=== PATIENT | female | born 1980 | race Caucasian/White ===

== ENCOUNTER 2016-07-11 16:28 | Emergency (ER) | payer OTHER, MEDICAID ==
[2016-07-11 17:47] VITALS: BP 172/104
[2016-07-11] MEDS ORDERED: HYDROmorphone INJ* 1 MG/ML CARPUJECT SYRINGE IV ONE (17:47)
[2016-07-11] MEDS ORDERED: NS 0.9% 1000 ML* 1,000 ML IV ONE (17:47)
[2016-07-11] MEDS ORDERED: Ondansetron INJ* 2 MG/ML VIAL IV ONE (17:47)
[2016-07-11 17:56] LABS: Hematocrit 38 % (35-47); Hemoglobin 12.3 g/dl (12.0-16.0); Mean Corpuscular HGB Conc 32 g/dl (31-36); Mean Corpuscular Hemoglobin 27 pg (27-31); Mean Corpuscular Volume 83 fL (80-97); Mean Platelet Volume 9 um3 (7.4-10.4); Red Blood Count 4.64 10^6/ul (4.0-5.4); Red Cell Distribution Width 15 % (10.5-15); White Blood Count 9.4 10^3/ul (3.5-10.8)
[2016-07-11 18:05] LABS: Urine Bilirubin Negative (Negative); Urine Glucose Negative (Negative); Urine Nitrite Negative (Negative)
[2016-07-11 18:07] LABS: ALT 29 U/L (7-52); AST 16 U/L (13-39); Alkaline Phosphatase 34 U/L (34-104); Anion Gap 7 mmol/L (2-11); BUN/Creatinine Ratio 15.2 (8-20); Blood Urea Nitrogen 10 mg/dL (6-24); C Reactive Protein 13.69 mg/L (< 5.00); CO2 Carbon Dioxide 27 mmol/L (22-32); Calcium 9.3 mg/dL (8.6-10.3); Chloride 102 mmol/L (101-111); EGFR African American 130.3 (>60); EGFR Non-African American 101.3 (>60); Glucose 122 mg/dL (70-100); Lipase 16 U/L (11.0-82.0); Potassium 3.8 mmol/L (3.5-5.0); Sodium 136 mmol/L (133-145)
--- NOTE | 2016-07-11 18:47 | RAD ---
HISTORY: Right adnexal pain, history of left oophorectomy COMPARISONS: August 19, 2013 TECHNIQUE: Multiple transverse and longitudinal ultrasound images were obtained of the pelvis using grayscale, color Doppler, and spectral Doppler imaging using the endovaginal transducer. FINDINGS: UTERUS: The uterus measures 11 x 5.1 x 5.8 cm. The uterus is normal in shape, size, contour, and echotexture. Multiple cervical nabothian cysts are noted. ENDOMETRIUM: The endometrial stripe is smooth. The endometrium measures 1.2 cm in thickness. CUL-DE-SAC: There is no free fluid within the cul-de-sac. RIGHT OVARY: The right ovary measures 4.4 x 2.4 x 4.1 cm. Multiple follicles are noted. Normal arterial and venous waveforms are identifiable within the ovary on spectral Doppler imaging. LEFT OVARY: The left ovary is not visualized. BLADDER: The bladder is not well visualized. IMPRESSION: UNREMARKABLE ULTRASOUND OF THE PELVIS. NO SONOGRAPHIC FEATURES OF TORSION. PLEASE NOTE THAT PARTIAL OR INTERMITTENT TORSION MAY BE SONOGRAPHICALLY NORMAL.
--- NOTE | 2016-07-11 23:23 | ED ---
Sukhdeep Rios Anna, scribed for Gary Gibbs MD on 07/11/16 at 1749 . Abdominal Pain/Female - HPI Summary HPI Summary: Patient is a 36 y/o female coming to [facility] presenting with right suprapubic abdominal pain that began a few days ago. The initial pain was at baseline for at her this point in her menstrual cycle, but it worsened 2 hours ago. Per triage notes, the patient describes the severity of their symptoms as 10/10. The pain radiates to the right suprapubic region. She has not tried medication yet. She additionally reports nausea secondary to the pain. She is currently on Keflex. Her history is significant for left salpingo oophorectomy and cholecystectomy. - History of Current Complaint Chief Complaint: EDAbdPain Stated Complaint: ABD PAIN Time Seen by Provider: 07/11/16 16:49 Hx Obtained From: Patient Hx Last Menstrual Period: 06/27/16 Pain Intensity: 10 Pain Scale Used: 0-10 Numeric Allergies/Adverse Reactions: Allergies Allergy/AdvReac Type Severity Reaction Status Date / Time Penicillins Allergy Severe Hives Verified 07/11/16 16:40 Potassium Allergy Severe Difficulty Verified 07/11/16 16:40 Breathing Prednisone Allergy Severe CHEST Verified 07/11/16 16:40 PAIN, HEART RACING Clindamycin Allergy Mild Rash Verified 07/11/16 16:40 Metoprolol Allergy Mild Rash Verified 07/11/16 16:40 Sulfa Drugs Allergy Unknown UNK Verified 07/11/16 16:40 Quetiapine [From Seroquel] Allergy Unknown Verified 07/11/16 16:40 Reaction Details SHRIMP Allergy Severe Swelling Uncoded 07/11/16 16:40 PMH/Surg Hx/FS Hx/Imm Hx Endocrine/Hematology History: Denies: Hx Diabetes, Hx Sickle Cell Disease, Hx Thyroid Disease Cardiovascular History: Reports: Hx Hypertension - ON MEDS Denies: Hx Hypercholesterolemia, Hx Pacemaker/ICD, Hx Peripheral Vascular Disease Respiratory History: Reports: Hx Asthma, Hx Seasonal Allergies Denies: Hx Chronic Obstructive Pulmonary Disease (COPD) GI History: Reports: Hx Gastroesophageal Reflux Disease - TUMS Denies: Hx Ulcer, Other GI Disorders History: Reports: Hx Kidney Stones - 2010, Other Problems/Disorders - pcos Denies: Hx Renal Disease Musculoskeletal History: Reports: Hx Tendonitis - IN LEFT ANKLE, Other Musculoskeletal History - neck problems - herniated cervical disc Denies: Hx Arthritis, Hx Osteoporosis Sensory History: Denies: Hx Contacts or Glasses, Hx Hearing Aid Opthamlomology History: Denies: Hx Contacts or Glasses Neurological History: Reports: Other Neuro Impairments/Disorders - PAIN CLINIC PT Denies: Hx Headaches, Hx Seizures, Hx Transient Ischemic Attacks (TIA) Psychiatric History: Denies: Hx Anxiety, Hx Depression, Hx Panic Disorder - Surgical History Surgery Procedure, Year, and Place: tubes in ears as child. LEFT ovary removed ; TUBAL LIGATION, HX OF 2 C-SECTIONS. appendix 2002. gallbladder 2002. EUA L knee. R thumb - pin for torn ligaments. tonsillectomy. R wrist 2010 Hx Anesthesia Reactions: No Infectious Disease History: No Infectious Disease History: Denies: Hx Clostridium Difficile, Hx Hepatitis, Hx Human Immunodeficiency Virus (HIV), Hx of Known/Suspected MRSA, Hx Shingles, Hx Tuberculosis, Hx Known/ Suspected VRE, Hx Known/Suspected VRSA, History Other Infectious Disease, Traveled Outside the [place] in Last 30 Days - Family History Known Family History: Negative: Cardiac Disease, Diabetes - Social History Lives: With Family Alcohol Use: None Hx Substance Use: No Substance Use Type: Reports: None Hx Tobacco Use: No Smoking Status (MU): Never Smoked Tobacco Have You Smoked in the Last Year: No Review of Systems Positive: Abdominal Pain, Nausea Positive: no symptoms reported All Other Systems Reviewed And Are Negative: Yes Physical Exam Triage Information Reviewed: Yes Vital Signs On Initial Exam: Initial Vitals Temp Pulse Resp BP Pulse Ox 98.3 F 110 18 176/121 100 07/11/16 16:37 07/11/16 16:37 07/11/16 16:37 07/11/16 16:37 07/11/16 16:37 Vital Signs Reviewed: Yes Appearance: Positive: Well-Appearing, No Pain Distress Skin: Positive: Warm, Skin Color Reflects Adequate Perfusion, Dry Head/Face: Positive: Normal Head/Face Inspection Eyes: Positive: Normal ENT: Positive: Normal ENT inspection Neck: Positive: Supple, Nontender Respiratory/Lung Sounds: Positive: Clear to Auscultation, Breath Sounds Present Cardiovascular: Positive: RRR Abdomen Description: Positive: Other: - RLQ tenderness Bowel Sounds: Positive: Present Musculoskeletal: Positive: Normal Neurological: Positive: Normal Psychiatric: Positive: Affect/Mood Appropriate Diagnostics - Vital Signs Vital Signs Temp Pulse Resp BP Pulse Ox 07/11/16 16:37 98.3 F 110 18 176/121 100 - Laboratory Lab Results: Lab Results 07/11/16 07/11/16 07/11/16 Range/Units 17:35 17:35 17:35 WBC 9.4 (3.5-10.8) 10^3/ul RBC 4.64 (4.0-5.4) 10^6/ul Hgb 12.3 (12.0-16.0) g/dl Hct 38 (35-47) % MCV 83 (80-97) fL MCH 27 (27-31) pg MCHC 32 (31-36) g/dl RDW 15 (10.5-15) % Plt Count 293 (150-450) 10^3/ul MPV 9 (7.4-10.4) um3 Neut % (Auto) 71.7 (38-83) % Lymph % (Auto) 19.8 L (25-47) % [place] % (Auto) 6.7 (1-9) % Eos % (Auto) 0.6 (0-6) % Baso % (Auto) 1.2 (0-2) % Absolute Neuts (auto) 6.7 (1.5-7.7) 10^3/ul Absolute Lymphs (auto) 1.9 (1.0-4.8) 10^3/ul Absolute Monos (auto) 0.6 (0-0.8) 10^3/ul Absolute Eos (auto) 0.1 (0-0.6) 10^3/ul Absolute Basos (auto) 0.1 (0-0.2) 10^3/ul Absolute Nucleated RBC 0 10^3/ul Nucleated RBC % 0 Sodium 136 (133-145) mmol/L Potassium 3.8 (3.5-5.0) mmol/L Chloride 102 (101-111) mmol/L Carbon Dioxide 27 (22-32) mmol/L Anion Gap 7 (2-11) mmol/L BUN 10 (6-24) mg/dL Creatinine 0.66 (0.51-0.95) mg/dL Est GFR ( Amer) 130.3 (>60) Est GFR (Non-Af Amer) 101.3 (>60) BUN/Creatinine Ratio 15.2 (8-20) Glucose 122 H (70-100) mg/dL Lactic Acid 1.2 (0.5-2.0) mmol/L Calcium 9.3 (8.6-10.3) mg/dL Total Bilirubin 0.30 (0.2-1.0) mg/dL AST 16 (13-39) U/L ALT 29 (7-52) U/L Alkaline Phosphatase 34 (34-104) U/L C-Reactive Protein 13.69 H (< 5.00) mg/L Total Protein 7.0 (6.4-8.9) g/dL Albumin 4.0 (3.2-5.2) g/dL Globulin 3.0 (2-4) g/dL Albumin/Globulin Ratio 1.3 (1-3) Lipase 16 (11.0-82.0) U/L Beta HCG, Quant < 0.60 mIU/mL Urine Color Urine Appearance Urine pH (5-9) Ur Specific [place] (1.010-1.030) Urine Protein (Negative) Urine Ketones (Negative) Urine Blood (Negative) Urine Nitrate (Negative) Urine Bilirubin (Negative) Urine Urobilinogen (Negative) Ur Leukocyte Esterase (Negative) Urine Glucose (Negative) 07/11/16 Range/Units 17:50 WBC (3.5-10.8) 10^3/ul RBC (4.0-5.4) 10^6/ul Hgb (12.0-16.0) g/dl Hct (35-47) % MCV (80-97) fL MCH (27-31) pg MCHC (31-36) g/dl RDW (10.5-15) % Plt Count (150-450) 10^3/ul MPV (7.4-10.4) um3 Neut % (Auto) (38-83) % Lymph % (Auto) (25-47) % [place] % (Auto) (1-9) % Eos % (Auto) (0-6) % Baso % (Auto) (0-2) % Absolute Neuts (auto) (1.5-7.7) 10^3/ul Absolute Lymphs (auto) (1.0-4.8) 10^3/ul Absolute Monos (auto) (0-0.8) 10^3/ul Absolute Eos (auto) (0-0.6) 10^3/ul Absolute Basos (auto) (0-0.2) 10^3/ul Absolute Nucleated RBC 10^3/ul Nucleated RBC % Sodium (133-145) mmol/L Potassium (3.5-5.0) mmol/L Chloride (101-111) mmol/L Carbon Dioxide (22-32) mmol/L Anion Gap (2-11) mmol/L BUN (6-24) mg/dL Creatinine (0.51-0.95) mg/dL Est GFR ( Amer) (>60) Est GFR (Non-Af Amer) (>60) BUN/Creatinine Ratio (8-20) Glucose (70-100) mg/dL Lactic Acid (0.5-2.0) mmol/L Calcium (8.6-10.3) mg/dL Total Bilirubin (0.2-1.0) mg/dL AST (13-39) U/L ALT (7-52) U/L Alkaline Phosphatase (34-104) U/L C-Reactive Protein (< 5.00) mg/L Total Protein (6.4-8.9) g/dL Albumin (3.2-5.2) g/dL Globulin (2-4) g/dL Albumin/Globulin Ratio (1-3) Lipase (11.0-82.0) U/L Beta HCG, Quant mIU/mL Urine Color Yellow Urine Appearance Clear Urine pH 6.0 (5-9) Ur Specific [place] 1.018 (1.010-1.030) Urine Protein Negative (Negative) Urine Ketones Negative (Negative) Urine Blood Negative (Negative) Urine Nitrate Negative (Negative) Urine Bilirubin Negative (Negative) Urine Urobilinogen Negative (Negative) Ur Leukocyte Esterase Negative (Negative) Urine Glucose Negative (Negative) Result Diagrams: 07/11/16 17:35 07/11/16 17:35 Lab Statement: Any lab studies that have been ordered have been reviewed, and results considered in the medical decision making process. - Ultrasound No standard instances Ultrasound Interpretation: No Acute Changes Ultrasound Interpretation Completed By: Radiologist - IMPRESSION: UNREMARKABLE ULTRASOUND OF THE PELVIS. NO SONOGRAPHIC FEATURES OF TORSION. PLEASE NOTE THAT PARTIAL OR INTERMITTENT TORSION MAY BE SONOGRAPHICALLY NORMAL. Abdominal Pain Fem Course/Dx - Course Course Of Treatment: Patient is a 36 y/o female coming to [facility] presenting with right suprapubic abdominal pain that began a few days ago. The initial pain was at baseline for at her this point in her menstrual cycle, but it worsened 2 hours ago. Per triage notes, the patient describes the severity of their symptoms as 10/10. The pain radiates to the right suprapubic region. She has not tried medication yet. She is currently on Keflex. Her history is significant for left salpingo oophorectomy and cholecystectomy. Labs reveal a C- reactive protein of 13.69. UA was WNL. US was unremarkable. Pt will be discharged home with follow up from doctor. We discussed CT scan but she wants to wait. - Diagnoses Provider Diagnoses: Abdominal pain Discharge - Discharge Plan Condition: Stable Disposition: HOME Patient Education Materials: Acute Abdominal Pain (ED), Abdominal Pain (ED) Referrals: Merlene Amin MD [Primary Care Provider] - Additional Instructions: Follow up with primary care physician within 48 hours. Return to the emergency department for changing or worsening symptoms. The documentation as recorded by the Sukhdeep mejia Anna accurately reflects the service I personally performed and the decisions made by me, Gary Gibbs MD.
== END 2016-07-11 19:15 | disposition home or self-care (01) ==
LOC: ED 16:28
DX: R10.31 Right lower quadrant pain (principal); R11.0 Nausea
CPT/HCPCS: 36415; 76830; 80053; 81003; 83605; 83690; 84702; 85025; 86140; 96374; 96375; 99283; J1170; J2405

== ENCOUNTER 2016-07-23 10:38 | Emergency (ER) | payer OTHER, MEDICAID ==
[2016-07-23] MEDS ORDERED: Ibuprofen TAB* 600 MG PO ONE (11:33)
--- NOTE | 2016-07-23 11:59 | UC ---
Ear Complaint HPI - HPI Summary HPI Summary: Bilat ear pain, occasional stuffiness, constant feeling of draining worse for the last 3 days or so. Has had nasal congestion, ST, and PND for about a week. Hx of recurrent AOM as child and adult, PE tubes x 2. Denies fever or trouble breathing (is using albuterol more frequently when sick). - History of Current Complaint Chief Complaint: UCEar Stated Complaint: SEVERE EAR PAIN Time Seen by Provider: 07/23/16 11:31 Hx Obtained From: Patient Hx Last Menstrual Period: 06/29/16 ?: No Onset/Duration: Gradual Onset, Lasting Days Severity Initially: Mild Severity Currently: Moderate Aggravating Factors: Nothing Alleviating Factors: Nothing Associated Signs/Symptoms: Positive: Hearing Loss, URI Symptoms - Allergies/Home Medications Allergies/Adverse Reactions: Allergies Allergy/AdvReac Type Severity Reaction Status Date / Time Penicillins Allergy Severe Hives Verified 07/11/16 16:40 Potassium Allergy Severe Difficulty Verified 07/11/16 16:40 Breathing Prednisone Allergy Severe CHEST Verified 07/11/16 16:40 PAIN, HEART RACING Clindamycin Allergy Mild Rash Verified 07/11/16 16:40 Metoprolol Allergy Mild Rash Verified 07/11/16 16:40 Sulfa Drugs Allergy Unknown UNK Verified 07/11/16 16:40 Quetiapine [From Seroquel] Allergy Unknown Verified 07/11/16 16:40 Reaction Details SHRIMP Allergy Severe Swelling Uncoded 07/11/16 16:40 Home Medications: Home Medications Loratadine [Claritin] 1 tab PO DAILY 07/23/16 [History Confirmed 07/23/16] Losartan TAB* [Cozaar TAB*] 50 mg PO 07/23/16 [History] PMH/Surg Hx/FS Hx/Imm Hx Endocrine History Of: Denies: Diabetes, Thyroid Disease, Hyperthyroidism, Hypothyroidism Cardiovascular History Of: Reports: Hypertension Denies: Cardiac Disorders, Pacemaker/ICD Respiratory History Of: Reports: Asthma Denies: COPD GI/ History Of: Reports: Gastroesophageal Reflux, Kidney Stones - 2009 Denies: Ulcer, Renal Disease Neurological History Of: Denies: TIA, Seizures Psychological History Of: Denies: Anxiety, Depression Cancer History Of: Denies: Breast Cancer - Surgical History Surgical History: Yes Surgery Procedure, Year, and Place: tubes in ears as child. LEFT ovary removed ; TUBAL LIGATION, HX OF 2 C-SECTIONS. appendix 2003. gallbladder 2002. EUA L knee. R thumb - pin for torn ligaments. tonsillectomy. R wrist 2010 - Family History Known Family History: Positive: None, Unknown Negative: Cardiac Disease, Diabetes - Social History Alcohol Use: None Substance Use Type: None Smoking Status (MU): Never Smoked Tobacco Have You Smoked in the Last Year: No Household Exposure Type: Cigarettes Review of Systems Constitutional: Negative Skin: Negative Eyes: Negative ENT: Ear Ache, Nasal Discharge Respiratory: Negative Cardiovascular: Negative Gastrointestinal: Negative Genitourinary: Negative Motor: Negative Neurovascular: Negative Musculoskeletal: Negative Neurological: Negative Psychological: Negative All Other Systems Reviewed And Are Negative: Yes Physical Exam Triage Information Reviewed: Yes Appearance: Well-Appearing, No Pain Distress, Obese Vital Signs: Initial Vital Signs Temp 98.2 F 07/23/16 11:18 Pulse 91 07/23/16 11:18 Resp 18 07/23/16 11:18 BP 151/100 07/23/16 11:18 Pulse Ox 98 07/23/16 11:18 Vital Signs Reviewed: Yes Eye Exam: Normal Eyes: Positive: Conjunctiva Clear ENT: Positive: Nasal congestion, TMs normal, Other: - fluid noted behind both ear drums. Negative: TM bulging, TM dull, TM red Dental Exam: Normal Neck exam: Normal Neck: Positive: Supple, Nontender, No Lymphadenopathy Respiratory Exam: Normal Respiratory: Positive: Chest non-tender, Lungs clear, Normal breath sounds, No respiratory distress, No accessory muscle use Cardiovascular Exam: Normal Cardiovascular: Positive: RRR, No Murmur Musculoskeletal Exam: Normal Neurological Exam: Normal Psychological Exam: Normal Skin Exam: Normal Ear Complaint Course/Dx - Differential Dx/Diagnosis Provider Diagnoses: URI, likely viral. serous otitis media bilat Discharge - Discharge Plan Condition: Stable Disposition: HOME Patient Education Materials: Cold Symptoms (ED), Serous Otitis Media (ED) Referrals: Merlene Amin MD [Primary Care Provider] - If Needed Additional Instructions: Use steam and nasal saline to help with your congestion. If you have fever, sudden increase in pain (in ears or face), or drainage from the ears, call or return right away.
[2016-07-23 12:00] VITALS: BP 154/96
== END 2016-07-23 12:05 | disposition home or self-care (01) ==
LOC: UCEAST 10:38
DX: J06.9 Acute upper respiratory infection, unspecified (principal); H65.93 Unspecified nonsuppurative otitis media, bilateral; Z88.1 Allergy status to other antibiotic agents; Z88.0 Allergy status to penicillin; Z88.2 Allergy status to sulfonamides; Z88.8 Allergy status to other drugs, medicaments and biological substances; I10 Essential (primary) hypertension; Z90.49 Acquired absence of other specified parts of digestive tract; Z77.22 Contact with and (suspected) exposure to environmental tobacco smoke (acute) (chronic); R03.0 Elevated blood-pressure reading, without diagnosis of hypertension
CPT/HCPCS: 99212; A9270-GY; G0463

== ENCOUNTER 2016-08-14 10:28 | Emergency (ER) | payer OTHER, MEDICAID ==
--- NOTE | 2016-08-14 10:44 | ED ---
Lower Extremity - HPI Summary HPI Summary: 36F presents s/p fall with tailbone and back pain and left knee pain. She states that she previously tore her meniscus. She has not taken anything for her pain. She was able to ambulate well to the room. She denies any previous back injury. She denies any saddle anaesthesia or loss of bowel or bladder. - History of Current Complaint Chief Complaint: EDExtremityLower Stated Complaint: FALL , LEFT HIP AND BACK AND LEFT KNEE PAIN Time Seen by Provider: 08/14/16 10:39 Hx Last Menstrual Period: 06/29/16 Pain Intensity: 10 - Allergies/Home Medications Allergies/Adverse Reactions: Allergies Allergy/AdvReac Type Severity Reaction Status Date / Time Penicillins Allergy Severe Hives Verified 08/14/16 10:31 Potassium Allergy Severe Difficulty Verified 08/14/16 10:31 Breathing Prednisone Allergy Severe CHEST Verified 08/14/16 10:31 PAIN, HEART RACING Clindamycin Allergy Mild Rash Verified 08/14/16 10:31 Metoprolol Allergy Mild Rash Verified 08/14/16 10:31 Sulfa Drugs Allergy Unknown UNK Verified 08/14/16 10:31 Quetiapine [From Seroquel] Allergy Unknown Verified 08/14/16 10:31 Reaction Details SHRIMP Allergy Severe Swelling Uncoded 08/14/16 10:31 PMH/Surg Hx/FS Hx/Imm Hx Endocrine/Hematology History: Denies: Hx Diabetes, Hx Sickle Cell Disease, Hx Thyroid Disease Cardiovascular History: Reports: Hx Hypertension Denies: Hx Hypercholesterolemia, Hx Pacemaker/ICD, Hx Peripheral Vascular Disease Respiratory History: Reports: Hx Asthma, Hx Seasonal Allergies Denies: Hx Chronic Obstructive Pulmonary Disease (COPD) GI History: Reports: Hx Gastroesophageal Reflux Disease - TUMS Denies: Hx Ulcer, Other GI Disorders History: Reports: Hx Kidney Stones - 2010, Other Problems/Disorders - pcos Denies: Hx Renal Disease Musculoskeletal History: Reports: Hx Tendonitis - IN LEFT ANKLE, Other Musculoskeletal History - neck problems - herniated cervical disc Denies: Hx Arthritis, Hx Osteoporosis Sensory History: Denies: Hx Contacts or Glasses, Hx Hearing Aid Opthamlomology History: Denies: Hx Contacts or Glasses Neurological History: Reports: Other Neuro Impairments/Disorders - PAIN CLINIC PT Denies: Hx Headaches, Hx Seizures, Hx Transient Ischemic Attacks (TIA) Psychiatric History: Denies: Hx Anxiety, Hx Depression, Hx Panic Disorder - Surgical History Surgery Procedure, Year, and Place: tubes in ears as child. LEFT ovary removed ; TUBAL LIGATION, HX OF 2 C-SECTIONS. appendix 2002. gallbladder 2002. EUA L knee. R thumb - pin for torn ligaments. tonsillectomy. R wrist 2010 Hx Anesthesia Reactions: No Infectious Disease History: No Infectious Disease History: Denies: Hx Clostridium Difficile, Hx Hepatitis, Hx Human Immunodeficiency Virus (HIV), Hx of Known/Suspected MRSA, Hx Shingles, Hx Tuberculosis, Hx Known/ Suspected VRE, Hx Known/Suspected VRSA, History Other Infectious Disease, Traveled Outside the [place] in Last 30 Days - Family History Known Family History: Positive: None, Unknown Negative: Cardiac Disease, Diabetes - Social History Alcohol Use: None Hx Substance Use: No Substance Use Type: Reports: None Hx Tobacco Use: No Smoking Status (MU): Never Smoked Tobacco Have You Smoked in the Last Year: No Review of Systems Negative: Fever Negative: Chest Pain Negative: Shortness Of Breath Positive: Myalgia - back pain, left knee pain All Other Systems Reviewed And Are Negative: Yes Physical Exam Triage Information Reviewed: Yes Vital Signs On Initial Exam: Initial Vitals Temp Pulse Resp BP Pulse Ox 97.8 F 91 18 173/101 100 08/14/16 10:32 08/14/16 10:32 08/14/16 10:32 08/14/16 10:32 08/14/16 10:32 Vital Signs Reviewed: Yes Appearance: Positive: Well-Appearing Skin: Positive: Warm, Dry Head/Face: Positive: Normal Head/Face Inspection, TMJ Tenderness Respiratory/Lung Sounds: Positive: Clear to Auscultation, Breath Sounds Present Cardiovascular: Positive: Normal, RRR Musculoskeletal: Positive: Strength/ROM Intact - tenderness over right knee, Other - ecchymosis noted of left knee, tenderness over tailbone and lower lumbar region, good pulses, neg SLR, negative anteroir drawer. Negative: Edema Left Diagnostics - Vital Signs Vital Signs Temp Pulse Resp BP Pulse Ox 08/14/16 10:32 97.8 F 91 18 173/101 100 - Laboratory Lab Statement: Any lab studies that have been ordered have been reviewed, and results considered in the medical decision making process. - Radiology knee Xray Interpretation: No Acute Changes Radiology Interpretation Completed By: Radiologist back Xray Interpretation: No Acute Changes Radiology Interpretation Completed By: Radiologist sacrum Xray Interpretation: No Acute Changes - IMPRESSION: NO ACUTE OSSEOUS INJURY OF THE SACRUM AND COCCYX. PLAIN FILMS ARE RELATIVELY INSENSITIVE TO NONDISPLACED FRACTURES OF THE SACRUM AND COCCYX. IF THERE IS PERSISTENT CLINICAL CONCERN FOR SACROCOCCYGEAL OSSEOUS PATHOLOGY, BONE SCANNING MAY BE MORE SENSITIVE Radiology Interpretation Completed By: Radiologist Lower Extremity Course/Dx - Course Course Of Treatment: 36F presents with left knee pain, tailbone and back pain s/ p fall today on the ice. She previously tore her meniscus on her left knee. On exam tender over left knee and ecchymosis noted. xray normal knee, back, and tailbone. told to use doughnut pillow for tailbone, will treat conservatively patient understands and agrees with plan - Diagnoses Differential Diagnosis/HQI/PQRI: Positive: Contusion, Fracture (Closed), Sprain , Strain Provider Diagnoses: Left knee pain, Lower back pain Discharge - Discharge Plan Condition: Good Disposition: HOME Patient Education Materials: Back Pain (ED), Knee Pain (ED) Referrals: Merlene Amin MD [Primary Care Provider] - Additional Instructions: Take Tylenol or ibuprofen every 6 hours as needed for pain Apply ice, rest, elevate Use doughnut pillow Increase fiber intake Follow up with primary care physician within 5 days Return to ED if develop numbness, tingling, inability to move joint, or any new or worsening symptoms
--- NOTE | 2016-08-14 11:18 | RAD ---
INDICATION: Left knee injury. TECHNIQUE: 4 views of the left knee were obtained. FINDINGS: There is mild lateral subluxation of the patella. The bones are otherwise in normal alignment. No fracture or joint effusion is seen. There is mild osteoarthritic change in the patellofemoral compartment. IMPRESSION: NO EVIDENCE FOR FRACTURE.
--- NOTE | 2016-08-14 11:21 | RAD ---
HISTORY: Fall, tailbone pain COMPARISONS: None VIEWS: 4, frontal, lateral, and outlet views of the sacrum and coccyx FINDINGS: BONE DENSITY: Normal. BONES: There is no displaced fracture. The sacral arches are intact JOINTS: There is no arthropathy. ALIGNMENT: There is no dislocation. SOFT TISSUES: Unremarkable. OTHER FINDINGS: Mild degenerative changes are noted of the lower lumbar spine. IMPRESSION: NO ACUTE OSSEOUS INJURY OF THE SACRUM AND COCCYX. PLAIN FILMS ARE RELATIVELY INSENSITIVE TO NONDISPLACED FRACTURES OF THE SACRUM AND COCCYX. IF THERE IS PERSISTENT CLINICAL CONCERN FOR SACROCOCCYGEAL OSSEOUS PATHOLOGY, BONE SCANNING MAY BE MORE SENSITIVE
--- NOTE | 2016-08-14 11:25 | RAD ---
Indication: Fall, back pain. 5 views of lumbar spine demonstrate vertebral bodies to be normal in height. Disc spaces are well-preserved. Pedicles appear intact. IMPRESSION: NO FRACTURE OF THE LUMBAR SPINE.
[2016-08-14 11:49] VITALS: BP 144/103
== END 2016-08-14 11:47 | disposition home or self-care (01) ==
LOC: ED 10:28
DX: M25.562 Pain in left knee (principal); M54.5 Low back pain
CPT/HCPCS: 72110; 72220; 99282

== ENCOUNTER 2016-09-11 21:37 | Emergency (ER) | payer OTHER, MEDICAID ==
[2016-09-12 00:03] VITALS: BP 154/92
--- NOTE | 2016-09-12 01:50 | ED ---
Back Pain - HPI Summary HPI Summary: Pt presents to ED with CC of diffuse buttocks pain and right hip pain. Pt states that she gets this " with her cycle", but reports that the pain is markedly worse than usual. Pt denies chronic back pain. She denies flank pain. Today is the first day of her cycle and states this is always when pain is at its worse. She has a history of dysmenorrhea and the pain always is in the same location and feels the same, although this time she states it is worse. She took 3 ibuprofen's without relief of pain. Denies urinary sxs, N/V/C/D, hematuria, vaginal discharge or abdominal pain. Denies fevers, chills, sweats or CUTLER. Patient has high BP and GERD. - History of Current Complaint Chief Complaint: EDGeneral Stated Complaint: LOWER HIP/BACK PAIN Time Seen by Provider: 09/12/16 01:09 Hx Obtained From: Patient Hx Last Menstrual Period: 06/29/16 Onset/Duration: Sudden Onset Onset/Duration: Started Hours Ago Timing: Constant Back Pain Location: Is Discrete @ - buttocks Severity Initially: Moderate Severity Currently: Moderate Pain Intensity: 10 Pain Scale Used: 0-10 Numeric Character: Throbbing Aggravating Symptom(s): Movement Alleviating Symptom(s): Rest, Position, Heat Associated Signs And Symptoms: Positive: Negative Related History: Similar Episode Dx As - previous dysmenorrhea sxs - Risk Factors AAA Risk Factors: Negative TAD Risk Factors: Negative Cauda Equina Risk Factors: Negative Epidural Abscess Risk Factors: Negative - Allergies/Home Medications Allergies/Adverse Reactions: Allergies Allergy/AdvReac Type Severity Reaction Status Date / Time Penicillins Allergy Severe Hives Verified 09/11/16 21:53 Potassium Allergy Severe Difficulty Verified 09/11/16 21:53 Breathing Prednisone Allergy Severe CHEST Verified 09/11/16 21:53 PAIN, HEART RACING Clindamycin Allergy Mild Rash Verified 09/11/16 21:53 Metoprolol Allergy Mild Rash Verified 09/11/16 21:53 Sulfa Drugs Allergy Unknown UNK Verified 09/11/16 21:53 Quetiapine [From Seroquel] Allergy Unknown Verified 09/11/16 21:53 Reaction Details SHRIMP Allergy Severe Swelling Uncoded 09/11/16 21:53 PMH/Surg Hx/FS Hx/Imm Hx Previously Healthy: Yes Endocrine/Hematology History: Denies: Hx Diabetes, Hx Sickle Cell Disease, Hx Thyroid Disease Cardiovascular History: Reports: Hx Hypertension Denies: Hx Hypercholesterolemia, Hx Pacemaker/ICD, Hx Peripheral Vascular Disease Respiratory History: Reports: Hx Asthma, Hx Seasonal Allergies Denies: Hx Chronic Obstructive Pulmonary Disease (COPD) GI History: Reports: Hx Gastroesophageal Reflux Disease - TUMS Denies: Hx Ulcer, Other GI Disorders History: Reports: Hx Kidney Stones - 2010, Other Problems/Disorders - pcos Denies: Hx Renal Disease Musculoskeletal History: Reports: Hx Tendonitis - IN LEFT ANKLE, Other Musculoskeletal History - neck problems - herniated cervical disc Denies: Hx Arthritis, Hx Osteoporosis Sensory History: Denies: Hx Contacts or Glasses, Hx Hearing Aid Opthamlomology History: Denies: Hx Contacts or Glasses Neurological History: Reports: Other Neuro Impairments/Disorders - PAIN CLINIC PT Denies: Hx Headaches, Hx Seizures, Hx Transient Ischemic Attacks (TIA) Psychiatric History: Denies: Hx Anxiety, Hx Depression, Hx Panic Disorder - Cancer History Hx Hematologic Symptoms: No Hx Chemotherapy: No Hx Radiation Therapy: No Hx Palliative Cancer Treatment: No - Surgical History Surgery Procedure, Year, and Place: tubes in ears as child. LEFT ovary removed ; TUBAL LIGATION, HX OF 2 C-SECTIONS. appendix 2002. gallbladder 2002. EUA L knee. R thumb - pin for torn ligaments. tonsillectomy. R wrist 2010 Hx Anesthesia Reactions: No - Immunization History Date of Tetanus Vaccine: utd Date of Influenza Vaccine: utd Hx Pertussis Vaccination: No Immunizations Up to Date: No Infectious Disease History: No Infectious Disease History: Denies: Hx Clostridium Difficile, Hx Hepatitis, Hx Human Immunodeficiency Virus (HIV), Hx of Known/Suspected MRSA, Hx Shingles, Hx Tuberculosis, Hx Known/ Suspected VRE, Hx Known/Suspected VRSA, History Other Infectious Disease, Traveled Outside the [place] in Last 30 Days - Family History Known Family History: Positive: None, Unknown Negative: Cardiac Disease, Diabetes - Social History Occupation: Unemployed Lives: With Family Alcohol Use: None Hx Substance Use: No Substance Use Type: Reports: None Hx Tobacco Use: No Smoking Status (MU): Never Smoked Tobacco Have You Smoked in the Last Year: No Review of Systems Constitutional: Negative Eyes: Negative Cardiovascular: Negative Respiratory: Negative Positive: Myalgia - buttocks pain bilaterally Skin: Negative Neurological: Negative Psychological: Normal All Other Systems Reviewed And Are Negative: Yes Physical Exam Triage Information Reviewed: Yes Vital Signs On Initial Exam: Initial Vitals Temp Pulse Resp BP Pulse Ox 98.0 F 88 16 186/121 100 09/11/16 21:45 09/11/16 21:45 09/11/16 21:45 09/11/16 21:45 09/11/16 21:45 Vital Signs Reviewed: Yes Appearance: Positive: Well-Appearing, No Pain Distress, Well-Nourished Skin: Positive: Warm, Skin Color Reflects Adequate Perfusion Head/Face: Positive: Normal Head/Face Inspection Eyes: Positive: EOMI, JEROD, Conjunctiva Clear Neck: Positive: Supple, No Lymphadenopathy Respiratory/Lung Sounds: Positive: Clear to Auscultation, Breath Sounds Present Cardiovascular: Positive: Normal, RRR Abdomen Description: Positive: Nontender, Soft Musculoskeletal: Positive: Normal, Strength/ROM Intact Neurological: Positive: Sensory/Motor Intact, CN Intact II-III, Speech Normal Psychiatric: Positive: Normal AVPU Assessment: Alert - Natalie Coma Scale Best Eye Response: 4 - Spontaneous Best Motor Response: 6 - Obeys Commands Best Verbal Response: 5 - Oriented Coma Scale Total: 15 Diagnostics - Vital Signs Vital Signs Temp Pulse Resp BP Pulse Ox 09/11/16 23:50 97.6 F 75 16 154/92 99 09/11/16 21:45 98.0 F 88 16 186/121 100 - Laboratory Lab Statement: Any lab studies that have been ordered have been reviewed, and results considered in the medical decision making process. Back Pain Course/Dx - Course Course Of Treatment: Patient has bilateral buttocks pain she states is referred from her menstrual cycle. She notes to some cramping in the abdomen, but always has the same pain that radiates to the buttocks. This time, she notes pain at 10/10. Everett 10mg given in ED. Everett 5mg q4 given as prescription. Patient encouraged to use heating pads, ibuprofen and follow up with OBGYN. - Diagnoses Differential Diagnosis/HQI/PQRI: Positive: Strain, Sprain, Other - dysmenorrhea Provider Diagnoses: Dysmenorrhea Discharge - Discharge Plan Condition: Stable Disposition: HOME Prescriptions: HYDROcodone/ACETAMIN 5-325 MG* [Everett 5-325 TAB*] 1 tab PO Q4H PRN #10 tab MDD 6 PRN Reason: Pain Patient Education Materials: Dysmenorrhea (ED) Referrals: Merlene Amin MD [Primary Care Provider] - Additional Instructions: Dx: Dysmenorrhea Cramping and muscle aches are best controlled with Ibuprofen 600mg three times daily as well as moist heating pads to the area. If pain is not controlled with Ibuprofen, take Everett as needed for pain. Follow up with OBGYN. Rest, but do not sit on the area as this will delay improvement.
[2016-09-12] MEDS ORDERED: HYDROcodone/ACETAMIN 5-325 MG* 1 TAB PO ONE (01:51)
== END 2016-09-12 03:12 | disposition home or self-care (01) ==
LOC: ED 21:37
DX: N94.6 Dysmenorrhea, unspecified (principal); M54.9 Dorsalgia, unspecified
CPT/HCPCS: 99281

== ENCOUNTER 2016-10-14 11:26 | Emergency (ER) | payer OTHER, MEDICAID ==
[2016-10-14 14:43] VITALS: BP 150/98
--- NOTE | 2016-10-14 15:13 | UC ---
Complaint Female HPI - HPI Summary HPI Summary: Urinary pain burning and frequency for 3 days no fever chills back pain or night sweats - History Of Current Complaint Chief Complaint: UCGU Stated Complaint: URINARY ISSUE Time Seen by Provider: 10/14/16 15:06 Hx Obtained From: Patient Hx Last Menstrual Period: 10/05/16 ?: No Onset/Duration: Sudden Onset, Lasting Days - 3, Still Present Timing: Constant Severity Initially: Moderate Severity Currently: Moderate Pain Intensity: 4 Pain Scale Used: 0-10 Numeric Character: Burning Aggravating Factor(s): Urination Associated Signs And Symptoms: Positive: Negative - Allergies/Home Medications Allergies/Adverse Reactions: Allergies Allergy/AdvReac Type Severity Reaction Status Date / Time Penicillins Allergy Severe Hives Verified 09/11/16 21:53 Potassium Allergy Severe Difficulty Verified 09/11/16 21:53 Breathing Prednisone Allergy Severe CHEST Verified 09/11/16 21:53 PAIN, HEART RACING Clindamycin Allergy Mild Rash Verified 09/11/16 21:53 Metoprolol Allergy Mild Rash Verified 09/11/16 21:53 Sulfa Drugs Allergy Unknown UNK Verified 09/11/16 21:53 Quetiapine [From Seroquel] Allergy Unknown Verified 09/11/16 21:53 Reaction Details SHRIMP Allergy Severe Swelling Uncoded 09/11/16 21:53 Home Medications: Home Medications Annuity 1 puff INH DAILY 10/14/16 [History Confirmed 10/14/16] Beclomethasone Dipropionate (N [Qnasl] 80 mcg NA DAILY 10/14/16 [History] Montelukast Sodium TAB* [Singulair 10 MG TAB*] 10 mg PO DAILY 10/14/16 [History Confirmed 10/14/16] PMH/Surg Hx/FS Hx/Imm Hx Previously Healthy: No Endocrine History Of: Denies: Diabetes, Thyroid Disease, Hyperthyroidism, Hypothyroidism Cardiovascular History Of: Reports: Hypertension Denies: Cardiac Disorders, Pacemaker/ICD Respiratory History Of: Reports: Asthma Denies: COPD GI/ History Of: Reports: Gastroesophageal Reflux, Kidney Stones - 2009 Denies: Ulcer, Renal Disease Neurological History Of: Denies: TIA, Seizures Psychological History Of: Denies: Anxiety, Depression Cancer History Of: Denies: Breast Cancer - Surgical History Surgical History: Yes Surgery Procedure, Year, and Place: tubes in ears as child. LEFT ovary removed ; TUBAL LIGATION, HX OF 2 C-SECTIONS. appendix 2002. gallbladder 2002. Left knee. EUA L knee. R thumb - pin for torn ligaments. tonsillectomy. R wrist 2010 - Family History Known Family History: Positive: None, Unknown Negative: Cardiac Disease, Diabetes - Social History Occupation: Unemployed Lives: With Family Alcohol Use: None Substance Use Type: None Smoking Status (MU): Never Smoked Tobacco Have You Smoked in the Last Year: No Household Exposure Type: Cigarettes - Immunization History Most Recent Influenza Vaccination: season Review of Systems Constitutional: Negative Skin: Negative Eyes: Negative ENT: Negative Respiratory: Negative Cardiovascular: Negative Gastrointestinal: Negative Genitourinary: Dysuria, Frequency, Urgency Motor: Negative Neurovascular: Negative Musculoskeletal: Negative Neurological: Negative Psychological: Negative All Other Systems Reviewed And Are Negative: Yes Physical Exam Triage Information Reviewed: Yes Appearance: Well-Appearing, No Pain Distress Vital Signs: Initial Vital Signs Temp 98.6 F 10/14/16 14:06 Pulse 73 10/14/16 14:06 Resp 16 10/14/16 14:06 BP 154/107 10/14/16 14:06 Pulse Ox 100 10/14/16 14:06 Vital Signs Reviewed: Yes Eye Exam: Normal Eyes: Positive: Conjunctiva Clear ENT Exam: Normal ENT: Positive: Normal ENT inspection, Hearing grossly normal, Pharynx normal. Negative: Nasal congestion, Nasal drainage, Trismus, Muffled/hoarse voice Dental Exam: Normal Neck exam: Normal Neck: Positive: Supple, Nontender, No Lymphadenopathy Respiratory Exam: Normal Respiratory: Positive: Chest non-tender, Normal breath sounds, No respiratory distress, No accessory muscle use Cardiovascular Exam: Normal Cardiovascular: Positive: RRR, No Murmur, Pulses Normal, Brisk Capillary Refill Abdominal Exam: Normal Abdomen Description: Positive: Nontender, No Organomegaly, Soft. Negative: CVA Tenderness (R), CVA Tenderness (L) Musculoskeletal Exam: Normal Musculoskeletal: Positive: Strength Intact, ROM Intact, No Edema Neurological Exam: Normal Neurological: Positive: Alert, Muscle Tone Normal Psychological Exam: Normal Skin Exam: Normal Complaint Female Dx - Course Course Of Treatment: Culture Urine, follow bp with PCP, Macrobid, pyridium, increase fluids - Differential Dx/Diagnosis Differential Diagnosis/HQI/PQRI: Pelvic Inflammatory Disease, Renal Colic, Retained Foreign Body, Urinary Tract Infection Provider Diagnoses: UTI Discharge - Discharge Plan Condition: Stable Disposition: HOME Prescriptions: Nitrofurantoin Monohyd Macro [Macrobid] 100 mg PO BID #20 cap Phenazopyridine TAB* [Pyridium 100 mg TAB*] 100 mg PO TID #6 tab Patient Education Materials: Phenazopyridine (By mouth), Urinary Tract Infection in Women (ED), DASH Eating Plan (ED), Hypertension (ED) Referrals: Merlene Amin MD [Primary Care Provider] - 2 Weeks
== END 2016-10-14 15:22 | disposition home or self-care (01) ==
LOC: UCEAST 11:26
DX: N39.0 Urinary tract infection, site not specified (principal); I10 Essential (primary) hypertension; J45.909 Unspecified asthma, uncomplicated; K21.9 Gastro-esophageal reflux disease without esophagitis; Z87.442 Personal history of urinary calculi; Z88.1 Allergy status to other antibiotic agents; Z88.0 Allergy status to penicillin; Z88.2 Allergy status to sulfonamides; Z88.8 Allergy status to other drugs, medicaments and biological substances; Z77.22 Contact with and (suspected) exposure to environmental tobacco smoke (acute) (chronic)
CPT/HCPCS: 81003; 87086; 99212; G0463

== ENCOUNTER 2017-01-22 20:17 | Emergency (ER) | payer OTHER, MEDICAID ==
--- NOTE | 2017-01-22 21:11 | RAD ---
Indication: Right ankle pain. 3 views of the right ankle demonstrates inferior calcaneal spur. Tiny bony fragment is noted on the dorsal aspect of the navicular. A tiny fracture cannot BE excluded. Ankle mortise is intact. The medial and lateral malleolus are unremarkable. IMPRESSION: Calcific density which may represent a tiny avulsion off the dorsal aspect of the navicular. Clinical correlation is suggested.
[2017-01-22] MEDS ORDERED: Ketorolac INJ* 60 MG/2 ML VIAL IM ONE (22:22)
--- NOTE | 2017-01-22 22:22 | ED ---
Lower Extremity - HPI Summary HPI Summary: 37M presents with right ankle pain today. She woke up with the pain. She has history of ankle pain. She denies any injury. pain is greatest over the lateral aspect of her ankle. She admits to occasionally tingling of her ankle. She is still able to ambulate with pain. She took advil without relief. She has had multiple sprains to ankle in past. - History of Current Complaint Chief Complaint: EDExtremityLower Stated Complaint: RT ANKLE PAIN Time Seen by Provider: 01/22/17 20:55 Hx Last Menstrual Period: 10/05/16 Pain Intensity: 10 - Allergies/Home Medications Allergies/Adverse Reactions: Allergies Allergy/AdvReac Type Severity Reaction Status Date / Time Penicillins Allergy Severe Hives Verified 11/26/16 10:23 Potassium Allergy Severe Difficulty Verified 11/26/16 10:23 Breathing Prednisone Allergy Severe CHEST Verified 11/26/16 10:23 PAIN, HEART RACING Clindamycin Allergy Mild Rash Verified 11/26/16 10:23 Metoprolol Allergy Mild Rash Verified 11/26/16 10:23 Sulfa Drugs Allergy Unknown UNK Verified 11/26/16 10:23 Quetiapine [From Seroquel] Allergy Unknown Verified 11/26/16 10:23 Reaction Details SHRIMP Allergy Severe Swelling Uncoded 11/26/16 10:23 PMH/Surg Hx/FS Hx/Imm Hx Endocrine/Hematology History: Denies: Hx Diabetes, Hx Sickle Cell Disease, Hx Thyroid Disease Cardiovascular History: Reports: Hx Hypertension Denies: Hx Hypercholesterolemia, Hx Pacemaker/ICD, Hx Peripheral Vascular Disease Respiratory History: Reports: Hx Asthma, Hx Seasonal Allergies Denies: Hx Chronic Obstructive Pulmonary Disease (COPD) GI History: Reports: Hx Gastroesophageal Reflux Disease - TUMS Denies: Hx Ulcer, Other GI Disorders History: Reports: Hx Kidney Stones - 2010, Other Problems/Disorders - pcos Denies: Hx Renal Disease Musculoskeletal History: Reports: Hx Tendonitis - IN LEFT ANKLE, Other Musculoskeletal History - neck problems - herniated cervical disc Denies: Hx Arthritis, Hx Osteoporosis Sensory History: Denies: Hx Contacts or Glasses, Hx Hearing Aid Opthamlomology History: Denies: Hx Contacts or Glasses Neurological History: Reports: Other Neuro Impairments/Disorders - PAIN CLINIC PT Denies: Hx Headaches, Hx Seizures, Hx Transient Ischemic Attacks (TIA) Psychiatric History: Denies: Hx Anxiety, Hx Depression, Hx Panic Disorder - Cancer History Hx Hematologic Symptoms: No Hx Chemotherapy: No Hx Radiation Therapy: No Hx Palliative Cancer Treatment: No - Surgical History Surgery Procedure, Year, and Place: tubes in ears as child. LEFT ovary removed ; TUBAL LIGATION, HX OF 2 C-SECTIONS. appendix 2002. gallbladder 2002. Left knee - MMT REPAIR. EUA L knee. R thumb - pin for torn ligaments. tonsillectomy. R wrist 2010 Hx Anesthesia Reactions: No - Immunization History Date of Tetanus Vaccine: utd Date of Influenza Vaccine: utd Infectious Disease History: No Infectious Disease History: Denies: Hx Clostridium Difficile, Hx Hepatitis, Hx Human Immunodeficiency Virus (HIV), Hx of Known/Suspected MRSA, Hx Shingles, Hx Tuberculosis, Hx Known/ Suspected VRE, Hx Known/Suspected VRSA, History Other Infectious Disease, Traveled Outside the [place] in Last 30 Days - Family History Known Family History: Positive: None, Unknown Negative: Cardiac Disease, Diabetes - Social History Alcohol Use: None Hx Substance Use: No Substance Use Type: Reports: None Hx Tobacco Use: No Smoking Status (MU): Never Smoked Tobacco Have You Smoked in the Last Year: No Review of Systems Negative: Fever Negative: Chest Pain Negative: Shortness Of Breath Positive: Myalgia - right ankle All Other Systems Reviewed And Are Negative: Yes Physical Exam Triage Information Reviewed: Yes Vital Signs On Initial Exam: Initial Vitals Temp Pulse Resp BP Pulse Ox 98.2 F 93 16 174/108 99 01/22/17 20:36 01/22/17 20:36 01/22/17 20:36 01/22/17 20:36 01/22/17 20:36 Vital Signs Reviewed: Yes Appearance: Positive: Well-Appearing Skin: Positive: Warm, Dry Head/Face: Positive: Normal Head/Face Inspection Eyes: Positive: Normal, Conjunctiva Clear Respiratory/Lung Sounds: Positive: Clear to Auscultation, Breath Sounds Present Cardiovascular: Positive: Normal, RRR Musculoskeletal: Positive: Limited @ - right ankle due to pain, Other - good pulses, capillary refill<2secs, tenderness over lateral aspect of ankle. Negative: Edema Right Neurological: Positive: Normal Psychiatric: Positive: Normal Diagnostics - Vital Signs Vital Signs Temp Pulse Resp BP Pulse Ox 01/22/17 20:38 98 F 89 16 174/108 99 01/22/17 20:36 98.2 F 93 16 174/108 99 - Laboratory Lab Statement: Any lab studies that have been ordered have been reviewed, and results considered in the medical decision making process. - Radiology ankle Xray Interpretation: Positive (See Comments) - IMPRESSION: Calcific density which may represent a tiny avulsion off the dorsal aspect of the navicular. Clinical correlation is suggested. Radiology Interpretation Completed By: Radiologist Lower Extremity Course/Dx - Course Course Of Treatment: 37M presents with right ankle pain today. She woke up with the pain. She has history of ankle pain. She denies any injury. pain is greatest over the lateral aspect of her ankle. She admits to occasionally tingling of her ankle. She is still able to ambulate with pain. She took advil without relief. xray no tenderness over navicle so unlikely fx. tender over lateral aspect of ankle. patient understands and agrees with plan. - Diagnoses Differential Diagnosis/HQI/PQRI: Positive: Fracture (Closed), Sprain, Strain Provider Diagnoses: Right ankle pain Discharge - Discharge Plan Condition: Good Disposition: HOME Patient Education Materials: Arthralgia (ED) Referrals: Merlene Amin MD [Primary Care Provider] - Additional Instructions: Take Tylenol or ibuprofen every 6 hours as needed for pain Apply ice, rest, elevate Follow up with primary care physician within 7 days if no improvement Return to ED if develop any new or worsening symptoms
[2017-01-22 22:49] VITALS: BP 139/87
== END 2017-01-22 22:48 | disposition home or self-care (01) ==
LOC: ED 20:17
DX: M25.571 Pain in right ankle and joints of right foot (principal)
CPT/HCPCS: 96372; 99281; J1885

== ENCOUNTER 2017-03-16 16:08 | Emergency (ER) | payer OTHER, MEDICAID ==
[2017-03-16 16:27] VITALS: BP 174/105
--- NOTE | 2017-03-16 18:37 | ED ---
GI/ HPI - HPI Summary HPI Summary: Pt here w/ urinary frequency past 1-2 days. Associated sx dysuria and urgency. Denies ab pain, flank pain, fever, chills, N/V/D. Menstruating now. H/o UTI's and this feels the same. Also has h/o kidney stones and this does not feel the same. Also reports vaginal itching, irritation with white curdy d/c she correlates to a yeast infection. Reports she took an anbx 2 weeks ago for sinusitis and developed if during - she's accustomed to this side effect so ate yogurt which seemed to alleviate sx but feels it has returned. - History of Current Complaint Chief Complaint: EDUrogenitalProblems Time Seen by Provider: 03/16/17 18:13 Stated Complaint: POSSIBLE UTI Hx Obtained From: Patient Hx Last Menstrual Period: 10/05/16 Pain Intensity: 0 - Allergy/Home Medications Allergies/Adverse Reactions: Allergies Allergy/AdvReac Type Severity Reaction Status Date / Time Penicillins Allergy Severe Hives Verified 11/26/16 10:23 Potassium Allergy Severe Difficulty Verified 11/26/16 10:23 Breathing Prednisone Allergy Severe CHEST Verified 11/26/16 10:23 PAIN, HEART RACING Clindamycin Allergy Mild Rash Verified 11/26/16 10:23 Metoprolol Allergy Mild Rash Verified 11/26/16 10:23 Sulfa Drugs Allergy Unknown UNK Verified 11/26/16 10:23 Quetiapine [From Seroquel] Allergy Unknown Verified 11/26/16 10:23 Reaction Details SHRIMP Allergy Severe Swelling Uncoded 11/26/16 10:23 PMH/Surg Hx/FS Hx/Imm Hx Previously Healthy: Yes Endocrine/Hematology History: Denies: Hx Diabetes, Hx Sickle Cell Disease, Hx Thyroid Disease, Autoimmune Disease Cardiovascular History: Reports: Hx Hypertension Denies: Hx Hypercholesterolemia, Hx Pacemaker/ICD, Hx Peripheral Vascular Disease Respiratory History: Reports: Hx Asthma, Hx Seasonal Allergies Denies: Hx Chronic Obstructive Pulmonary Disease (COPD) GI History: Reports: Hx Gastroesophageal Reflux Disease - TUMS Denies: Hx Ulcer, Other GI Disorders History: Reports: Hx Kidney Stones - 2010, Other Problems/Disorders - pcos Denies: Hx Renal Disease Musculoskeletal History: Reports: Hx Tendonitis - IN LEFT ANKLE, Other Musculoskeletal History - neck problems - herniated cervical disc Denies: Hx Arthritis, Hx Osteoporosis Sensory History: Denies: Hx Contacts or Glasses, Hx Hearing Aid Opthamlomology History: Denies: Hx Contacts or Glasses Neurological History: Reports: Other Neuro Impairments/Disorders - PAIN CLINIC PT Denies: Hx Headaches, Hx Seizures, Hx Transient Ischemic Attacks (TIA) Psychiatric History: Denies: Hx Anxiety, Hx Depression, Hx Panic Disorder - Cancer History Hx Hematologic Symptoms: No Hx Chemotherapy: No Hx Radiation Therapy: No Hx Palliative Cancer Treatment: No - Surgical History Surgery Procedure, Year, and Place: tubes in ears as child. LEFT ovary removed ; TUBAL LIGATION, HX OF 2 C-SECTIONS. appendix 2002. gallbladder 2002. Left knee - MMT REPAIR. EUA L knee. R thumb - pin for torn ligaments. tonsillectomy. R wrist 2010 Hx Anesthesia Reactions: No - Immunization History Date of Tetanus Vaccine: utd Date of Influenza Vaccine: utd Infectious Disease History: No Infectious Disease History: Denies: Hx Clostridium Difficile, Hx Hepatitis, Hx Human Immunodeficiency Virus (HIV), Hx of Known/Suspected MRSA, Hx Shingles, Hx Tuberculosis, Hx Known/ Suspected VRE, Hx Known/Suspected VRSA, History Other Infectious Disease, Traveled Outside the [place] in Last 30 Days - Family History Known Family History: Positive: Other - daughter - neurological hearing loss Negative: Cardiac Disease, Diabetes - Social History 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 Lives: With Family Alcohol Use: None Hx Substance Use: No Substance Use Type: Reports: None Hx Tobacco Use: No Smoking Status (MU): Never Smoked Tobacco Have You Smoked in the Last Year: No Review of Systems Constitutional: Negative Negative: Fever, Chills Cardiovascular: Negative Negative: Chest Pain Respiratory: Negative Negative: Shortness Of Breath Gastrointestinal: Negative Negative: Abdominal Pain, Vomiting, Diarrhea, Nausea Positive: see HPI Neurological: Negative Psychological: Normal All Other Systems Reviewed And Are Negative: Yes Physical Exam Triage Information Reviewed: Yes Vital Signs On Initial Exam: Initial Vitals Temp Pulse Resp BP Pulse Ox 98.6 F 87 20 174/105 98 03/16/17 16:22 03/16/17 16:22 03/16/17 16:22 03/16/17 16:22 03/16/17 16:22 Vital Signs Reviewed: Yes Appearance: Positive: Well-Appearing, No Pain Distress, Obese Skin: Positive: Warm, Dry Head/Face: Positive: Normal Head/Face Inspection Eyes: Positive: Normal, EOMI, Conjunctiva Clear - anicteric sclera ENT: Positive: Normal ENT inspection, Hearing grossly normal, Pharynx normal - mucosa moist Respiratory/Lung Sounds: Positive: Clear to Auscultation, Breath Sounds Present. Negative: Rales, Rhonchi, Wheezes Cardiovascular: Positive: Normal, RRR, S1, S2 Abdomen Description: Positive: Nontender, No Organomegaly, Soft. Negative: CVA Tenderness (R), CVA Tenderness (L) Bowel Sounds: Positive: Present Pelvic Exam: Positive: other - declined by pt Musculoskeletal: Positive: Normal, Strength/ROM Intact Neurological: Positive: Normal, Sensory/Motor Intact, Alert, Oriented to Person Place, Time, CN Intact II-III Psychiatric: Positive: Normal Diagnostics - Vital Signs Vital Signs Temp Pulse Resp BP Pulse Ox 03/16/17 16:22 98.6 F 87 20 174/105 98 - Laboratory Lab Statement: Any lab studies that have been ordered have been reviewed, and results considered in the medical decision making process. GIGU Course/Dx - Course Course Of Treatment: Pt's U/A does not indicate acute UTI. Discussed w/ pt that her sx could in fact be due to a vaginal infection which could be yeast or could be something else (ie. BV, STD, etc). Offered pelvic exam for more thorough investigation however pt would like to go home as she's not feeling too bad and wants to get her kids dinner before bed. Explained risks of undx'd/ untx'd vaginal infection, including but not limited to PID, Sepsis - pt aware and will monitor sx. Discussed that if sx improve in 1-3 days, they may have been triggered by yeast infection. If not, she needs to f/u w/ PCP, [facility], UC or return to ED. Pt agrees w/ plan. - Diagnoses Provider Diagnoses: Urinary frequency, Vaginitis Discharge - Discharge Plan Condition: Stable Disposition: HOME Patient Education Materials: Dysuria (ED), Vaginitis (ED) Referrals: Merlene Amin MD [Primary Care Provider] - Additional Instructions: The cause of your symptoms was not identified today. The urinary frequency you are having could be from an occult UTI or a yeast infection. You were treated with diflucan today - if this resolves symptoms in the next 1-3 days, you may have treated the problem. If your symptoms persist however or worsen, you need to seek follow up for a pelvic exam with your PCP, [facility] as you may have another cause for symptoms. *If you develop symptoms of abdominal pain, vomiting, diarrhea, pelvic pain, flank pain, fever, chills, return to ED
[2017-03-16] MEDS ORDERED: Fluconazole 100 MG TAB* TAB PO ONE (18:38)
[2017-03-16 18:54] LABS: Urine Bacteria Absent (Absent); Urine Bilirubin Negative (Negative); Urine Glucose Negative (Negative); Urine Nitrite Negative (Negative)
== END 2017-03-16 21:11 | disposition home or self-care (01) ==
LOC: ED 16:08
DX: N76.0 Acute vaginitis (principal); R35.0 Frequency of micturition; R30.0 Dysuria
CPT/HCPCS: 81003; 81015; 87086; 99282; A9270-GY

== ENCOUNTER 2017-05-01 18:05 | Emergency (ER) | payer OTHER, MEDICAID ==
--- NOTE | 2017-05-01 19:12 | RAD ---
INDICATION: Chest congestion for one week. Cough. Asthma. COMPARISON: April 17, 2016 TECHNIQUE: Dual energy PA and routine lateral views of the chest were obtained. REPORT: Clear lungs and pleural spaces. Negative for pneumothorax. Upper normal heart size. The pulmonary vasculature, and mediastinal contours are unremarkable. Unremarkable osseous structures and soft tissue contours. IMPRESSION: No evidence for acute intrathoracic disease.
[2017-05-01] MEDS ORDERED: guaiFENesin/CODIEN 100MG-10MG* 5 ML UDC PO ONE (20:24)
[2017-05-01] MEDS ORDERED: Ondansetron ODT TAB* 4 MG SL ONE (20:24)
[2017-05-01 20:33] VITALS: BP 152/90
--- NOTE | 2017-05-01 20:33 | ED ---
Respiratory - HPI Summary HPI Summary: Slava presents to the ED with CC of cough and congestion x 1 week. She states her family has been sick and notes to mucous production with cough by everyone in the family, she though has a dry cough and feels there is more congestion. Denies fevers or sweats but has been cold. Denies abd pain, V/C/ D. Notes to some nausea. She denies production. She is fatigued. Denies body aches. She is obese, takes multiple medications for HTN but denies other health complications. She states she gets bronchitis a few times per year. Denies chest pain or SOB. - History of Current Complaint Chief Complaint: EDGeneral Stated Complaint: CHEST CONGESTION Time Seen by Provider: 05/01/17 19:39 Hx Obtained From: Patient Onset/Duration: Sudden Onset Timing: Constant Initial Severity: Mild Current Severity: Mild Pain Intensity: 0 Character: Cough (Nonproductive) Sputum Amount: Scant Sputum Color: Clear Aggravating Factor(s): URI, Allergens, Deep Breaths - Risk Factors Status Asthmaticus Risk Factors: Negative Pulmonary Embolism Risk Factors: Negative Cardiac Risk Factors: Negative Pseudomonas Risk Factors: Negative Tuberculosis Risk Factors: Negative - Allergy/Home Medications Allergies/Adverse Reactions: Allergies Allergy/AdvReac Type Severity Reaction Status Date / Time Penicillins Allergy Severe Hives Verified 04/08/17 08:50 Potassium Allergy Severe Difficulty Verified 04/08/17 08:50 Breathing Clindamycin Allergy Mild Rash Verified 04/08/17 08:50 Metoprolol Allergy Mild Rash Verified 04/08/17 08:50 Sulfa Drugs Allergy Unknown UNK Verified 04/08/17 08:50 Quetiapine [From Seroquel] Allergy Unknown Verified 04/08/17 08:50 Reaction Details Prednisone AdvReac Severe CHEST Verified 04/08/17 08:50 PAIN, HEART RACING SHRIMP Allergy Severe Swelling Uncoded 04/08/17 08:50 BANDAIDS AdvReac Blisters Uncoded 04/08/17 09:37 PMH/Surg Hx/FS Hx/Imm Hx Previously Healthy: Yes Endocrine/Hematology History: Denies: Hx Diabetes, Hx Sickle Cell Disease, Hx Thyroid Disease Cardiovascular History: Reports: Hx Hypertension Denies: Hx Hypercholesterolemia, Hx Pacemaker/ICD, Hx Peripheral Vascular Disease Respiratory History: Reports: Hx Asthma, Hx Seasonal Allergies Denies: Hx Chronic Obstructive Pulmonary Disease (COPD) GI History: Reports: Hx Gastroesophageal Reflux Disease - TUMS Denies: Hx Ulcer, Other GI Disorders History: Reports: Hx Kidney Stones - 2010, Other Problems/Disorders - pcos Denies: Hx Renal Disease Musculoskeletal History: Reports: Hx Tendonitis - IN LEFT ANKLE, Other Musculoskeletal History - neck problems - herniated cervical disc Denies: Hx Arthritis, Hx Osteoporosis Sensory History: Denies: Hx Contacts or Glasses, Hx Hearing Aid Opthamlomology History: Denies: Hx Contacts or Glasses Neurological History: Reports: Other Neuro Impairments/Disorders - PAIN CLINIC PT Denies: Hx Headaches, Hx Seizures, Hx Transient Ischemic Attacks (TIA) Psychiatric History: Denies: Hx Anxiety, Hx Depression, Hx Panic Disorder - Cancer History Hx Hematologic Symptoms: No Hx Chemotherapy: No Hx Radiation Therapy: No Hx Palliative Cancer Treatment: No - Surgical History Surgery Procedure, Year, and Place: tubes in ears as child. LEFT ovary removed ; TUBAL LIGATION, HX OF 2 C-SECTIONS. appendix 2002. gallbladder 2002. Left knee - MMT REPAIR. EUA L knee. R thumb - pin for torn ligaments. tonsillectomy. R wrist 2010 Hx Anesthesia Reactions: No - Immunization History Date of Tetanus Vaccine: utd Date of Influenza Vaccine: utd Hx Pertussis Vaccination: No Immunizations Up to Date: Unable to Obtain/Confirm Infectious Disease History: No Infectious Disease History: Denies: Hx Clostridium Difficile, Hx Hepatitis, Hx Human Immunodeficiency Virus (HIV), Hx of Known/Suspected MRSA, Hx Shingles, Hx Tuberculosis, Hx Known/ Suspected VRE, Hx Known/Suspected VRSA, History Other Infectious Disease, Traveled Outside the [place] in Last 30 Days - Family History Known Family History: Positive: Other - daughter - neurological hearing loss Negative: Cardiac Disease, Diabetes - Social History Occupation: Unemployed Lives: With Family Alcohol Use: None Hx Substance Use: No Substance Use Type: Reports: None Hx Tobacco Use: No Smoking Status (MU): Never Smoked Tobacco Have You Smoked in the Last Year: No Review of Systems Constitutional: Negative Negative: Fever, Chills, Fatigue, Skin Diaphoresis Eyes: Negative Cardiovascular: Negative Positive: Cough Positive: Nausea Genitourinary: Negative Positive: no symptoms reported, see HPI Skin: Negative Neurological: Negative All Other Systems Reviewed And Are Negative: Yes Physical Exam Triage Information Reviewed: Yes Vital Signs On Initial Exam: Initial Vitals Temp Pulse Resp BP Pulse Ox 98 F 113 18 155/92 98 05/01/17 18:10 05/01/17 18:10 05/01/17 18:10 05/01/17 18:10 05/01/17 18:10 Vital Signs Reviewed: Yes Appearance: Positive: Well-Appearing, Well-Nourished, Obese Skin: Positive: Warm, Skin Color Reflects Adequate Perfusion Head/Face: Positive: Normal Head/Face Inspection Eyes: Positive: Normal, EOMI, JEROD, Conjunctiva Clear Neck: Positive: Supple, No Lymphadenopathy Respiratory/Lung Sounds: Positive: Clear to Auscultation, Breath Sounds Present Cardiovascular: Positive: RRR, Pulses are Symmetrical in both Upper and Lower Extremities Musculoskeletal: Positive: Normal, Strength/ROM Intact Neurological: Positive: Speech Normal Psychiatric: Positive: Normal, Affect/Mood Appropriate - [place] Coma Scale Coma Scale Total: 15 Diagnostics - Vital Signs Vital Signs Temp Pulse Resp BP Pulse Ox 05/01/17 18:10 98 F 113 18 155/92 98 - Laboratory Lab Statement: Any lab studies that have been ordered have been reviewed, and results considered in the medical decision making process. Disposition - Course Course Of Treatment: Patient is evaluated for cough. Chest xray negative for acute findings. Medrol dose pack given. Zofran given for nausea related to mucous production. Cough medication. She is Ok with discharge and return precautions are given. Lungs CTA. Breath sounds equal. - Differential Dx - Cardiopulmonary Differential Diagnoses - Cardiopulmonary: Lower Resp Infection - Diagnoses Provider Diagnoses: Upper respiratory infection, Cough Discharge - Discharge Plan Condition: Stable Disposition: HOME Prescriptions: Guaifenesin-Codeine [Guaiatussin AC] 10 ml PO BEDTIME PRN #100 ml MDD 10 PRN Reason: Cough Methylprednisolone [Medrol Dosepak 4 MG*] 4 mg PO .SEE MAYURI INSTRUCTION #1 packet Ondansetron ODT TAB* [Zofran 4 MG Odt TAB*] 4 mg PO Q6H PRN #12 tab.odt MDD 4 PRN Reason: Nausea Patient Education Materials: Acute Bronchitis (ED), Acute Cough (ED) Referrals: Merlene Amin MD [Primary Care Provider] - Additional Instructions: Upper Respiratory Infection You appear to have a viral upper respiratory/bronchitis infection. Take prescribed medication as directed. Also recommend taking robitussin with codeine as prescribed (10ml or 2 teaspoons at bedtime) Zofran as needed for nausea Medrol dose pack If cough is not improved with over the counter robitussin, you may also use this during the day, but please do not drive with this Also you can try doing saline rinses, salt water gargles, taking zicam and drinking emergen-c (available over the counter). Extra pillow at bedtime. Hot showers. Increase fluid intake. Get plenty of rest. Any new or worsening symptoms (fever, difficulty breathing, worsening symptoms) please seek medical attention immediately. Follow up with PCP for re-check and evaluation.
== END 2017-05-01 20:33 | disposition home or self-care (01) ==
LOC: ED 18:05
DX: J06.9 Acute upper respiratory infection, unspecified (principal); R05 Cough
CPT/HCPCS: 71020; 99282; A9270-GY

== ENCOUNTER → 2017-07-12 19:34 | Emergency (ER) | payer OTHER, MEDICAID ==
[~2017-07-12 19:34] MED LIST: Acetaminop/Codeine 30 MG TAB* 1 TAB (300 MG/30 MG) PO ONE
--- NOTE | 2017-07-12 21:03 | RAD ---
INDICATION: Acute and chronic foot pain COMPARISON: March 26, 2016 TECHNIQUE: AP, lateral, and oblique views were obtained. FINDINGS: There are no acute bony findings. The joint spaces are maintained. There are hammertoe deformities. There are heel spurs. IMPRESSION: NO ACUTE BONY FINDINGS.
--- NOTE | 2017-07-12 21:44 | ED ---
Lower Extremity - HPI Summary HPI Summary: Pt here w/ acute on chronic Lt foot pain. She reports pain as a deep ache and burning with sharp shooting pain at times over her first MTP and wrapping medially around ankle and back towards Achilles. Worse with weightbearing, better with rest. Injured this years ago and has pain intermittently since but pain has been worse and lasting longer than usual past couple of days. Has been trying ibuprofen w/o relief. She reports she seen her PCP, Dr. Borjas, Dr. Aguirre and Dr. Bueno all who feel she has no bony pathology. - History of Current Complaint Chief Complaint: EDExtremityLower Stated Complaint: LT FOOT PAIN Time Seen by Provider: 07/12/17 20:12 Hx Obtained From: Patient Hx Last Menstrual Period: 10/05/16 Pain Intensity: 9 - Allergies/Home Medications Allergies/Adverse Reactions: Allergies Allergy/AdvReac Type Severity Reaction Status Date / Time clindamycin Allergy Rash Verified 07/12/17 19:42 metoprolol Allergy Rash Verified 07/12/17 19:42 Penicillins Allergy Hives Verified 07/12/17 19:42 potassium Allergy Difficulty Verified 07/12/17 19:42 Breathing prednisone Allergy Palpitation Verified 07/12/17 19:42 s quetiapine [From Seroquel] Allergy Unknown Verified 07/12/17 19:42 Reaction Details shrimp Allergy Swelling Verified 07/12/17 19:42 Sulfa (Sulfonamide Allergy Unknown Verified 07/12/17 19:42 Antibiotics) Reaction Details bandaid Allergy Blisters Uncoded 07/12/17 19:42 PMH/Surg Hx/FS Hx/Imm Hx Previously Healthy: Yes Endocrine/Hematology History: Denies: Hx Diabetes, Hx Sickle Cell Disease, Hx Thyroid Disease Cardiovascular History: Reports: Hx Hypertension Denies: Hx Hypercholesterolemia, Hx Pacemaker/ICD, Hx Peripheral Vascular Disease Respiratory History: Reports: Hx Asthma, Hx Seasonal Allergies Denies: Hx Chronic Obstructive Pulmonary Disease (COPD) GI History: Reports: Hx Gastroesophageal Reflux Disease - TUMS Denies: Hx Ulcer, Other GI Disorders History: Reports: Hx Kidney Stones - 2010, Other Problems/Disorders - pcos Denies: Hx Renal Disease Musculoskeletal History: Reports: Hx Tendonitis - IN LEFT ANKLE/Foot, Other Musculoskeletal History - neck problems - herniated cervical disc Denies: Hx Arthritis, Hx Osteoporosis Sensory History: Denies: Hx Contacts or Glasses, Hx Hearing Aid Opthamlomology History: Denies: Hx Contacts or Glasses Neurological History: Reports: Other Neuro Impairments/Disorders - PAIN CLINIC PT Denies: Hx Headaches, Hx Seizures, Hx Transient Ischemic Attacks (TIA) Psychiatric History: Denies: Hx Anxiety, Hx Depression, Hx Panic Disorder - Cancer History Hx Hematologic Symptoms: No Hx Chemotherapy: No Hx Radiation Therapy: No Hx Palliative Cancer Treatment: No - Surgical History Surgery Procedure, Year, and Place: tubes in ears as child. LEFT ovary removed ; TUBAL LIGATION, HX OF 2 C-SECTIONS. appendix 2002. gallbladder 2002. Left knee - MMT REPAIR. EUA L knee. R thumb - pin for torn ligaments. tonsillectomy. R wrist 2010 Hx Anesthesia Reactions: No - Immunization History Date of Tetanus Vaccine: utd Date of Influenza Vaccine: utd Infectious Disease History: No Infectious Disease History: Denies: Hx Clostridium Difficile, Hx Hepatitis, Hx Human Immunodeficiency Virus (HIV), Hx of Known/Suspected MRSA, Hx Shingles, Hx Tuberculosis, Hx Known/ Suspected VRE, Hx Known/Suspected VRSA, History Other Infectious Disease, Traveled Outside the [place] in Last 30 Days - Family History Known Family History: Positive: Other - daughter - neurological hearing loss Negative: Cardiac Disease, Diabetes - Social History Occupation: Unemployed Lives: With Family Alcohol Use: None Hx Substance Use: No Substance Use Type: Reports: None Hx Tobacco Use: No Smoking Status (MU): Never Smoked Tobacco Have You Smoked in the Last Year: No Review of Systems Constitutional: Negative Positive: no symptoms reported Positive: Arthralgia, Myalgia Skin: Negative Neurological: Negative Psychological: Normal All Other Systems Reviewed And Are Negative: Yes Physical Exam Triage Information Reviewed: Yes Vital Signs On Initial Exam: Initial Vitals Temp Pulse Resp BP Pulse Ox 98.2 F 100 18 124/74 100 07/12/17 19:36 07/12/17 19:36 07/12/17 19:36 07/12/17 19:36 07/12/17 19:36 Vital Signs Reviewed: Yes Appearance: Positive: Well-Appearing, No Pain Distress - Patient lying comfortably on stretcher, Obese Skin: Positive: Warm, Skin Color Reflects Adequate Perfusion, Dry - no erythema , ecchymosis or lesions of her affected area on left foot Head/Face: Positive: Normal Head/Face Inspection Eyes: Positive: EOMI ENT: Positive: Hearing grossly normal Respiratory/Lung Sounds: Positive: Breath Sounds Present Cardiovascular: Positive: Pulses are Symmetrical in both Upper and Lower Extremities. Negative: Leg Edema Left, Leg Edema Right Musculoskeletal: Positive: Strength/ROM Intact - Patient is able to move her toes ankle and knee on left side however she reports discomfort with toe and ankle movements over the dorsal aspect of her first MT that radiates around medial ankle - first MTP is tender to palpation along tendon here - no edema or gross deformity Neurological: Positive: Normal, Sensory/Motor Intact, Alert, Oriented to Person Place, Time, CN Intact II-III Psychiatric: Positive: Normal - Concerned but calm, cooperative and pleasant Diagnostics - Vital Signs Vital Signs Temp Pulse Resp BP Pulse Ox 07/12/17 19:36 98.2 F 100 18 124/74 100 - Laboratory Diagnostic Studies Comment: Foot x-ray report reviewednegative Lab Statement: Any lab studies that have been ordered have been reviewed, and results considered in the medical decision making process. Lower Extremity Course/Dx - Course Course Of Treatment: Suspect patient is having an exacerbation of her chronic condition which may include tendinitis with or without nerve injury. Her x-ray is without acute or chronic findings tonight. Advised rest via elevation and cam walking boot along with crutches and/or walker. She declines crutches as she does not feel comfortable with them. She is use to boot in the past which seemed to be navigable. She is consulted with 3 foot specialists in the past however with change in chronic symptoms, advised to follow up first with PCP who may order MRI as needed. If findings indicate, she may be referred back to packaging specialist for surgical intervention as needed. - Diagnoses Provider Diagnoses: Left foot pain Discharge - Discharge Plan Condition: Stable Disposition: HOME Patient Education Materials: Arthralgia (ED) Referrals: Merlene Amin MD [Primary Care Provider] - Additional Instructions: The definitive cause of your acute on chronic foot pain was not identified tonight however there is suspicion that you have exacerbated an old tendon injury. It is important that you rest, elevate, and avoid weight bearing until your pain resolves. You may avoid weight bearing with a walker and by using a cam walking boot (apply weight in heel only). You may benefit from a follow-up with your primary care physician as further imaging may be beneficial if pain does not improve. Call tomorrow to schedule follow-up in 1-2 weeks. At home, you may take ibuprofen alternating with acetaminophen as well as use of topical pain rub such as Biofreeze, arnica, BenGay, etc. to alleviate pain. If you develop weakness, skin discoloration or poor perfusion in this foot, return to the emergency department.
[2017-07-12 22:57] VITALS: BP 137/87
== END | disposition home or self-care (01) ==
LOC: ED 19:34
DX: M79.672 Pain in left foot (principal); Z86.79 Personal history of other diseases of the circulatory system; Z87.442 Personal history of urinary calculi
CPT/HCPCS: 99282; A9270-GY

== ENCOUNTER 2017-08-04 12:40 | Emergency (ER) | payer OTHER, MEDICAID ==
[2017-08-04] MEDS ORDERED: Ondansetron INJ* 2 MG/ML VIAL IV ONE (15:43)
[2017-08-04] MEDS ORDERED: NS 0.9% 1000 ML* 1,000 ML IV ONE (15:43)
[2017-08-04] MEDS ORDERED: Morphine INJ* 4 MG/ML 1 ML CARPUJECT IV ONE (15:45)
[2017-08-04 16:10] LABS: ABS Basophils 0.1 10^3/ul (0-0.2); ABS Eosinophils 0 10^3/ul (0-0.6); ABS Lymphocytes 1.7 10^3/ul (1.0-4.8); ABS Monocytes 0.4 10^3/ul (0-0.8); ABS Neutrophils 5.4 10^3/ul (1.5-7.7); ABS Nucleated RBC 0 10^3/ul; Eosinophil % 0.4 % (0-6); Hematocrit 37 % (35-47); Hemoglobin 12.8 g/dl (12.0-16.0); Lymphocyte % 21.9 % (25-47); Mean Corpuscular HGB Conc 35 g/dl (31-36); Mean Corpuscular Hemoglobin 28 pg (27-31); Mean Corpuscular Volume 82 fL (80-97); Mean Platelet Volume 9 um3 (7.4-10.4); Nucleated Red Blood Cells % 0; Platelet Count 306 10^3/ul (150-450); Red Blood Count 4.49 10^6/ul (4.0-5.4); Red Cell Distribution Width 15 % (10.5-15); White Blood Count 7.6 10^3/ul (3.5-10.8)
[2017-08-04] MEDS ORDERED: Morphine INJ* 4 MG/ML 1 ML SYRINGE (NEW SYRINGE VERSION) IV ONE (16:24)
[2017-08-04] MEDS ORDERED: Morphine INJ* 2 MG/ML 1 ML CARPUJECT IV ONE (16:24)
[2017-08-04 16:31] LABS: EGFR Non-African American 92.6 (>60)
[2017-08-04] MEDS ORDERED: Iohexol 300* (CONTRAST) 10 ML SDV IV ONE (16:36)
[2017-08-04 16:37] LABS: Urine Appearance Cloudy; Urine Blood 2+ (Negative); Urine Color Yellow; Urine Ketones Negative (Negative); Urine Protein Negative (Negative); Urine Specific Gravity 1.019 (1.010-1.030); Urine Urobilinogen Negative (Negative)
--- NOTE | 2017-08-04 17:25 | RAD ---
INDICATION: Left lower quadrant abdominal pain. COMPARISON: Comparison is made with prior study from May 10, 2013. TECHNIQUE: A CT scan of the abdomen and pelvis was performed with intravenous and oral contrast following intravenous injection of 150 ml of Omnipaque 300 nonionic contrast. Contiguous axial sections were obtained from the lung bases through the symphysis pubis. Images were reconstructed in the coronal and sagittal planes. FINDINGS: The lung bases are clear. No pleural effusion is present. The liver and spleen are normal in size. The liver is decreased in attenuation consistent with fatty infiltration. The patient is status post cholecystectomy. The pancreas appears to be within normal limits. The kidneys and adrenal glands are normal in size. No hydronephrosis is seen. No significant focal renal abnormality is seen. The aorta is normal in caliber and demonstrates homogeneous contrast opacification. No significant enlarged retroperitoneal lymph nodes are seen. The stomach, small and large bowel appear nondistended. The patient is status post appendectomy. Note is made of surgical suture line along the cecum. There is moderate descending and sigmoid diverticulosis without evidence for diverticulitis. The uterus is normal in size and retroflexed. No free intraperitoneal air or fluid is seen. No significant focal osseous abnormality is seen. IMPRESSION: 1. NO EVIDENCE FOR ACUTE FINDING OR CAUSE FOR THE PATIENT'S ABDOMINAL PAIN IS SEEN. 2. STATUS POST CHOLECYSTECTOMY AND APPENDECTOMY. 3. HEPATIC STEATOSIS.
--- NOTE | 2017-08-04 19:18 | ED ---
Abdominal Pain/Female - HPI Summary HPI Summary: Patient here with left lower quadrant pain which started abruptly this morning. Came on quickly and sharp causing her to have a bout of nausea without vomiting. She reports she decided to come over to get this checked out this afternoon and developed another acute bout of pain however this time it was in her flank. Pain seems to be less since here. She does admit to a history of kidney stones and that this feels same however denies dysuria, hematuria, urinary urgency and frequency. She also denies vaginal irritation, discharge, burning, itching. Furthermore she admits her left ovary was removed in the past and she does not have an irregular cyclein fact she is quite regular. Last nostril. Was 3 weeks ago and she anticipates she'll have it in 1 week from now. Denies vaginal bleeding and she is experiencing her typical "1 week out" premenstrual migraine. Her bowel movements have been normal and without hematochezia, melena, mucus. She's been eating and drinking well without difficulty. Denies fevers, chills, chest pain, shortness of breath. No trauma to the area that she reports. 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 - Hx Last Menstrual Period: 10/05/16 Pain Intensity: 8 Allergies/Adverse Reactions: Allergies Allergy/AdvReac Type Severity Reaction Status Date / Time clindamycin Allergy Rash Verified 08/04/17 13:12 metoprolol Allergy Rash Verified 08/04/17 13:12 Penicillins Allergy Hives Verified 08/04/17 13:12 potassium Allergy Difficulty Verified 08/04/17 13:12 Breathing prednisone Allergy Palpitation Verified 08/04/17 13:12 s quetiapine [From Seroquel] Allergy Unknown Verified 08/04/17 13:12 Reaction Details shrimp Allergy Swelling Verified 08/04/17 13:12 Sulfa (Sulfonamide Allergy Unknown Verified 08/04/17 13:12 Antibiotics) Reaction Details bandaid Allergy Blisters Uncoded 08/04/17 13:12 PMH/Surg Hx/FS Hx/Imm Hx Previously Healthy: Yes Endocrine/Hematology History: Denies: Hx Diabetes, Hx Sickle Cell Disease, Hx Thyroid Disease Cardiovascular History: Reports: Hx Hypertension Denies: Hx Hypercholesterolemia, Hx Pacemaker/ICD, Hx Peripheral Vascular Disease Respiratory History: Reports: Hx Asthma, Hx Seasonal Allergies Denies: Hx Chronic Obstructive Pulmonary Disease (COPD) GI History: Reports: Hx Gastroesophageal Reflux Disease - TUMS Denies: Hx Crohn's Disease, Hx Diverticulosis, Hx Gastrointestinal Bleed, Hx Hiatal Hernia, Hx Irritable Bowel, Hx Obstructive Bowel, Hx Ulcer, Other GI Disorders History: Reports: Hx Kidney Stones - 2010, Other Problems/Disorders - pcos Denies: Hx Renal Disease Musculoskeletal History: Reports: Hx Tendonitis - IN LEFT ANKLE/Foot, Other Musculoskeletal History - neck problems - herniated cervical disc Denies: Hx Arthritis, Hx Osteoporosis Sensory History: Denies: Hx Contacts or Glasses, Hx Hearing Aid Opthamlomology History: Denies: Hx Contacts or Glasses Neurological History: Reports: Other Neuro Impairments/Disorders - PAIN CLINIC PT Denies: Hx Headaches, Hx Seizures, Hx Transient Ischemic Attacks (TIA) Psychiatric History: Denies: Hx Anxiety, Hx Depression, Hx Panic Disorder - Cancer History Hx Hematologic Symptoms: No Hx Chemotherapy: No Hx Radiation Therapy: No Hx Palliative Cancer Treatment: No - Surgical History Surgery Procedure, Year, and Place: tubes in ears as child. LEFT ovary removed ; TUBAL LIGATION, HX OF 2 C-SECTIONS. appendix 2002. gallbladder 2002. Left knee - MMT REPAIR. EUA L knee. R thumb - pin for torn ligaments. tonsillectomy. R wrist 2010 Hx Anesthesia Reactions: No - Immunization History Date of Tetanus Vaccine: utd Date of Influenza Vaccine: utd Infectious Disease History: No Infectious Disease History: Denies: Hx Clostridium Difficile, Hx Hepatitis, Hx Human Immunodeficiency Virus (HIV), Hx of Known/Suspected MRSA, Hx Shingles, Hx Tuberculosis, Hx Known/ Suspected VRE, Hx Known/Suspected VRSA, History Other Infectious Disease, Traveled Outside the [place] in Last 30 Days - Family History Known Family History: Positive: Other - daughter - neurological hearing loss Negative: Cardiac Disease, Diabetes - Social History Occupation: Unemployed Lives: With Family Alcohol Use: None Hx Substance Use: No Substance Use Type: Reports: None Hx Tobacco Use: No Smoking Status (MU): Never Smoked Tobacco Have You Smoked in the Last Year: No Review of Systems Constitutional: Negative Eyes: Negative ENT: Negative Cardiovascular: Negative Respiratory: Negative Positive: Abdominal Pain Genitourinary: Other - ALL OTHERS NEGATIVE Positive: flank pain Musculoskeletal: Negative Skin: Negative Neurological: Negative Psychological: Normal All Other Systems Reviewed And Are Negative: Yes Physical Exam Triage Information Reviewed: Yes Vital Signs On Initial Exam: Initial Vitals Temp Pulse Resp BP Pulse Ox 98.8 F 105 18 135/57 99 08/04/17 13:05 08/04/17 13:05 08/04/17 13:05 08/04/17 13:05 08/04/17 13:05 Vital Signs Reviewed: Yes Appearance: Positive: Well-Appearing, No Pain Distress, Obese Skin: Positive: Warm, Skin Color Reflects Adequate Perfusion, Dry Head/Face: Positive: Normal Head/Face Inspection Eyes: Positive: Normal, EOMI, JEROD, Conjunctiva Clear - anicteric sclera Respiratory/Lung Sounds: Positive: Clear to Auscultation, Breath Sounds Present Cardiovascular: Positive: Normal, RRR Abdomen Description: Positive: No Organomegaly, Soft, CVA Tenderness (L) - very mild, Other: - mild LLQ TTP - no rebounding. Negative: CVA Tenderness (R), Distended, Guarding Bowel Sounds: Positive: Present Pelvic Exam: Positive: external exam normal, bimanual exam normal, no cerv. motion tender, no masses. Negative: active bleeding Musculoskeletal: Positive: Normal, Strength/ROM Intact Neurological: Positive: Normal, Sensory/Motor Intact, Alert, Oriented to Person Place, Time, CN Intact II-III Psychiatric: Positive: Normal Diagnostics - Vital Signs Vital Signs Temp Pulse Resp BP Pulse Ox 08/04/17 18:00 101 121/90 96 08/04/17 17:54 97.9 F 99 18 131/88 99 08/04/17 17:53 102 131/88 96 08/04/17 17:13 91 99 08/04/17 16:38 18 08/04/17 16:30 86 140/96 98 08/04/17 16:00 87 116/95 98 08/04/17 15:30 92 126/91 97 08/04/17 15:00 88 124/91 95 08/04/17 14:48 98 F 08/04/17 14:46 92 99 08/04/17 14:44 132/98 08/04/17 13:05 98.8 F 105 18 135/57 99 - Laboratory Lab Results: Lab Results 08/04/17 08/04/1718 Range/Units 15:58 15:58 15:58 WBC 7.6 (3.5-10.8) 10^3/ul RBC 4.49 (4.0-5.4) 10^6/ul Hgb 12.8 (12.0-16.0) g/dl Hct 37 (35-47) % MCV 82 (80-97) fL MCH 28 (27-31) pg MCHC 35 (31-36) g/dl RDW 15 (10.5-15) % Plt Count 306 (150-450) 10^3/ul MPV 9 (7.4-10.4) um3 Neut % (Auto) 71.1 (38-83) % Lymph % (Auto) 21.9 L (25-47) % Hopkins % (Auto) 5.6 (0-7) % Eos % (Auto) 0.4 (0-6) % Baso % (Auto) 1.0 (0-2) % Absolute Neuts (auto) 5.4 (1.5-7.7) 10^3/ul Absolute Lymphs (auto) 1.7 (1.0-4.8) 10^3/ul Absolute Monos (auto) 0.4 (0-0.8) 10^3/ul Absolute Eos (auto) 0 (0-0.6) 10^3/ul Absolute Basos (auto) 0.1 (0-0.2) 10^3/ul Absolute Nucleated RBC 0 10^3/ul Nucleated RBC % 0 Sodium 137 (133-145) mmol/L Potassium 3.5 (3.5-5.0) mmol/L Chloride 103 (101-111) mmol/L Carbon Dioxide 28 (22-32) mmol/L Anion Gap 6 (2-11) mmol/L BUN 13 (6-24) mg/dL Creatinine 0.71 (0.51-0.95) mg/dL Est GFR ( Amer) 119.1 (>60) Est GFR (Non-Af Amer) 92.6 (>60) BUN/Creatinine Ratio 18.3 (8-20) Glucose 91 (70-100) mg/dL Lactic Acid 0.7 (0.5-2.0) mmol/L Calcium 9.2 (8.6-10.3) mg/dL Total Bilirubin 0.40 (0.2-1.0) mg/dL AST 16 (13-39) U/L ALT 22 (7-52) U/L Alkaline Phosphatase 33 L (34-104) U/L C-Reactive Protein 16.36 H (< 5.00) mg/L Total Protein 7.1 (6.4-8.9) g/dL Albumin 4.1 (3.2-5.2) g/dL Globulin 3.0 (2-4) g/dL Albumin/Globulin Ratio 1.4 (1-3) Lipase 17 (11.0-82.0) U/L Beta HCG, Quant 1.85 mIU/mL Urine Color Urine Appearance Urine pH (5-9) Ur Specific Egan (1.010-1.030) Urine Protein (Negative) Urine Ketones (Negative) Urine Blood (Negative) Urine Nitrate (Negative) Urine Bilirubin (Negative) Urine Urobilinogen (Negative) Ur Leukocyte Esterase (Negative) Urine WBC (Auto) (Absent) Urine RBC (Auto) (Absent) Ur Squamous Epith Cells (Absent) Urine Bacteria (Absent) Urine Glucose (Negative) 08/04/17 Range/Units 16:20 WBC (3.5-10.8) 10^3/ul RBC (4.0-5.4) 10^6/ul Hgb (12.0-16.0) g/dl Hct (35-47) % MCV (80-97) fL MCH (27-31) pg MCHC (31-36) g/dl RDW (10.5-15) % Plt Count (150-450) 10^3/ul MPV (7.4-10.4) um3 Neut % (Auto) (38-83) % Lymph % (Auto) (25-47) % Hopkins % (Auto) (0-7) % Eos % (Auto) (0-6) % Baso % (Auto) (0-2) % Absolute Neuts (auto) (1.5-7.7) 10^3/ul Absolute Lymphs (auto) (1.0-4.8) 10^3/ul Absolute Monos (auto) (0-0.8) 10^3/ul Absolute Eos (auto) (0-0.6) 10^3/ul Absolute Basos (auto) (0-0.2) 10^3/ul Absolute Nucleated RBC 10^3/ul Nucleated RBC % Sodium (133-145) mmol/L Potassium (3.5-5.0) mmol/L Chloride (101-111) mmol/L Carbon Dioxide (22-32) mmol/L Anion Gap (2-11) mmol/L BUN (6-24) mg/dL Creatinine (0.51-0.95) mg/dL Est GFR ( Amer) (>60) Est GFR (Non-Af Amer) (>60) BUN/Creatinine Ratio (8-20) Glucose (70-100) mg/dL Lactic Acid (0.5-2.0) mmol/L Calcium (8.6-10.3) mg/dL Total Bilirubin (0.2-1.0) mg/dL AST (13-39) U/L ALT (7-52) U/L Alkaline Phosphatase (34-104) U/L C-Reactive Protein (< 5.00) mg/L Total Protein (6.4-8.9) g/dL Albumin (3.2-5.2) g/dL Globulin (2-4) g/dL Albumin/Globulin Ratio (1-3) Lipase (11.0-82.0) U/L Beta HCG, Quant mIU/mL Urine Color Yellow Urine Appearance Cloudy Urine pH 5.0 (5-9) Ur Specific Egan 1.019 (1.010-1.030) Urine Protein Negative (Negative) Urine Ketones Negative (Negative) Urine Blood 2+ A (Negative) Urine Nitrate Negative (Negative) Urine Bilirubin Negative (Negative) Urine Urobilinogen Negative (Negative) Ur Leukocyte Esterase Negative (Negative) Urine WBC (Auto) Absent (Absent) Urine RBC (Auto) 3+(>10/hpf) A (Absent) Ur Squamous Epith Cells Present A (Absent) Urine Bacteria Absent (Absent) Urine Glucose Negative (Negative) Result Diagrams: 08/04/17 15:58 08/04/17 15:58 Lab Statement: Any lab studies that have been ordered have been reviewed, and results considered in the medical decision making process. Abdominal Pain Fem Course/Dx - Course Course Of Treatment: Patient's CT report is as follows. Impression ". 1. No evidence of for acute finding or cause for the patient's abdominal pain is seen. 2 status post cholecystectomy and appendectomy. 3 hepatic steatosis. Patient's pelvic exam is unremarkable for infection and no pain elicited. UA is positive for blood and patient is not on her menstrual cycle. Suspect she could've possibly passed a very small stone not leading to hydronephrosis as this was not witnessed on CT scan. She reports her pain has continued to improve since she's had the initial acute bowel earlier today and feels pretty good at the moment. Although we did not find a definitive diagnosis for her pain today, she will continue to monitor symptoms and return to the emergency department if danger signs or symptoms present. - Diagnoses Provider Diagnoses: Left lower quadrant abdominal pain of unknown etiology Discharge - Discharge Plan Condition: Stable Disposition: HOME Patient Education Materials: Acute Abdominal Pain (ED), Kidney Stones (ED), Non -Alcoholic Fatty Liver Disease (ED), Diverticulosis (ED) Referrals: Merlene Amin MD [Primary Care Provider] - Additional Instructions: The definitive cause of your left lower quadrant pain was not identified today. However after evaluating all results, it is suspected you may have passed a small kidney stone on this side. Continue to monitor yourself or symptoms such as fever, chills, return of acute pain, vomiting, diarrhea and/or bloody stool, abnormal vaginal discharge or irritation. If any the symptoms present, return to the emergency department. Otherwise, he may follow up with her PCP as needed. NOTE: Your CT scan reveals diverticulosis. These are pockets within the colon but cause no harm at rest however may become inflamed and infected. Is important that you follow-up with her PCP or return to the emergency department if you develop return of abdominal pain as this can become a problem however does not appear to be so today. NOTE: Your also found to have a "fatty liver" on CT scan. This is a nonacute issue and may be addressed with her PCP. Call today to schedule an appointment.
[2017-08-04 19:36] VITALS: BP 145/99
--- NOTE | 2017-08-06 09:52 | PN ---
Progress Note - Progress Note Date of Service: 08/04/17 Note: vaginal cultures came back positive for iris. spoke with patient at 9:40am to inform need of treatment. monistat 3 was sent over to pharmacy. no further action required.
== END 2017-08-04 19:36 | disposition home or self-care (01) ==
LOC: ED 12:40
DX: R10.32 Left lower quadrant pain (principal); K76.0 Fatty (change of) liver, not elsewhere classified
CPT/HCPCS: 36415; 74177; 80053; 81003; 81015; 83605; 83690; 84702; 85025; 86140; 87480; 87491; 87510; 87591; 87661; 96374; 96375; 99283; J2270; J2405; Q9967

== ENCOUNTER 2017-08-05 10:11 | Emergency (ER) | payer OTHER, MEDICAID ==
[2017-08-05 13:47] LABS: ABS Basophils 0.1 10^3/ul (0-0.2); ABS Eosinophils 0 10^3/ul (0-0.6); ABS Lymphocytes 1.6 10^3/ul (1.0-4.8); ABS Monocytes 0.4 10^3/ul (0-0.8); ABS Neutrophils 5.2 10^3/ul (1.5-7.7); ABS Nucleated RBC 0 10^3/ul; Eosinophil % 0.5 % (0-6); Hematocrit 39 % (35-47); Hemoglobin 13.1 g/dl (12.0-16.0); Lymphocyte % 21.9 % (25-47); Mean Corpuscular HGB Conc 33 g/dl (31-36); Mean Corpuscular Hemoglobin 28 pg (27-31); Mean Corpuscular Volume 83 fL (80-97); Mean Platelet Volume 9 um3 (7.4-10.4); Nucleated Red Blood Cells % 0; Platelet Count 301 10^3/ul (150-450); Red Blood Count 4.75 10^6/ul (4.0-5.4); Red Cell Distribution Width 15 % (10.5-15); White Blood Count 7.3 10^3/ul (3.5-10.8)
[2017-08-05] MEDS ORDERED: oxyCODONE/Acetamin 5/325 MG* TAB PO ONE (13:52)
[2017-08-05 13:59] LABS: Urine Appearance Clear; Urine Blood 3+ (Negative); Urine Color Straw; Urine Ketones Negative (Negative); Urine Protein Negative (Negative); Urine Specific Gravity 1.008 (1.010-1.030); Urine Urobilinogen Negative (Negative)
[2017-08-05 14:05] LABS: EGFR Non-African American 89.7 (>60)
[2017-08-05] MEDS ORDERED: oxyCODONE/Acetamin 5/325 MG* TAB ONE (14:15)
[2017-08-05 15:05] VITALS: BP 121/103
--- NOTE | 2017-08-05 16:06 | RAD ---
INDICATION: Left flank abdominal pain. COMPARISON: Comparison is made with a prior CT of the abdomen and pelvis from August 04, 2017. TECHNIQUE: Multiple real-time images of the left kidney were obtained. FINDINGS: The left kidney is normal in size shape and echogenicity. The kidney measured 11.1 x 4.9 x 5.0 cm. There is mild dilatation of the left renal calyces and pelvis suggestive of mild hydronephrosis. There are bilateral ureteral vesicle jets noted within the bladder. IMPRESSION: MILD LEFT HYDRONEPHROSIS.
--- NOTE | 2017-08-05 17:11 | RAD ---
INDICATION: LEFT flank pain. Mild LEFT hydronephrosis noted on August 05, 2017 ultrasound. COMPARISON: August 05, 2017 ultrasound and August 04, [address] contrast-[address]. May 10, 2013 CT. TECHNIQUE: Multidetector CT images were obtained from the lung bases to the ischial tuberosities. Evaluation of the viscera is limited without IV contrast. Multiplanar reformation. REPORT: Unremarkable visualized inferior thorax. Post cholecystectomy. Negative for biliary dilatation. 19.7 cm cephalocaudal liver is decreased in density consistent with fatty infiltration. Negative for CT abnormality of the pancreas or spleen. Small splenule anterior to the spleen. Negative for CT abnormality of the upper GI or small bowel. Post appendectomy. Severe diverticulosis of the sigmoid colon without findings of diverticulitis. Negative for ascites, free air, hernias. Normal adrenal glands. Unchanged mild LEFT pelvicaliectasis. Reference axial image 99 of 205 there is suggestion of a 1 mm punctate stone at the proximal LEFT ureter. Negative for additional urolithiasis. The ureters and partially decompressed urinary bladder are otherwise unremarkable. Unremarkable anteverted uterus and adnexal regions. The LEFT ovary is not visualized consistent with previous resection. Negative for lymphadenopathy based on short axis size criteria. Upper normal distal external iliac and inguinal lymph nodes noted. Normal diameter abdominal aorta and iliac arteries. Physiologic distention of the IVC. Negative for suspicious osseous lesions. IMPRESSION: Mild LEFT unilateral hydronephrosis is traced to a subtle approximate 1 mm punctate stone at the proximal LEFT ureter. On a remote CT from May 10, 2013 a larger stone was noted at the same location.
--- NOTE | 2017-08-05 20:22 | ED ---
Demarcus Rios Julia, scribed for Gary Gibbs MD on 08/05/17 at 1339 . Abdominal Pain/Male - HPI Summary HPI Summary: This patient is a 37 year old F presenting to [facility] with a chief complaint of LLQ and L flank pain since last night, described as aggravating and uncomfortable. Patient reports nausea. The patient rates the pain 8/10 in severity. Symptoms aggravated by lying supine. Patient was seen in the ED yesterday. Her pain improved but has returned since then. - History of Current Complaint Chief Complaint: EDAbdPain Stated Complaint: ABD PAIN Time Seen by Provider: 08/05/17 13:32 Hx Obtained From: Patient Onset/Duration: Lasting Hours Timing: Intermittent Pain Intensity: 8 Pain Scale Used: 0-10 Numeric Location: Discrete At: LLQ Radiates: Yes Radiates to: Flank - L Character: Other: - "aggravating" Associated Signs And Symptoms: Positive: Nausea - Allergies/Home Medications Allergies/Adverse Reactions: Allergies Allergy/AdvReac Type Severity Reaction Status Date / Time clindamycin Allergy Rash Verified 08/04/17 13:12 metoprolol Allergy Rash Verified 08/04/17 13:12 Penicillins Allergy Hives Verified 08/04/17 13:12 potassium Allergy Difficulty Verified 08/04/17 13:12 Breathing prednisone Allergy Palpitation Verified 08/04/17 13:12 s quetiapine [From Seroquel] Allergy Unknown Verified 08/04/17 13:12 Reaction Details shrimp Allergy Swelling Verified 08/04/17 13:12 Sulfa (Sulfonamide Allergy Unknown Verified 08/04/17 13:12 Antibiotics) Reaction Details bandaid Allergy Blisters Uncoded 08/04/17 13:12 PMH/Surg Hx/FS Hx/Imm Hx Endocrine/Hematology History: Denies: Hx Diabetes, Hx Sickle Cell Disease, Hx Thyroid Disease Cardiovascular History: Reports: Hx Hypertension Denies: Hx Hypercholesterolemia, Hx Pacemaker/ICD, Hx Peripheral Vascular Disease Respiratory History: Reports: Hx Asthma, Hx Seasonal Allergies Denies: Hx Chronic Obstructive Pulmonary Disease (COPD) GI History: Reports: Hx Gastroesophageal Reflux Disease - TUMS Denies: Hx Crohn's Disease, Hx Diverticulosis, Hx Gastrointestinal Bleed, Hx Hiatal Hernia, Hx Irritable Bowel, Hx Obstructive Bowel, Hx Ulcer, Other GI Disorders History: Reports: Hx Kidney Stones - 2010, Other Problems/Disorders - pcos Denies: Hx Renal Disease Musculoskeletal History: Reports: Hx Tendonitis - IN LEFT ANKLE/Foot, Other Musculoskeletal History - neck problems - herniated cervical disc Denies: Hx Arthritis, Hx Osteoporosis Sensory History: Denies: Hx Contacts or Glasses, Hx Hearing Aid Opthamlomology History: Denies: Hx Contacts or Glasses Neurological History: Reports: Other Neuro Impairments/Disorders - PAIN CLINIC PT Denies: Hx Headaches, Hx Seizures, Hx Transient Ischemic Attacks (TIA) Psychiatric History: Denies: Hx Anxiety, Hx Depression, Hx Panic Disorder - Cancer History Hx Hematologic Symptoms: No Hx Chemotherapy: No Hx Radiation Therapy: No Hx Palliative Cancer Treatment: No - Surgical History Surgery Procedure, Year, and Place: tubes in ears as child. LEFT ovary removed ; TUBAL LIGATION, HX OF 2 C-SECTIONS. appendix 2002. gallbladder 2002. Left knee - MMT REPAIR. EUA L knee. R thumb - pin for torn ligaments. tonsillectomy. R wrist 2010 Hx Anesthesia Reactions: No - Immunization History Date of Tetanus Vaccine: utd Date of Influenza Vaccine: utd Infectious Disease History: No Infectious Disease History: Denies: Hx Clostridium Difficile, Hx Hepatitis, Hx Human Immunodeficiency Virus (HIV), Hx of Known/Suspected MRSA, Hx Shingles, Hx Tuberculosis, Hx Known/ Suspected VRE, Hx Known/Suspected VRSA, History Other Infectious Disease, Traveled Outside the [place] in Last 30 Days - Family History Known Family History: Positive: Other - daughter - neurological hearing loss Negative: Cardiac Disease, Diabetes - Social History Alcohol Use: None Hx Substance Use: No Substance Use Type: Reports: None Hx Tobacco Use: No Smoking Status (MU): Never Smoked Tobacco Have You Smoked in the Last Year: No Review of Systems Positive: Abdominal Pain, Nausea Positive: flank pain All Other Systems Reviewed And Are Negative: Yes Physical Exam - Summary Physical Exam Summary: Appearance: The patient is well-nourished in no acute distress and in no acute pain. Skin: The skin is warm and dry and skin color reflects adequate perfusion. HEENT: The head is normocephalic and atraumatic. The pupils are equal and reactive. The conjunctivae are clear and without drainage. Nares are patent and without drainage. Mouth reveals moist mucous membranes and the throat is without erythema and exudate. The external ears are intact. The ear canals are patent and without drainage. The tympanic membranes are intact. Neck: the neck is supple with full range of motion and non-tender. There are no carotid bruits. There is no neck vein distension. Respiratory: Chest is non-tender. Lungs are clear to auscultation and breath sounds are symmetrical and equal. Cardiovascular: Heart is regular rate and rhythm. There is no murmur or rub auscultated. There is no peripheral edema and pulses are symmetrical and equal. Abdomen: The abdomen is softwith mild LLQ tenderness. There are normal bowel sounds heard in all four quadrants and there is no organomegaly palpated. Musculoskeletal: There is no back tenderness noted. Extremities are non-tender with full range of motion. There is good capillary refill. There is no peripheral edema or calf tenderness elicited. Neurological: Patient is alert and oriented to person, place and time. The patient has symmetrical motor strength in all four extremities. Cranial nerves are grossly intact. Deep tendon reflexes are symmetrical and equal in all four extremities. Psychiatric: The patient has an appropriate affect and does not exhibit any anxiety or depression. Triage Information Reviewed: Yes Vital Signs On Initial Exam: Initial Vitals Temp Pulse Resp BP Pulse Ox 98.9 F 91 18 155/102 100 08/05/17 10:16 08/05/17 10:16 08/05/17 10:16 08/05/17 10:16 08/05/17 10:16 Vital Signs Reviewed: Yes Diagnostics - Vital Signs Vital Signs Temp Pulse Resp BP Pulse Ox 08/05/17 12:25 98.8 F 88 18 152/100 100 08/05/17 10:16 98.9 F 91 18 155/102 100 - Laboratory Lab Results: Lab Results 08/05/17 08/05/17 08/05/17 Range/Units 13:38 13:38 13:43 WBC 7.3 (3.5-10.8) 10^3/ul RBC 4.75 (4.0-5.4) 10^6/ul Hgb 13.1 (12.0-16.0) g/dl Hct 39 (35-47) % MCV 83 (80-97) fL MCH 28 (27-31) pg MCHC 33 (31-36) g/dl RDW 15 (10.5-15) % Plt Count 301 (150-450) 10^3/ul MPV 9 (7.4-10.4) um3 Neut % (Auto) 71.2 (38-83) % Lymph % (Auto) 21.9 L (25-47) % O'Brien % (Auto) 5.4 (0-7) % Eos % (Auto) 0.5 (0-6) % Baso % (Auto) 1.0 (0-2) % Absolute Neuts (auto) 5.2 (1.5-7.7) 10^3/ul Absolute Lymphs (auto) 1.6 (1.0-4.8) 10^3/ul Absolute Monos (auto) 0.4 (0-0.8) 10^3/ul Absolute Eos (auto) 0 (0-0.6) 10^3/ul Absolute Basos (auto) 0.1 (0-0.2) 10^3/ul Absolute Nucleated RBC 0 10^3/ul Nucleated RBC % 0 Sodium 136 (133-145) mmol/L Potassium 3.5 (3.5-5.0) mmol/L Chloride 102 (101-111) mmol/L Carbon Dioxide 27 (22-32) mmol/L Anion Gap 7 (2-11) mmol/L BUN 11 (6-24) mg/dL Creatinine 0.73 (0.51-0.95) mg/dL Est GFR ( Amer) 115.4 (>60) Est GFR (Non-Af Amer) 89.7 (>60) BUN/Creatinine Ratio 15.1 (8-20) Glucose 103 H (70-100) mg/dL Calcium 9.4 (8.6-10.3) mg/dL Total Bilirubin 0.50 (0.2-1.0) mg/dL AST 16 (13-39) U/L ALT 21 (7-52) U/L Alkaline Phosphatase 33 L (34-104) U/L C-React Prot High Sens 16.71 mg/L Total Protein 7.2 (6.4-8.9) g/dL Albumin 4.2 (3.2-5.2) g/dL Globulin 3.0 (2-4) g/dL Albumin/Globulin Ratio 1.4 (1-3) Lipase 17 (11.0-82.0) U/L Beta HCG, Quant < 0.60 mIU/mL Urine Color Straw Urine Appearance Clear Urine pH 5.0 (5-9) Ur Specific [place] 1.008 L (1.010-1.030) Urine Protein Negative (Negative) Urine Ketones Negative (Negative) Urine Blood 3+ A (Negative) Urine Nitrate Negative (Negative) Urine Bilirubin Negative (Negative) Urine Urobilinogen Negative (Negative) Ur Leukocyte Esterase Negative (Negative) Urine WBC (Auto) Trace(0-5/hpf) (Absent) Urine RBC (Auto) 3+(>10/hpf) A (Absent) Ur Squamous Epith Cells Present A (Absent) Urine Bacteria Absent (Absent) Urine Glucose Negative (Negative) Result Diagrams: 08/05/17 13:38 08/05/17 13:38 Lab Statement: Any lab studies that have been ordered have been reviewed, and results considered in the medical decision making process. - CT A/P CT Interpretation Completed By: Radiologist - Mild LEFT unilateral hydronephrosis is traced to a subtle approximate 1 mm punctate stone at the proximal LEFT ureter. On a remote CT from May 10, 2013 a larger stone was noted at the same location. ED Physician has reviewed this report. - Additional Comments Diagnostic Additional Comments: Renal US: MILD LEFT HYDRONEPHROSIS. ED Physician has reviewed this report. Abdominal Pain Fem Course/Dx - Course Course Of Treatment: Ms. Penny presented with worsening left flank pain. She was here yesterday with microscopic hematuria and normal labs and CT abdomen. Her pain worsened and U/S of her left kidney showed some mild hydronephrosis so I obtained another CT without contrast. A very small proximal left ureteral stone was found and I will treat her in the usual fashion. - Diagnoses Provider Diagnoses: Kidney stones Discharge - Discharge Plan Condition: Stable Disposition: HOME Prescriptions: HYDROcodone/ACETAMIN 5-325 MG* [[place] 5-325 TAB*] 1 tab PO Q6H PRN #20 tab MDD 4 PRN Reason: Pain Tamsulosin CAP* [Flomax CAP*] 0.4 mg PO DAILY #7 cap Patient Education Materials: Kidney Stones (ED) Referrals: Suleman Portillo MD [Medical Doctor] - 1 Day (Follow up with Dr. Portillo tomorrow.) The documentation as recorded by the Demarcus mejia Julia accurately reflects the service I personally performed and the decisions made by me, Gary Gibbs MD.
== END 2017-08-05 17:40 | disposition home or self-care (01) ==
LOC: ED 10:11
DX: N13.2 Hydronephrosis with renal and ureteral calculous obstruction (principal)
CPT/HCPCS: 36415; 74176; 76775; 80053; 81003; 83690; 84702; 85025; 86141; 87086; 99282; A9270-GY

== ENCOUNTER 2017-08-20 20:22 | Emergency (ER) | payer OTHER, MEDICAID ==
[2017-08-20 20:34] VITALS: BP 130/78
[2017-08-20] MEDS ORDERED: Albuterol/Ipratropium NEB.SOL* Albuterol 2.5 MG/Ipratropium 0.5 MG 3 ML INH ONE (20:55)
--- NOTE | 2017-08-20 21:02 | UC ---
Asthma HPI - HPI Summary HPI Summary: 37 yo patient states she has been coughing and having asthma exacerbation for a week. Started when she contracted her child's cold. She is on the predpack and she cannot take prednisone as she gets palpitations and chest pain with it. Today is day 5, but she states it is not working. Denies wheezing, but she continues with cough and SOB. LMD: 2 weeks ago , S/p BTL. Currently she is taking arnuity, albuterol, monterlukast, q-nasal. Last albuterol nebulization was at 4:30p today. - History of Current Complaint Chief Complaint: UCRespiratory Stated Complaint: URI Time Seen by Provider: 08/20/17 20:45 Hx Obtained From: Patient Hx Last Menstrual Period: tubal ligation ?: Yes Onset/Duration: Sudden Onset, Gradual Onset, Lasting Days Timing: Intermittent Episode Lasting Initial Severity: Mild Current Severity: Moderate Pain Intensity: 7 Location/Character: Cough (Nonproductive) Aggravating Factor(s): Allergens Alleviating Factor(s): Inhalers/Nebulizers Associated Signs and Symptoms: Positive: Negative - Risk Factors Status Asthmaticus Risk Factors: Negative - Allergy/Home Medications Allergies/Adverse Reactions: Allergies Allergy/AdvReac Type Severity Reaction Status Date / Time clindamycin Allergy Rash Verified 08/20/17 20:34 metoprolol Allergy Rash Verified 08/20/17 20:34 Penicillins Allergy Hives Verified 08/20/17 20:34 potassium Allergy Difficulty Verified 08/20/17 20:34 Breathing prednisone Allergy Palpitation Verified 08/20/17 20:34 s quetiapine [From Seroquel] Allergy Unknown Verified 08/20/17 20:34 Reaction Details shrimp Allergy Swelling Verified 08/20/17 20:34 Sulfa (Sulfonamide Allergy Unknown Verified 08/20/17 20:34 Antibiotics) Reaction Details bandaid Allergy Blisters Uncoded 08/20/17 20:34 PMH/Surg Hx/FS Hx/Imm Hx Previously Healthy: Yes Cardiovascular History: Hypertension Respiratory History: Asthma - Surgical History Surgical History: Yes Surgery Procedure, Year, and Place: tubes in ears as child. LEFT ovary removed ; TUBAL LIGATION, HX OF 2 C-SECTIONS. appendix 2002. gallbladder 2002. Left knee - MMT REPAIR. EUA L knee. R thumb - pin for torn ligaments. tonsillectomy. R wrist 2010 - Family History Known Family History: Positive: Other - daughter - neurological hearing loss Negative: Cardiac Disease, Diabetes - Social History Alcohol Use: None Substance Use Type: None Smoking Status (MU): Never Smoked Tobacco Have You Smoked in the Last Year: No Household Exposure Type: Cigarettes - Immunization History Most Recent Influenza Vaccination: season Review of Systems Respiratory: Shortness Of Breath, Cough All Other Systems Reviewed And Are Negative: Yes Physical Exam Triage Information Reviewed: Yes Appearance: Well-Appearing, Obese Vital Signs: Initial Vital Signs Temp 98.1 F 08/20/17 20:29 Pulse 109 08/20/17 20:29 Resp 18 08/20/17 20:29 BP 130/78 08/20/17 20:29 Pulse Ox 100 08/20/17 20:29 Vital Signs Reviewed: Yes Eyes: Positive: Conjunctiva Clear ENT: Positive: Hearing grossly normal, Pharynx normal, TMs normal, Uvula midline Neck: Positive: Supple, Nontender, No Lymphadenopathy Respiratory: Positive: Chest non-tender, No respiratory distress, Rhonchi Cardiovascular: Positive: RRR, No Murmur, Pulses Normal Abdomen Description: Positive: Nontender Asthma Course/Dx - Course Course Of Treatment: continue with current medications. Start with benzonatate twice a day as needed. Continue arnuity once a day and oral hydration, rest and tylenol as needed - Differential Dx/Diagnosis Provider Diagnoses: Asthma exacerbation. Acute Bronchitis Discharge - Sign-Out/Discharge Documenting (check all that apply): Discharge - Discharge Plan Condition: Stable Disposition: HOME Patient Education Materials: Asthma (DC) Referrals: Merlene Amin MD [Primary Care Provider] - - Billing Disposition and Condition Condition: STABLE Disposition: HOME
--- NOTE | 2017-08-20 21:20 | RAD ---
INDICATION: Cough x7 days COMPARISON: Chest x-ray dated May 01, 2017 TECHNIQUE: PA and lateral views of the chest were obtained. FINDINGS: The heart and mediastinum are normal in size and contour. The lungs are grossly clear. There is no evidence of large pleural effusion. Visualized bones are normal for the patient's age. There is no radiographic evidence of free air beneath the diaphragm IMPRESSION: No radiographic evidence of acute cardiopulmonary disease.
== END 2017-08-20 21:38 | disposition home or self-care (01) ==
LOC: UCEAST 20:22
DX: J45.901 Unspecified asthma with (acute) exacerbation (principal); I10 Essential (primary) hypertension; Z88.1 Allergy status to other antibiotic agents; Z88.0 Allergy status to penicillin; Z88.2 Allergy status to sulfonamides; Z88.8 Allergy status to other drugs, medicaments and biological substances
CPT/HCPCS: 71046; 99212; A9270-GY; G0463

== ENCOUNTER 2018-01-08 21:10 | Emergency (ER) | payer OTHER, MEDICAID ==
--- NOTE | 2018-01-09 01:33 | ED ---
Skin Complaint - HPI Summary HPI Summary: This patient is a 37 year old F presenting to [facility] accompanied by with a chief complaint of abscess on R lower abd that began 3 days ago. The patient rates the pain 8/10 in severity. Symptoms aggravated by nothing. Symptoms alleviated by nothing. Patient reports ear ache. Patient denies chills, vomiting , diarrhea, headache, double vision, blurred vision, CP, SOB, back pain, dysuria , and rash. - History of Current Complaint Chief Complaint: EDRashSkinAbscess Stated Complaint: ABSCESS ON ABD Hx Obtained From: Patient Hx Last Menstrual Period: tubal ligation Onset/Duration: Started Days Ago, Atraumatic, Still Present Skin Exposure Onset/Duration: Days Ago Timing: Constant Onset Severity: Severe Current Severity: Severe Pain Intensity: 10 Pain Scale Used: 0-10 Numeric Skin Location: Abdomen Aggravating Symptom(s): Nothing Alleviating Symptom(s): Nothing - Allergy/Home Medications Allergies/Adverse Reactions: Allergies Allergy/AdvReac Type Severity Reaction Status Date / Time clindamycin Allergy Rash Verified 01/09/18 00:45 metoprolol Allergy Rash Verified 01/09/18 00:45 Penicillins Allergy Hives Verified 01/09/18 00:45 potassium Allergy Difficulty Verified 01/09/18 00:45 Breathing quetiapine [From Seroquel] Allergy Unknown Verified 01/09/18 00:45 Reaction Details shrimp Allergy Swelling Verified 01/09/18 00:45 Sulfa (Sulfonamide Allergy Unknown Verified 01/09/18 00:45 Antibiotics) Reaction Details prednisone AdvReac Palpitation Verified 01/09/18 00:45 s bandaid Allergy Blisters Uncoded 01/09/18 00:45 PMH/Surg Hx/FS Hx/Imm Hx Previously Healthy: No Endocrine/Hematology History: Denies: Hx Diabetes, Hx Sickle Cell Disease, Hx Thyroid Disease Cardiovascular History: Reports: Hx Hypertension Denies: Hx Hypercholesterolemia, Hx Pacemaker/ICD, Hx Peripheral Vascular Disease Respiratory History: Reports: Hx Asthma, Hx Seasonal Allergies Denies: Hx Chronic Obstructive Pulmonary Disease (COPD) GI History: Reports: Hx Gastroesophageal Reflux Disease - TUMS Denies: Hx Crohn's Disease, Hx Diverticulosis, Hx Gastrointestinal Bleed, Hx Hiatal Hernia, Hx Irritable Bowel, Hx Obstructive Bowel, Hx Ulcer, Other GI Disorders History: Reports: Hx Kidney Stones - 2009, Other Problems/Disorders - pcos Denies: Hx Renal Disease Musculoskeletal History: Reports: Hx Tendonitis - IN LEFT ANKLE/Foot, Other Musculoskeletal History - neck problems - herniated cervical disc Denies: Hx Arthritis, Hx Osteoporosis Sensory History: Denies: Hx Contacts or Glasses, Hx Hearing Aid Opthamlomology History: Denies: Hx Contacts or Glasses Neurological History: Reports: Other Neuro Impairments/Disorders - PAIN CLINIC PT Denies: Hx Headaches, Hx Seizures, Hx Transient Ischemic Attacks (TIA) Psychiatric History: Denies: Hx Anxiety, Hx Depression, Hx Panic Disorder - Cancer History Hx Hematologic Symptoms: No Hx Chemotherapy: No Hx Radiation Therapy: No Hx Palliative Cancer Treatment: No - Surgical History Surgery Procedure, Year, and Place: tubes in ears as child. LEFT ovary removed ; TUBAL LIGATION, HX OF 2 C-SECTIONS. appendix 2002. gallbladder 2002. Left knee - MMT REPAIR. EUA L knee. R thumb - pin for torn ligaments. tonsillectomy. R wrist 2010 Hx Anesthesia Reactions: No - Immunization History Date of Tetanus Vaccine: utd Date of Influenza Vaccine: fall 2016 Infectious Disease History: No Infectious Disease History: Denies: Hx Clostridium Difficile, Hx Hepatitis, Hx Human Immunodeficiency Virus (HIV), Hx of Known/Suspected MRSA, Hx Shingles, Hx Tuberculosis, Hx Known/ Suspected VRE, Hx Known/Suspected VRSA, History Other Infectious Disease, Traveled Outside the [place] in Last 30 Days - Family History Known Family History: Positive: Other - daughter - neurological hearing loss Negative: Cardiac Disease, Diabetes - Social History Occupation: Unemployed Lives: With Family Alcohol Use: None Hx Substance Use: No Substance Use Type: Reports: None Hx Tobacco Use: No Smoking Status (MU): Never Smoked Tobacco Have You Smoked in the Last Year: No Review of Systems Negative: Chills Negative: Blurred Vision, Diplopia Positive: Ear Ache Negative: Chest Pain Negative: Shortness Of Breath Negative: Vomiting, Nausea Negative: dysuria Negative: Edema Positive: Other - Positive abscess on R lower abd. Negative: Rash Negative: Headache Negative: Anxious, Depressed All Other Systems Reviewed And Are Negative: No Physical Exam - Summary Physical Exam Summary: Appearance: Alert, conversive, nontoxic appearing. Obese Skin: Warm, dry, no mottling, no contusions. To the right lower abdomen she has cellulitis and a small area of induration. No pore. No drainage. HEENT: EOMI, PERRL, moist mucous membranes Neck: No masses on the neck, supple Respiratory: Clear to auscultation, breath sounds present, no rales, no rhonchi , no wheezes Cardiovascular: RRR, pulses are symmetrical in both lower and upper extremities Abdomen: Soft, non-tender Bowel Sounds: Present Musculoskeletal: No CVA tenderness, no obvious deformity, moving all extremities in a grossly normal manner Neurological: A&Ox3, CN II-XII Intact, moving all extremities symmetrically Psychiatric: Normal affect and mood Triage Information Reviewed: Yes Vital Signs On Initial Exam: Initial Vitals Temp Pulse Resp BP Pulse Ox 99.2 F 104 24 139/91 96 01/08/18 21:12 01/08/18 21:12 01/08/18 21:12 01/08/18 21:12 01/08/18 21:12 Vital Signs Reviewed: Yes Diagnostics - Vital Signs Vital Signs Temp Pulse Resp BP Pulse Ox 01/08/18 23:19 98.5 F 87 20 139/94 99 01/08/18 21:12 99.2 F 104 24 139/91 96 - Laboratory Lab Statement: Any lab studies that have been ordered have been reviewed, and results considered in the medical decision making process. Course/Dx - Course Course Of Treatment: This patient is a 37 year old F presenting to [facility] accompanied by with a chief complaint of abscess on R lower abd that began 3 days ago. Physical Exam Findings: Obese. To the right lower abdomen she has cellulitis and a small area of induration. No pore. No drainage. In the ED course the patient was given Rocephin. Patient will be discharged with prescription for Keflex and with follow up from PCP. The patient is agreeable with this plan. - Diagnoses Provider Diagnoses: Cellulitis, Skin abscess Discharge - Sign-Out/Discharge Documenting (check all that apply): Patient Departure - Discharge Plan Condition: Stable Disposition: HOME Prescriptions: cephALEXin [Keflex] 500 mg PO TID #21 capsule Patient Education Materials: Cellulitis (ED), Abscess (ED) Referrals: Merlene Amin MD [Primary Care Provider] - Additional Instructions: warm compresses 5 times a day. return if worse or any new symptoms. REturn if worse or any new symptoms. Follow up with your primary care physician on Wednesday. - Billing Disposition and Condition Condition: STABLE Disposition: Home Attestations Scribe Attestation: This is scribe Krys Bess documenting for attending Florencia Grover MD. User Type: Provider with Scribe Provider Attestation: The documentation recorded by the scribe accurately reflects the service I personally performed and the decisions made by me.
[2018-01-09] MEDS ORDERED: cefTRIAXone VIAL(*) 1,000 MG VIAL IM ONE (02:07)
[2018-01-09] MEDS ORDERED: Lidocaine 1%* 5 ML VIAL ONE (02:43)
[2018-01-09 03:01] VITALS: BP 138/91
== END 2018-01-09 03:00 | disposition home or self-care (01) ==
LOC: ED 21:10
DX: L02.211 Cutaneous abscess of abdominal wall (principal); Z88.0 Allergy status to penicillin; Z88.3 Allergy status to other anti-infective agents; Z88.8 Allergy status to other drugs, medicaments and biological substances
CPT/HCPCS: 96372; 99282; J0696

== ENCOUNTER 2018-02-06 20:28 | Emergency (ER) | payer OTHER, MEDICAID ==
[2018-02-06 22:08] LABS: Hematocrit 35 % (35-47); Mean Corpuscular HGB Conc 34 g/dl (31-36); Mean Corpuscular Hemoglobin 27 pg (27-31); Mean Corpuscular Volume 80 fL (80-97); Mean Platelet Volume 8.7 um3 (7.4-10.4); Platelet Count 273 10^3/ul (150-450); Red Blood Count 4.38 10^6/ul (4.00-5.40); Red Cell Distribution Width 15 % (10.5-15); White Blood Count 7.7 10^3/ul (3.5-10.8)
[2018-02-06 22:18] LABS: EGFR Non-African American 67.5 (>60)
[2018-02-06] MEDS ORDERED: Azithromycin TAB* 250 MG PO ONE (22:22)
--- NOTE | 2018-02-06 22:32 | ED ---
Respiratory - HPI Summary HPI Summary: Patient is a 38-year-old female with a history of asthma and hypertension presenting to the ED 1 day after a possible aspiration. She states she was choking on her water yesterday when she felt a water get into her lungs. Since that time she has been coughing with a wet cough has been experiencing sweats and chills without fevers. She is also having exacerbations of her allergies and is endorsing mucous green discharge with sneezing. She denies any SOB, but states when taking a deep breath, she feels a "rumbling" in the left side of her chest. She states she has a history of P NA and is concerned with an aspiration PNA. Symptoms are not worse or better with recumbent or upright position. Denies any chest discomfort. Denies any abdominal pain, nausea, vomiting. She is been taking her medications at home as prescribed. She has not tried any OTC medications. - History of Current Complaint Chief Complaint: EDChestWallPain Stated Complaint: CHEST TIGHTNESS Time Seen by Provider: 02/06/18 21:08 Hx Obtained From: Patient Onset/Duration: Gradual Onset Timing: Constant Initial Severity: Moderate Current Severity: Moderate Pain Intensity: 7 Character: Cough (Productive) Sputum Amount: Scant Sputum Color: Green Aggravating Factor(s): URI, Allergens Alleviating Factor(s): Rest Associated Signs and Symptoms: URI, Chest Pain with Cough, Nasal Congestion - Risk Factors Status Asthmaticus Risk Factors: Negative Pulmonary Embolism Risk Factors: Negative Cardiac Risk Factors: Negative Pseudomonas Risk Factors: Negative Tuberculosis Risk Factors: Negative - Allergy/Home Medications Allergies/Adverse Reactions: Allergies Allergy/AdvReac Type Severity Reaction Status Date / Time clindamycin Allergy Rash Verified 02/06/18 20:34 metoprolol Allergy Rash Verified 02/06/18 20:34 Penicillins Allergy Hives Verified 02/06/18 20:34 potassium Allergy Difficulty Verified 02/06/18 20:34 Breathing quetiapine [From Seroquel] Allergy Unknown Verified 02/06/18 20:34 Reaction Details shrimp Allergy Swelling Verified 02/06/18 20:34 Sulfa (Sulfonamide Allergy Unknown Verified 02/06/18 20:34 Antibiotics) Reaction Details prednisone AdvReac Palpitation Verified 02/06/18 20:34 s bandaid Allergy Blisters Uncoded 02/06/18 20:34 PMH/Surg Hx/FS Hx/Imm Hx Previously Healthy: Yes Endocrine/Hematology History: Denies: Hx Diabetes, Hx Sickle Cell Disease, Hx Thyroid Disease Cardiovascular History: Reports: Hx Hypertension Denies: Hx Hypercholesterolemia, Hx Pacemaker/ICD, Hx Peripheral Vascular Disease Respiratory History: Reports: Hx Asthma, Hx Seasonal Allergies Denies: Hx Chronic Obstructive Pulmonary Disease (COPD) GI History: Reports: Hx Gastroesophageal Reflux Disease - TUMS Denies: Hx Crohn's Disease, Hx Diverticulosis, Hx Gastrointestinal Bleed, Hx Hiatal Hernia, Hx Irritable Bowel, Hx Obstructive Bowel, Hx Ulcer, Other GI Disorders History: Reports: Hx Kidney Stones - 2009, Other Problems/Disorders - pcos Denies: Hx Renal Disease Musculoskeletal History: Reports: Hx Tendonitis - IN LEFT ANKLE/Foot, Other Musculoskeletal History - neck problems - herniated cervical disc Denies: Hx Arthritis, Hx Osteoporosis Sensory History: Denies: Hx Contacts or Glasses, Hx Hearing Aid Opthamlomology History: Denies: Hx Contacts or Glasses Neurological History: Reports: Other Neuro Impairments/Disorders - PAIN CLINIC PT Denies: Hx Headaches, Hx Seizures, Hx Transient Ischemic Attacks (TIA) Psychiatric History: Denies: Hx Anxiety, Hx Depression, Hx Panic Disorder - Cancer History Hx Hematologic Symptoms: No Hx Chemotherapy: No Hx Radiation Therapy: No Hx Palliative Cancer Treatment: No - Surgical History Surgery Procedure, Year, and Place: tubes in ears as child. LEFT ovary removed ; TUBAL LIGATION, HX OF 2 C-SECTIONS. appendix 2002. gallbladder 2002. Left knee - MMT REPAIR. EUA L knee. R thumb - pin for torn ligaments. tonsillectomy. R wrist 2010 Hx Anesthesia Reactions: No - Immunization History Date of Tetanus Vaccine: utd Date of Influenza Vaccine: fall 2016 Hx Pertussis Vaccination: No Immunizations Up to Date: Yes Infectious Disease History: No Infectious Disease History: Denies: Hx Clostridium Difficile, Hx Hepatitis, Hx Human Immunodeficiency Virus (HIV), Hx of Known/Suspected MRSA, Hx Shingles, Hx Tuberculosis, Hx Known/ Suspected VRE, Hx Known/Suspected VRSA, History Other Infectious Disease, Traveled Outside the [place] in Last 30 Days - Family History Known Family History: Positive: Other - daughter - neurological hearing loss Negative: Cardiac Disease, Diabetes - Social History Occupation: Employed Full-time Lives: With Family Alcohol Use: None Hx Substance Use: No Substance Use Type: Reports: None Hx Tobacco Use: No Smoking Status (MU): Never Smoked Tobacco Have You Smoked in the Last Year: No Review of Systems Positive: Chills, Skin Diaphoresis. Negative: Fever Negative: Palpitations, Chest Pain Positive: Shortness Of Breath, Cough Negative: Abdominal Pain, Vomiting, Diarrhea, Nausea Genitourinary: Negative Positive: no symptoms reported, see HPI Negative: Arthralgia, Myalgia Skin: Negative Neurological: Negative All Other Systems Reviewed And Are Negative: Yes Physical Exam Triage Information Reviewed: Yes Vital Signs On Initial Exam: Initial Vitals Temp Pulse Resp BP Pulse Ox 97.1 F 103 20 111/68 98 02/06/18 20:32 02/06/18 20:32 02/06/18 20:32 02/06/18 20:32 02/06/18 20:32 Vital Signs Reviewed: Yes Appearance: Positive: Well-Appearing, Well-Nourished Skin: Positive: Warm, Skin Color Reflects Adequate Perfusion Head/Face: Positive: Normal Head/Face Inspection Eyes: Positive: EOMI, JEROD, Conjunctiva Clear Neck: Positive: Supple, No Lymphadenopathy Respiratory/Lung Sounds: Positive: Clear to Auscultation, Breath Sounds Present Cardiovascular: Positive: RRR, Pulses are Symmetrical in both Upper and Lower Extremities Musculoskeletal: Positive: Normal, Strength/ROM Intact Neurological: Positive: Speech Normal Psychiatric: Positive: Normal, Affect/Mood Appropriate AVPU Assessment: Alert Diagnostics - Vital Signs Vital Signs Temp Pulse Resp BP Pulse Ox 02/06/18 22:00 100 94 02/06/18 21:54 95 142/96 96 02/06/18 21:22 96 162/99 97 02/06/18 21:21 97 97 02/06/18 20:32 97.1 F 103 20 111/68 98 - Laboratory Lab Results: Lab Results 02/06/18 02/06/18 Range/Units 21:54 21:54 WBC 7.7 (3.5-10.8) 10^3/ul RBC 4.38 (4.00-5.40) 10^6/ul Hgb 12.0 (12.0-16.0) g/dl Hct 35 (35-47) % MCV 80 (80-97) fL MCH 27 (27-31) pg MCHC 34 (31-36) g/dl RDW 15 (10.5-15) % Plt Count 273 (150-450) 10^3/ul MPV 8.7 (7.4-10.4) um3 Sodium 137 (135-145) mmol/L Potassium 3.2 L (3.5-5.0) mmol/L Chloride 101 (101-111) mmol/L Carbon Dioxide 26 (22-32) mmol/L Anion Gap 10 (2-11) mmol/L BUN 17 (6-24) mg/dL Creatinine 0.93 (0.51-0.95) mg/dL Est GFR ( Amer) 81.6 (>60) Est GFR (Non-Af Amer) 67.5 (>60) BUN/Creatinine Ratio 18.3 (8-20) Glucose 143 H (70-100) mg/dL Calcium 9.1 (8.6-10.3) mg/dL Total Bilirubin 0.30 (0.2-1.0) mg/dL AST 17 (13-39) U/L ALT 28 (7-52) U/L Alkaline Phosphatase 40 (34-104) U/L Troponin I 0.00 (<0.04) ng/mL C-Reactive Protein 19.10 H (<8.01) mg/L Total Protein 6.7 (6.4-8.9) g/dL Albumin 3.8 (3.2-5.2) g/dL Globulin 2.9 (2-4) g/dL Albumin/Globulin Ratio 1.3 (1-3) Result Diagrams: 02/06/18 21:54 02/06/18 21:54 Lab Statement: Any lab studies that have been ordered have been reviewed, and results considered in the medical decision making process. Disposition - Course Course Of Treatment: Patient is evaluated for possible aspiration PNA. She appears well and nontoxic. Patient is obese, with a history of asthma and allergies. She states she has been fighting a cold, but after yesterday while choking on water, her symptoms were exacerbated and is now experiencing what cough, sweats and chills without fevers. She feels that she may have a aspiration PNA. Chest x-ray obtained and appears to have no acute cardiopulmonary disease with no loculations. X-ray report read by THU Guerrero. Labs obtained which show a negative WBC, however with a slightly elevated CRP. Due to her significant cough with green mucus production, she is given azithromycin for a possible early PNA. She will follow-up with her PCP in 2-3 days. - Differential Dx - Cardiopulmonary Differential Diagnoses - Cardiopulmonary: Acute Dyspnea, Other - Allergies, cough, URI, aspiration pneumonia - Diagnoses Provider Diagnoses: Cough in adult Discharge - Sign-Out/Discharge Documenting (check all that apply): Patient Departure - Discharge Plan Condition: Stable Disposition: HOME Prescriptions: Azithromycin TAB* [Zithromax TAB (Z-MAYURI) 250 mg #6 tabs] 250 mg PO DAILY #4 tab Referrals: Merlene Amin MD [Primary Care Provider] - Additional Instructions: Please take azithromycin x 4 days If any symptoms worsen, return to the ED Continue with allergy medication - Billing Disposition and Condition Condition: STABLE Disposition: Home
[2018-02-06 23:11] VITALS: BP 132/73
--- NOTE | 2018-02-07 07:54 | RAD ---
Indication: Chest tightness. 2 views of the chest including dual energy PA views demonstrate no mediastinal shift. Heart is of normal size and configuration. Lung phelan appear clear. When compared to previous exam of August 20, 2017 no significant change is noted. IMPRESSION: No active cardiopulmonary disease is noted.
== END 2018-02-06 23:10 | disposition home or self-care (01) ==
LOC: ED 20:28
DX: R05 Cough (principal)
CPT/HCPCS: 36415; 71046; 80053; 84484; 85027; 86140; 99282; A9270-GY

== ENCOUNTER 2018-03-18 20:56 | Emergency (ER) | payer OTHER, MEDICAID ==
--- NOTE | 2018-03-18 21:43 | ED ---
Upper Extremity Pain - HPI Summary HPI Summary: Patient complains of right shoulder pain 2 months. Pain is intermittent, random onset. Patient states pain worse last couple days. Denies trauma, fever , cough, sore throat, CP, SOB, N/V/D, abdominal pain, change in urine, change in BM. Pain with elevation of arm above shoulder level. - History of Current Complaint Chief Complaint: EDExtremityUpper Stated Complaint: RT SHOULDER PAIN Time Seen by Provider: 03/18/18 21:15 Hx Obtained From: Patient Hx Last Menstrual Period: tubal ligation Mechanism Of Injury: Unknown Onset/Duration: Started Days Ago Timing: Intermittent Severity Initially: Moderate Severity Currently: Severe Pain Location: Shoulder Character: Sharp Aggravating Factor(s): Movement Alleviating Factor(s): Rest Associated Signs & Symptoms: Positive: Negative - Allergies/Home Medications Allergies/Adverse Reactions: Allergies Allergy/AdvReac Type Severity Reaction Status Date / Time clindamycin Allergy Rash Verified 03/18/18 21:04 metoprolol Allergy Rash Verified 03/18/18 21:04 Penicillins Allergy Hives Verified 03/18/18 21:04 potassium Allergy Difficulty Verified 03/18/18 21:04 Breathing quetiapine [From Seroquel] Allergy Unknown Verified 03/18/18 21:04 Reaction Details shrimp Allergy Swelling Verified 03/18/18 21:04 Sulfa (Sulfonamide Allergy Unknown Verified 03/18/18 21:04 Antibiotics) Reaction Details prednisone AdvReac Palpitation Verified 03/18/18 21:04 s bandaid Allergy Blisters Uncoded 03/18/18 21:04 PMH/Surg Hx/FS Hx/Imm Hx Endocrine/Hematology History: Denies: Hx Diabetes, Hx Sickle Cell Disease, Hx Thyroid Disease Cardiovascular History: Reports: Hx Hypertension Denies: Hx Hypercholesterolemia, Hx Pacemaker/ICD, Hx Peripheral Vascular Disease Respiratory History: Reports: Hx Asthma, Hx Seasonal Allergies Denies: Hx Chronic Obstructive Pulmonary Disease (COPD) GI History: Reports: Hx Gastroesophageal Reflux Disease - TUMS Denies: Hx Crohn's Disease, Hx Diverticulosis, Hx Gastrointestinal Bleed, Hx Hiatal Hernia, Hx Irritable Bowel, Hx Obstructive Bowel, Hx Ulcer, Other GI Disorders History: Reports: Hx Kidney Stones - 2010, Other Problems/Disorders - pcos Denies: Hx Renal Disease Musculoskeletal History: Reports: Hx Tendonitis - IN LEFT ANKLE/Foot, Other Musculoskeletal History - neck problems - herniated cervical disc Denies: Hx Arthritis, Hx Osteoporosis Sensory History: Denies: Hx Contacts or Glasses, Hx Hearing Aid Opthamlomology History: Denies: Hx Contacts or Glasses Neurological History: Reports: Other Neuro Impairments/Disorders - PAIN CLINIC PT Denies: Hx Headaches, Hx Seizures, Hx Transient Ischemic Attacks (TIA) Psychiatric History: Denies: Hx Anxiety, Hx Depression, Hx Panic Disorder - Cancer History Hx Hematologic Symptoms: No Hx Chemotherapy: No Hx Radiation Therapy: No Hx Palliative Cancer Treatment: No - Surgical History Surgery Procedure, Year, and Place: tubes in ears as child. LEFT ovary removed ; TUBAL LIGATION, HX OF 2 C-SECTIONS. appendix 2002. gallbladder 2002. Left knee - MMT REPAIR. EUA L knee. R thumb - pin for torn ligaments. tonsillectomy. R wrist 2010 Hx Anesthesia Reactions: No - Immunization History Date of Tetanus Vaccine: utd Date of Influenza Vaccine: fall 2016 Infectious Disease History: No Infectious Disease History: Denies: Hx Clostridium Difficile, Hx Hepatitis, Hx Human Immunodeficiency Virus (HIV), Hx of Known/Suspected MRSA, Hx Shingles, Hx Tuberculosis, Hx Known/ Suspected VRE, Hx Known/Suspected VRSA, History Other Infectious Disease, Traveled Outside the [place] in Last 30 Days - Family History Known Family History: Positive: Other - daughter - neurological hearing loss Negative: Cardiac Disease, Diabetes - Social History Alcohol Use: None Hx Substance Use: No Substance Use Type: Reports: None Hx Tobacco Use: No Smoking Status (MU): Never Smoked Tobacco Have You Smoked in the Last Year: No Review of Systems Constitutional: Negative Eyes: Negative ENT: Negative Cardiovascular: Negative Respiratory: Negative Gastrointestinal: Negative Genitourinary: Negative Positive: Arthralgia Skin: Negative Neurological: Negative Psychological: Normal All Other Systems Reviewed And Are Negative: Yes Physical Exam - Summary Physical Exam Summary: PMS intact on right upper extremity. Director Media strength normal. No erythema, ecchymosis, swelling, deformity, extra warmth noted to right shoulder joint, right elbow. Normal range of motion right wrist and right elbow. Pain with abduction of right arm above shoulder level. Triage Information Reviewed: Yes Vital Signs On Initial Exam: Initial Vitals Temp Pulse Resp BP Pulse Ox 97.4 F 102 16 152/90 98 03/18/18 21:01 03/18/18 21:01 03/18/18 21:01 03/18/18 21:01 03/18/18 21:01 Vital Signs Reviewed: Yes Appearance: Positive: Well-Appearing Skin: Positive: Warm Head/Face: Positive: Normal Head/Face Inspection Eyes: Positive: Normal Neck: Positive: Supple Respiratory/Lung Sounds: Positive: Clear to Auscultation Cardiovascular: Positive: Normal Abdomen Description: Positive: Nontender Musculoskeletal: Positive: Normal Neurological: Positive: Normal Psychiatric: Positive: Normal AVPU Assessment: Alert - Natalie Coma Scale Best Eye Response: 4 - Spontaneous Best Motor Response: 6 - Obeys Commands Best Verbal Response: 5 - Oriented Coma Scale Total: 15 Diagnostics - Vital Signs Vital Signs Temp Pulse Resp BP Pulse Ox 03/18/18 21:01 97.4 F 102 16 152/90 98 - Laboratory Lab Statement: Any lab studies that have been ordered have been reviewed, and results considered in the medical decision making process. Course/Dx - Course Course Of Treatment: Patient complains of right shoulder pain 2 months. Pain is intermittent, random onset. Patient states pain worse last couple days. Denies trauma, fever, cough, sore throat, CP, SOB, N/V/D, abdominal pain, change in urine, change in BM. Pain with elevation of arm above shoulder level. Physical exam:PMS intact on right upper extremity. Director Media strength normal. No erythema, ecchymosis, swelling, deformity, extra warmth noted to right shoulder joint, right elbow. Normal range of motion right wrist and right elbow. Pain with abduction of right arm above shoulder level. Shoulder x -ray negative for acute process. Recommend follow-up with orthopedics. - Diagnoses Provider Diagnoses: Right shoulder strain Discharge - Sign-Out/Discharge Documenting (check all that apply): Patient Departure - Discharge Plan Condition: Stable Disposition: HOME Prescriptions: Cyclobenzaprine TAB* [Flexeril 10 MG TAB*] 10 mg PO TID PRN 3 Days #10 tab PRN Reason: Pain Patient Education Materials: Shoulder Sprain (ED) Referrals: Merlene Amin MD [Primary Care Provider] - Dre Cardenas MD [Medical Doctor] - Additional Instructions: Ice and ibuprofen for pain. Follow-up with orthopedics Dr. Cardenas. Return to the ED for any new or worsening symptoms - Billing Disposition and Condition Condition: STABLE Disposition: Home
[2018-03-18] MEDS ORDERED: Cyclobenzaprine TAB* 10 MG PO ONE (21:56)
[2018-03-18 22:06] VITALS: BP 155/82
--- NOTE | 2018-03-19 07:22 | RAD ---
INDICATION: Right shoulder pain. TECHNIQUE: 4 views of the right shoulder were obtained. FINDINGS: The bones are in normal alignment. No fracture is seen. Joint spaces appear maintained. IMPRESSION: NO EVIDENCE OF FRACTURE. R1NF
== END 2018-03-18 22:05 | disposition home or self-care (01) ==
LOC: ED 20:56
DX: S46.911A Strain of unspecified muscle, fascia and tendon at shoulder and upper arm level, right arm, initial encounter (principal); X58.XXXA Exposure to other specified factors, initial encounter; Y92.9 Unspecified place or not applicable; Z88.1 Allergy status to other antibiotic agents; Z88.0 Allergy status to penicillin; Z91.013 Allergy to seafood; Z88.2 Allergy status to sulfonamides; Z88.8 Allergy status to other drugs, medicaments and biological substances; Z91.048 Other nonmedicinal substance allergy status
CPT/HCPCS: 99282; A9270-GY

== ENCOUNTER 2018-03-29 20:53 | Emergency (ER) | payer OTHER, MEDICAID ==
[2018-03-29] MEDS ORDERED: Ketorolac INJ* 30 MG/ML 1 ML VIAL IM ONE (21:19)
[2018-03-29] MEDS ORDERED: Cyclobenzaprine TAB* 10 MG PO ONE (21:19)
[2018-03-29] MEDS ORDERED: Lidocaine PATCH 5%* 1 PATCH TRANSDERM ONE (21:19)
--- NOTE | 2018-03-29 21:20 | ED ---
Back Pain - HPI Summary HPI Summary: 38 year old female presents with back pain since yesterday. She states she slipped in [employer] and landed on her back. States that the back pain is gradually increasing. She states it hurts when she takes a deep breath. She took ibuprofen last night. States that she hurt her knees but her knee is now is not currently hurting. She is able to ambulate. No numbness or tingling to her legs. No weakness. No saddle anesthesia or loss of bowel or bladder. No fevers. No urinary symptoms. No chest pain. - History of Current Complaint Chief Complaint: EDBackInjuryPain Stated Complaint: BACK PAIN Time Seen by Provider: 03/29/18 21:04 Hx Last Menstrual Period: tubal ligation Pain Intensity: 10 - Allergies/Home Medications Allergies/Adverse Reactions: Allergies Allergy/AdvReac Type Severity Reaction Status Date / Time clindamycin Allergy Rash Verified 03/29/18 20:57 metoprolol Allergy Rash Verified 03/29/18 20:57 Penicillins Allergy Hives Verified 03/29/18 20:57 potassium Allergy Difficulty Verified 03/29/18 20:57 Breathing quetiapine [From Seroquel] Allergy Unknown Verified 03/29/18 20:57 Reaction Details shrimp Allergy Swelling Verified 03/29/18 20:57 Sulfa (Sulfonamide Allergy Unknown Verified 03/29/18 20:57 Antibiotics) Reaction Details prednisone AdvReac Palpitation Verified 03/29/18 20:57 s bandaid Allergy Blisters Uncoded 03/29/18 20:57 PMH/Surg Hx/FS Hx/Imm Hx Endocrine/Hematology History: Denies: Hx Diabetes, Hx Sickle Cell Disease, Hx Thyroid Disease Cardiovascular History: Reports: Hx Hypertension Denies: Hx Hypercholesterolemia, Hx Pacemaker/ICD, Hx Peripheral Vascular Disease Respiratory History: Reports: Hx Asthma, Hx Seasonal Allergies Denies: Hx Chronic Obstructive Pulmonary Disease (COPD) GI History: Reports: Hx Gastroesophageal Reflux Disease - TUMS Denies: Hx Crohn's Disease, Hx Diverticulosis, Hx Gastrointestinal Bleed, Hx Hiatal Hernia, Hx Irritable Bowel, Hx Obstructive Bowel, Hx Ulcer, Other GI Disorders History: Reports: Hx Kidney Stones - 2010, Other Problems/Disorders - pcos Denies: Hx Renal Disease Musculoskeletal History: Reports: Hx Tendonitis - IN LEFT ANKLE/Foot, Other Musculoskeletal History - neck problems - herniated cervical disc Denies: Hx Arthritis, Hx Osteoporosis Sensory History: Denies: Hx Contacts or Glasses, Hx Hearing Aid Opthamlomology History: Denies: Hx Contacts or Glasses Neurological History: Reports: Other Neuro Impairments/Disorders - PAIN CLINIC PT Denies: Hx Headaches, Hx Seizures, Hx Transient Ischemic Attacks (TIA) Psychiatric History: Denies: Hx Anxiety, Hx Depression, Hx Panic Disorder - Cancer History Hx Hematologic Symptoms: No Hx Chemotherapy: No Hx Radiation Therapy: No Hx Palliative Cancer Treatment: No - Surgical History Surgery Procedure, Year, and Place: tubes in ears as child. LEFT ovary removed ; TUBAL LIGATION, HX OF 2 C-SECTIONS. appendix 2002. gallbladder 2002. Left knee - MMT REPAIR. EUA L knee. R thumb - pin for torn ligaments. tonsillectomy. R wrist 2010 Hx Anesthesia Reactions: No - Immunization History Date of Tetanus Vaccine: utd Date of Influenza Vaccine: fall 2016 Infectious Disease History: No Infectious Disease History: Denies: Hx Clostridium Difficile, Hx Hepatitis, Hx Human Immunodeficiency Virus (HIV), Hx of Known/Suspected MRSA, Hx Shingles, Hx Tuberculosis, Hx Known/ Suspected VRE, Hx Known/Suspected VRSA, History Other Infectious Disease, Traveled Outside the [place] in Last 30 Days - Family History Known Family History: Positive: Other - daughter - neurological hearing loss Negative: Cardiac Disease, Diabetes - Social History Alcohol Use: None Hx Substance Use: No Substance Use Type: Reports: None Hx Tobacco Use: No Smoking Status (MU): Never Smoked Tobacco Have You Smoked in the Last Year: No Review of Systems Negative: Fever Negative: Chest Pain Positive: Shortness Of Breath Positive: Myalgia - thoracic back pain All Other Systems Reviewed And Are Negative: Yes Physical Exam Triage Information Reviewed: Yes Vital Signs On Initial Exam: Initial Vitals Temp Pulse Resp BP Pulse Ox 98.3 F 105 22 153/80 98 03/29/18 20:55 03/29/18 20:55 03/29/18 20:55 03/29/18 20:55 03/29/18 20:55 Vital Signs Reviewed: Yes Appearance: Positive: Well-Appearing Skin: Positive: Warm, Dry Head/Face: Positive: Normal Head/Face Inspection Eyes: Positive: Normal, Conjunctiva Clear ENT: Positive: Pharynx normal Respiratory/Lung Sounds: Positive: Clear to Auscultation, Breath Sounds Present Cardiovascular: Positive: Normal, RRR Musculoskeletal: Positive: Other - tenderness thoracic back midline, neg SLR, good pulses, sensation grossly intact Neurological: Positive: Normal Psychiatric: Positive: Normal Diagnostics - Vital Signs Vital Signs Temp Pulse Resp BP Pulse Ox 03/29/18 20:55 98.3 F 105 22 153/80 98 - Laboratory Lab Statement: Any lab studies that have been ordered have been reviewed, and results considered in the medical decision making process. - CT back CT Interpretation Completed By: Radiologist Summary of CT Findings: IMPRESSION: No acute fracture, subluxation, or aggressive osseous lesion. Re-Evaluation - Re-Evaluation First Eval Re-Evaluation Time: 22:30 Change: Improved Comment: feeling better after toradol and lidocaine patch Back Pain Course/Dx - Course Course Of Treatment: 38 year old female presents with back pain since yesterday. She states she slipped in [employer] and landed on her back. States that the back pain is gradually increasing. She states it hurts when she takes a deep breath. She took ibuprofen last night. States that she hurt her knees but her knee is now is not currently hurting. She is able to ambulate. No numbness or tingling to her legs. No weakness. No saddle anesthesia or loss of bowel or bladder. No fevers. No urinary symptoms. No chest pain. On exam has tenderness of lower thoracic back. Neurovascularly intact. CT shows no fracture. Gave patient lidocaine patches Flexeril and Toradol feeling better. Will have continue with taking lidocaine patches at home. Patient understands agrees with plan. - Diagnoses Differential Diagnosis/HQI/PQRI: Positive: Herniated Disc, Strain, Sprain Provider Diagnoses: Back pain Discharge - Sign-Out/Discharge Documenting (check all that apply): Patient Departure - Discharge Plan Condition: Good Disposition: HOME Prescriptions: Cyclobenzaprine TAB* [Flexeril 10 MG TAB*] 10 mg PO TID PRN #15 tab PRN Reason: Pain Lidocaine PATCH 5%* [Lidoderm 5% Patch*] 1 patch TRANSDERM DAILY #6 patch Patient Education Materials: Back Pain (ED) Referrals: Merlene Amin MD [Primary Care Provider] - Additional Instructions: Take muscle relaxers three times a day Apply lidocaine patches to area for up to 12 hours in one 24 hour period Use ibuprofen or Tylenol for pain every 6 hours ice/heat area, move as much as possible Follow up with primary within 5 days Return to ED if develop any new or worsening symptoms - Billing Disposition and Condition Condition: GOOD Disposition: Home
--- OUTSIDE RECORDS SUMMARY | 2018-03-29 21:24 | XMS REPORT ---
:1980 External Reference #:[id number] Author Organization [employer] Address [address] [place] [address] [place] [address] Phone [phone] Care Team Providers Name Role Phone Mao Briones MD Care Team Information X Ray Consultant Unavailable Merlene Amin MD Primary Care Physician Unavailable Payers Type Date Identification Numbers Payment Provider Subscriber Commercial Policy Number: [id number] [facility] Erick Penny Group Number: [id number] [address] PayID: [id number] [place] [address] [facility] Policy Number: [id number] Medicaid Jesenia Penny PayID: [id number] [address] [place] [address] Problems Date Description Provider Status Onset: 05/23/2013 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 Cigarette Use Never Smoked Cigarettes ETOH Use Denies alcohol use Recreational Drug Use Denies Drug Use Smoking Patient has never smoked General Hx Text Allergies, Adverse Reactions, Alerts Date Description Reaction Status Severity Comments 04/17/2013 Penicillins active 04/17/2013 Sulfa Antibiotics active 04/17/2013 Clindamycin active 04/17/2013 Metoprolol active 03/19/2014 Potassium Chloride active 03/26/2016 Prednisone active 03/26/2016 Seroquel active Medications Medication Date Status Form Strength Qnty SIG Indications Ordering Provider Benadryl Allergy 04/17 Active Capsules 25mg 60cap tab po prn s hs for Saurabh, itching M.D. Singulair Active Tablets 10mg 30tab 1 po qd Unknown /0000 s Benicar Active Tablets 20mg 180ta 1 po qd Unknown /0000 bs Proair HFA Active Aerosol 108(90Bas 1unit 2 puffs po Unknown /0000 e) s q4h prn mcg/Act Tylenol Active Tablets 325mg prn Unknown /0000 Ibuprofen Active Capsules 200mg prn Unknown /0000 Pantoprazole Active Tablets 20mg 1 by mouth Unknown Sodium /0000 DR every day Levocetirizine Active Tablets 5mg 1 by mouth Unknown Dihydrochloride /0000 every day Montelukast Sodium Active Tablets 10mg 1 by mouth Unknown /0000 every day Qnasl Active Aerosol 80mcg/Act 2 Unknown /0000 inhalations in each nostril once daily Imitrex Active Unknown /0000 Losartan Potassium Active Tablets 50mg Take One Unknown /0000 Tablet By Mouth Every Day Loratadine Active Tablets 10mg Take One Unknown /0000 Tablet By Mouth Every Day Arnuity Ellipta Active Aerosol 200mcg/Ac Inhale One Unknown /0000 t puff By Mouth Every Day Naproxen Active Tablets 500mg 60tab take one Phil /0000 s tablet F twice daily Curt, with food MD as needed for pain in right foot Zyrtec Allergy Hx Tablets 10mg 90tab 1 tab qd Unknown /0000 s prn - 04/17 Lupron Depot Hx Kit 3.75mg 1unit q month Unknown /0000 s - 03/19 Percocet Hx Tablets 5-325mg 60tab 1 q 4-6 Unknown /0000 s hours prn - pain 03/19 Vicodin Hx Tablets 5-300mg 20tab take 1 by Unknown /0000 s mouth every - 6 hours as 02/03 Methylprednisolone 00/00 Hx Tablets 4mg Unknown /0000 - 02/03 Medications Administered in Office Medication Date Status Form Strength Qnty SIG Indications Ordering Provider Triamcinolone 03/24/ Administered Injection Valerio (Kenalog) 2017 MD Micaela Vital Signs Date Vital Result Comment 03/24/2018 Height 63 inches 5'3" Weight 277.00 lb Heart Rate 90 /min BP Systolic Sitting 138 mmHg BP Diastolic Sitting 98 mmHg Pain Level 4 BMI (Body Mass Index) 49.1 kg/m2 02/04/2017 Height 63 inches 5'3" Weight 271.00 lb Heart Rate 91 /min BP Systolic 135 mmHg BP Diastolic 91 mmHg Respiratory Rate 16 /min Pain Level 7 BMI (Body Mass Index) 48.0 kg/m2 05/07/2016 Height 63 inches 5'3" Weight 274.00 lb Respiratory Rate 19 /min Pain Level 1 BMI (Body Mass Index) 48.5 kg/m2 03/26/2016 Height 63 inches 5'3" Weight 274.00 lb BP Systolic 164 mmHg BP Diastolic 95 mmHg Pain Level 1 BMI (Body Mass Index) 48.5 kg/m2 04/05/2014 Height 63 inches 5'3" Weight 262.00 lb Heart Rate 86 /min BP Systolic Sitting 126 mmHg BP Diastolic Sitting 98 mmHg Pain Level 8 back/neck BMI (Body Mass Index) 46.4 kg/m2 03/19/2014 Height 63 inches 5'3" Weight 262.00 lb Heart Rate 88 /min BP Systolic Sitting 124 mmHg BP Diastolic Sitting 82 mmHg Pain Level 9 back/neck/head BMI (Body Mass Index) 46.4 kg/m2 04/17/2013 Height 63 inches 5'3" Weight 234.00 lb BP Systolic 134 mmHg BP Diastolic 92 mmHg Pain Level 0 BMI (Body Mass Index) 41.4 kg/m2 Results Description No Information Procedures Date CPT Code Description Status 03/24/2018 60879 Inj/Aspir Major JT Or Bursa W/ US Completed Encounters Type Date Location Provider CPT E/M Dx Office Visit 03/24/2018 1:00p [facility] [place] [address] M19.211 C.M.A. M75.41 S46.101A Office Visit 02/04/2017 9:00a [facility] 71836 S93.601D Stanley Elias MD Office Visit 05/07/2016 11:30a [facility], 03026 S93.601D Stanley Wilson Office Visit 03/26/2016 10:00a [facility], 36705 S93.601A Stanley Wilson Office Visit 04/05/2014 11:15a [facility] Yusef Wiley 94024 721.0 Of [facility] Katie 724.2 Office Visit 03/19/2014 11:00a [facility] Yusef Wiley M.D. 14439 723.1 Of [facility] 724.2 Office Visit 04/17/2013 3:30p [facility] Yusef Wiley M.D. 42945 722.0 Of [facility] Plan of Care Future Appointment(s):04/21/2018 10:45 am - Valerio Hinojosa MD at [facility]03/24/2018 - Valerio Hinojosa, MDM19.211 Secondary osteoarthritis , right shoulderNew Xrays:Inj/Aspir Major JT Or Bursa W/ USNew Therapy:Physical TherapyFollow up:Follow up: 4 hxnbsL08.41 Impingement syndrome of right mbfwcdtjH20.101A Unsp injury of musc/fasc/tend long hd bicep, right arm, initNew Therapy:Physical Therapy
--- OUTSIDE RECORDS SUMMARY | 2018-03-29 21:24 | XMS REPORT | Continuity of Care Document ---
:1980 External Reference #:[id number] Author Name Kaia Mary M.D. Address [address] [place] [address] Care Team Providers Name Role Phone Merlene Amin MD Care Team Information Crime Specialist Unavailable Merlene Amin MD Primary Care Physician Unavailable Payers Type Date Identification Numbers Payment Provider Subscriber Effective: 2012 Policy Number: [id number] [facility] Erick Penny Group Number: [id number] [address] Group Name: [place] [address] PayID: [id number] Policy Number: [id number] Medicaid-Adult Jesenia Penny PayID: [id number] [address] [place] [address] Advance Directives Description No Information Available Problems Date Description Provider Status Onset: 09/29/2017 Exacerbation of moderate persistent Kaia Mary M.D. Active asthma Onset: 09/23/2016 Uncomplicated moderate persistent asthma Kaia Mary M.D. Active Onset: 09/11/2015 Uncomplicated moderate persistent asthma Kaia Mary M.D. Active Onset: 03/13/2015 Allergic rhinitis due to animals Kaia Mary M.D. Active Onset: 03/13/2015 Mild persistent asthma Kaia Mary M.D. Active Onset: 12/05/2014 Allergic rhinitis Kaia Mary M.D. Active Onset: 12/05/2014 Allergic rhinitis due to pollen Kaia Mary M.D. Active Onset: 12/05/2014 Extrinsic asthma without status Kaia Mary M.D. 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 Home Environment Stairs are not present Home Environment There is no basement Home Environment Cotton Comforter Home Environment Mattress is not encased in an allergy proof case Home Environment Regular Mattress Home Environment Mattress is 5 years old Home Environment Pillows are not encased in an allergy proof case Home Environment Pillows are polyester Home Environment Does not use a dehumidifier Home Environment There are draperies in the home Home Environment The home is not jessica Home Environment The floors are wood Home Environment Uses natural gas heating Home Environment Lives in and [place] Home Environment Water Source: [facility] Home Environment Has a window air conditioner Home Environment The floors are carpeted Home Environment The floors are tile Smoke-Free Home is smoke-free Smoke-Free Work is smoke-free Pets Rabbit present 3 years, in LR in cage Pets Mice present 1 year, in a cage, in hallway Pets 1 dog present 13 years, allowed in [place] Pets 2 cats present 9 years, and 6 years, not allowed in [place] Pets Animals sleep in bedroom 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, 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 ETOH Use Denies alcohol use Tobacco Use Start: Unknown Patient has never smoked Recreational Drug Use Never Used Drugs Allergies, Adverse Reactions, Alerts Date Description Reaction Status Severity Comments 09/28/2005 Penicillin unknown-happened in childhood Active 12/26/2014 Sulfa Antibiotics Urticaria Active 12/26/2014 Clindamycin Urticaria Active 12/26/2014 Potassium Slow breathing Active 12/26/2014 Metoprolol Urticaria Active Medications Medication Date Status Form Strength Qnty SIG Indications Ordering Provider Barrington Ellipta 09/29/ Active Aerosol 200-25mcg/ 60unit 1 puff 2017 Inh s inhaled McNairn, once M.D. daily Levocetirizine 09/10/ Active Tablets 5mg 30tabs 1 tab by J45.40 Meg Dihydrochloride 2016 mouth at [facility], bedtime [employer]C as needed Montelukast / Active Tablets 10mg 1 by Unknown Sodium 0000 mouth every day Ventolin HFA / Active Aerosol 108(90Base 1units 2 every ) mcg/Act 4 hours McNairn, as M.D. needed Qnasl / Active Aerosol 80mcg/Act 1units 1-2 0000 sprays McNairn, in each M.D. nostril daily Omeprazole / Active Capsules 20mg Unknown [address] DR Ibuprofen / Active Capsules 200mg 1-2 tabs Unknown 0000 as needed. Losartan / Active Tablets 100-25mg Take One Unknown Potassium/Hydroch 0000 Tablet lorothiazide By Mouth Every Day Pazeo / Active Solution 0.7% 1 drop Unknown 0000 each eye once daily Cyclobenzaprine / Active Tablets 10mg Take One Unknown HCL 0000 Tablet By Mouth Three Times A Day as Needed For Pain Loratadine / Active Tablets 10mg Take One Unknown 0000 Tablet By Mouth Every Day Immunizations CPT Code Status Date Vaccine Lot # [id number] Given Unknown Influenza Vaccine 96517 Given Unknown Influenza Vaccine 28920 Given Unknown Influenza Vaccine 02899 Given Unknown Influenza Vaccine Vital Signs Date Vital Result Comment 03/24/2018 10:51am Height 63 inches 5'3" Weight 277.00 lb Weight 125.647 kg Respiratory Rate 20 /min Heart Rate 91 /min O2 % BldC Oximetry 98 % BP Systolic 133 mmHg BP Diastolic 95 mmHg Asthma Control Test 22 BMI (Body Mass Index) 49.1 kg/m2 10/13/2017 10:56am Height 63 inches 5'3" Weight 281.00 lb Weight 127.462 kg Respiratory Rate 20 /min Heart Rate 104 /min O2 % BldC Oximetry 97 % BP Systolic 137 mmHg BP Diastolic 89 mmHg Asthma Control Test 22 Fractional Exhaled Nitric Oxide 24 BMI (Body Mass Index) 49.8 kg/m2 09/29/2017 10:59am Height 63 inches 5'3" Weight 282.00 lb Weight 127.915 kg Respiratory Rate 20 /min Heart Rate 79 /min O2 % BldC Oximetry 97 % BP Systolic 145 mmHg BP Diastolic 97 mmHg Asthma Control Test 20 BMI (Body Mass Index) 49.9 kg/m2 03/31/2017 1:17pm Height 63 inches 5'3" Weight 275.00 lb Weight 124.740 kg Respiratory Rate 20 /min Heart Rate 89 /min O2 % BldC Oximetry 96 % BP Systolic 160 mmHg Rechecked with manual- 160/100 BP Diastolic 100 mmHg Rechecked with manual- 160/100 Asthma Control Test 23 BMI (Body Mass Index) 48.7 kg/m2 09/23/2016 11:04am Height 63 inches 5'3" Weight 271.00 lb Weight 122.926 kg Respiratory Rate 28 /min Heart Rate 78 /min O2 % BldC Oximetry 97 % BP Systolic 178 mmHg Manually BP Diastolic 110 mmHg Manually Asthma Control Test 23 BMI (Body Mass Index) 48.0 kg/m2 03/25/2016 11:04am Height 63 inches 5'3" Weight 274.00 lb Weight 124.286 kg Respiratory Rate 24 /min Heart Rate 69 /min O2 % BldC Oximetry 96 % BP Systolic 148 mmHg BP Diastolic 88 mmHg Asthma Control Test 18 BMI (Body Mass Index) 48.5 kg/m2 12/11/2015 11:38am Height 63 inches 5'3" Weight 275.00 lb Weight 124.740 kg Respiratory Rate 18 /min Heart Rate 90 /min O2 % BldC Oximetry 98 % BP Systolic 148 mmHg BP Diastolic 94 mmHg Asthma Control Test 20 BMI (Body Mass Index) 48.7 kg/m2 09/11/2015 11:47am Height 63 inches 5'3" Weight 271.00 lb Weight 122.926 kg Respiratory Rate 20 /min Heart Rate 84 /min O2 % BldC Oximetry 98 % BP Systolic 143 mmHg BP Diastolic 89 mmHg Asthma Control Test 20 BMI (Body Mass Index) 48.0 kg/m2 03/13/2015 11:21am Height 63 inches 5'3" Weight 258.00 lb Weight 117.029 kg Respiratory Rate 18 /min Heart Rate 77 /min O2 % BldC Oximetry 98 % BP Systolic 127 mmHg BP Diastolic 85 mmHg Asthma Control Test 22 BMI (Body Mass Index) 45.7 kg/m2 12/26/2014 3:23pm Height 63 inches 5'3" Weight 263.00 lb Weight 119.297 kg Respiratory Rate 20 /min Heart Rate 82 /min O2 % BldC Oximetry 97 % BP Systolic 133 mmHg BP Diastolic 87 mmHg Asthma Control Test 20 BMI (Body Mass Index) 46.6 kg/m2 12/05/2014 12:56pm Height 63 inches 5'3" Weight 265.00 lb Weight 120.204 kg Respiratory Rate 18 /min Heart Rate 90 /min O2 % BldC Oximetry 97 % BP Systolic 145 mmHg BP Diastolic 90 mmHg Asthma Control Test 21 BMI (Body Mass Index) 46.9 kg/m2 Results Description No Information Available Procedures Date Code Description Status 10/13/2017 34045 Nitric Oxide Gas Determination Completed 10/13/2017 60617 Nitric Oxide Gas Determination Completed 09/29/2017 49065 Pre PFT Completed 03/31/2017 20562 Pre PFT Completed 09/23/2016 68846 Pre PFT Completed 03/25/2016 05890 Pre PFT Completed 12/11/2015 93966 Pre PFT Completed 09/11/2015 66759 Pre PFT Completed 03/13/2015 09099 Pre PFT Completed 12/26/2014 09469 Pre PFT Completed 12/05/2014 07113 Pulmonary Function Test Completed 10/07/2005 03789 Pulmonary Function Test Completed 09/28/2005 98994 Skin Test Scratch # Of Units ____ Completed Encounters Type Date Location Provider Dx Diagnosis Office Visit 10/13/2017 [facility] J45.41 Moderate persistent 11:00a asthma with (acute) exacerbation J30.1 Allergic rhinitis due to pollen J30.81 Allergic rhinitis due to animal (cat) (dog) hair and dander Office Visit 09/29/2017 11:00a Denia Trinh45.41 Moderate persistent M.D. asthma with (acute) exacerbation J30.1 Allergic rhinitis due to pollen J30.81 Allergic rhinitis due to animal (cat) (dog) hair and dander J30.2 Other seasonal allergic rhinitis Office Visit 03/31/2017 1:20p Denia Martinez45.40 Moderate persistent TOWER [employer]EM[employer]-C asthma, uncomplicated J30.1 Allergic rhinitis due to pollen J30.81 Allergic rhinitis due to animal (cat) (dog) hair and dander J30.2 Other seasonal allergic rhinitis Office Visit 09/23/2016 11:00a Miah Mary J45.40 Moderate persistent M.D. asthma, uncomplicated J30.1 Allergic rhinitis due to pollen J30.81 Allergic rhinitis due to animal (cat) (dog) hair and dander J30.2 Other seasonal allergic rhinitis Z68.42 Body mass index (BMI) 45.0-49.9, adult Office Visit 03/25/2016 11:20a Miah Mary J45.40 Moderate persistent M.D. asthma, uncomplicated J30.1 Allergic rhinitis due to pollen J30.81 Allergic rhinitis due to animal (cat) (dog) hair and dander J30.2 Other seasonal allergic rhinitis Z68.42 Body mass index (BMI) 45.0-49.9, adult Office Visit 12/11/2015 11:40a [place] Patricia Us, Z68.41 Body mass index (BMI) RPA-C 40.0-44.9, adult J45.40 Moderate persistent asthma, uncomplicated J30.1 Allergic rhinitis due to pollen J30.81 Allergic rhinitis due to animal (cat) (dog) hair and dander J30.2 Other seasonal allergic rhinitis J45.30 Mild persistent asthma, uncomplicated Office Visit 09/11/2015 11:40a Miah Mary J45.40 Moderate persistent M.D. asthma, uncomplicated J30.1 Allergic rhinitis due to pollen J30.81 Allergic rhinitis due to animal (cat) (dog) hair and dander J30.2 Other seasonal allergic rhinitis Z68.42 Body mass index (BMI) 45.0-49.9, adult Office Visit 03/13/2015 11:20a Miah Mary J45.30 Mild persistent M.D. asthma, uncomplicated J30.1 Allergic rhinitis due to pollen J30.81 Allergic rhinitis due to animal (cat) (dog) hair and dander J30.2 Other seasonal allergic rhinitis J30.89 Other allergic rhinitis Z68.42 Body mass index (BMI) 45.0-49.9, adult Office Visit 12/26/2014 3:40p Miah Mary M.D. 493.00 Asthma Extrinsic Unspecified 477.0 Rhinitis Allergic Due To Pollen 477.8 Rhinitis Allergic Due To Other Allergen V85.42 Body Mass Index 45.0-49.9, Adult Office Visit 12/05/2014 1:20p Miah Mary M.D. 493.00 Asthma Extrinsic Unspecified 477.0 Rhinitis Allergic Due To Pollen 477.8 Rhinitis Allergic Due To Other Allergen Office Visit 09/28/2005 10:15a [place] Stephon Lao, 477.0 Rhinitis Allergic M.D. Due To Pollen 477.8 Rhinitis Allergic Due To Other Allergen 461.9 Sinusitis Acute Unspec 493.90 Asthma Unspec W/O Status Asthmaticus Plan of Treatment Future Appointment(s):09/21/2018 11:00 am - Kaia Mary M.D. at [id number] - Kaia Mary M.D.J45.40 Moderate persistent asthma, zlcdebnjdvffmL44.1 Allergic rhinitis due to dgtvxdD00.2 Other seasonal allergic wuskwmleK50.81 Allergic rhinitis due to animal (cat) (dog) hair and danderFollow up:6 months, Ingrid, PRE CHECK-UP/FOLLOW UP VISIT: Continued management of patient's medical care.Recommendations:Refrain from wearing perfumes/scented colognes while visiting our office. PrePFT performed, reviewedlooks good Continue all medications as ordered, including BREO 200 1 puff once daily Levocetirizine, montelukast, and QNASL Keep the ey drops on hand in case you get itchy Continue Ventolin 2 puffs every 4-6 hours as needed for cough/wheeze or trouble breathing
--- OUTSIDE RECORDS SUMMARY | 2018-03-29 21:24 | XMS REPORT | Continuity of Care Document ---
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 Merlene Amin MD Primary Care Physician Unavailable Payers Type Date Identification Numbers Payment Provider Subscriber Expires: 2013 Policy Number: [id number] [facility] Jesenia Penny PayID: [id number] [place] [address] Effective: 2013 Policy Number: [id number] [employer] Jesenia Penny PayID: [id number] [address] [place] [address] Effective: 2013 Policy Number: [id number] Medicaid [place] Jesenia Penny PayID: [id number] [address] [place] [address] Advance Directives Description No Information Available Problems Date Description Provider Status Onset: 12/26/2014 Chronic allergic conjunctivitis James Resendiz O.D. 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 Family History Date Family Member(s) Problem(s) Comments General Cataract General High BP General Cancer General Diabetes General Heart Disease General Grandparent Father High BP Mother Diabetes Mother High BP Social History Type Date Description Comments Sex Unknown ETOH Use Occasionally consumes alcohol Tobacco Use Start: Unknown Patient has never smoked Smoking Status Reviewed: 03/25/18 Patient has never smoked Allergies, Adverse Reactions, Alerts Date Description Reaction Status Severity Comments 11/29/2013 Shellfish Active 11/29/2013 Penicillin Active 11/29/2013 Sulfa Antibiotics Active 03/25/2018 Metoprolol Active 03/25/2018 Clindamycin Active 03/25/2018 Potassium Active Medications Medication Date Status Form Strength Qnty SIG Indications Ordering Provider Beatair Active Chewtabs Unknown 0 Albuterol Active Unknown Sulfate 0 Qvar Active Aerosol 40mcg/Act Unknown 0 Qnasl Active Aerosol 80mcg/Act Unknown 0 Losartan Active Tablets Unknown Potassium 0 Immunizations Description No Information Available Vital Signs Date Vital Result Comment 03/19/2017 10:47am Intraocular Pressure Right Eye 17 mmHg Intraocular Pressure Left Eye 17 mmHg 02/13/2016 9:36am Intraocular Pressure Right Eye 17 mmHg Intraocular Pressure Left Eye 17 mmHg 12/26/2014 8:15am Intraocular Pressure Right Eye 18 mmHg Intraocular Pressure Left Eye 17 mmHg 11/29/2013 9:40am Intraocular Pressure Right Eye 16 mmHg Intraocular Pressure Left Eye 17 mmHg Results Description No Information Available Procedures Date Code Description Status 03/19/2017 43145 Fundus Photography W/Interpretation & Report Completed 03/19/2017 08422 Eye Exam Est Intermediate Completed 09/16/2016 84943 Oct, Optic Nerve Completed 09/16/2016 56630 Visual Field Exam Extended, Unilateral Or Bilateral Completed 09/16/2016 63162 Eye Exam Est Intermediate Completed 02/13/2016 85826 Fundus Photography W/Interpretation & Report Completed 02/13/2016 98115 Eye Exam Est Comprehensive Completed 04/10/2015 32408 Visual Field Exam Extended, Unilateral Or Bilateral Completed 04/10/2015 43734 Eye Exam Est Intermediate Completed 12/26/2014 67200 Oct, Optic Nerve Completed 12/26/2014 28412 Eye Exam Est Comprehensive Completed 11/29/2013 44721 Eye Exam Est Comprehensive Completed 11/29/2013 54293 Refraction Completed 11/29/2013 77444 Ophthalmoscopy Subsequent Completed 11/29/2013 16305 Fundus Photography W/Interpretation & Report Completed 09/03/2011 79082 Fundus Photography W/Interpretation & Report Completed 09/03/2011 29184 Ophthalmoscopy Subsequent Completed 09/03/2011 81812 Refraction Completed 09/03/2011 55772 Eye Exam Est Comprehensive Completed 08/21/2010 86569 Ophthalmoscopy Subsequent Completed 08/21/2010 66965 Eye Exam Est Comprehensive Completed 07/05/2009 55890 Visual Field Exam Extended, Unilateral Or Bilateral Completed 07/05/2009 35724 Eye Exam Est Intermediate Completed 12/27/2008 33684 Fundus Photography W/Interpretation & Report Completed Encounters Description No Information Available Plan of Treatment 03/25/2018 - James Carlos, ODH47.323 Drusen of optic disc, ejhytpvcnV50.223 Regular astigmatism, bilateralFollow up:yearly full f/u PRN
[2018-03-29 22:34] VITALS: BP 155/84
== END 2018-03-29 22:30 | disposition home or self-care (01) ==
LOC: ED 20:53
DX: M54.9 Dorsalgia, unspecified (principal); W01.0XXA Fall on same level from slipping, tripping and stumbling without subsequent striking against object, initial encounter; Y92.512 Supermarket, store or market as the place of occurrence of the external cause; I10 Essential (primary) hypertension; K21.9 Gastro-esophageal reflux disease without esophagitis
CPT/HCPCS: 72128; 96372; 99282; A9270-GY; J1885

== ENCOUNTER 2018-05-19 16:31 | Emergency (ER) | payer OTHER, MEDICAID ==
--- OUTSIDE RECORDS SUMMARY | 2018-05-19 17:04 | XMS REPORT | Continuity of Care Document ---
:1980 External Reference #:[id number] Author Name Teri Munson Care Team Providers Name Role Phone Mao Briones MD Care Team Information Project Inspector Unavailable Merlene Amin MD Primary Care Physician Unavailable Payers Type Date Identification Numbers Payment Provider Subscriber Policy Number: [id number] [employer] Erick Penny [employer] Number: [id number] [address] PayID: [id number] [place] [address] Policy Number: [id number] Medicaid Jesenia Penny PayID: [id number] [address] [place] [address] Advance Directives Description No Information Available Problems Date Description Provider Status Onset: 05/23/2013 [...] Osteo Social History Type Date Description Comments Sex Unknown 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 Tobacco Use Start: Unknown Never Smoked Cigarettes ETOH Use Denies alcohol use Recreational Drug Use Denies Drug Use Tobacco Use Start: Unknown Patient has never smoked Smoking Status Reviewed: 04/21/18 Patient has never smoked Allergies, Adverse Reactions, Alerts Date Description Reaction Status Severity Comments 04/17/2013 Penicillins Active 04/17/2013 Sulfa Antibiotics Active 04/17/2013 Clindamycin Active 04/17/2013 Metoprolol Active 03/19/2014 Potassium Chloride Active 03/26/2016 Prednisone Active 03/26/2016 Seroquel Active Medications Medication Date Status Form Strength Qnty SIG Indications Ordering Provider Benadryl Allergy 04/17 Active Capsules 25mg 60cap tab po prn s hs for [place], itching M.D. Singulair Active Tablets 10mg 30tab [...] Indications Ordering Provider Triamcinolone 03/24/ Administered Injection Zaneb (Kenalog) 2017 MD Micaela Immunizations Description No Information Available Vital Signs Date Vital Result Comment 04/21/2018 10:16am Height 63 inches 5'3" Weight 277.00 lb BP Systolic 134 mmHg BP Diastolic 80 mmHg Respiratory Rate 18 /min Pain Level 0 BMI (Body Mass Index) 49.1 kg/m2 03/24/2018 1:12pm Height 63 inches 5'3" Weight 277.00 lb Heart Rate 90 /min BP Systolic Sitting 138 mmHg BP Diastolic Sitting 98 mmHg Pain Level 4 BMI (Body Mass Index) 49.1 kg/m2 02/04/2017 9:22am Height 63 inches 5'3" Weight 271.00 lb Heart Rate 91 /min BP Systolic 135 mmHg BP Diastolic 91 mmHg Respiratory Rate 16 /min Pain Level 7 BMI (Body Mass Index) 48.0 kg/m2 05/07/2016 11:29am Height 63 inches 5'3" Weight 274.00 lb Respiratory Rate 19 /min Pain Level 1 BMI (Body Mass Index) 48.5 kg/m2 03/26/2016 10:37am Height 63 inches 5'3" Weight 274.00 lb BP Systolic 164 mmHg BP Diastolic 95 mmHg Pain Level 1 BMI (Body Mass Index) 48.5 kg/m2 04/05/2014 11:14am Height 63 inches 5'3" Weight 262.00 lb Heart Rate 86 /min BP Systolic Sitting 126 mmHg BP Diastolic Sitting 98 mmHg Pain Level 8 back/neck BMI (Body Mass Index) 46.4 kg/m2 03/19/2014 10:49am Height 63 inches 5'3" Weight 262.00 lb Heart Rate 88 /min BP Systolic Sitting 124 mmHg BP Diastolic Sitting 82 mmHg Pain Level 9 back/neck/head BMI (Body Mass Index) 46.4 kg/m2 04/17/2013 3:16pm Height 63 inches 5'3" Weight 234.00 lb BP Systolic 134 mmHg BP Diastolic 92 mmHg Pain Level 0 BMI (Body Mass Index) 41.4 kg/m2 Results Description No Information Available Procedures Date Code Description Status 03/24/2018 53244 Inj/Aspir, Intermediate Joint/Bursa W/ US Completed Encounters Type Date Location Provider Dx Diagnosis Office Visit 03/24/2018 Orthopedic Valerio Hinojosa MD M19.211 Secondary 1:00p [facility] osteoarthritis, right shoulder M75.41 Impingement syndrome of right shoulder S46.101A Unsp injury of musc/fasc/tend long hd bicep, right arm, init M19.011 Primary osteoarthritis, right shoulder M75.21 Bicipital tendinitis, right shoulder Office Visit 02/04/2017 Orthopedic Phil Salas S93.601D Unspecified 9:00a [facility] Elias MD sprain of right foot, subsequent encounter Office Visit 05/07/2016 Orthopedic Mao S93.601D Unspecified 11:30a [facility] Aguirre M.D. sprain of right foot, subsequent encounter Office Visit 03/26/2016 Orthopedic Mao S93.601A Unspecified 10:00a [facility] Aguirre M.D. sprain of right foot, initial encounter Office Visit 04/05/2014 Neurosurgery Yusef Wiley, 721.0 Spondylosis 11:15a [facility] Cervical W/O Myelopathy 724.2 Lumbago Office Visit 03/19/2014 11:00a Neurosurgery Yusef Wiley, 723.1 Cervicalgia [facility] 724.2 Lumbago Office Visit 04/17/2013 Neurosurgery Yusef Wiley, 722.0 Intervertebral Disc 3:30p [facility] Displacement Cervical W/O Myelopathy Plan of Treatment 03/24/2018 - Valerio Hinojosa, MDM19.211 Secondary osteoarthritis, right shoulderNew Xrays:Inj/Aspir Major JT Or Bursa W/ US, Ordered: 03/24/18New Therapy:Physical TherapyFollow up:Follow up: 4 reknbV46.41 Impingement syndrome of right bzvifpkgA79.101A Unspecified injury of muscle, fascia and tendon of long head of biceps, right arm, initial encounterNew Therapy:Physical NdzxhtsT71.011 Primary osteoarthritis, right hbnpimpgB92.21 Bicipital tendinitis , right shoulder
[2018-05-19] MEDS ORDERED: Cyclobenzaprine TAB* 10 MG PO ONE (18:42)
--- NOTE | 2018-05-19 18:45 | ED ---
Upper Extremity Pain - HPI Summary HPI Summary: 38-year-old who presents with right shoulder for the past couple days. She states she tried to lift off with her right arm and felt pain in her right shoulder. She states she has history of right shoulder pain. She has been using ibuprofen with limited relief. She is here for pain medication. No numbness and tingling. is right handed Has been following up with orthopedic. Has had PT done for the shoulder. No chest pain shortness breath. No other symptoms. - History of Current Complaint Chief Complaint: EDExtremityUpper Stated Complaint: RT SHOULDER PAIN Time Seen by Provider: 05/19/18 18:15 Hx Last Menstrual Period: tubal ligation - Allergies/Home Medications Allergies/Adverse Reactions: Allergies Allergy/AdvReac Type Severity Reaction Status Date / Time clindamycin Allergy Rash Verified 05/19/18 16:55 metoprolol Allergy Rash Verified 05/19/18 16:55 Penicillins Allergy Hives Verified 05/19/18 16:55 potassium Allergy Difficulty Verified 05/19/18 16:55 Breathing quetiapine [From Seroquel] Allergy Unknown Verified 05/19/18 16:55 Reaction Details shrimp Allergy Swelling Verified 05/19/18 16:55 Sulfa (Sulfonamide Allergy Unknown Verified 05/19/18 16:55 Antibiotics) Reaction Details prednisone AdvReac Palpitation Verified 05/19/18 16:55 s bandaid Allergy Blisters Uncoded 05/19/18 16:55 PMH/Surg Hx/FS Hx/Imm Hx Endocrine/Hematology History: Denies: Hx Diabetes, Hx Sickle Cell Disease, Hx Thyroid Disease Cardiovascular History: Reports: Hx Hypertension Denies: Hx Hypercholesterolemia, Hx Pacemaker/ICD, Hx Peripheral Vascular Disease Respiratory History: Reports: Hx Asthma, Hx Seasonal Allergies Denies: Hx Chronic Obstructive Pulmonary Disease (COPD) GI History: Reports: Hx Gastroesophageal Reflux Disease - TUMS Denies: Hx Crohn's Disease, Hx Diverticulosis, Hx Gastrointestinal Bleed, Hx Hiatal Hernia, Hx Irritable Bowel, Hx Obstructive Bowel, Hx Ulcer, Other GI Disorders History: Reports: Hx Kidney Stones - 2010, Other Problems/Disorders - pcos Denies: Hx Renal Disease Musculoskeletal History: Reports: Hx Tendonitis - IN LEFT ANKLE/Foot, Other Musculoskeletal History - neck problems - herniated cervical disc Denies: Hx Arthritis, Hx Osteoporosis Sensory History: Denies: Hx Contacts or Glasses, Hx Hearing Aid Opthamlomology History: Denies: Hx Contacts or Glasses Neurological History: Reports: Other Neuro Impairments/Disorders - PAIN CLINIC PT Denies: Hx Headaches, Hx Seizures, Hx Transient Ischemic Attacks (TIA) Psychiatric History: Denies: Hx Anxiety, Hx Depression, Hx Panic Disorder - Cancer History Hx Hematologic Symptoms: No Hx Chemotherapy: No Hx Radiation Therapy: No Hx Palliative Cancer Treatment: No - Surgical History Surgery Procedure, Year, and Place: tubes in ears as child. LEFT ovary removed ; TUBAL LIGATION, HX OF 2 C-SECTIONS. appendix 2002. gallbladder 2002. Left knee - MMT REPAIR. EUA L knee. R thumb - pin for torn ligaments. tonsillectomy. R wrist 2010 Hx Anesthesia Reactions: No - Immunization History Date of Tetanus Vaccine: utd Date of Influenza Vaccine: fall 2016 Infectious Disease History: No Infectious Disease History: Denies: Hx Clostridium Difficile, Hx Hepatitis, Hx Human Immunodeficiency Virus (HIV), Hx of Known/Suspected MRSA, Hx Shingles, Hx Tuberculosis, Hx Known/ Suspected VRE, Hx Known/Suspected VRSA, History Other Infectious Disease, Traveled Outside the [place] in Last 30 Days - Family History Known Family History: Positive: Other - daughter - neurological hearing loss Negative: Cardiac Disease, Diabetes - Social History Alcohol Use: None Hx Substance Use: No Substance Use Type: Reports: None Hx Tobacco Use: No Smoking Status (MU): Never Smoked Tobacco Have You Smoked in the Last Year: No Review of Systems Negative: Fever Negative: Chest Pain Negative: Shortness Of Breath Positive: Myalgia - right shoulder pain All Other Systems Reviewed And Are Negative: Yes Physical Exam Triage Information Reviewed: Yes Vital Signs On Initial Exam: Initial Vitals Temp Pulse Resp BP Pulse Ox 98.8 F 88 20 149/99 99 05/19/18 16:52 05/19/18 16:52 05/19/18 16:52 05/19/18 16:52 05/19/18 16:52 Vital Signs Reviewed: Yes Appearance: Positive: Well-Appearing Skin: Positive: Warm, Dry Head/Face: Positive: Normal Head/Face Inspection Eyes: Positive: Normal, Conjunctiva Clear ENT: Positive: Pharynx normal Respiratory/Lung Sounds: Positive: Clear to Auscultation, Breath Sounds Present Cardiovascular: Positive: Normal, RRR Musculoskeletal: Positive: Limited @ - right shoulder, Other - tenderness over posterior right shoulder, good pulses, sensation grossly intact, pos vicente, limited ROM behind shoulder Neurological: Positive: Normal Psychiatric: Positive: Normal Diagnostics - Vital Signs Vital Signs Temp Pulse Resp BP Pulse Ox 05/19/18 16:52 98.8 F 88 20 149/99 99 - Laboratory Lab Statement: Any lab studies that have been ordered have been reviewed, and results considered in the medical decision making process. Course/Dx - Course Course Of Treatment: 38-year-old who presents with right shoulder for the past couple days. She states she tried to lift off with her right arm and felt pain in her right shoulder. She states she has history of right shoulder pain. She has been using ibuprofen with limited relief. She is here for pain medication. No numbness and tingling. is right handed Has been following up with orthopedic. Has had PT done for the shoulder. No chest pain shortness breath. No other symptoms. On exam has tenderness over right shoulder. neurovascular. Limited range of motion towards the back of right shoulder. We' ll give muscle relaxer for pain. Told to follow-up with orthopedic. Patient understands agrees the plan. - Diagnoses Differential Diagnosis/HQI/PQRI: Positive: Fracture (Closed), Strain, Sprain Provider Diagnoses: Right shoulder pain Discharge - Sign-Out/Discharge Documenting (check all that apply): Patient Departure - Discharge Plan Condition: Good Disposition: HOME Prescriptions: Cyclobenzaprine TAB* [Flexeril 10 MG TAB*] 10 mg PO TID PRN #15 tab PRN Reason: Pain Patient Education Materials: Shoulder Pain (ED) Referrals: Merlene Amin MD [Primary Care Provider] - Additional Instructions: Take muscle relaxers three times a day Use ibuprofen or Tylenol for pain every 6 hours ice/heat area, move as much as possible Follow up with ortho as scheduled Return to ED if develop any new or worsening symptoms - Billing Disposition and Condition Condition: GOOD Disposition: Home
[2018-05-19 19:33] VITALS: BP 138/90
== END 2018-05-19 19:31 | disposition home or self-care (01) ==
LOC: ED 16:31
DX: M25.511 Pain in right shoulder (principal); Z88.1 Allergy status to other antibiotic agents; Z88.0 Allergy status to penicillin; Z91.013 Allergy to seafood; Z88.2 Allergy status to sulfonamides; Z88.8 Allergy status to other drugs, medicaments and biological substances; Z91.048 Other nonmedicinal substance allergy status
CPT/HCPCS: 99282; A9270-GY

== ENCOUNTER 2018-06-30 17:17 | Emergency (ER) | payer OTHER, MEDICAID ==
--- OUTSIDE RECORDS SUMMARY | 2018-06-30 17:36 | XMS REPORT | Continuity of Care Document ---
:1980 External Reference #:[id number] Author Name Cydney Rojas Care Team Providers Name Role Phone Merlene Amin MD Primary Care Physician Unavailable Payers Date Identification Numbers Payment Provider Subscriber Policy Number: [id number] [facility] Erick Penny Group Number: [id number] [address] PayID: [id number] [place] [address] Policy Number: [id number] Medicaid Jesenia Penny PayID: [id number] [address] [place] [address] Advance Directives Description No Information Available Problems Date Description Provider Status Onset: 05/23/2013 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 Onset: 03/24/2018 Localized, secondary osteoarthritis of Valerio Hinojosa MD Active the shoulder region Onset: 03/24/2018 Disorder of shoulder Valerio Hinojosa MD Active Onset: 03/24/2018 Injury of shoulder region Valerio Hinojosa MD Active Onset: 06/09/2018 Localized, primary osteoarthritis of the Valerio Hinojosa MD Active shoulder region Family History Date Family Member(s) Observation Comments General Thyroid Disease General Hypertension General [...] Patient has never smoked Smoking Status Reviewed: 06/30/18 Patient has never smoked Allergies, Adverse Reactions, Alerts Date Description Reaction Status Severity Comments 04/17/2013 Penicillins Active 04/17/2013 Sulfa Antibiotics Active 04/17/2013 Clindamycin Active 04/17/2013 Metoprolol Active 03/19/2014 Potassium Chloride Active 03/26/2016 Prednisone Active 03/26/2016 Seroquel Active Medications Medication Date Status Form Strength Qnty SIG Indications Ordering Provider Cyclobenzaprine 05/20 Active Tablets 10mg 30tab take 1 tab Zaneb s three times Yaseen, a day as MD needed for pain/muscle spasms Diclofenac Sodium 05/20 Active Tablets 75mg 30tab take [address] s mouth twice Yaseen, a day as MD needed for pain with food Benadryl Allergy 04/17 Active Capsules 25mg 60cap tab po prn s hs for [place], itching M.D. Singulair Active Tablets 10mg 30tab 1 po qd Unknown /0000 s Benicar Active Tablets 20mg 180ta 1 po qd Unknown /0000 bs Proair HFA Active Aerosol 108(90Bas 1unit 2 puffs po Unknown / e) s q4h prn mcg/Act Tylenol Active [...] Naproxen Active Tablets 500mg 60tab take one s tablet F twice daily Curt, with food MD as needed for pain in right foot Biofreeze Active as needed Unknown Colorless /0000 Zyrtec Allergy Hx Tablets 10mg 90tab 1 tab qd Unknown /0000 s prn - 04/17 Lupron Depot Hx Kit 3.75mg 1unit q month Unknown /0000 s - 03/19 Percocet 0000 Hx Tablets 5-325mg 60tab 1 q 4-6 Unknown /0000 s hours prn - pain 03/19 Vicodin Hx Tablets 5-300mg 20tab take 1 by Unknown /0000 s mouth every - 6 hours as 02/03 Methylprednisolone Hx Tablets 4mg Unknown /0000 - 02/03 Medications Administered in Office Medication Date Status Form Strength Qnty SIG Indications Ordering Provider Triamcinolone 03/24/ Administered Injection Zaneb (Kenalog) 2017 MD Micaela Immunizations Description No Information Available Vital Signs Date Vital Result Comment 06/30/2018 8:31am Height 63 inches 5'3" Weight 277.00 lb Heart Rate 74 /min BP Systolic Sitting 140 mmHg BP Diastolic Sitting 86 mmHg Respiratory Rate 18 /min Pain Level 5 BMI (Body Mass Index) 49.1 kg/m2 06/09/2018 8:48am Height 63 inches 5'3" Weight 277.00 lb Heart Rate 83 /min Pain Level 8 O2 % BldC Oximetry 98 % BMI (Body Mass Index) 49.1 kg/m2 04/21/2018 10:16am Height 63 inches 5'3" Weight [...] Available Procedures Date Code Description Status 03/24/2018 85302 Inj/Aspir, Intermediate Joint/Bursa W/ US Completed Encounters Type Date Location Provider Dx Diagnosis Office Visit 06/09/2018 Orthopedic Valerio Hinojosa MD M19.011 Primary 9:00a [facility] osteoarthritis, right shoulder M75.41 Impingement syndrome of right shoulder S46.101D Unsp injury of musc/fasc/tend long hd bicep, right arm, subs Office Visit 04/21/2018 Orthopedic Valerio Hinojosa, M19.011 Primary 10:45a [facility] right shoulder M75.41 Impingement syndrome of right shoulder S46.101A Unsp injury of musc/fasc/tend long hd bicep, right arm, init Office Visit 03/24/2018 Orthopedic Valerio Hinojosa, M19.211 Secondary 1:00p [facility] right shoulder M75.41 Impingement syndrome of right [...] 724.2 Lumbago Office Visit 04/17/2013 Neurosurgery Yusef Wiley 722.0 Intervertebral Disc 3:30p [facility] 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
[2018-06-30] MEDS ORDERED: Aspirin 81 mg CHEW TAB* 81 MG TAB.CHEW PO ONE (20:55)
[2018-06-30] MEDS ORDERED: ALPRAZolam TAB* 0.5 MG PO ONE (20:55)
--- NOTE | 2018-06-30 20:55 | ED ---
HPI Chest Pain - HPI Summary HPI Summary: Pt is a 38 y/o F presenting to the ED with a chief complaint of chest pain onset around 1600 rated at 5 or 6/10. It started to go away but came back worse. Pt reports shortness of breath and a history of asthma, HTN, and anxiety. - History of Current Complaint Chief Complaint: EDChestWallPain Time Seen by Provider: 06/30/18 20:39 Hx Obtained From: Patient Hx Last Menstrual Period: tubal ligation Onset/Duration: Started Hours Ago, Still Present Timing: Constant, Lasting Hours Initial Severity: Mild Current Severity: Moderate Pain Intensity: 5 Pain Scale Used: 0-10 Numeric Chest Pain Location: Diffuse Chest Pain Radiates: No Character: Tightness Aggravating Factor(s): Nothing Alleviating Factor(s): Nothing Associated Signs and Symptoms: Positive: Chest Pain, Anxiety, Recent Stress, Shortness of Breath Related History: Obesity - Allergy/Home Medications Allergies/Adverse Reactions: Allergies Allergy/AdvReac Type Severity Reaction Status Date / Time clindamycin Allergy Rash Verified 06/30/18 17:29 metoprolol Allergy Rash Verified 06/30/18 17:29 Penicillins Allergy Hives Verified 06/30/18 17:29 potassium Allergy Difficulty Verified 06/30/18 17:29 Breathing quetiapine [From Seroquel] Allergy Unknown Verified 06/30/18 17:29 Reaction Details shrimp Allergy Swelling Verified 06/30/18 17:29 Sulfa (Sulfonamide Allergy Unknown Verified 06/30/18 17:29 Antibiotics) Reaction Details prednisone AdvReac Palpitation Verified 06/30/18 17:29 s bandaid Allergy Blisters Uncoded 06/30/18 17:29 PMH/Surg Hx/FS Hx/Imm Hx Previously Healthy: No Endocrine/Hematology History: Denies: Hx Diabetes - PRE DIABETIC, Hx Sickle Cell Disease, Hx Thyroid Disease Cardiovascular History: Reports: Hx Hypertension Denies: Hx Hypercholesterolemia, Hx Pacemaker/ICD, Hx Peripheral Vascular Disease Respiratory History: Reports: Hx Asthma, Hx Seasonal Allergies Denies: Hx Chronic Obstructive Pulmonary Disease (COPD) GI History: Reports: Hx Gastroesophageal Reflux Disease - TUMS Denies: Hx Crohn's Disease, Hx Diverticulosis, Hx Gastrointestinal Bleed, Hx Hiatal Hernia, Hx Irritable Bowel, Hx Obstructive Bowel, Hx Ulcer, Other GI Disorders History: Reports: Hx Kidney Stones - 2009, Other Problems/Disorders - pcos Denies: Hx Renal Disease Musculoskeletal History: Reports: Hx Tendonitis - IN LEFT ANKLE/Foot, Other Musculoskeletal History - neck problems - herniated cervical disc Denies: Hx Arthritis, Hx Osteoporosis Sensory History: Denies: Hx Contacts or Glasses, Hx Hearing Aid Opthamlomology History: Denies: Hx Contacts or Glasses Neurological History: Reports: Other Neuro Impairments/Disorders - PAIN CLINIC PT Denies: Hx Headaches, Hx Seizures, Hx Transient Ischemic Attacks (TIA) Psychiatric History: Reports: Hx Anxiety Denies: Hx Depression, Hx Panic Disorder - Cancer History Hx Hematologic Symptoms: No Hx Chemotherapy: No Hx Radiation Therapy: No Hx Palliative Cancer Treatment: No - Surgical History Surgery Procedure, Year, and Place: tubes in ears as child. LEFT ovary removed ; TUBAL LIGATION, HX OF 2 C-SECTIONS. appendix 2002. gallbladder 2002. Left knee - MMT REPAIR. EUA L knee. R thumb - pin for torn ligaments. tonsillectomy. R wrist 2010 Hx Anesthesia Reactions: No - Immunization History Date of Tetanus Vaccine: utd Date of Influenza Vaccine: fall 2016 Infectious Disease History: No Infectious Disease History: Denies: Hx Clostridium Difficile, Hx Hepatitis, Hx Human Immunodeficiency Virus (HIV), Hx of Known/Suspected MRSA, Hx Shingles, Hx Tuberculosis, Hx Known/ Suspected VRE, Hx Known/Suspected VRSA, History Other Infectious Disease, Traveled Outside the [place] in Last 30 Days - Family History Known Family History: Positive: Other - daughter - neurological hearing loss Negative: Cardiac Disease, Diabetes - Social History Alcohol Use: None Hx Substance Use: No Substance Use Type: Reports: None Hx Tobacco Use: No Smoking Status (MU): Never Smoked Tobacco Have You Smoked in the Last Year: No Review of Systems Negative: Fever Positive: Chest Pain Positive: Shortness Of Breath Positive: Anxious All Other Systems Reviewed And Are Negative: Yes Physical Exam - Summary Physical Exam Summary: VITAL SIGNS: Reviewed. GENERAL: Patient is a morbidly obese female who is lying comfortable in the stretcher. Patient is not in any acute respiratory distress. HEAD AND FACE: No signs of trauma. No ecchymosis, hematomas or skull depressions. No sinus tenderness. EYES: PERRLA, EOMI x 2, No injected conjunctiva, no nystagmus. EARS: Hearing grossly intact. Ear canals and tympanic membranes are within normal limits. MOUTH: Oropharynx within normal limits. NECK: Supple, trachea is midline, no adenopathy, no JVD, no carotid bruit, no c- spine tenderness, neck with full ROM. CHEST: Symmetric, no tenderness at palpation LUNGS: Clear to auscultation bilaterally. No wheezing or crackles. CVS: Tachycardic, S1 and S2 present, no murmurs or gallops appreciated. ABDOMEN: Soft, non-tender. No signs of distention. No rebound no guarding, and no masses palpated. Bowel sounds are normal. EXTREMITIES: FROM in all major joints, no edema, no cyanosis or clubbing. NEURO: Alert and oriented x 3. No acute neurological deficits. Speech is normal and follows commands. SKIN: Dry and warm Triage Information Reviewed: Yes Vital Signs On Initial Exam: Initial Vitals Temp Pulse Resp BP Pulse Ox 99 F 124 16 151/113 99 06/30/18 17:25 06/30/18 17:25 06/30/18 17:25 06/30/18 17:25 06/30/18 17:25 Vital Signs Reviewed: Yes Diagnostics - Vital Signs Vital Signs Temp Pulse Resp BP Pulse Ox 06/30/18 19:27 98.1 F 115 18 156/118 98 06/30/18 17:25 99 F 124 16 151/113 99 - Laboratory Result Diagrams: 06/30/18 21:10 06/30/18 21:10 Lab Statement: Any lab studies that have been ordered have been reviewed, and results considered in the medical decision making process. - Radiology Chest x-ray Radiology Interpretation Completed By: ED Physician Summary of Radiographic Findings: No acute disease. Pending official radiology report. - EKG 1 Cardiac Rate: Tachycardia - 110 EKG Rhythm: Sinus Tachycardia ST Segment: Normal Ectopy: None Summary of EKG Findings: Q-wave inversion Chest Pain Course/Dx - Course Course Of Treatment: Pt is a 38 y/o F presenting to the ED with a chief complaint of chest pain onset around 1600 rated at 5 or 6/10. It started to go away but came back worse. Pt reports shortness of breath and a history of asthma , HTN, and anxiety. An EKG shows sinus tachycardia at 110bpm and q-wave inversion, and a chest x-ray is negative. Pt will be discharged with a dx of atypical chest pain and anxiety, and she is agreeable with this plan. - Diagnoses Provider Diagnoses: Atypical chest pain, Anxiety Discharge - Sign-Out/Discharge Documenting (check all that apply): Patient Departure Patient Received Moderate/Deep Sedation with Procedure: No - Discharge Plan Condition: Stable Disposition: HOME Forms: *Work Release Referrals: Merlene Amin MD [Primary Care Provider] - Additional Instructions: PLEASE FOLLOW UP WITH YOUR PCP IN 1-2 DAYS. RETURN TO THE EMERGENCY DEPARTMENT WITH ANY NEW OR WORSENING SYMPTOMS. - Billing Disposition and Condition Condition: STABLE Disposition: Home - Attestation Statements Document Initiated by Geeta: Yes Documenting Scribe: Tiarra Llanes Provider For Whom Geeta is Documenting (Include Credential): Fercho Covarrubias MD. Scribe Attestation: Tiarra Rios scribed for Fercho Covarrubias MD. on 07/01/18 at 0609. Scribe Documentation Reviewed: Yes Provider Attestation: The documentation as recorded by the janeTiarra accurately reflects the service I personally performed and the decisions made by Florence vernon MD. Status of Scribe Document: Viewed
[2018-06-30 21:36] LABS: ABS Basophils 0.1 10^3/ul (0-0.2); ABS Eosinophils 0 10^3/ul (0-0.6); ABS Lymphocytes 2.2 10^3/ul (1.0-4.8); ABS Monocytes 0.7 10^3/ul (0-0.8); ABS Neutrophils 8.4 10^3/ul (1.5-7.7); ABS Nucleated RBC 0 10^3/ul; Eosinophil % 0.3 %; Hematocrit 40 % (35-47); Hemoglobin 13.5 g/dl (12.0-16.0); Lymphocyte % 19.3 %; Mean Corpuscular HGB Conc 34 g/dl (31-36); Mean Corpuscular Hemoglobin 28 pg (27-31); Mean Corpuscular Volume 82 fL (80-97); Nucleated Red Blood Cells % 0; Platelet Count 317 10^3/ul (150-450); Red Blood Count 4.86 10^6/ul (4.00-5.40); Red Cell Distribution Width 15 % (10.5-15); White Blood Count 11.4 10^3/ul (3.5-10.8)
[2018-06-30 21:47] LABS: Activated Partial Thrombo Time 31.5 seconds (26.0-36.3); INR 0.94 (0.77-1.02)
[2018-06-30 21:52] LABS: ALT 27 U/L (7-52); AST 14 U/L (13-39); Albumin 4.1 g/dL (3.2-5.2); Albumin/Globulin Ratio 1.3 (1-3); Alkaline Phosphatase 49 U/L (34-104); Anion Gap 9 mmol/L (2-11); BUN/Creatinine Ratio 17.9 (8-20); Blood Urea Nitrogen 14 mg/dL (6-24); CO2 Carbon Dioxide 28 mmol/L (22-32); Calcium 9.9 mg/dL (8.6-10.3); Chloride 100 mmol/L (101-111); EGFR Non-African American 82.7 (>60); Globulin 3.1 g/dL (2-4); Glucose 131 mg/dL (70-100); Potassium 3.4 mmol/L (3.5-5.0); Sodium 137 mmol/L (135-145); Total Protein 7.2 g/dL (6.4-8.9)
[2018-06-30 21:59] LABS: HCG Pregnancy < 0.60 mIU/mL
[2018-07-01 00:14] VITALS: BP 134/78
== END 2018-06-30 22:20 | disposition home or self-care (01) ==
LOC: ED 17:17
DX: R07.89 Other chest pain (principal); F41.9 Anxiety disorder, unspecified; R06.02 Shortness of breath; Z88.0 Allergy status to penicillin; Z88.2 Allergy status to sulfonamides; I10 Essential (primary) hypertension
CPT/HCPCS: 36415; 71045; 80053; 83735; 83880; 84484; 84702; 85025; 85379; 85610; 85730; 93005; 99283; A9270-GY

== ENCOUNTER → 2018-07-13 06:42 | Day surgery (SDC) | payer OTHER, MEDICAID ==
[~2018-07-13 06:42] MED LIST changes: -Acetaminop/Codeine 30 MG TAB* 1 TAB (300 MG/30 MG) PO ONE; +Acetaminophen TAB* 325 MG PO PRN; +Buffered Lidocaine 1% SYRIN* 1 ML/SYRINGE INTRADERM ONE; +Bupivacaine 0.25% W/EPI* 10 ML SDV ONE; +HYDROmorphone INJ1* 1 MG/ML SYRINGE ONE; +Ketorolac INJ* 30 MG/ML 1 ML VIAL IV PRN; +Ketorolac INJ* 30 MG/ML 1 ML VIAL ONE; +Lactated Ringers 1000 ML Bag* 1,000 ML IV SCH; +Levalbuterol HFA INHALER* 1 PUFF MDI ONE; +Midazolam* 1 MG/ML 2 ML VIAL (2 MG) ONE; +Naloxone* 0.4 MG/ML 1 ML VIAL IV PRN; +Ropivacaine* 2 MG/ML 20 ML VIAL (0.2%) ONE; +ceFAZolin 1 GM ADVAN(*) 1 GM ADDV.VIAL IVPB ONE; +ceFAZolin 2 GM PREMIX in ORs 2 GM/50 ML BAG IVPB ONE; +fentaNYL* 50 MCG/ML 2 ML VIAL (100 MCG VIAL) ONE; +hydrALAZINE IV* 20 MG/ML VIAL ONE; +oxyCODONE/Acetamin 5/325 MG* TAB ONE
[2018-07-13] MEDS: HYDROmorphone INJ1* 1 MG/ML SYRINGE IV PRN ×5 (11:27→12:16)
[2018-07-13] MEDS: oxyCODONE/Acetamin 5/325 MG* TAB PO PRN ×2 (13:09→13:10)
[2018-07-13 13:39] VITALS: BP 138/99
--- NOTE | 2018-07-14 00:30 | OP ---
CC: PCP, Merlene Amin MD * DATE OF OPERATION: 07/13/18 - [facility] DATE OF : 80 SURGEON: Valerio Hinojosa MD SOCIAL SCIENCE RESEARCH ASSISTANT: ADIA Chaudhari. An fast food sales assistant was needed for the entirety of the case to help with positioning, retraction, and was utilized throughout all portions of the case. ANESTHESIOLOGIST: Dr. Pritchett. ANESTHESIA: General. PRE-OP DIAGNOSIS: Right shoulder acromioclavicular joint arthritis. POST-OP DIAGNOSIS: Right shoulder acromioclavicular joint arthritis. OPERATIVE PROCEDURE: Right open distal clavicle excision. INDICATIONS: Jesenia Penny is a 38-year-old female, who has persistent right shoulder pain and AC joint arthritis. She has failed conservative treatments including physical therapy, antiinflammatories, ice, and heat. She responded to intraarticular injection and elected to proceed with surgical treatment. Risks and benefits of surgery were discussed at length including, but not limited to, bleeding; infection; damage to nerves, vessels, surrounding structures; wound nonhealing; persistent pain; need for further surgery; scarring; stiffness; incomplete relief of symptoms; risk of anesthesia. She has elected to proceed. ESTIMATED BLOOD LOSS: 50 cc. DESCRIPTION OF PROCEDURE: The patient was greeted in the preoperative area by the attending surgeon. Correct extremity was marked. Consent was confirmed. The patient was brought back to the operating suite where she was placed in the supine position on the operating room table. She then underwent general anesthesia with LMA intubation, after which she was placed in a lazy beach- chair position. Due to the patient's body habitus, the landmarks were marked preoperatively, but the patient required to be tilted due to her size and body habitus. The right shoulder was then prepped and draped in the usual sterile fashion beginning with chlorhexidine soap, scrub, and alcohol wipe, and a final prep with ChloraPrep. After appropriate surgical pause indicating site, side, procedure, administration of antibiotics, a saber incision was then made sharply with 15 blade. Soft tissues were carefully dissected. It was difficult to assess the patient's bony landmarks and soft tissue dissection was carried to the bone, at which point, the AC joint was palpated and released in line. Soft tissues were carefully exposed. A Hohmann was placed on each side at which point the oscillating saw was then used to remove the end of the bone estimated to be about 7 mm. The clavicle appeared to be long in appearance and the oscillating saw was then used to make the cut. At this point, it was determined that it was actually further lateral and the acromion was being cut. At this point, the attention was taken more medially. AC joint was identified and then approximately 1 cm of the lateral end of the clavicle was then released in its entirety. Attention was then directed to address the acomion, the deltoid was then grabbed in all layers and sutures were then passed through the acromial fragment into the main portion of the acromion and tied down. This helped to cerclage the fragment for stabilization. The piece was too small for screw fixation so a standard deltoid repair was chosen. These were secured with #5 Ethibond suture. A very watertight deltoid closure was then made. The AC joint capsule was also closed with #5 Ethibond suture. The deltoid was then carefully repaired and shoulder was then taken through a range of motion. There was no evidence of any displacement of the bony piece, which was well secured. The fascia was closed over it with #5 Ethibond suture. The wounds were copiously irrigated with sterile saline. The skin was closed in layers with 3-0 Monocryl and 3-0 nylon in a running fashion. Sterile dressings were applied. Cryo/Cuff and UltraSling was applied. She was awoken from anesthesia and transferred to the PACU in stable condition. POSTOPERATIVE PLAN: She will be nonweightbearing for approximately 3 weeks with pendulums and elbow, hand, and wrist range of motion. She will be discharged on pain medication. DVT prophylaxis was considered, but deferred due to no previous personal or family history. The patient was told in the PACU area that there was a complication to the surgery and that it was addressed. This is also a known complication that can happen. She verbalized understanding. We will watch her closely, but she still has a good chance of healing without any issue. I will see the patient back in 2 weeks. [id number]/CPS #: [id number] MTDD
== END | disposition home or self-care (01) ==
LOC: OR 06:42
PROVIDERS: ATTEND Orthopaedic Surgery
DX: M19.011 Primary osteoarthritis, right shoulder (principal); R73.03 Prediabetes; E66.01 Morbid (severe) obesity due to excess calories; J45.909 Unspecified asthma, uncomplicated; I10 Essential (primary) hypertension; K21.9 Gastro-esophageal reflux disease without esophagitis; F41.8 Other specified anxiety disorders; Z87.442 Personal history of urinary calculi
CPT/HCPCS: 88304; 88311; A9270-GY; J0360; J0690; J1170; J1885; J2250; J2795; J3010

== ENCOUNTER 2019-01-31 21:33 | Emergency (ER) | payer OTHER, MEDICAID ==
[2019-01-31 23:54] LABS: Urine Appearance Clear; Urine Bilirubin Negative (Negative); Urine Blood Negative (Negative); Urine Color Yellow; Urine Glucose Negative (Negative); Urine Ketones Negative (Negative); Urine Nitrite Negative (Negative); Urine Protein Negative (Negative); Urine Specific Gravity 1.021 (1.010-1.030); Urine Urobilinogen Negative (Negative)
[2019-02-01] MEDS ORDERED: Ondansetron INJ* 2 MG/ML VIAL IV ONE (00:01)
[2019-02-01] MEDS ORDERED: Ketorolac INJ* 15 MG/ML 1 ML VIAL IM ONE (00:01)
--- NOTE | 2019-02-01 00:18 | ED ---
GI/ HPI - HPI Summary HPI Summary: Patient is a 39 y/o F w/ Hx of kidney stones who presents to [facility] with complaints of right flank pain. She states that she had some pain last night, 01/30/19, but the pain worsened tonight, 01/31/19. Pain is characterized as a throbbing; she notes that the pain is constant but waxes and wanes in intensity. Some nausea is endorsed but fevers, vomiting, diarrhea, dysuria, hematuria, and changes in frequency of urination are denied. She states that the pain has begun to radiate to the right side of abdomen while in ED. PMHx of HTN, GERD, seasonal allergies, diabetes. PSHx of appendectomy, cholecystectomy, 2 c-sections, tubal ligation. On triage, pain is rated 10/10. Home medications and allergies are reviewed. - History of Current Complaint Chief Complaint: EDFlankPain Time Seen by Provider: 02/01/19 00:01 Stated Complaint: BACK PAIN PER PT Hx Obtained From: Patient Hx Last Menstrual Period: tubal ligation Onset/Duration: Started Days Ago, Still Present, Worse Since - tonight Timing: Constant, Lasting Days Severity: Mild Current Severity: Severe Pain Intensity: 10 Location of Pain: Flank - right Pain Characteristics: Other: - throbbing Associated Signs and Symptoms: Positive: Nausea, Flank Pain - right, Other: - negative - changes in frequency of urination. Negative: Vomiting, Diarrhea, Fever, Hematuria, Dysuria - Allergy/Home Medications Allergies/Adverse Reactions: Allergies Allergy/AdvReac Type Severity Reaction Status Date / Time metoprolol Allergy Severe Rash Verified 02/01/19 00:36 potassium Allergy Severe Difficulty Verified 02/01/19 00:36 Breathing shrimp Allergy Severe Swelling Verified 02/01/19 00:36 clindamycin Allergy Intermediate Rash Verified 02/01/19 00:36 Penicillins Allergy Intermediate Hives Verified 02/01/19 00:36 Sulfa (Sulfonamide Allergy Intermediate Rash Verified 02/01/19 00:36 Antibiotics) quetiapine [From Seroquel] Allergy Unknown Unknown Verified 02/01/19 00:36 Reaction Details prednisone AdvReac Intermediate Palpitation Verified 02/01/19 00:36 s bandaid Allergy Severe Blisters Uncoded 07/13/18 07:40 PMH/Surg Hx/FS Hx/Imm Hx Endocrine/Hematology History: Reports: Hx Anemia - start of- no treatment Denies: Hx Diabetes - PRE DIABETIC, Hx Sickle Cell Disease, Hx Thyroid Disease Cardiovascular History: Reports: Hx Hypertension Denies: Hx Hypercholesterolemia, Hx Pacemaker/ICD, Hx Peripheral Vascular Disease Respiratory History: Reports: Hx Asthma, Hx Seasonal Allergies Denies: Hx Chronic Obstructive Pulmonary Disease (COPD) GI History: Reports: Hx Gastroesophageal Reflux Disease - TUMS Denies: Hx Crohn's Disease, Hx Diverticulosis, Hx Gastrointestinal Bleed, Hx Hiatal Hernia, Hx Irritable Bowel, Hx Obstructive Bowel, Hx Ulcer, Other GI Disorders History: Reports: Hx Kidney Stones - 2009, Other Problems/Disorders - pcos Denies: Hx Renal Disease Musculoskeletal History: Reports: Hx Tendonitis - IN LEFT ANKLE/Foot, Other Musculoskeletal History - neck problems - herniated cervical disc Denies: Hx Arthritis, Hx Osteoporosis Sensory History: Denies: Hx Contacts or Glasses, Hx Hearing Aid Opthamlomology History: Denies: Hx Contacts or Glasses Neurological History: Reports: Hx Migraine, Other Neuro Impairments/Disorders - PAIN CLINIC PT Denies: Hx Headaches, Hx Seizures, Hx Transient Ischemic Attacks (TIA) Psychiatric History: Reports: Hx Anxiety Denies: Hx Depression, Hx Panic Disorder - Cancer History Hx Hematologic Symptoms: No Hx Chemotherapy: No Hx Radiation Therapy: No Hx Palliative Cancer Treatment: No - Surgical History Surgery Procedure, Year, and Place: tubes in ears as child. LEFT ovary removed ; TUBAL LIGATION, HX OF 2 C-SECTIONS. appendix 2002. gallbladder 2002. Left knee - MMT REPAIR. EUA L knee. R thumb - pin for torn ligaments. tonsillectomy. R wrist 2010 Hx Anesthesia Reactions: No - Immunization History Date of Tetanus Vaccine: utd Date of Influenza Vaccine: fall 2016 Infectious Disease History: No Infectious Disease History: Denies: Hx Clostridium Difficile, Hx Hepatitis, Hx Human Immunodeficiency Virus (HIV), Hx of Known/Suspected MRSA, Hx Shingles, Hx Tuberculosis, Hx Known/ Suspected VRE, Hx Known/Suspected VRSA, History Other Infectious Disease, Traveled Outside the [place] in Last 30 Days - Family History Known Family History: Positive: Other - daughter - neurological hearing loss Negative: Cardiac Disease, Diabetes - Social History Alcohol Use: None Hx Substance Use: No Substance Use Type: Reports: None Hx Tobacco Use: No Smoking Status (MU): Never Smoked Tobacco Have You Smoked in the Last Year: No Review of Systems Negative: Fever Positive: Nausea. Negative: Vomiting, Diarrhea Positive: flank pain - right . Negative: dysuria, frequency, hematuria All Other Systems Reviewed And Are Negative: Yes Physical Exam - Summary Physical Exam Summary: General: Well-developed, Morbidly obese female. No acute distress. HEENT: Normocephalic, Atraumatic. Eyes: Conjuctiva normal, PERRL. Ears: TMs within normal limits. Nares: (-) discharge, (-) erythema. Oropharynx: Clear, mucous membranes moist, (-) exudates. Neck: Soft, FROM, (-) lymphadenopathy, (-) thyromegaly, (-) JVD. Cardiovascular: Normal sinus rhythm, (-) murmur. Lungs: Clear to auscultation bilaterally (-) wheezes, (-) rales, (-) rhonchi. Abdomen: Soft, non-tender, non-distended, (-) organomegaly, normal bowel sounds. Back: (+) mild right CVA tenderness Extremities: Trace BLE edema Skin: Warm, dry, (-) rash. Neuro: Alert and oriented x3, no focal deficits. Psychiatric: Flat affect. Triage Information Reviewed: Yes Vital Signs On Initial Exam: Initial Vitals Temp Pulse Resp BP Pulse Ox 98.5 F 110 20 142/106 98 01/31/19 21:39 01/31/19 21:39 01/31/19 21:39 01/31/19 21:39 01/31/19 21:39 Vital Signs Reviewed: Yes Diagnostics - Vital Signs Vital Signs Temp Pulse Resp BP Pulse Ox 01/31/19 23:42 98 F 122 18 121/95 98 01/31/19 21:39 98.5 F 110 20 142/106 98 - Laboratory Lab Results: Lab Results 01/31/19 Range/Units 23:40 Urine Color Yellow Urine Appearance Clear Urine pH 5.0 (5-9) Ur Specific [place] 1.021 (1.010-1.030) Urine Protein Negative (Negative) Urine Ketones Negative (Negative) Urine Blood Negative (Negative) Urine Nitrate Negative (Negative) Urine Bilirubin Negative (Negative) Urine Urobilinogen Negative (Negative) Ur Leukocyte Esterase Negative (Negative) Urine Glucose Negative (Negative) Result Diagrams: 02/01/19 00:13 02/01/19 00:13 Lab Statement: Any lab studies that have been ordered have been reviewed, and results considered in the medical decision making process. - CT CT ABD/PEL CT Interpretation Completed By: Radiologist Summary of CT Findings: IMPRESSION: 1. No acute findings. No evidence of hydronephrosis or nephrolithiasis. No. signs of acute appendicitis. 2. Fatty infiltration of the liver. THIS REPORT WAS REVIEWED BY DR. LINDSAY. Re-Evaluation - Re-Evaluation First Eval Re-Evaluation Time: 04:00 Comment: Patient reports some pain still present. She was given 15 mg Toradol and discharged to home. GIGU Course/Dx - Course Course Of Treatment: Patient is a 39 y/o F w/ Hx of kidney stones who presents to [facility] with complaints of right flank pain. She states that she had some pain last night, 01/30/19, but the pain worsened tonight, 01/31/19. Pain is characterized as a throbbing; she notes that the pain is constant but waxes and wanes in intensity. Some nausea is endorsed but fevers, vomiting, diarrhea, dysuria, hematuria, and changes in frequency of urination are denied. On physical exam, mild right CVA tenderness is noted. Patient is morbidly obese with a flat affect. Trace BLE edema is noted. Bloodwork was obtained. Abnormal values include chloride 100, glucose 178. Beta HCG was negative. UA was negative. During ED course, patient received Zofran 4 mg IV and toradol [address] ABD/PEL IMPRESSION: 1. No acute findings. No evidence of hydronephrosis or nephrolithiasis. No. signs of acute appendicitis. 2. Fatty infiltration of the liver. Patient was discharged to home and will follow up with PCP within three days. - Diagnoses Provider Diagnoses: Right flank pain Discharge ED - Sign-Out/Discharge Documenting (check all that apply): Patient Departure - discharge Patient Received Moderate/Deep Sedation with Procedure: No - Discharge Plan Condition: Stable Disposition: HOME Patient Education Materials: Flank Pain (ED) Referrals: Merlene Amin MD [Primary Care Provider] - 3 Days Additional Instructions: Please follow up with your primary care physician within three days. Please return to ED for any new or worsening symptoms. - Billing Disposition and Condition Condition: STABLE Disposition: Home - Attestation Statements Document Initiated by Scribe: Yes Documenting Scribe: RODRIGO OREILLY Provider For Whom Scribe is Documenting (Include Credential): MYRA LINDSAY MD Scribe Attestation: I, RODRIGO OREILLY, scribed for MYRA LINDSAY MD on 02/01/19 at 0542. Scribe Documentation Reviewed: Yes Provider Attestation: The documentation as recorded by the scribeRODRIGO accurately reflects the service I personally performed and the decisions made by me, MYRA LINDSAY MD Status of Scribe Document: Viewed
[2019-02-01 00:24] LABS: ABS Basophils 0.1 10^3/ul (0-0.2); ABS Eosinophils 0.1 10^3/ul (0-0.6); ABS Lymphocytes 1.9 10^3/ul (1.0-4.8); ABS Monocytes 0.6 10^3/ul (0-0.8); ABS Neutrophils 6.9 10^3/ul (1.5-7.7); Eosinophil % 0.7 %; Hematocrit 39 % (35-47); Lymphocyte % 20.2 %; Mean Corpuscular HGB Conc 34 g/dL (31-36); Mean Corpuscular Hemoglobin 28 pg (27-31); Mean Corpuscular Volume 82 fL (80-97); Nucleated Red Blood Cells % 0.1; Platelet Count 298 10^3/uL (150-450); Red Cell Distribution Width 15 % (10-15); White Blood Count 9.6 10^3/uL (3.5-10.8)
[2019-02-01 00:48] LABS: ALT 36 U/L (7-52); AST 20 U/L (13-39); Albumin 4.3 g/dL (3.2-5.2); Albumin/Globulin Ratio 1.5 (1-3); Alkaline Phosphatase 43 U/L (34-104); Anion Gap 7 mmol/L (2-11); BUN/Creatinine Ratio 17.7 (8-20); Blood Urea Nitrogen 14 mg/dL (6-24); CO2 Carbon Dioxide 30 mmol/L (22-32); Calcium 9.4 mg/dL (8.6-10.3); Chloride 100 mmol/L (101-111); Globulin 2.9 g/dL (2-4); Glucose 178 mg/dL (70-100); Potassium 3.6 mmol/L (3.5-5.0); Sodium 137 mmol/L (135-145); Total Protein 7.2 g/dL (6.4-8.9)
[2019-02-01 00:54] LABS: HCG Pregnancy < 0.60 mIU/mL
[2019-02-01] MEDS ORDERED: Ketorolac INJ* 30 MG/ML 1 ML VIAL IV PUSH ONE (03:54)
[2019-02-01 04:06] VITALS: BP 153/101
== END 2019-02-01 03:48 | disposition home or self-care (01) ==
LOC: ED 21:33
DX: R10.9 Unspecified abdominal pain (principal); M54.9 Dorsalgia, unspecified; R11.0 Nausea; K76.0 Fatty (change of) liver, not elsewhere classified; E66.01 Morbid (severe) obesity due to excess calories; Z32.02 Encounter for pregnancy test, result negative; R73.03 Prediabetes; I10 Essential (primary) hypertension; K21.0 Gastro-esophageal reflux disease with esophagitis; Z87.442 Personal history of urinary calculi; Z90.49 Acquired absence of other specified parts of digestive tract; Z90.721 Acquired absence of ovaries, unilateral; Z90.89 Acquired absence of other organs; Z88.1 Allergy status to other antibiotic agents; Z88.0 Allergy status to penicillin; Z91.013 Allergy to seafood; Z88.2 Allergy status to sulfonamides; Z88.8 Allergy status to other drugs, medicaments and biological substances; Z91.048 Other nonmedicinal substance allergy status
CPT/HCPCS: 36415; 74176; 80053; 81003; 84702; 85025; 99283; J1885; J2405

== ENCOUNTER 2019-03-12 09:33 | Emergency (ER) | payer OTHER, MEDICAID ==
--- OUTSIDE RECORDS SUMMARY | 2019-03-12 09:38 | XMS REPORT | Continuity of Care Document ---
:1980 External Reference #:[id number] Author Name Erika MCKENNA Harris Address [address] [place] [address] Care Team Providers Name Role Phone [facility] Utilization Snailer Care Team Information Project Coordinator Rn - Health Educator Yusef Wiley MD - Neurological Care Team Information Project Coordinator Rn Surgery Paolo Cantrell - Pain Care Team Information Project Coordinator Rn [phone] [facility] Physical Care Team Information Project Coordinator Rn [phone] Therapy - Physical Therapy Merlene Amin M.D. - Family Medicine Care Team Information Project Coordinator Rn Unavailable Problems Active Problems Provider Date Type 2 diabetes mellitus Shantelle Finch, JANES Onset: 12/14/2018 Brachial neuritis Jon Escalante M.D. Onset: 06/22/2013 Asthma without status asthmaticus Blake Briones M.D. Onset: 11/13/2014 Allergic rhinitis Blake Briones M.D. Onset: 11/13/2014 Morbid obesity Merlene Amin M.D. Onset: 02/12/2016 Essential hypertension Merlene Amin M.D. Onset: 02/12/2016 Neck pain Merlene Amin M.D. Onset: 02/12/2016 Gastroesophageal reflux disease Merlene Amin M.D. Onset: 02/12/2016 Impaired fasting glycaemia Merlene Amin M.D. Onset: 05/10/2017 Kidney stone Merlene Amin M.D. Onset: 08/19/2017 Steatosis of liver Merlene Amin M.D. Onset: 02/01/2019 Social History Type Date Description Comments Sex Unknown Tobacco Use Start: Unknown Nonsmoker ETOH Use Denies alcohol use Tobacco Use Start: Unknown Patient has never smoked Smoking Status Reviewed: 12/16/18 Patient has never smoked Allergies, Adverse Reactions, Alerts Active Allergies Reaction Severity Comments Date Penicillin 08/17/2003 Shellfish 08/17/2003 Seroquel 08/12/2005 Sulfa Drugs Itching 04/24/08 04/24/2008 Clindamycin Itching 04/24/08 04/24/2008 Potassium 10/05/2009 Metoprolol RASH-per pt 10/19/2012 Seasonal 09/02/2015 Bandaids fabric bandaides 12/03/2016 Prednisone Racing Heart with PO med Moderate 04/14/2017 Medications Active Medications SIG Qnty Indications Ordering Date Provider Cefdinir take 1 tablet 14caps R09.81 Sim BrunaJan Vernonlesley, 02/16/2019 300mg Capsules twice a day for M.D. 7 days. Medrol dose-pack as 1pack R09.81 Erika 02/16/2019 4mg Tablets instructed/has MCKENNA Harris tolerated medrol in the past Ipratropium [place] 2 sprays each 15ml J01.90 Shantelle Campbell 10/10/2018 0.06% nostril bid prn Finch, [employer] DESIGNER Solution Imitrex 1 tablets by 14tabs Shantelle Campbell 10/10/2018 25mg Tablets mouth once for Finch, [employer] DESIGNER migraine, may repeat in 2 hours if not resolved Ventolin HFA take 1-2 puffs 18gm J45.20 Krys Mckinney 07/06/2018 108(90Base) inhaled every 4 Adilson, SALON DESIGNER mcg/Act Aerosol hours as needed for wheezing or tightness in the chest Losartan 1 by mouth every 90tabs I10 Merlene Amin, 06/03/2017 Potassium/Hydrochloroth day M.D. iazide 100-25mg Tablets Loratadine 1 tab by mouth 90tabs J06.9 Shantelle Campbell 04/01/2016 10mg Tablets every day Finch, SALON DESIGNER Pantoprazole Sodium take one tablet 30tabs K21.9 Merlene Amin, 05/01/2015 20mg by mouth every M.D. Tablets DR day Montelukast Sodium take one tablet 90tabs J30.2 Shantelle Campbell 07/07/2012 10mg by mouth every Finch, SALON DESIGNER Tablets day Breo Ellipta 1 puff a day Unknown 200-25mcg/Inh Aerosol Levocetirizine 1 by mouth at Unknown Dihydrochloride bedtime prn 5mg Tablets History Medications Cefdinir take 1 tablet 14caps H66.93 Sim AJan 12/29/2018 - 300mg twice a day for 7 Katie Morrison 01/20/2019 Capsules days. Meclizine HCL take 1 tablet 2-3 30tabs H66.93 Sim A. 12/29/2018 - 25mg times a day as Katie Morrison 01/20/2019 Tablets needed for dizziness. Metformin HCL 1 by mouth qam x 7 120tabs E11.9 Shantelle Campbell 12/16/2018 - 500mg days; then 1 qam JANES Finch 12/20/2018 Tablets and 1 qpm x 7 days, 1 qam 2 qpm x 7 days then 2 qam and 2qpm thereafter Tramadol HCL 1-2 every q hs as 20tabs Tierney Franco 11/11/2018 - 50mg needed pain, september HOSPITAL ATTENDANT 12/29/2018 Tablets repeat once in 6h Cheratussin ac 5-10ml every 8 120ml J45.901 Shantelle Campbell 10/10/2018 - hours as needed - JANES Finch 11/03/2018 100-10mg/5ML Syrup do not drive when taking this medication - causes drowsiness Breo Ellipta one inhalation 28units Krys Mckinney 08/24/2018 - daily JANES De Anda 10/10/2018 200-25mcg/Inh Aerosol Medrol take 3 by mouth 12tabs J45.901 Krys Mckinney 08/24/2018 - 8mg Tablets daily for 4 days JANES De Anda 10/10/2018 Benzonatate take one by mouth 15caps J01.90 Krys Mckinney 08/24/2018 - 200mg 3 times daily as JANES De Anda 10/10/2018 Capsules needed for cough Cephalexin 1 by mouth three 30caps J01.90 Shantelle Campbell 08/20/2018 - 500mg times a day for 10 JANES Finch 10/10/2018 Capsules days Immunizations CPT Code Status Date Vaccine Lot # [id number] Given 02/22/2018 Influenza Vac, Quadrivalent, Slit Virus, Im [id number] Given 02/10/2017 Influenza Vac, [place], [place] [address] Given 02/12/2016 Tetanus And Diptheria Adult Preservative Free [id number] >7Yrs 96881 Given 02/12/2016 Influenza Vac, Quadrivalent, Slit Virus, Im [id number] 22835 Given 02/01/2015 Influenza Vac, [place], [place] [address] Given 02/01/2015 DO Not Use Split Influenza Virus Vaccine 52714 Given 03/24/2014 DO Not Use Split Influenza Virus Vaccine 26750 Given 02/13/2013 DO Not Use Split Influenza Virus Vaccine 04789 Given 07/26/2012 DO Not Use Split Influenza Virus Vaccine 89311 Given 01/30/2011 DO Not Use Split Influenza Virus Vaccine [id number] 91457 Given 03/01/2010 DO Not Use Split Influenza Virus Vaccine [id number] 29048 Given 04/11/2009 H1N1 Virus Vaccine [id number] 58023 Given 04/11/2009 H1N1 Immunization Intramuscular/Intranasal W Counseling 12907 Given 08/26/2005 Hepatitis B Immunization, adult dosage, for intramuscular use 77921 Given 06/12/2005 Tdap Tetanus, W Pertussis [id number] 83846 Given 11/26/2004 Hepatitis B Immunization, adult dosage, for intramuscular use 50680 Given 09/24/2004 Hepatitis B Immunization, adult dosage, for intramuscular use Vital Signs Date Vital Result Comment 02/16/2019 1:05pm BP Systolic 138 mmHg BP Diastolic 90 mmHg Heart Rate 110 /min Body Temperature 98.3 F Respiratory Rate 20 /min O2 % BldC Oximetry 97 % Weight 280.00 lb 12/29/2018 4:44pm BP Systolic 130 mmHg BP Diastolic 90 mmHg Heart Rate 98 /min Body Temperature 97.9 F Respiratory Rate 20 /min Weight 281.00 lb Results Test Date Facility Test Result H/L Range Note CBC Auto Diff 02/01/2019 [facility] [place] White Blood Count 9.6 10^3/uL Normal 3.5- 10.8 Red Blood Count 4.70 10^6/uL Normal 3.70-4.87 Hemoglobin 13.0 g/dL Normal 12.0-16.0 Hematocrit 39 % Normal 35-47 Mean Corpuscular Volume 82 fL Normal 80-97 Mean Corpuscular Hemoglobin 28 pg Normal 27-31 Mean Corpuscular HGB Conc 34 g/dL Normal 31-36 Red Cell Distribution Width 15 % Normal 10-15 Platelet Count 298 10^3/uL Normal 150-450 Mean Platelet Volume 9.0 fL Normal 7.4-10.4 Abs Neutrophils 6.9 10^3/uL Normal 1.5-7.7 Abs Lymphocytes 1.9 10^3/uL Normal 1.0-4.8 Abs Monocytes 0.6 10^3/uL Normal 0-0.8 Abs Eosinophils 0.1 10^3/uL Normal 0-0.6 Abs Basophils 0.1 10^3/uL Normal 0-0.2 Abs Nucleated RBC 0.0 10^3/uL Granulocyte % 72.1 % Lymphocyte % 20.2 % Monocyte % 6.2 % Eosinophil % 0.7 % Basophil % 0.8 % Nucleated Red Blood Cells % 0.1 Comp Metabolic Panel 02/01/2019 [facility] [place] Sodium 137 mmol/L Normal 135-145 Potassium 3.6 mmol/L Normal 3.5-5.0 Chloride 100 mmol/L Low 101-111 Co2 Carbon Dioxide 30 mmol/L Normal 22-32 Anion Gap 7 mmol/L Normal 2-11 Glucose 178 mg/dL High 70-100 Blood Urea Nitrogen 14 mg/dL Normal 6-24 Creatinine 0.79 mg/dL Normal 0.51-0.95 BUN/Creatinine Ratio 17.7 Normal 8-20 Calcium 9.4 mg/dL Normal 8.6-10.3 Total Protein 7.2 g/dL Normal 6.4-8.9 Albumin 4.3 g/dL Normal 3.2-5.2 Globulin 2.9 g/dL Normal 2-4 Albumin/Globulin Ratio 1.5 Normal 1-3 Total Bilirubin 0.30 mg/dL Normal 0.2-1.0 Alkaline Phosphatase 43 U/L Normal 34-104 Alt 36 U/L Normal 7-52 Ast 20 U/L Normal 13-39 Egfr Non- 81.0 >60 Egfr 98.0 >60 1 Laboratory test finding 02/01/2019 [facility] [place] HCG < 0.60 mIU/mL 2 Urinalysis Profile 01/31/2019 [facility] [place] Urine Color Yellow Urine Appearance Clear Urine Specific [place] 1.021 Normal 1.010-1.030 Urine pH 5.0 Normal 5-9 Urine Urobilinogen Negative Negative Urine Ketones Negative Negative Urine Protein Negative Negative Urine Leukocytes Negative Negative Urine Blood Negative Negative Urine Nitrite Negative Negative Urine Bilirubin Negative Negative Urine Glucose Negative Negative Laboratory test 12/09/2018 [facility] Hemoglobin A1c 6.6 % High 4.1- 5.7 finding [phone] ([facility]) Laboratory test 12/09/2018 Lyle Miller([facility]) TSH 2.69 0.50-6.00 finding mIU/L Comprehensive 12/09/2018 Lyle Miller([facility]) Sodium 136 134-149 Metabolic Prof mEq/L Potassium 4.0 mEq/L 3.6-5.5 Chloride 99 mEq/L 94-112 Carbon Dioxide 26 mEq/L 21-32 Glucose 125 mg/dL High 70-105 BUN 14 mg/dL 6-26 Creatinine 0.7 mg/dL 0.6-1.4 BUN/Creat Ratio 20.0 CALC 8.0-36.0 Calcium 9.3 mg/dL 8.6-10.2 Total Protein 7.2 g/dL 6.4-8.3 Albumin 4.5 g/dL 3.8-5.5 Globulin 2.7 g/dL 2.0-4.8 A/G Ratio 1.7 CALC 0.6-2.3 Alk. Phosphatase 45 U/L 30-110 Alt (SGPT) 36 U/L High 7-35 Ast (Sgot) 22 U/L 5-34 Total Bilirubin 0.4 mg/dL 0.2-1.3 GFR Non- >60 ml/min/1.73m^ >=60 GFR >60 ml/min/1.73m^ >=60 CBC Electronic a 12/09/2018 Lyle Miller([facility]) WBC 9.3 x10^3/UL 4.0- 10.0 RBC 4.65 x10^6/UL 3.93-6.00 HGB 12.8 g/dL 12.0-17.0 HCT 39 % 35-50 MCV 83.4 fL 80.0-95.0 MCH 27.5 pg 25.6-32.2 MCHC 33.0 g/dL 32.2-36.0 RDW-CV 14.9 % High 11.6-14.4 PLT 317 x10^3/UL 163-400 MPV 10.7 fL 9.4-12.4 [place]ain# 6.91 x10^3/UL High 1.56-6.13 Lymph# 1.69 x10^3/UL 1.18-3.74 [place]# 0.53 x10^3/UL 0.24-0.82 Eos # 0.1 x10^3/UL 0.0-0.5 Baso # 0.03 x10^3/UL 0.01-0.08 [place]% 74.4 % High 34.0-70.0 Lymph % 18.2 % Low 20.0-52.0 [place]% 5.7 % 5.0-12.0 Eos% 0.6 % Low 0.7-7.0 Baso% 0.3 % 0.1-1.2 Lipid Profile 12/09/2018 [place] [facility]) Cholesterol 191 mg/dL 120- 200 Triglycerides 148 mg/dL 30-200 HDL Cholesterol 53 mg/dL 30-85 LDL (Calculated) 108 CALC 0-129 VLDL Cholesterol 30 mg/dL 0-50 HDL Risk Factor 3.6 CALC 0.0-4.4 1 Because ethnic data is not always readily available, this report includes an eGFR for both -Americans and non- Americans. The National Kidney Disease Education Program (NKDEP) does not endorse the use of the MDRD equation for patients that are not between the ages of 18 and 70, are , have extremes of body size, muscle mass, or nutritional status, or are non- or non-. According to the National Kidney Foundation, irrespective of diagnosis, the stage of the disease is based on the level of kidney function: Stage Description GFR(mL/min/1.73 m(2)) 1 Kidney damage with normal or decreased GFR 90 2 Kidney damage with mild decrease in GFR 60-89 3 Moderate decrease in GFR 30-59 4 Severe decrease in GFR 15-29 5 Kidney failure <15 (or dialysis) 2 <5.0 Negative 5.0 - 25.0 Indeterminate (Repeat testing recommended after 72 hours) >25.0 Positive Perimenopausal women can display HCG levels of up to 20 mIU/mL Procedures Date Code Description Status 11/03/2018 68300 Pulse Oximetry Completed 10/10/2018 68049 Pulse Oximetry Completed 08/24/2018 91195 Pulse Oximetry Completed 05/15/2014 10903803 Mammogram Completed 01/07/2007 35687887 Mammogram Completed 07/09/2006 75545087 Mammogram Completed Medical Devices Description No Information Available Encounters Type Date Location Provider Dx Diagnosis Office Visit 12/29/2018 Main Office ADIA Carlin H66.93 Otitis media , 5:00p unspecified, bilateral H69.93 Unspecified Eustachian tube disorder, bilateral R42 Dizziness and giddiness Office Visit 12/16/2018 1:15p [facility] Shantelle Campbell E11.9 Type 2 diabetes Stef, SALON DESIGNER mellitus without complications D22.9 Melanocytic nevi, unspecified Office Visit 11/11/2018 10:15a Main Office Tierney Franco, H69.91 Unspecified HOSPITAL ATTENDANT Eustachian tube disorder, right ear Office Visit 11/03/2018 9:00a Main Office Krys Mckinney J30.9 Allergic rhinitis, JANES De Anda unspecified H69.91 Unspecified Eustachian tube disorder, right ear L02.214 Cutaneous abscess of groin Office Visit 10/10/2018 5:30p Main Office Shantelle Campbell J01.90 Acute sinusitis, Finch, SALON DESIGNER unspecified J45.901 Unspecified asthma with (acute) exacerbation Office Visit 08/24/2018 5:00p Main Office Krys De Anda, N61.1 Abscess of the SALON DESIGNER breast and nipple J01.90 Acute sinusitis, unspecified J45.901 Unspecified asthma with (acute) exacerbation Office Visit 08/20/2018 11:15a [facility] Shantelle Campbell N61.1 Abscess of the Finch, SALON DESIGNER breast and nipple J01.90 Acute sinusitis, unspecified Assessments Date Code Description Provider 02/16/2019 R09.81 Nasal congestion Erika Harris, [facility] 02/16/2019 R51 Headache Erika Harris, [facility] 02/16/2019 J01.90 Acute sinusitis, unspecified Erika Steven, [facility] 02/16/2019 E66.01 Morbid (severe) obesity due to excess Erika Steven, HOSPITAL ATTENDANT calories 12/29/2018 H66.93 Otitis media, unspecified, bilateral ADIA Carlin 12/29/2018 H69.93 Unspecified Eustachian tube disorder, ADIA Carlin bilateral 12/29/2018 R42 Dizziness and giddiness ADIA Carlin 12/16/2018 E11.9 Type 2 diabetes mellitus without Shantelle Shannan Stef, [employer] DESIGNER complications 12/16/2018 D22.9 Melanocytic nevi, unspecified Shantelle Finch NP 12/09/2018 R73.03 Prediabetes Shantelle Finch NP 12/09/2018 E66.01 Morbid (severe) obesity due to excess Shantelle Finhc NP calories 12/09/2018 I10 Essential (primary) hypertension Shantelle Finch NP 12/09/2018 R73.09 Other abnormal glucose Shantelle Finch NP 11/11/2018 H69.91 Unspecified Eustachian tube disorder, right Tierney Franco, HOSPITAL ATTENDANT ear 11/03/2018 J30.9 Allergic rhinitis, unspecified Krys De Anda, JANES 11/03/2018 H69.91 Unspecified Eustachian tube disorder, right Krys De Anda, [employer] DESIGNER ear 11/03/2018 L02.214 Cutaneous abscess of groin Krys De Anda, JANES 10/10/2018 J01.90 Acute sinusitis, unspecified Shantelle Finch, JANES 10/10/2018 J45.901 Unspecified asthma with (acute) Shantelle Finch, JANES exacerbation 08/24/2018 N61.1 Abscess of the breast and nipple Krys De Anda, JANES 08/24/2018 J01.90 Acute sinusitis, unspecified Krys De Anda, [employer] DESIGNER 08/24/2018 J45.901 Unspecified asthma with (acute) Krys De Anda, SAL[employer] DESIGNER exacerbation 08/20/2018 N61.1 Abscess of the breast and nipple Shantelle Finch, JANES 08/20/2018 J01.90 Acute sinusitis, unspecified Shantelle Finch NP Plan of Treatment Future Appointment(s):03/17/2019 11:00 am - Shantelle Fnich NP at [facility]02/16/2019 - Erika Harris, FNPR09.81 Nasal congestionNew Medication: Cefdinir 300 mg - take 1 tablet twice a day for 7 days.Medrol 4 mg - dose-pack as instructed/has tolerated medrol in the pastR51 MsuorhycV57.90 Acute sinusitis , vdiwidrozonF23.01 Morbid (severe) obesity due to excess calories Functional Status Description No Information Available Mental Status Description No Information Available Referrals Refer to Reason for Referral Status Appt Date Brandee Augustin MD skin check jw Scheduled [facility] [address] [place] [address] [phone]
[2019-03-12 09:42] VITALS: BP 146/91
--- NOTE | 2019-03-12 09:57 | UC ---
Lower Extremity/Ankle HPI - HPI Summary HPI Summary: 1 week ago stepped on her R foot 'wrong' and it has worsened w/ pain ever since. she denies bruising, swelling or redness. able to walk and bear weight but w/ pain. - History of Current Complaint Chief Complaint: UCLowerExtremity Stated Complaint: FOOT PAIN Time Seen by Provider: 03/12/19 09:39 Hx Obtained From: Patient Hx Last Menstrual Period: 1 month ago, unsure of date, had tubal Onset/Duration: Gradual Onset Pain Intensity: 8 Pain Scale Used: 0-10 Numeric Aggravating Factor(s): Ambulation Alleviating Factor(s): Rest - Allergies/Home Medications Allergies/Adverse Reactions: Allergies Allergy/AdvReac Type Severity Reaction Status Date / Time metoprolol Allergy Severe Rash Verified 03/12/19 09:43 potassium Allergy Severe Difficulty Verified 03/12/19 09:43 Breathing shrimp Allergy Severe Swelling Verified 03/12/19 09:43 clindamycin Allergy Intermediate Rash Verified 03/12/19 09:43 Penicillins Allergy Intermediate Hives Verified 03/12/19 09:43 Sulfa (Sulfonamide Allergy Intermediate Rash Verified 03/12/19 09:43 Antibiotics) quetiapine [From Seroquel] Allergy Unknown Unknown Verified 03/12/19 09:43 Reaction Details prednisone AdvReac Intermediate Palpitation Verified 03/12/19 09:43 s bandaid Allergy Severe Blisters Uncoded 03/12/19 09:43 PMH/Surg Hx/FS Hx/Imm Hx - Additional Past Medical History Additional PMH: allergies Previously Healthy: Yes GI/ History: Gastroesophageal Reflux - Surgical History Surgical History: Yes Surgery Procedure, Year, and Place: tubes in ears as child. LEFT ovary removed ; TUBAL LIGATION, HX OF 2 C-SECTIONS. appendix 2002. gallbladder 2002. tubal. Left knee - MMT REPAIR. EUA L knee. R thumb - pin for torn ligaments. tonsillectomy. R wrist 2010 - Family History Known Family History: Positive: Other - daughter - neurological hearing loss Negative: Cardiac Disease, Diabetes - Social History Alcohol Use: None Substance Use Type: None Smoking Status (MU): Never Smoked Tobacco Have You Smoked in the Last Year: No Household Exposure Type: Cigarettes - Immunization History Most Recent Influenza Vaccination: 2016/2016 season Review of Systems All Other Systems Reviewed And Are Negative: Yes Constitutional: Negative: Fever Skin: Negative: Rash, Bruising Physical Exam Triage Information Reviewed: Yes Appearance: Well-Appearing Vital Signs: Initial Vital Signs Temp 97.3 F 03/12/19 09:38 Pulse 88 03/12/19 09:38 Resp 16 03/12/19 09:38 BP 146/91 03/12/19 09:38 Pulse Ox 96 03/12/19 09:38 Vital Signs Reviewed: Yes Respiratory Exam: Normal Cardiovascular Exam: Normal Musculoskeletal: Positive: Strength Intact - L ankle, ROM Intact - L ankle, No Edema - L ankle, Other: - +[place] Neurological: Positive: Alert Skin: Negative: Other - no bruising Diagnostics - Radiology No standard instances Radiology Interpretation Completed By: Radiologist Summary of Radiographic Findings: soft tissue swelling w/ bone spur and accessory osside Lower Extremity Course/Dx - Course Course Of Treatment: worsening R foot pain over the past week. on xray there was a bone spur and accessory osside. Pain on exam. Vitals good. Plan is to send her to podiatry to review her options. ok to use ibu for pain. - Differential Dx/Diagnosis Provider Diagnosis: Bone spur Discharge ED - Sign-Out/Discharge Documenting (check all that apply): Patient Departure All imaging exams completed and their final reports reviewed: Yes - Discharge Plan Condition: Good Disposition: HOME Patient Education Materials: Arthralgia (ED) Referrals: Patricia Bueno DPM [Doctor of Podiatric Medicine] - Additional Instructions: Please call podiatry when you can to make appt - Billing Disposition and Condition Condition: GOOD Disposition: Home
== END 2019-03-12 10:50 | disposition home or self-care (01) ==
LOC: UCEAST 09:33
DX: M77.51 Other enthesopathy of right foot and ankle (principal); M79.89 Other specified soft tissue disorders; R93.7 Abnormal findings on diagnostic imaging of other parts of musculoskeletal system; Z88.8 Allergy status to other drugs, medicaments and biological substances; Z91.09 Other allergy status, other than to drugs and biological substances; Z91.013 Allergy to seafood; Z88.1 Allergy status to other antibiotic agents; Z88.0 Allergy status to penicillin; Z88.2 Allergy status to sulfonamides
CPT/HCPCS: 99212; G0463

== ENCOUNTER 2019-03-14 22:59 | Emergency (ER) | payer OTHER, MEDICAID ==
[2019-03-15 00:03] LABS: Urine Appearance Cloudy; Urine Bacteria Absent (Absent); Urine Bilirubin Negative (Negative); Urine Blood 3+ (Negative); Urine Color Yellow; Urine Glucose Negative (Negative); Urine Ketones Negative (Negative); Urine Nitrite Negative (Negative); Urine Protein Negative (Negative); Urine Red Blood Cell 3+(>10/hpf) (Absent); Urine Specific Gravity 1.025 (1.010-1.030); Urine Squamous Epithelial Cell Present (Absent); Urine Urobilinogen Negative (Negative); Urine White Blood Cell Trace(0-5/hpf) (Absent)
[2019-03-15 01:41] LABS: ABS Basophils 0.1 10^3/ul (0-0.2); ABS Eosinophils 0.1 10^3/ul (0-0.6); ABS Lymphocytes 1.9 10^3/ul (1.0-4.8); ABS Monocytes 0.5 10^3/ul (0-0.8); Eosinophil % 0.9 %; Hematocrit 38 % (35-47); Hemoglobin 12.7 g/dL (12.0-16.0); Lymphocyte % 24.7 %; Mean Corpuscular HGB Conc 33 g/dL (31-36); Mean Corpuscular Hemoglobin 28 pg (27-31); Mean Corpuscular Volume 82 fL (80-97); Platelet Count 289 10^3/uL (150-450); Red Blood Count 4.61 10^6 /uL (3.70-4.87); Red Cell Distribution Width 15 % (10-15); White Blood Count 7.5 10^3/uL (3.5-10.8)
[2019-03-15 01:46] LABS: INR 0.91 (0.82-1.09)
[2019-03-15 01:58] LABS: ALT 38 U/L (7-52); AST 18 U/L (13-39); Albumin 4.1 g/dL (3.2-5.2); Albumin/Globulin Ratio 1.3 (1-3); Alkaline Phosphatase 39 U/L (34-104); Anion Gap 7 mmol/L (2-11); BUN/Creatinine Ratio 20.3 (8-20); Blood Urea Nitrogen 16 mg/dL (6-24); C Reactive Protein 12.38 mg/L (<8.01); CO2 Carbon Dioxide 27 mmol/L (22-32); Calcium 9.2 mg/dL (8.6-10.3); Chloride 104 mmol/L (101-111); Globulin 3.1 g/dL (2-4); Glucose 187 mg/dL (70-100); Potassium 3.2 mmol/L (3.5-5.0); Sodium 138 mmol/L (135-145); Total Protein 7.2 g/dL (6.4-8.9)
[2019-03-15 02:04] LABS: HCG Pregnancy < 0.60 mIU/mL
[2019-03-15] MEDS ORDERED: NS 0.9% 1000 ML** 1,000 ML IV ONE (02:04)
[2019-03-15] MEDS ORDERED: Ketorolac INJ* 30 MG/ML 1 ML VIAL IV PUSH ONE (02:04)
[2019-03-15] MEDS ORDERED: Ondansetron INJ* 2 MG/ML VIAL IV ONE (02:04)
--- NOTE | 2019-03-15 02:25 | ED ---
Abdominal Pain/Female - HPI Summary HPI Summary: This patient is a 39 year old F presenting [place] [facility] accompanied by a female reliability technologist with a chief complaint of left-sided ABD pain since 2099 last night. Pt also complains of both-sided flank pain. Pt states the pain feels like her previous kidney stones. The patient rates the pain 10/10 in severity. Symptoms aggravated by nothing. Symptoms alleviated by nothing. Patient reports nausea. Patient denies vomiting, fever. Pt does not smoke, drink alcohol, or use recreational drugs. - History of Current Complaint Chief Complaint: EDAbdPain Stated Complaint: LOWER ABDOMINAL PAIN;FLANK PAIN PER PT Time Seen by Provider: 03/15/19 02:02 Hx Obtained From: Patient Hx Last Menstrual Period: 1 month ago, unsure of date, had tubal Onset/Duration: Sudden Onset, Lasting Days - sincer 2099 last night, Still Present Timing: Constant Severity Initially: Severe Severity Currently: Severe Pain Intensity: 10 Pain Scale Used: 0-10 Numeric Aggravating Factor(s): Nothing Alleviating Factor(s): Nothing Allergies/Adverse Reactions: Allergies Allergy/AdvReac Type Severity Reaction Status Date / Time metoprolol Allergy Severe Rash Verified 03/14/19 23:27 potassium Allergy Severe Difficulty Verified 03/14/19 23:27 Breathing shrimp Allergy Severe Swelling Verified 03/14/19 23:27 clindamycin Allergy Intermediate Rash Verified 03/14/19 23:27 Penicillins Allergy Intermediate Hives Verified 03/14/19 23:27 Sulfa (Sulfonamide Allergy Intermediate Rash Verified 03/14/19 23:27 Antibiotics) quetiapine [From Seroquel] Allergy Unknown Unknown Verified 03/14/19 23:27 Reaction Details prednisone AdvReac Intermediate Palpitation Verified 03/14/19 23:27 s bandaid Allergy Severe Blisters Uncoded 03/12/19 09:43 PMH/Surg Hx/FS Hx/Imm Hx Previously Healthy: No Endocrine/Hematology History: Reports: Hx Anemia - start of- no treatment Denies: Hx Diabetes - PRE DIABETIC, Hx Sickle Cell Disease, Hx Thyroid Disease Cardiovascular History: Reports: Hx Hypertension Denies: Hx Hypercholesterolemia, Hx Pacemaker/ICD, Hx Peripheral Vascular Disease Respiratory History: Reports: Hx Asthma, Hx Seasonal Allergies Denies: Hx Chronic Obstructive Pulmonary Disease (COPD) GI History: Reports: Hx Gastroesophageal Reflux Disease - TUMS Denies: Hx Crohn's Disease, Hx Diverticulosis, Hx Gastrointestinal Bleed, Hx Hiatal Hernia, Hx Irritable Bowel, Hx Obstructive Bowel, Hx Ulcer, Other GI Disorders History: Reports: Hx Kidney Stones - 2010, Other Problems/Disorders - pcos Denies: Hx Renal Disease Musculoskeletal History: Reports: Hx Tendonitis - IN LEFT ANKLE/Foot, Other Musculoskeletal History - neck problems - herniated cervical disc Denies: Hx Arthritis, Hx Osteoporosis Sensory History: Denies: Hx Contacts or Glasses, Hx Hearing Aid Opthamlomology History: Denies: Hx Contacts or Glasses Neurological History: Reports: Hx Migraine, Other Neuro Impairments/Disorders - PAIN CLINIC PT Denies: Hx Headaches, Hx Seizures, Hx Transient Ischemic Attacks (TIA) Psychiatric History: Reports: Hx Anxiety Denies: Hx Depression, Hx Panic Disorder - Cancer History Hx Hematologic Symptoms: No Hx Chemotherapy: No Hx Radiation Therapy: No Hx Palliative Cancer Treatment: No - Surgical History Surgical History: Yes Surgery Procedure, Year, and Place: tubes in ears as child. LEFT ovary removed ; TUBAL LIGATION, HX OF 2 C-SECTIONS. appendix 2002. gallbladder 2002. tubal. Left knee - MMT REPAIR. EUA L knee. R thumb - pin for torn ligaments. tonsillectomy. R wrist 2010 Hx Anesthesia Reactions: No - Immunization History Date of Tetanus Vaccine: utd Date of Influenza Vaccine: fall 2016 Infectious Disease History: No Infectious Disease History: Denies: Hx Clostridium Difficile, Hx Hepatitis, Hx Human Immunodeficiency Virus (HIV), Hx of Known/Suspected MRSA, Hx Shingles, Hx Tuberculosis, Hx Known/ Suspected VRE, Hx Known/Suspected VRSA, History Other Infectious Disease, Traveled Outside the [place] in Last 30 Days - Family History Known Family History: Positive: Other - daughter - neurological hearing loss Negative: Cardiac Disease, Diabetes - Social History Alcohol Use: None Hx Substance Use: No Substance Use Type: Reports: None Hx Tobacco Use: No Smoking Status (MU): Never Smoked Tobacco Have You Smoked in the Last Year: No Review of Systems Negative: Fever Gastrointestinal: Other - positive - both-sided flank pain Positive: Abdominal Pain - left-sided, Nausea. Negative: Vomiting All Other Systems Reviewed And Are Negative: Yes Physical Exam - Summary Physical Exam Summary: General: Morbidly obese, Well-nourished FEMALE. Mild discomfort HEENT: Normocephalic, Atraumatic. Eyes: Conjuctiva normal, PERRL. Ears: TMs within normal limits. Nares: (-) discharge, (-) erythema. Oropharynx: Clear, mucous membranes moist, (-) exudates. Neck: Soft, FROM, (-) lymphadenopathy, (-) thyromegaly, (-) JVD. Cardiovascular: Normal sinus rhythm, (-) murmur. Lungs: Clear to auscultation bilaterally (-) wheezes, (-) rales, (-) rhonchi. Abdomen: Soft, Mild CVA tenderness bilaterally, non-distended, (-) organomegaly , normal bowel sounds. Back: (-) CVA tenderness Extremities: No edema. Skin: Warm, dry, (-) rash. Neuro: Alert and oriented x3, no focal deficits. Psychiatric: Mood normal, affect normal. Triage Information Reviewed: Yes Vital Signs On Initial Exam: Initial Vitals Temp Pulse Resp BP Pulse Ox 98.3 F 100 18 189/100 99 03/14/19 23:11 03/14/19 23:11 03/14/19 23:11 03/14/19 23:11 03/14/19 23:11 Vital Signs Reviewed: Yes Procedures - Sedation Patient Received Moderate/Deep Sedation with Procedure: No Diagnostics - Vital Signs Vital Signs Temp Pulse Resp BP Pulse Ox 03/15/19 01:24 98.9 F 83 18 189/104 98 03/14/19 23:11 98.3 F 100 18 189/100 99 - Laboratory Lab Results: Lab Results 03/14/19 03/15/19 03/15/19 Range/Units 23:50 01:20 01:20 WBC 7.5 (3.5-10.8) 10^3/uL RBC 4.61 (3.70-4.87) 10^6 /uL Hgb 12.7 (12.0-16.0) g/dL Hct 38 (35-47) % MCV 82 (80-97) fL MCH 28 (27-31) pg MCHC 33 (31-36) g/dL RDW 15 (10-15) % Plt Count 289 (150-450) 10^3/uL MPV 9.0 (7.4-10.4) fL Neut % (Auto) 66.8 % Lymph % (Auto) 24.7 % [place] % (Auto) 6.8 % Eos % (Auto) 0.9 % Baso % (Auto) 0.8 % Absolute Neuts (auto) 5.0 (1.5-7.7) 10^3/ul Absolute Lymphs (auto) 1.9 (1.0-4.8) 10^3/ul Absolute Monos (auto) 0.5 (0-0.8) 10^3/ul Absolute Eos (auto) 0.1 (0-0.6) 10^3/ul Absolute Basos (auto) 0.1 (0-0.2) 10^3/ul Absolute Nucleated RBC 0.0 10^3/ul Nucleated RBC % 0.0 INR (Anticoag Therapy) 0.91 (0.82-1.09) Sodium (135-145) mmol/L Potassium (3.5-5.0) mmol/L Chloride (101-111) mmol/L Carbon Dioxide (22-32) mmol/L Anion Gap (2-11) mmol/L BUN (6-24) mg/dL Creatinine (0.51-0.95) mg/dL Est GFR ( Amer) (>60) Est GFR (Non-Af Amer) (>60) BUN/Creatinine Ratio (8-20) Glucose (70-100) mg/dL Lactic Acid (0.5-2.0) mmol/L Calcium (8.6-10.3) mg/dL Total Bilirubin (0.2-1.0) mg/dL AST (13-39) U/L ALT (7-52) U/L Alkaline Phosphatase (34-104) U/L C-Reactive Protein (<8.01) mg/L Total Protein (6.4-8.9) g/dL Albumin (3.2-5.2) g/dL Globulin (2-4) g/dL Albumin/Globulin Ratio (1-3) Beta HCG, Quant mIU/mL Urine Color Yellow Urine Appearance Cloudy Urine pH 5.0 (5-9) Ur Specific [place] 1.025 (1.010-1.030) Urine Protein Negative (Negative) Urine Ketones Negative (Negative) Urine Blood 3+ A (Negative) Urine Nitrate Negative (Negative) Urine Bilirubin Negative (Negative) Urine Urobilinogen Negative (Negative) Ur Leukocyte Esterase Trace A (Negative) Urine WBC (Auto) Trace(0-5/hpf) (Absent) Urine RBC (Auto) 3+(>10/hpf) A (Absent) Ur Squamous Epith Cells Present A (Absent) Urine Bacteria Absent (Absent) Urine Glucose Negative (Negative) 03/15/19 03/15/19 Range/Units 01:20 01:20 WBC (3.5-10.8) 10^3/uL RBC (3.70-4.87) 10^6 /uL Hgb (12.0-16.0) g/dL Hct (35-47) % MCV (80-97) fL MCH (27-31) pg MCHC (31-36) g/dL RDW (10-15) % Plt Count (150-450) 10^3/uL MPV (7.4-10.4) fL Neut % (Auto) % Lymph % (Auto) % [place] % (Auto) % Eos % (Auto) % Baso % (Auto) % Absolute Neuts (auto) (1.5-7.7) 10^3/ul Absolute Lymphs (auto) (1.0-4.8) 10^3/ul Absolute Monos (auto) (0-0.8) 10^3/ul Absolute Eos (auto) (0-0.6) 10^3/ul Absolute Basos (auto) (0-0.2) 10^3/ul Absolute Nucleated RBC 10^3/ul Nucleated RBC % INR (Anticoag Therapy) (0.82-1.09) Sodium 138 (135-145) mmol/L Potassium 3.2 L (3.5-5.0) mmol/L Chloride 104 (101-111) mmol/L Carbon Dioxide 27 (22-32) mmol/L Anion Gap 7 (2-11) mmol/L BUN 16 (6-24) mg/dL Creatinine 0.79 (0.51-0.95) mg/dL Est GFR ( Amer) 98.0 (>60) Est GFR (Non-Af Amer) 81.0 (>60) BUN/Creatinine Ratio 20.3 H (8-20) Glucose 187 H (70-100) mg/dL Lactic Acid 1.3 (0.5-2.0) mmol/L Calcium 9.2 (8.6-10.3) mg/dL Total Bilirubin 0.20 (0.2-1.0) mg/dL AST 18 (13-39) U/L ALT 38 (7-52) U/L Alkaline Phosphatase 39 (34-104) U/L C-Reactive Protein 12.38 H (<8.01) mg/L Total Protein 7.2 (6.4-8.9) g/dL Albumin 4.1 (3.2-5.2) g/dL Globulin 3.1 (2-4) g/dL Albumin/Globulin Ratio 1.3 (1-3) Beta HCG, Quant < 0.60 mIU/mL Urine Color Urine Appearance Urine pH (5-9) Ur Specific [place] (1.010-1.030) Urine Protein (Negative) Urine Ketones (Negative) Urine Blood (Negative) Urine Nitrate (Negative) Urine Bilirubin (Negative) Urine Urobilinogen (Negative) Ur Leukocyte Esterase (Negative) Urine WBC (Auto) (Absent) Urine RBC (Auto) (Absent) Ur Squamous Epith Cells (Absent) Urine Bacteria (Absent) Urine Glucose (Negative) Result Diagrams: 03/15/19 01:20 03/15/19 01:20 Lab Statement: Any lab studies that have been ordered have been reviewed, and results considered in the medical decision making process. - CT ABD/PEL CT Interpretation Completed By: Radiologist Summary of CT Findings: IMPRESSION: 1. There is a right adnexal cyst measuring 3.6 x 2.8 CM. Recommend pelvic. sonography for further evaluation. 2. There is diverticulosis with no CT evidence of diverticulitis. These findings were reviewed by Dr. Packer. Abdominal Pain Fem Course/Dx - Course Course Of Treatment: 39-year-old female with left abdominal discomfort and bilateral flank pain. Workup essentially negative. Incidental right ovarian cyst was noted. Discussed with patient. Advise follow-up for cyst. Advise rest, heat or ice, Tylenol ibuprofen for back pain. Follow-up with PCP. Follow -up sooner for any worsening symptoms. - Diagnoses Provider Diagnoses: Left flank pain, Ovarian cyst Discharge ED - Sign-Out/Discharge Documenting (check all that apply): Patient Departure - discharge - Discharge Plan Condition: Stable Disposition: HOME Patient Education Materials: Back Pain (ED) Referrals: Merlene Amin MD [Primary Care Provider] - 3 Days Additional Instructions: Follow up with your primary care provider within 3 days. Return to the ED for any new or worsening symptoms. - Billing Disposition and Condition Condition: STABLE Disposition: Home - Attestation Statements Document Initiated by Geeta: Yes Documenting Scribe: Kunal Russell Provider For Whom Geeta is Documenting (Include Credential): Dr. Jennifer Packer MD Scribe Attestation: Kunal Rios, scribed for Dr. Jennifer Packer MD on 03/15/19 at 0553. Scribe Documentation Reviewed: Yes Provider Attestation: The documentation as recorded by the Kunal mejia accurately reflects the service I personally performed and the decisions made by me, Dr. Jennifer Packer MD Status of Scribe Document: Viewed
[2019-03-15 04:41] VITALS: BP 135/83
== END 2019-03-15 04:39 | disposition home or self-care (01) ==
LOC: ED 22:59
DX: R10.32 Left lower quadrant pain (principal); N83.201 Unspecified ovarian cyst, right side; D64.9 Anemia, unspecified; I10 Essential (primary) hypertension; J45.909 Unspecified asthma, uncomplicated; K21.9 Gastro-esophageal reflux disease without esophagitis; F41.9 Anxiety disorder, unspecified; Z87.442 Personal history of urinary calculi; Z90.721 Acquired absence of ovaries, unilateral; Z88.1 Allergy status to other antibiotic agents; Z88.0 Allergy status to penicillin; Z88.2 Allergy status to sulfonamides; Z88.8 Allergy status to other drugs, medicaments and biological substances; Z79.899 Other long term (current) drug therapy
CPT/HCPCS: 36415; 74176; 80053; 81003; 81015; 83605; 84702; 85025; 85610; 86140; 87077; 87086; 96374; 96375; 99283; J1885; J2405

== ENCOUNTER 2019-04-07 15:28 | Emergency (ER) | payer OTHER, MEDICAID ==
--- OUTSIDE RECORDS SUMMARY | 2019-04-07 15:39 | XMS REPORT | Continuity of Care Document ---
:1980 External Reference #:[id number] Author Name Shantelle Finch NP Address [address] [place] [address] Care Team Providers Name Role Phone CMC Utilization Protein Chemist Care Team Information Gear Lapping Machine Operator - Health Educator Yusef Wiley MD - Neurological Care Team Information Gear Lapping Machine Operator [facility] - [facility] Care Team Information Gear Lapping Machine Operator [phone] [facility] Physical Care Team Information Gear Lapping Machine Operator Therapy - Physical Therapy Merlene Amin M.D. - Family Medicine Care Team Information Gear Lapping Machine Operator Unavailable Problems Active Problems Provider Date Type 2 diabetes mellitus Shantelle Finch NP Onset: 12/14/2018 Brachial neuritis Jon Escalante M.D. [...] Patient has never smoked Smoking Status Reviewed: 03/17/19 Patient has never smoked Allergies, Adverse Reactions, Alerts Active Allergies Reaction Severity Comments Date Penicillin 08/17/2003 Shellfish 08/17/2003 Seroquel 08/12/2005 Sulfa Drugs Itching 04/24/08 04/24/2008 Clindamycin Itching 04/24/08 04/24/2008 Potassium 10/05/2009 Metoprolol RASH-per pt 10/19/2012 Seasonal 09/02/2015 Bandaids fabric bandaides 12/03/2016 Prednisone Racing Heart with PO med Moderate 04/14/2017 Medications Active Medications SIG Qnty Indications Ordering Date Provider Jardiance 1 by mouth every 30tabs E11.9 Shantelle Campbell 03/17/2019 10mg Tablets day Finch, HEARING STENOGRAPHER Ipratropium Mobridge 2 sprays each 15ml J01.90 Shantelle Campbell 10/10/2018 0.06% nostril bid prn Stef HEARING STENOGRAPHER Solution Imitrex 1 tablets by 14tabs Shantelle Campbell 10/10/2018 25mg Tablets mouth once for Finch, HEARING STENOGRAPHER migraine, may repeat in 2 hours if not resolved Ventolin HFA take 1-2 puffs 18gm J45.20 Krysben Mckinney 07/06/2018 108(90Base) inhaled every 4 Adilson, HEARING STENOGRAPHER mcg/Act Aerosol hours as needed for wheezing or tightness in the chest Losartan Take One Tablet 90tabs I10 Merlene Thorp, 06/03/2017 Potassium/Hydrochloroth By Mouth Every M.D. iazide Day 100-25mg Tablets Loratadine 1 tab by mouth 90tabs J06.9 Shantelle Campbell 04/01/2016 10mg Tablets every day Finch, HEARING STENOGRAPHER Pantoprazole Sodium take one tablet 30tabs K21.9 Mrelene Thorp, 05/01/2015 20mg by mouth every M.D. Tablets DR day Montelukast Sodium take one tablet 90tabs J30.2 Shantelle Campbell 07/07/2012 10mg by mouth every Finch, HEARING STENOGRAPHER Tablets day Breo Ellipta 1 puff a day Unknown 200-25mcg/Inh Aerosol Levocetirizine 1 by mouth at Unknown Dihydrochloride bedtime prn 5mg Tablets History Medications Pneumovax 23 Shantelle Campbell 03/17/2019 - Finch, HEARING STENOGRAPHER 03/17/2019 25mcg/0.5ML Injection Cefdinir take 1 tablet 14caps R09.81 Sim Morrison, 02/16/2019 - 300mg twice a day for 7 M.D. 03/17/2019 Capsules days. Medrol dose-pack as 1pack R09.81 Erika 02/16/2019 - 4mg Tablets instructed/has Steven, CIVIL PREPAREDNESS COORDINATOR 03/17/2019 tolerated medrol in the past Cefdinir take 1 tablet 14caps H66.93 Sim Morrison, 12/29/2018 - 300mg twice a day for 7 M.D. 01/20/2019 Capsules days. Meclizine HCL take 1 tablet 2-3 30tabs H66.93 Simtaylor Morrison, 12/29/2018 - 25mg times a day as M.D. 01/20/2019 Tablets needed for dizziness. Metformin HCL 1 by mouth qam x 7 120tabs E11.9 Shantelle Campbell 12/16/2018 - 500mg days; then 1 qam JANES Finch 12/20/2018 Tablets and 1 qpm x 7 days, 1 qam 2 qpm x 7 days then 2 qam and 2qpm thereafter Tramadol HCL 1-2 every q hs as 20tabs Tierney Franco, 11/11/2018 - 50mg needed pain, september CIVIL PREPAREDNESS COORDINATOR 12/29/2018 Tablets repeat once in 6h Cheratussin ac 5-10ml every 8 120ml J45.901 Shantelle Campbell 10/10/2018 - hours as needed - JANES Finch 11/03/2018 100-10mg/5ML Syrup do not drive when taking this medication - causes drowsiness Immunizations CPT Code Status Date Vaccine Lot # [id number] Given 03/17/2019 Pneumococcal Immunization [id number] 42585 Given 03/17/2019 Influenza Vac, Quadrivalent, Slit Virus, Im [id number] 16776 Given 02/22/2018 Influenza Vac, Quadrivalent, Slit Virus, Im [id number] 87070 Given 02/10/2017 Influenza Vac, [place], [place] [address] Given 02/12/2016 Tetanus And Diptheria Adult Preservative Free [id number] >7Yrs 35201 Given 02/12/2016 Influenza Vac, Quadrivalent, Slit Virus, Im [id number] 98359 Given 02/01/2015 Influenza Vac, [place]riv[place], [place] [address] Given 02/01/2015 DO Not Use Split Influenza Virus Vaccine 48335 Given 03/24/2014 DO Not Use Split Influenza Virus Vaccine 55364 Given 02/13/2013 DO Not Use Split Influenza Virus Vaccine 77979 Given 07/26/2012 DO Not Use Split Influenza Virus Vaccine 35230 Given 01/30/2011 DO Not Use Split Influenza Virus Vaccine [id number] 79012 Given 03/01/2010 DO Not Use Split Influenza Virus Vaccine [id number] 99140 Given 04/11/2009 H1N1 Virus Vaccine [id number] 46924 Given 04/11/2009 H1N1 Immunization Intramuscular/Intranasal W Counseling 90208 Given 08/26/2005 Hepatitis B Immunization, adult dosage, for intramuscular use 71024 Given 06/12/2005 Tdap Tetanus, W Pertussis [id number] 82327 Given 11/26/2004 Hepatitis B Immunization, adult dosage, for intramuscular use 79350 Given 09/24/2004 Hepatitis B Immunization, adult dosage, for intramuscular use Vital Signs Date Vital Result Comment 03/17/2019 9:59am BP Systolic 148 mmHg BP Diastolic 104 mmHg Heart Rate 84 /min Body Temperature 98.4 F Respiratory Rate 16 /min Height 63 inches 5'3" per pt Weight 278.00 lb BMI (Body Mass Index) 49.2 kg/m2 02/16/2019 1:05pm BP Systolic 138 mmHg BP Diastolic 90 mmHg Heart Rate 110 /min Body Temperature 98.3 F Respiratory Rate 20 /min O2 % BldC Oximetry 97 % Weight 280.00 lb Results Test Date Facility Test Result H/L Range Note Laboratory test 03/17/2019 [facility] Medicine Hemoglobin A1c 6.5 % High 4.1- 5.7 finding (607)- - (Fma) Ua - Non Micro 03/17/2019 [facility] Appearance yellow (Fma) (607)- - Color clear Glucose, Urine (Fma/CMC/CTX) neg Bilirubin neg Ketones neg SP Grav 1.020 Blood neg PH 5.5 Protein neg Urobil 0.2 Nitrite neg Leukocytes (Fma/CMC/Centrex) neg Lipid Profile 03/17/2019 [facility]) Cholesterol 179 mg/dL 120- 200 Triglycerides 133 mg/dL 30-200 HDL Cholesterol 49 mg/dL 30-85 LDL (Calculated) 103 CALC 0-129 VLDL Cholesterol 27 mg/dL 0-50 HDL Risk Factor 3.7 CALC 0.0-4.4 Laboratory test 03/17/2019 [facility](fma) TSH 1.57 mIU/L 0.50-6.00 finding CBC Auto Diff 03/15/2019 [facility] White Blood 7.5 10^3/uL Normal 3.5-10.8 Count Red Blood Count 4.61 10^6/uL Normal 3.70-4.87 Hemoglobin 12.7 g/dL Normal 12.0-16.0 Hematocrit 38 % Normal 35-47 Mean Corpuscular Volume 82 fL Normal 80-97 Mean Corpuscular Hemoglobin 28 pg Normal 27-31 Mean Corpuscular HGB Conc 33 g/dL Normal 31-36 Red Cell Distribution Width 15 % Normal 10-15 Platelet Count 289 10^3/uL Normal 150-450 Mean Platelet Volume 9.0 fL Normal 7.4-10.4 Abs Neutrophils 5.0 10^3/uL Normal 1.5-7.7 Abs Lymphocytes 1.9 10^3/uL Normal 1.0-4.8 Abs Monocytes 0.5 10^3/uL Normal 0-0.8 Abs Eosinophils 0.1 10^3/uL Normal 0-0.6 Abs Basophils 0.1 10^3/uL Normal 0-0.2 Abs Nucleated RBC 0.0 10^3/uL Granulocyte % 66.8 % Lymphocyte % 24.7 % Monocyte % 6.8 % Eosinophil % 0.9 % Basophil % 0.8 % Nucleated Red Blood Cells % 0.0 Inr/Protime 03/15/2019 [facility] Inr 0.91 Normal 0.82-1.09 1 Laboratory test finding 03/15/2019 [facility] Lactic Acid 1.3 mmol/L Normal 0.5- 2.0 2 Comp Metabolic Panel 03/15/2019 [facility] Sodium 138 mmol/L Normal 135-145 Potassium 3.2 mmol/L Low 3.5-5.0 Chloride 104 mmol/L Normal 101-111 Co2 Carbon Dioxide 27 mmol/L Normal 22-32 Anion Gap 7 mmol/L Normal 2-11 Glucose 187 mg/dL High 70-100 Blood Urea Nitrogen 16 mg/dL Normal 6-24 Creatinine 0.79 mg/dL Normal 0.51-0.95 BUN/Creatinine Ratio 20.3 High 8-20 Calcium 9.2 mg/dL Normal 8.6-10.3 Total Protein 7.2 g/dL Normal 6.4-8.9 Albumin 4.1 g/dL Normal 3.2-5.2 Globulin 3.1 g/dL Normal 2-4 Albumin/Globulin Ratio 1.3 Normal 1-3 Total Bilirubin 0.20 mg/dL Normal 0.2-1.0 Alkaline Phosphatase 39 U/L Normal 34-104 Alt 38 U/L Normal 7-52 Ast 18 U/L Normal 13-39 Egfr Non- 81.0 >60 Egfr 98.0 >60 3 Laboratory test finding 03/15/2019 [facility] C Reactive Protein 12.38 mg/L High <8.01 HCG < 0.60 mIU/mL 4 Urine Culture And Sensitivities 03/14/2019 [facility] Urine Culture SEE RESULT BELOW 5 Urinalysis Profile 03/14/2019 [facility] Urine Color Yellow Urine Appearance Cloudy Urine Specific [place] 1.025 Normal 1.010-1.030 Urine pH 5.0 Normal 5-9 Urine Urobilinogen Negative Negative Urine Ketones Negative Negative Urine Protein Negative Negative Urine Leukocytes Trace Abnormal Negative Urine Blood 3+ Abnormal Negative Urine Nitrite Negative Negative Urine Bilirubin Negative Negative Urine Glucose Negative Negative Urine White Blood Cell Trace(0-5/hpf) Absent Urine Red Blood Cell 3+(>10/hpf) Abnormal Absent Urine Bacteria Absent Absent Urine Squamous Epithelial Cell Present Abnormal Absent CBC Auto Diff 02/01/2019 [facility] White Blood Count 9.6 10^3/uL Normal 3.5- [...] Cells % 0.1 Comp Metabolic Panel 02/01/2019 [facility] Sodium 137 mmol/L Normal 135-145 Potassium 3.6 [...] Egfr Non- 81.0 >60 Egfr 98.0 >60 6 Laboratory test finding 02/01/2019 [facility] HCG < 0.60 mIU/mL 7 Urinalysis Profile 01/31/2019 [facility] Urine Color Yellow Urine Appearance Clear Urine Specific [place] 1.021 Normal 1.010-1.030 Urine pH 5.0 Normal 5-9 Urine Urobilinogen Negative Negative Urine Ketones Negative Negative Urine Protein Negative Negative Urine Leukocytes Negative Negative Urine Blood Negative Negative Urine Nitrite Negative Negative Urine Bilirubin Negative Negative Urine Glucose Negative Negative Laboratory test 12/09/2018 [facility] Medicine Hemoglobin A1c 6.6 % High 4.1- 5.7 finding (607)- - (Fma) Laboratory test 12/09/2018 [facility]) TSH 2.69 0.50-6.00 finding mIU/L Comprehensive 12/09/2018 [facility]) Sodium 136 134-149 Metabolic Prof mEq/L Potassium [...] >=60 GFR >60 ml/min/1.73m^ >=60 CBC Electronic [facility] 12/09/2018 [facility]) WBC 9.3 x10^3/UL 4.0- 10.0 RBC 4.65 x10^6/UL 3.93-6.00 HGB 12.8 g/dL 12.0-17.0 HCT 39 % 35-50 MCV 83.4 fL 80.0-95.0 MCH 27.5 pg 25.6-32.2 MCHC 33.0 g/dL 32.2-36.0 RDW-CV 14.9 % High 11.6-14.4 PLT 317 x10^3/UL 163-400 MPV 10.7 fL 9.4-12.4 Romain# 6.91 x10^3/UL High 1.56-6.13 Lymph# 1.69 x10^3/UL 1.18-3.74 Hartley# 0.53 x10^3/UL 0.24-0.82 Eos # 0.1 x10^3/UL 0.0-0.5 Baso # 0.03 x10^3/UL 0.01-0.08 Romain% 74.4 % High 34.0-70.0 Lymph % 18.2 % Low 20.0-52.0 Hartley% 5.7 % 5.0-12.0 Eos% 0.6 % Low 0.7-7.0 Baso% 0.3 % 0.1-1.2 Lipid Profile 12/09/2018 [facility](fma) Cholesterol 191 mg/dL 120- 200 Triglycerides 148 mg/dL 30-200 HDL Cholesterol 53 mg/dL 30-85 LDL (Calculated) 108 CALC 0-129 VLDL Cholesterol 30 mg/dL 0-50 HDL Risk Factor 3.6 CALC 0.0-4.4 1 Standard intensity warfarin therapeutic range: 2.0-3.0 High intensity warfarin therapeutic range: 2.5-3.5 2 [facility] Severe Sepsis and Septic Shock Management Bundle Measure requires all lactic acids initially measuring >2.0 mmol/L be repeated. 3 Because ethnic data is not always readily [...] 15-29 5 Kidney failure <15 (or dialysis) 4 <5.0 Negative 5.0 - 25.0 Indeterminate (Repeat testing recommended after 72 hours) >25.0 Positive Perimenopausal women can display HCG levels of up to 20 mIU/mL 5 SEE RESULT BELOW Name: MYNOR CORRIGAN : [address]: Jennifer Packer MD Acct: [id number] Unit: [id number] AGE: 39 Location: ED Re03/14/19 SEX: F Status: DEP ER SPEC: [id number] ERIK: 03/14/[address]: Jennifer Packer MD REQ: [id number] RECD: 03/14/19 STATUS: KALYAN FRANCOIS DR: Merlene Amin MD [facility] _ SOURCE: URINE SPDESC: ORDERED: Urine Culture Procedure Result Reported Site Urine Culture Final 03/16/19- 1300 ML Organism 1 STREP GROUP B [place] Count 1-10,000 (Few) CFU/ML Organism 2 NORMAL JUAN [place] Count 1-10,000 (Few) CFU/ML Susceptibility testing of penicillins and other B-lactams approved by FDA for treatment of Streptococcus pyogenes (Group A Strep) and Streptococcus agalactiae (Group B Strep) is not necessary for clinical purposes and need not be done routinely, since as with vancomycin, resistant strains have not been recognized. (CLSI L469-H26;p.66) Positive isolates will be saved for one week. Please call the Microbiology Laboratory if further susceptibility testing is needed. * ML - Main Lab . END OF REPORT DEPARTMENT OF PATHOLOGY, [address] [place] [address] Parag Benoit M.D. Director [facility] # [id number] 6 Because ethnic data is not always readily [...] 15-29 5 Kidney failure <15 (or dialysis) 7 <5.0 Negative 5.0 - 25.0 Indeterminate (Repeat testing recommended after 72 hours) >25.0 Positive Perimenopausal women can display HCG levels of up to 20 mIU/mL Procedures Date Code Description Status 11/03/2018 47095 Pulse Oximetry Completed 10/10/2018 50444 Pulse Oximetry Completed 05/15/2014 [id number] Mammogram Completed 01/07/2007 [id number] Mammogram Completed 07/09/2006 [id number] Mammogram Completed Medical Devices Description No Information Available Encounters Type Date Location Provider Dx Diagnosis Office Visit 02/16/2019 [facility] Office Erika Harris, R09.81 Nasal congestion 1:00p CIVIL PREPAREDNESS COORDINATOR R51 Headache J01.90 Acute sinusitis, unspecified E66.01 Morbid (severe) obesity due to excess calories Office Visit 12/29/2018 5:00p Main Office Caren Herrera, H66.93 Otitis media, PA unspecified, bilateral H69.93 Unspecified Eustachian tube disorder, bilateral R42 Dizziness and giddiness Office Visit 12/16/2018 1:15p [place] [facility] Shantelle Campbell E11.9 Type 2 diabetes JANES Finch mellitus without complications D22.9 Melanocytic nevi, unspecified Office Visit 11/11/2018 10:15a Main Office Tierney Torresrer, H69.91 Unspecified CIVIL PREPAREDNESS COORDINATOR Eustachian tube disorder, right ear Office Visit 11/03/2018 9:00a Main Office Krys Mckinney J30.9 Allergic rhinitis, JANES De Anda unspecified H69.91 Unspecified Eustachian tube disorder, right ear L02.214 Cutaneous abscess of groin Office Visit 10/10/2018 5:30p Main Office Shantelle Campbell J01.90 Acute sinusitis, JANES Finch unspecified J45.901 Unspecified asthma with (acute) exacerbation Assessments Date Code Description Provider 03/17/2019 E66.01 Morbid (severe) obesity due to excess Shantelle Finch NP calories 03/17/2019 E11.9 Type 2 diabetes mellitus without Shantelle Finch NP complications 03/17/2019 I10 Essential (primary) hypertension Shantelle Finch NP 03/17/2019 R10.32 Left lower quadrant pain Shantelle Finch NP 03/17/2019 Z23 Encounter for immunization Shantelle Finch NP 02/16/2019 R09.81 Nasal congestion Erika Steven, [facility] 02/16/2019 R51 Headache Erika Steven, [facility] 02/16/2019 J01.90 Acute sinusitis, unspecified Erika Steven, [facility] 02/16/2019 E66.01 Morbid (severe) obesity due to excess Erika Steven, CIVIL PREPAREDNESS COORDINATOR calories 12/29/2018 H66.93 Otitis media, unspecified, bilateral ADIA Carlin 12/29/2018 H69.93 Unspecified Eustachian tube disorder, Caren Herrera, ADIA bilateral 12/29/2018 R42 Dizziness and giddiness ADIA Carlin 12/16/2018 E11.9 Type 2 diabetes mellitus without Shantelle Finch NP complications 12/16/2018 D22.9 Melanocytic nevi, unspecified Shantelle Finch NP 12/09/2018 R73.03 Prediabetes Shantelle Finch NP 12/09/2018 E66.01 Morbid (severe) obesity due to excess Shantelle Finch NP calories 12/09/2018 I10 Essential (primary) hypertension Shantelle Finch NP 12/09/2018 R73.09 Other abnormal glucose Shantelle Finch NP 11/11/2018 H69.91 Unspecified Eustachian tube disorder, right Tierney Franco, CIVIL PREPAREDNESS COORDINATOR ear 11/03/2018 J30.9 Allergic rhinitis, unspecified Krys De Anda, JANES 11/03/2018 H69.91 Unspecified Eustachian tube disorder, right Krys De Anda, JANES ear 11/03/2018 L02.214 Cutaneous abscess of groin Krys De Anda, JANES 10/10/2018 J01.90 Acute sinusitis, unspecified Shantelle Finch NP 10/10/2018 J45.901 Unspecified asthma with (acute) Shantelle Finch NP exacerbation Plan of Treatment Future Appointment(s):06/23/2019 10:30 am - Shantelle Finch NP at [facility]03/17/2019 - Shantelle Finch NPE66.01 Morbid (severe) obesity due to excess caloriesComments:Counseled on heart healthy diet and mbpknxexV33.9 Type 2 diabetes mellitus without complicationsNew Medication:Jardiance 10 mg - 1 by mouth every dayComments:Recommend yearly diabetic eye and foot exams, and check on blood pressure periodically. Goal blood sugar is less than 140 in the morning or A1c less than 7.I10 Essential (primary) hypertensionComments:The patient will continue to monitor blood pressure and let me know the blood pressure results if there are readings persistently above 140/80. Goal blood pressure is less than 140/80. Recommend low salt/cardiac diet and routine exercise.R10.32 Left lower quadrant painComments:The patient was instructed to call if symptoms of abdominal pain worsen.Z23 Encounter for immunizationComments :Pneumovax has been administered Your flu vaccination has been administered. This protects you for the fall, winter and spring. It will decrease the likelihood that you will get the flu. If you are unlucky and get the flu, the symptoms will be less severe.AllComments:Medication Management Patient Understands medications he 's taking? Yes No Are there Barriers to Adherence? Yes No Has the patient been asked about herbal supplements and therapies, andOTC meds? Yes No Care Plan1. Patient has been queried about patient's goals/preferences and functional/lifestyle goals at relevant visits. If relevant, describe: na2. Treatment goals as explained to the patient: above3. Are there barriers to meeting treatment goals? Yes No If Yes, please describe: comorbid conditions, disease process, polypharmacy4. Self-Management goals as described to the patient: Yes NoAs always, we strongly encourage a healthy diet and making physical activity a part of your every day life. If you have questions about how or where to start , please contact the office. Functional Status Description No Information Available Mental Status Description No Information Available Referrals Refer to Reason for Referral Status Appt Date Brandee Augustin MD skin check jw Scheduled [facility] [address] [facility] [address] [facility] [address] [phone]
--- OUTSIDE RECORDS SUMMARY | 2019-04-07 15:39 | XMS REPORT | Continuity of Care Document ---
:1980 External Reference #:[id number] Author Name Kaia Mary M.D. Address [address] [place] [address] Care Team Providers Name Role Phone Merlene Amin MD Care Team Information Intake Man [phone] Problems Active Problems Provider Date Exacerbation of moderate persistent asthma Kaia Mary M.D. Onset: 2017 Uncomplicated moderate persistent asthma Kaia Mary M.D. Onset: 2016 Uncomplicated moderate persistent asthma Kaia Mary M.D. Onset: 2015 Allergic rhinitis due to animals Kaia Mary M.D. Onset: 03/13/2015 Mild persistent asthma Kaia Mary M.D. Onset: 03/13/2015 Allergic rhinitis Kaia Mary M.D. Onset: 12/05/2014 Allergic rhinitis due to pollen Kaia Mary M.D. Onset: 12/05/2014 Allergic asthma without status asthmaticus Kaia Mary M.D. Onset: 2014 Social History Type Date Description Comments Sex Unknown ETOH Use Denies alcohol use Tobacco Use Start: Unknown Patient has never smoked Recreational Drug Use Never Used Drugs Allergies, Adverse Reactions, Alerts Active Allergies Reaction Severity Comments Date Penicillin unknown-happened in childhood 09/28/2005 Sulfa Antibiotics Urticaria 12/26/2014 Clindamycin Urticaria 12/26/2014 Potassium Slow breathing 12/26/2014 Metoprolol Urticaria 12/26/2014 Medications Active Medications SIG Qnty Indications Ordering Date Provider Jennifero Ellipta Inhale 1 puff 60units Meg Romero, 09/29/2017 200-25mcg/Inh By Mouth Twice SENIOR CLINICAL DATA ANALYST-C Aerosol Daily Levocetirizine take one tablet 90tabs J45.40 Megbrandie Romero, 09/11/2015 Dihydrochloride by mouth at SENIOR CLINICAL DATA ANALYST-C 5mg Tablets bedtime as needed Montelukast Sodium 1 by mouth Unknown 10mg every day Tablets Ventolin HFA 2 every 4 hours 1units Kaia Mary, 108(90Base) as needed M.D. mcg/Act Aerosol Qnasl 1-2 sprays in 1units Meg Romero, 80mcg/Act Aerosol each nostril SENIOR CLINICAL DATA ANALYST-C daily Omeprazole Unknown 20mg Capsules DR Losartan Take One Tablet Unknown Potassium/Hydrochloroth By Mouth Every iazide Day 100-25mg Tablets Loratadine Take One Tablet Unknown 10mg Tablets By Mouth Every Day Sumatriptan Succinate 1-2 tabs prn Unknown 25mg Tablets Medications Administered in Office Medication SIG Qnty Indications Ordering Provider Date Injection Allergy Injection 03/29/2019 Injection Injection Allergy Injection 03/22/2019 Injection Injection Allergy Injection 03/17/2019 Injection Injection Allergy Injection 03/08/2019 Injection Injection Allergy Injection 03/02/2019 Injection Injection Allergy Injection 02/23/2019 Injection Injection Allergy Injection 02/17/2019 Injection Injection Allergy Injection 02/10/2019 Injection Injection Allergy Injection 02/02/2019 Injection Injection Allergy Injection 01/26/2019 Injection Injection Allergy Injection 01/19/2019 Injection Injection Allergy Injection 01/13/2019 Injection Injection Allergy Injection 01/05/2019 Injection Injection Allergy Injection 12/30/2018 Injection Injection Allergy Injection 12/23/2018 Injection Injection Allergy Injection 12/16/2018 Injection Injection Allergy Injection 12/09/2018 Injection Injection Allergy Injection 12/01/2018 Injection Injection Allergy Injection 11/25/2018 Injection Injection Allergy Injection 11/18/2018 Injection Injection Allergy Injection 11/10/2018 Injection Injection Allergy Injection 11/02/2018 Injection Injection Allergy Injection 10/27/2018 Injection Injection Allergy Injection 10/21/2018 Injection Injection Allergy Injection 10/14/2018 Injection Injection Allergy Injection 10/07/2018 Injection Injection Allergy Injection 09/30/2018 Injection Immunizations CPT Code Status Date Vaccine Lot # 71089 Given Unknown Pneumococcal Vaccine 33817 Given Unknown Influenza Virus Vaccine, Quadrivalent, Split, Preservative Free 66512 Given Unknown Influenza Vaccine 21948 Given Unknown Influenza Vaccine 26338 Given Unknown Influenza Vaccine 29516 Given Unknown Influenza Vaccine Vital Signs Date Vital Result Comment 03/29/2019 10:41am Height 63 inches 5'3" Weight 280.00 lb Weight 127.008 kg Respiratory Rate 18 /min Heart Rate 89 /min O2 % BldC Oximetry 96 % BP Systolic 140 mmHg BP Diastolic 80 mmHg Asthma Control Test 23 Fractional Exhaled Nitric Oxide 14 BMI (Body Mass Index) 49.6 kg/m2 11/07/2018 10:26am Height 63 inches 5'3" Weight 281.00 lb Weight 127.462 kg Respiratory Rate 18 /min Heart Rate 90 /min O2 % BldC Oximetry 98 % BP Systolic 140 mmHg BP Diastolic 80 mmHg BMI (Body Mass Index) 49.8 kg/m2 Results Description No Information Available Procedures Date Code Description Status 03/29/2019 80302 Injection Completed 03/29/2019 31006 Nitric Oxide Gas Determination Completed 03/29/2019 32533 Pre PFT Completed 03/22/2019 70186 Injection Completed 03/17/2019 13273 Injection Completed 03/08/2019 76071 Injection Completed 03/02/2019 40438 Injection Completed 02/23/2019 96038 Injection Completed 02/17/2019 88647 Injection Completed 02/10/2019 63595 Extract 1-10 Completed 02/10/2019 02108 Injection Completed 02/02/2019 09094 Injection Completed 01/26/2019 67775 Injection Completed 01/19/2019 57189 Injection Completed 01/13/2019 58696 Injection Completed 01/05/2019 07247 Injection Completed 12/30/2018 81631 Injection Completed 12/23/2018 01397 Injection Completed 12/16/2018 24490 Injection Completed 12/09/2018 84966 Injection Completed 12/01/2018 67089 Extract 1-10 Completed 12/01/2018 63194 Injection Completed 11/25/2018 46315 Injection Completed 11/18/2018 94766 Injection Completed 11/10/2018 62728 Injection Completed 11/07/2018 21925 Pre PFT Completed 11/02/2018 50761 Injection Completed 10/27/2018 09139 Injection Completed 10/27/2018 99661 Nitric Oxide Gas Determination Completed 10/27/2018 08994 Pre PFT Completed 10/21/2018 31498 Injection Completed 10/14/2018 92644 Injection Completed 10/07/2018 36931 Injection Completed 09/30/2018 62137 Injection Completed 09/27/2018 92667 Extract 1-10 Completed Medical Devices Description No Information Available Encounters Type Date Location Provider Dx Diagnosis Office Visit 03/29/2019 [place] Kaia Mary J45.40 Moderate persistent 11:00a M.D. asthma, uncomplicated J30.89 Other allergic rhinitis J30.81 Allergic rhinitis due to animal (cat) (dog) hair and dander Office Visit 11/07/2018 10:20a [place] Meg Romero J30.1 Allergic rhinitis SENIOR CLINICAL DATA ANALYST-C due to pollen J30.2 Other seasonal allergic rhinitis J30.81 Allergic rhinitis due to animal (cat) (dog) hair and dander J30.89 Other allergic rhinitis J45.40 Moderate persistent asthma, uncomplicated Office Visit 10/27/2018 10:20a Miah Romero J30.2 Other seasonal SENIOR CLINICAL DATA ANALYST-C allergic rhinitis J30.81 Allergic rhinitis due to animal (cat) (dog) hair and dander J30.89 Other allergic rhinitis J30.1 Allergic rhinitis due to pollen J45.40 Moderate persistent asthma, uncomplicated Office Visit 10/11/2018 3:40p [facility] Meg J01.90 Acute sinusitis, [place], SENIOR CLINICAL DATA ANALYST-C unspecified J45.41 Moderate persistent asthma with (acute) exacerbation J30.89 Other allergic rhinitis J30.81 Allergic rhinitis due to animal (cat) (dog) hair and dander J30.2 Other seasonal allergic rhinitis J30.1 Allergic rhinitis due to pollen Assessments Date Code Description Provider 03/29/2019 J45.40 Moderate persistent asthma, uncomplicated Kaia Mary M.D. 03/29/2019 J30.1 Allergic rhinitis due to pollen Allergy Injection 03/29/2019 J30.89 Other allergic rhinitis Kaia Mary M.D. 03/29/2019 J30.2 Other seasonal allergic rhinitis Allergy Injection 03/29/2019 J30.81 Allergic rhinitis due to animal (cat) (dog) Kaia Mary M.D. hair and dander 03/29/2019 J30.81 Allergic rhinitis due to animal (cat) (dog) Allergy Injection hair and dander 03/29/2019 J30.89 Other allergic rhinitis Allergy Injection 03/22/2019 J30.2 Other seasonal allergic rhinitis Kaia Mary M.D. 03/22/2019 J30.2 Other seasonal allergic rhinitis Allergy Injection 03/22/2019 J30.81 Allergic rhinitis due to animal (cat) (dog) Kaia Mary M.D. hair and dander 03/22/2019 J30.81 Allergic rhinitis due to animal (cat) (dog) Allergy Injection hair and dander 03/22/2019 J30.89 Other allergic rhinitis Kaia Mary M.D. 03/22/2019 J30.89 Other allergic rhinitis Allergy Injection 03/22/2019 J30.1 Allergic rhinitis due to pollen Kaia Mary M.D. 03/22/2019 J30.1 Allergic rhinitis due to pollen Allergy Injection 03/17/2019 J30.1 Allergic rhinitis due to pollen Kaia Mary M.D. 03/17/2019 J30.1 Allergic rhinitis due to pollen Allergy Injection 03/17/2019 J30.2 Other seasonal allergic rhinitis Kaia Mary M.D. 03/17/2019 J30.2 Other seasonal allergic rhinitis Allergy Injection 03/17/2019 J30.81 Allergic rhinitis due to animal (cat) (dog) Kaia Mary M.D. hair and dander 03/17/2019 J30.81 Allergic rhinitis due to animal (cat) (dog) Allergy Injection hair and dander 03/17/2019 J30.89 Other allergic rhinitis Kaia Mary M.D. 03/17/2019 J30.89 Other allergic rhinitis Allergy Injection 03/08/2019 J30.1 Allergic rhinitis due to pollen Kaia Mary M.D. 03/08/2019 J30.1 Allergic rhinitis due to pollen Allergy Injection 03/08/2019 J30.2 Other seasonal allergic rhinitis Kaia Mary M.D. 03/08/2019 J30.2 Other seasonal allergic rhinitis Allergy Injection 03/08/2019 J30.81 Allergic rhinitis due to animal (cat) (dog) Kaia Mary M.D. hair and dander 03/08/2019 J30.81 Allergic rhinitis due to animal (cat) (dog) Allergy Injection hair and dander 03/08/2019 J30.89 Other allergic rhinitis Kaia Mary M.D. 03/08/2019 J30.89 Other allergic rhinitis Allergy Injection 03/02/2019 J30.1 Allergic rhinitis due to pollen Kaia Mary M.D. 03/02/2019 J30.1 Allergic rhinitis due to pollen Allergy Injection 03/02/2019 J30.2 Other seasonal allergic rhinitis Kaia Mary M.D. 03/02/2019 J30.2 Other seasonal allergic rhinitis Allergy Injection 03/02/2019 J30.81 Allergic rhinitis due to animal (cat) (dog) Kaia Mary M.D. hair and dander 03/02/2019 J30.81 Allergic rhinitis due to animal (cat) (dog) Allergy Injection hair and dander 03/02/2019 J30.89 Other allergic rhinitis Kaia Mary M.D. 03/02/2019 J30.89 Other allergic rhinitis Allergy Injection 02/23/2019 J30.1 Allergic rhinitis due to pollen Kaia Mary M.D. 02/23/2019 J30.1 Allergic rhinitis due to pollen Allergy Injection 02/23/2019 J30.2 Other seasonal allergic rhinitis Kaia Mary M.D. 02/23/2019 J30.2 Other seasonal allergic rhinitis Allergy Injection 02/23/2019 J30.81 Allergic rhinitis due to animal (cat) (dog) Kaia Mary M.D. hair and dander 02/23/2019 J30.81 Allergic rhinitis due to animal (cat) (dog) Allergy Injection hair and dander 02/23/2019 J30.89 Other allergic rhinitis Kaia Mary M.D. 02/23/2019 J30.89 Other allergic rhinitis Allergy Injection 02/17/2019 J30.1 Allergic rhinitis due to pollen Kaia Mary M.D. 02/17/2019 J30.1 Allergic rhinitis due to pollen Allergy Injection 02/17/2019 J30.2 Other seasonal allergic rhinitis Kaia Mary M.D. 02/17/2019 J30.2 Other seasonal allergic rhinitis Allergy Injection 02/17/2019 J30.81 Allergic rhinitis due to animal (cat) (dog) Kaia Mary M.D. hair and dander 02/17/2019 J30.81 Allergic rhinitis due to animal (cat) (dog) Allergy Injection hair and dander 02/17/2019 J30.89 Other allergic rhinitis Kaia Mary M.D. 02/17/2019 J30.89 Other allergic rhinitis Allergy Injection 02/10/2019 J30.1 Allergic rhinitis due to pollen Kaia Mary M.D. 02/10/2019 J30.1 Allergic rhinitis due to pollen Allergy Injection 02/10/2019 J30.2 Other seasonal allergic rhinitis Kaia Mary M.D. 02/10/2019 J30.2 Other seasonal allergic rhinitis Allergy Injection 02/10/2019 J30.81 Allergic rhinitis due to animal (cat) (dog) Kaia Mary M.D. hair and dander 02/10/2019 J30.81 Allergic rhinitis due to animal (cat) (dog) Allergy Injection hair and dander 02/10/2019 J30.89 Other allergic rhinitis Kaia Mary M.D. 02/10/2019 J30.89 Other allergic rhinitis Allergy Injection 02/02/2019 J30.1 Allergic rhinitis due to pollen Kaia Mary M.D. 02/02/2019 J30.1 Allergic rhinitis due to pollen Allergy Injection 02/02/2019 J30.2 Other seasonal allergic rhinitis Kaia Mary M.D. 02/02/2019 J30.2 Other seasonal allergic rhinitis Allergy Injection 02/02/2019 J30.81 Allergic rhinitis due to animal (cat) (dog) Kaia Mary M.D. hair and dander 02/02/2019 J30.81 Allergic rhinitis due to animal (cat) (dog) Allergy Injection hair and dander 02/02/2019 J30.89 Other allergic rhinitis Kaia Mary M.D. 02/02/2019 J30.89 Other allergic rhinitis Allergy Injection 01/26/2019 J30.1 Allergic rhinitis due to pollen Kaia Mary M.D. 01/26/2019 J30.1 Allergic rhinitis due to pollen Allergy Injection 01/26/2019 J30.2 Other seasonal allergic rhinitis Kaia Mary M.D. 01/26/2019 J30.2 Other seasonal allergic rhinitis Allergy Injection 01/26/2019 J30.81 Allergic rhinitis due to animal (cat) (dog) Kaia Mary M.D. hair and dander 01/26/2019 J30.81 Allergic rhinitis due to animal (cat) (dog) Allergy Injection hair and dander 01/26/2019 J30.89 Other allergic rhinitis Kaia Mary M.D. 01/26/2019 J30.89 Other allergic rhinitis Allergy Injection 01/19/2019 J30.1 Allergic rhinitis due to pollen Kaia Mary M.D. 01/19/2019 J30.1 Allergic rhinitis due to pollen Allergy Injection 01/19/2019 J30.2 Other seasonal allergic rhinitis Kaia Mary M.D. 01/19/2019 J30.2 Other seasonal allergic rhinitis Allergy Injection 01/19/2019 J30.81 Allergic rhinitis due to animal (cat) (dog) Kaia Mary M.D. hair and dander 01/19/2019 J30.81 Allergic rhinitis due to animal (cat) (dog) Allergy Injection hair and dander 01/19/2019 J30.89 Other allergic rhinitis Kaia Mary M.D. 01/19/2019 J30.89 Other allergic rhinitis Allergy Injection 01/13/2019 J30.1 Allergic rhinitis due to pollen Kaia Mary M.D. 01/13/2019 J30.1 Allergic rhinitis due to pollen Allergy Injection 01/13/2019 J30.2 Other seasonal allergic rhinitis Kaia Mary M.D. 01/13/2019 J30.2 Other seasonal allergic rhinitis Allergy Injection 01/13/2019 J30.81 Allergic rhinitis due to animal (cat) (dog) Kaia Mary M.D. hair and dander 01/13/2019 J30.81 Allergic rhinitis due to animal (cat) (dog) Allergy Injection hair and dander 01/13/2019 J30.89 Other allergic rhinitis Kaia Mary M.D. 01/13/2019 J30.89 Other allergic rhinitis Allergy Injection 01/05/2019 J30.1 Allergic rhinitis due to pollen Kaia Mary M.D. 01/05/2019 J30.1 Allergic rhinitis due to pollen Allergy Injection 01/05/2019 J30.2 Other seasonal allergic rhinitis Kaia Mary M.D. 01/05/2019 J30.2 Other seasonal allergic rhinitis Allergy Injection 01/05/2019 J30.81 Allergic rhinitis due to animal (cat) (dog) Kaia Mary M.D. hair and dander 01/05/2019 J30.81 Allergic rhinitis due to animal (cat) (dog) Allergy Injection hair and dander 01/05/2019 J30.89 Other allergic rhinitis Kaia Mary M.D. 01/05/2019 J30.89 Other allergic rhinitis Allergy Injection 12/30/2018 J30.1 Allergic rhinitis due to pollen Kaia Mary M.D. 12/30/2018 J30.1 Allergic rhinitis due to pollen Allergy Injection 12/30/2018 J30.2 Other seasonal allergic rhinitis Kaia Mary M.D. 12/30/2018 J30.2 Other seasonal allergic rhinitis Allergy Injection 12/30/2018 J30.81 Allergic rhinitis due to animal (cat) (dog) Kaia Mary M.D. hair and dander 12/30/2018 J30.81 Allergic rhinitis due to animal (cat) (dog) Allergy Injection hair and dander 12/30/2018 J30.89 Other allergic rhinitis Kaia Mary M.D. 12/30/2018 J30.89 Other allergic rhinitis Allergy Injection 12/23/2018 J30.1 Allergic rhinitis due to pollen Kaia Mary M.D. 12/23/2018 J30.1 Allergic rhinitis due to pollen Allergy Injection 12/23/2018 J30.2 Other seasonal allergic rhinitis Kaia Mary M.D. 12/23/2018 J30.2 Other seasonal allergic rhinitis Allergy Injection 12/23/2018 J30.81 Allergic rhinitis due to animal (cat) (dog) Kaia Mary M.D. hair and dander 12/23/2018 J30.81 Allergic rhinitis due to animal (cat) (dog) Allergy Injection hair and dander 12/23/2018 J30.89 Other allergic rhinitis Kaia Mary M.D. 12/23/2018 J30.89 Other allergic rhinitis Allergy Injection 12/16/2018 J30.1 Allergic rhinitis due to pollen Kaia Mary M.D. 12/16/2018 J30.1 Allergic rhinitis due to pollen Allergy Injection 12/16/2018 J30.2 Other seasonal allergic rhinitis Kaia Mary M.D. 12/16/2018 J30.2 Other seasonal allergic rhinitis Allergy Injection 12/16/2018 J30.81 Allergic rhinitis due to animal (cat) (dog) Kaia Mary M.D. hair and dander 12/16/2018 J30.81 Allergic rhinitis due to animal (cat) (dog) Allergy Injection hair and dander 12/16/2018 J30.89 Other allergic rhinitis Kaia Mary M.D. 12/16/2018 J30.89 Other allergic rhinitis Allergy Injection 12/09/2018 J30.1 Allergic rhinitis due to pollen Kaia Mary M.D. 12/09/2018 J30.1 Allergic rhinitis due to pollen Allergy Injection 12/09/2018 J30.2 Other seasonal allergic rhinitis Kaia Mary M.D. 12/09/2018 J30.2 Other seasonal allergic rhinitis Allergy Injection 12/09/2018 J30.81 Allergic rhinitis due to animal (cat) (dog) Kaia Mary M.D. hair and dander 12/09/2018 J30.81 Allergic rhinitis due to animal (cat) (dog) Allergy Injection hair and dander 12/09/2018 J30.89 Other allergic rhinitis Kaia Mary M.D. 12/09/2018 J30.89 Other allergic rhinitis Allergy Injection 12/01/2018 J30.1 Allergic rhinitis due to pollen Kaia Mary M.D. 12/01/2018 J30.1 Allergic rhinitis due to pollen Allergy Injection 12/01/2018 J30.2 Other seasonal allergic rhinitis Kaia Mary M.D. 12/01/2018 J30.2 Other seasonal allergic rhinitis Allergy Injection 12/01/2018 J30.81 Allergic rhinitis due to animal (cat) (dog) Kaia Mary M.D. hair and dander 12/01/2018 J30.81 Allergic rhinitis due to animal (cat) (dog) Allergy Injection hair and dander 12/01/2018 J30.89 Other allergic rhinitis Kaia Mary M.D. 12/01/2018 J30.89 Other allergic rhinitis Allergy Injection 11/25/2018 J30.1 Allergic rhinitis due to pollen Kaia Mary M.D. 11/25/2018 J30.1 Allergic rhinitis due to pollen Allergy Injection 11/25/2018 J30.2 Other seasonal allergic rhinitis Kaia Mary M.D. 11/25/2018 J30.2 Other seasonal allergic rhinitis Allergy Injection 11/25/2018 J30.81 Allergic rhinitis due to animal (cat) (dog) Kaia Mary M.D. hair and dander 11/25/2018 J30.81 Allergic rhinitis due to animal (cat) (dog) Allergy Injection hair and dander 11/25/2018 J30.89 Other allergic rhinitis Kaia Mary M.D. 11/25/2018 J30.89 Other allergic rhinitis Allergy Injection 11/18/2018 J30.1 Allergic rhinitis due to pollen Kaia Mary M.D. 11/18/2018 J30.1 Allergic rhinitis due to pollen Allergy Injection 11/18/2018 J30.2 Other seasonal allergic rhinitis Kaia Mary M.D. 11/18/2018 J30.2 Other seasonal allergic rhinitis Allergy Injection 11/18/2018 J30.81 Allergic rhinitis due to animal (cat) (dog) Kaia Mary M.D. hair and dander 11/18/2018 J30.81 Allergic rhinitis due to animal (cat) (dog) Allergy Injection hair and dander 11/18/2018 J30.89 Other allergic rhinitis Kaia Mary M.D. 11/18/2018 J30.89 Other allergic rhinitis Allergy Injection 11/10/2018 J30.1 Allergic rhinitis due to pollen Kaia Mary M.D. 11/10/2018 J30.1 Allergic rhinitis due to pollen Allergy Injection 11/10/2018 J30.2 Other seasonal allergic rhinitis Kaia Mary M.D. 11/10/2018 J30.2 Other seasonal allergic rhinitis Allergy Injection 11/10/2018 J30.81 Allergic rhinitis due to animal (cat) (dog) Kaia Mary M.D. hair and dander 11/10/2018 J30.81 Allergic rhinitis due to animal (cat) (dog) Allergy Injection hair and dander 11/10/2018 J30.89 Other allergic rhinitis Kaia Mary M.D. 11/10/2018 J30.89 Other allergic rhinitis Allergy Injection 11/07/2018 J30.1 Allergic rhinitis due to pollen Kaia Mary M.D. 11/07/2018 J30.1 Allergic rhinitis due to pollen Meg Heather, SENIOR CLINICAL DATA ANALYST-C 11/07/2018 J30.2 Other seasonal allergic rhinitis Kaia Mary M.D. 11/07/2018 J30.2 Other seasonal allergic rhinitis Meg Uldrich, SENIOR CLINICAL DATA ANALYST-C 11/07/2018 J30.81 Allergic rhinitis due to animal (cat) (dog) Kaia Mary M.D. hair and dander 11/07/2018 J30.81 Allergic rhinitis due to animal (cat) (dog) Meg Heather, SENIOR CLINICAL DATA ANALYST-C hair and dander 11/07/2018 J30.89 Other allergic rhinitis Kaia Mary M.D. 11/07/2018 J30.89 Other allergic rhinitis Meg Uldrich, SENIOR CLINICAL DATA ANALYST-C 11/07/2018 J45.40 Moderate persistent asthma, uncomplicated Meg Ulich , SENIOR CLINICAL DATA ANALYST-C 11/02/2018 J30.1 Allergic rhinitis due to pollen Kaia Mary M.D. 11/02/2018 J30.1 Allergic rhinitis due to pollen Allergy Injection 11/02/2018 J30.2 Other seasonal allergic rhinitis Kaia Mary M.D. 11/02/2018 J30.2 Other seasonal allergic rhinitis Allergy Injection 11/02/2018 J30.81 Allergic rhinitis due to animal (cat) (dog) Kaia Mary M.D. hair and dander 11/02/2018 J30.81 Allergic rhinitis due to animal (cat) (dog) Allergy Injection hair and dander 11/02/2018 J30.89 Other allergic rhinitis Kaia Mary M.D. 11/02/2018 J30.89 Other allergic rhinitis Allergy Injection 10/27/2018 J30.2 Other seasonal allergic rhinitis Kaia Mary M.D. 10/27/2018 J30.2 Other seasonal allergic rhinitis Kaia Mary M.D. 10/27/2018 J30.81 Allergic rhinitis due to animal (cat) (dog) Kaia Mary M.D. hair and dander 10/27/2018 J30.2 Other seasonal allergic rhinitis Meg Romero SENIOR CLINICAL DATA ANALYST-C 10/27/2018 J30.89 Other allergic rhinitis Kaia Mary M.D. 10/27/2018 J30.2 Other seasonal allergic rhinitis Allergy Injection 10/27/2018 J30.1 Allergic rhinitis due to pollen Kaia Mary M.D. 10/27/2018 J30.81 Allergic rhinitis due to animal (cat) (dog) Kaia Mary M.D. hair and dander 10/27/2018 J30.81 Allergic rhinitis due to animal (cat) (dog) LINDA MendesP-C hair and dander 10/27/2018 J30.81 Allergic rhinitis due to animal (cat) (dog) Allergy Injection hair and dander 10/27/2018 J30.89 Other allergic rhinitis Kaia Mary M.D. 10/27/2018 J30.89 Other allergic rhinitis LNIDA MendesP-C 10/27/2018 J30.89 Other allergic rhinitis Allergy Injection 10/27/2018 J30.1 Allergic rhinitis due to pollen Kaia Mary M.D. 10/27/2018 J30.1 Allergic rhinitis due to pollen Meg Romero SENIOR CLINICAL DATA ANALYST-C 10/27/2018 J30.1 Allergic rhinitis due to pollen Allergy Injection 10/27/2018 J45.40 Moderate persistent asthma, uncomplicated Meg Romero , SENIOR CLINICAL DATA ANALYST-C 10/21/2018 J30.1 Allergic rhinitis due to pollen Kaia Mary M.D. 10/21/2018 J30.1 Allergic rhinitis due to pollen Allergy Injection 10/21/2018 J30.2 Other seasonal allergic rhinitis Kaia Mary M.D. 10/21/2018 J30.2 Other seasonal allergic rhinitis Allergy Injection 10/21/2018 J30.81 Allergic rhinitis due to animal (cat) (dog) Kaia Mary M.D. hair and dander 10/21/2018 J30.81 Allergic rhinitis due to animal (cat) (dog) Allergy Injection hair and dander 10/21/2018 J30.89 Other allergic rhinitis Kaia Mary M.D. 10/21/2018 J30.89 Other allergic rhinitis Allergy Injection 10/14/2018 J30.1 Allergic rhinitis due to pollen Kaia Mary M.D. 10/14/2018 J30.1 Allergic rhinitis due to pollen Allergy Injection 10/14/2018 J30.2 Other seasonal allergic rhinitis Kaia Mary M.D. 10/14/2018 J30.2 Other seasonal allergic rhinitis Allergy Injection 10/14/2018 J30.81 Allergic rhinitis due to animal (cat) (dog) Kaia Mary M.D. hair and dander 10/14/2018 J30.81 Allergic rhinitis due to animal (cat) (dog) Allergy Injection hair and dander 10/14/2018 J30.89 Other allergic rhinitis Kaia Mary M.D. 10/14/2018 J30.89 Other allergic rhinitis Allergy Injection 10/11/2018 J01.90 Acute sinusitis, unspecified Kaia Mary M.D. 10/11/2018 J01.90 Acute sinusitis, unspecified LINDA MendesP-C 10/11/2018 J45.41 Moderate persistent asthma with (acute) Kaia Mary M.D. exacerbation 10/11/2018 J45.41 Moderate persistent asthma with (acute) Megbrandie Romero SENIOR CLINICAL DATA ANALYST-C exacerbation 10/11/2018 J30.89 Other allergic rhinitis Kaia Mary M.D. 10/11/2018 J30.89 Other allergic rhinitis MegLINDA AlfaroP-C 10/11/2018 J30.81 Allergic rhinitis due to animal (cat) (dog) Kaia Mary M.D. hair and dander 10/11/2018 J30.81 Allergic rhinitis due to animal (cat) (dog) LINDA MendesP-C hair and dander 10/11/2018 J30.2 Other seasonal allergic rhinitis Kaia Mary M.D. 10/11/2018 J30.2 Other seasonal allergic rhinitis MCKENNA Mendes-C 10/11/2018 J30.1 Allergic rhinitis due to pollen Kaia Mary M.D. 10/11/2018 J30.1 Allergic rhinitis due to pollen MCKENNA Mendes-C 10/07/2018 J30.1 Allergic rhinitis due to pollen Kaia Mary M.D. 10/07/2018 J30.1 Allergic rhinitis due to pollen Allergy Injection 10/07/2018 J30.2 Other seasonal allergic rhinitis Kaia Mary M.D. 10/07/2018 J30.2 Other seasonal allergic rhinitis Allergy Injection 10/07/2018 J30.81 Allergic rhinitis due to animal (cat) (dog) Kaia Mary M.D. hair and dander 10/07/2018 J30.81 Allergic rhinitis due to animal (cat) (dog) Allergy Injection hair and dander 10/07/2018 J30.89 Other allergic rhinitis Kaia Mary M.D. 10/07/2018 J30.89 Other allergic rhinitis Allergy Injection 09/30/2018 J30.1 Allergic rhinitis due to pollen Kaia Mary M.D. 09/30/2018 J30.1 Allergic rhinitis due to pollen Allergy Injection 09/30/2018 J30.2 Other seasonal allergic rhinitis Kaia Mary M.D. 09/30/2018 J30.2 Other seasonal allergic rhinitis Allergy Injection 09/30/2018 J30.81 Allergic rhinitis due to animal (cat) (dog) Kaia Mary M.D. hair and dander 09/30/2018 J30.81 Allergic rhinitis due to animal (cat) (dog) Allergy Injection hair and dander 09/30/2018 J30.89 Other allergic rhinitis Kaia Mary M.D. 09/30/2018 J30.89 Other allergic rhinitis Allergy Injection 09/27/2018 J30.1 Allergic rhinitis due to pollen Kaia Mary M.D. 09/27/2018 J30.1 Allergic rhinitis due to pollen Lab 09/27/2018 J30.2 Other seasonal allergic rhinitis Kaia Mary M.D. 09/27/2018 J30.2 Other seasonal allergic rhinitis Lab 09/27/2018 J30.81 Allergic rhinitis due to animal (cat) (dog) Kaia Mary M.D. hair and dander 09/27/2018 J30.81 Allergic rhinitis due to animal (cat) (dog) Lab hair and dander 09/27/2018 J30.89 Other allergic rhinitis Kaia Mary M.D. 09/27/2018 J30.89 Other allergic rhinitis Lab Plan of Treatment Future Appointment(s):09/27/2019 11:20 am - Kaia Mary M.D. at [id number] 10:00 am - Allergy Injection at [id number]/30/2019 11:15 am - Allergy Injection at [id number]/29/2019 - Kaia Mary M.D.J45.40 Moderate persistent asthma, [id number] Other allergic [id number] Allergic rhinitis due to animal (cat) (dog) hair and danderFollow up:6 months CHECK-UP/FOLLOW UP VISIT : Continued management of patient's medical care.Recommendations:Refrain from wearing perfumes/scented colognes while visiting our office. Ingrid performed, reviewed, 14 ppb which is normal/ well controlled with the BREO Pre-PFT Looks great today! continue current medications (Breo) as ordered and Allergy shots still weekly for now Start rinses to the nose as you do have some excess mucous Functional Status Description No Information Available Mental Status Description No Information Available Referrals Refer to Reason for Referral Status Appt Date Cameron Alonso M.D. hoarseness for [address] Alonso only she Closed is a patient of his [address] [place] [address] [phone]
[2019-04-07 16:26] LABS: Urine Appearance Clear; Urine Bilirubin Negative (Negative); Urine Blood Negative (Negative); Urine Color Straw; Urine Glucose Negative (Negative); Urine Ketones Negative (Negative); Urine Nitrite Negative (Negative); Urine Protein Negative (Negative); Urine Specific Gravity 1.016 (1.010-1.030); Urine Urobilinogen Negative (Negative)
[2019-04-07 16:56] LABS: ABS Basophils 0.1 10^3/ul (0-0.2); ABS Lymphocytes 1.9 10^3/ul (1.0-4.8); ABS Monocytes 0.6 10^3/ul (0-0.8); ABS Neutrophils 7.2 10^3/ul (1.5-7.7); Eosinophil % 0.5 %; Hematocrit 36 % (35-47); Hemoglobin 12.3 g/dL (12.0-16.0); Lymphocyte % 19.2 %; Mean Corpuscular HGB Conc 34 g/dL (31-36); Mean Corpuscular Hemoglobin 28 pg (27-31); Mean Corpuscular Volume 82 fL (80-97); Mean Platelet Volume 8.9 fL (7.4-10.4); Platelet Count 274 10^3/uL (150-450); Red Blood Count 4.42 10^6 /uL (3.70-4.87); Red Cell Distribution Width 15 % (10-15); White Blood Count 9.9 10^3/uL (3.5-10.8)
[2019-04-07 17:14] LABS: Albumin 4.1 g/dL (3.2-5.2); Albumin/Globulin Ratio 1.3 (1-3); BUN/Creatinine Ratio 15.4 (8-20); C Reactive Protein 46.13 mg/L (<8.01); Calcium 9.3 mg/dL (8.6-10.3); EGFR African American 99.5 (>60); EGFR Non-African American 82.2 (>60); Globulin 3.1 g/dL (2-4); Potassium 3.4 mmol/L (3.5-5.0); Total Bilirubin 0.3 mg/dL (0.2-1.0); Total Protein 7.2 g/dL (6.4-8.9)
[2019-04-07] MEDS ORDERED: Ketorolac INJ* 30 MG/ML 1 ML VIAL IM ONE (18:39)
--- NOTE | 2019-04-07 19:38 | ED ---
GI/ HPI - HPI Summary HPI Summary: 39 year old female presents with abdominal pain today. States pain is on the lower abdomen. States she is currently on her period. Denies any urinary symptoms. No hematuria. She admits to nausea due to the pain. No vomiting. No diarrhea or constipation. No fevers. Has a history of appendix and gallbladder and left ovary removal. no history of colitis or diverticulitis. Has had a normal appetite. Is taking Tylenol for pain. States that she's been having pain on her menses for the past 3 months. States this pain is different. Pain does not radiate to the back. Denies any abnormal vaginal discharge. has history of ovarian cysts. - History of Current Complaint Chief Complaint: EDAbdPain Time Seen by Provider: 04/07/19 17:58 Stated Complaint: ABDOMINAL PAIN PER PT Hx Last Menstrual Period: 1 month ago, unsure of date, had tubal Pain Intensity: 8 - Allergy/Home Medications Allergies/Adverse Reactions: Allergies Allergy/AdvReac Type Severity Reaction Status Date / Time metoprolol Allergy Severe Rash Verified 04/07/19 18:18 potassium Allergy Severe Difficulty Verified 04/07/19 18:18 Breathing shrimp Allergy Severe Swelling Verified 04/07/19 18:18 clindamycin Allergy Intermediate Rash Verified 04/07/19 18:18 Penicillins Allergy Intermediate Hives Verified 04/07/19 18:18 Sulfa (Sulfonamide Allergy Intermediate Rash Verified 04/07/19 18:18 Antibiotics) quetiapine [From Seroquel] Allergy Unknown Unknown Verified 04/07/19 18:18 Reaction Details prednisone AdvReac Intermediate Palpitation Verified 04/07/19 18:18 s bandaid Allergy Severe Blisters Uncoded 03/12/19 09:43 Home Medications: Home Medications Ibuprofen TAB* [Advil TAB*] 200 - 600 mg PO Q6H PRN 04/07/19 [History Confirmed 04/07/19] LoraTADine TAB(NF) [Claritin 10 MG TAB(NF)] 10 mg PO DAILY 04/07/19 [History Confirmed 04/07/19] Montelukast Sodium TAB* [Singulair TAB*] 10 mg PO DAILY 04/07/19 [History Confirmed 04/07/19] Multivitamins/Minerals TAB* [Theragran/minerals TAB*] 1 tab PO DAILY 04/07/19 [ History Confirmed 04/07/19] SUMAtriptan TAB* [Imitrex TAB*] 25 mg PO DAILY PRN 04/07/19 [History Confirmed 04/07/19] PMH/Surg Hx/FS Hx/Imm Hx Endocrine/Hematology History: Reports: Hx Anemia - start of- no treatment Denies: Hx Diabetes - PRE DIABETIC, Hx Sickle Cell Disease, Hx Thyroid Disease Cardiovascular History: Reports: Hx Hypertension Denies: Hx Hypercholesterolemia, Hx Pacemaker/ICD, Hx Peripheral Vascular Disease Respiratory History: Reports: Hx Asthma, Hx Seasonal Allergies Denies: Hx Chronic Obstructive Pulmonary Disease (COPD) GI History: Reports: Hx Gastroesophageal Reflux Disease - TUMS Denies: Hx Crohn's Disease, Hx Diverticulosis, Hx Gastrointestinal Bleed, Hx Hiatal Hernia, Hx Irritable Bowel, Hx Obstructive Bowel, Hx Ulcer, Other GI Disorders History: Reports: Hx Kidney Stones - 2009, Other Problems/Disorders - pcos Denies: Hx Renal Disease Musculoskeletal History: Reports: Hx Tendonitis - IN LEFT ANKLE/Foot, Other Musculoskeletal History - neck problems - herniated cervical disc Denies: Hx Arthritis, Hx Osteoporosis Sensory History: Denies: Hx Contacts or Glasses, Hx Hearing Aid Opthamlomology History: Denies: Hx Contacts or Glasses Neurological History: Reports: Hx Migraine, Other Neuro Impairments/Disorders - PAIN CLINIC PT Denies: Hx Headaches, Hx Seizures, Hx Transient Ischemic Attacks (TIA) Psychiatric History: Reports: Hx Anxiety Denies: Hx Depression, Hx Panic Disorder - Cancer History Hx Hematologic Symptoms: No Hx Chemotherapy: No Hx Radiation Therapy: No Hx Palliative Cancer Treatment: No - Surgical History Surgery Procedure, Year, and Place: tubes in ears as child. LEFT ovary removed ; TUBAL LIGATION, HX OF 2 C-SECTIONS. appendix 2002. gallbladder 2002. tubal. Left knee - MMT REPAIR. EUA L knee. R thumb - pin for torn ligaments. tonsillectomy. R wrist 2010 Hx Anesthesia Reactions: No - Immunization History Date of Tetanus Vaccine: utd Date of Influenza Vaccine: fall 2016 Infectious Disease History: No Infectious Disease History: Denies: Hx Clostridium Difficile, Hx Hepatitis, Hx Human Immunodeficiency Virus (HIV), Hx of Known/Suspected MRSA, Hx Shingles, Hx Tuberculosis, Hx Known/ Suspected VRE, Hx Known/Suspected VRSA, History Other Infectious Disease, Traveled Outside the [place] in Last 30 Days - Family History Known Family History: Positive: Other - daughter - neurological hearing loss Negative: Cardiac Disease, Diabetes - Social History Alcohol Use: None Hx Substance Use: No Substance Use Type: Reports: None Hx Tobacco Use: No Smoking Status (MU): Never Smoked Tobacco Have You Smoked in the Last Year: No Review of Systems Negative: Fever Negative: Chest Pain Negative: Shortness Of Breath Positive: Abdominal Pain, Nausea. Negative: Vomiting, Diarrhea All Other Systems Reviewed And Are Negative: Yes Physical Exam Triage Information Reviewed: Yes Vital Signs On Initial Exam: Initial Vitals Temp Pulse Resp BP Pulse Ox 98.6 F 117 18 153/104 98 04/07/19 15:30 04/07/19 15:30 04/07/19 15:30 04/07/19 15:30 04/07/19 15:30 Vital Signs Reviewed: Yes Appearance: Positive: Well-Appearing Head/Face: Positive: Normal Head/Face Inspection Eyes: Positive: Normal, Conjunctiva Clear ENT: Positive: Pharynx normal Respiratory/Lung Sounds: Positive: Clear to Auscultation, Breath Sounds Present Cardiovascular: Positive: Normal, RRR Abdomen Description: Positive: Soft, Other: - tenderness pelvic area greatest on right Bowel Sounds: Positive: Present Musculoskeletal: Positive: Normal Neurological: Positive: Normal Psychiatric: Positive: Normal Procedures - Sedation Patient Received Moderate/Deep Sedation with Procedure: No Diagnostics - Vital Signs Vital Signs Temp Pulse Resp BP Pulse Ox 04/07/19 17:29 98 F 119 20 148/95 98 04/07/19 15:30 98.6 F 117 18 153/104 98 - Laboratory Lab Results: Lab Results 04/07/19 04/07/19 04/07/19 Range/Units 15:45 16:44 16:44 WBC 9.9 (3.5-10.8) 10^3/uL RBC 4.42 (3.70-4.87) 10^6 /uL Hgb 12.3 (12.0-16.0) g/dL Hct 36 (35-47) % MCV 82 (80-97) fL MCH 28 (27-31) pg MCHC 34 (31-36) g/dL RDW 15 (10-15) % Plt Count 274 (150-450) 10^3/uL MPV 8.9 (7.4-10.4) fL Neut % (Auto) 72.6 % Lymph % (Auto) 19.2 % [place] % (Auto) 6.5 % Eos % (Auto) 0.5 % Baso % (Auto) 1.2 % Absolute Neuts (auto) 7.2 (1.5-7.7) 10^3/ul Absolute Lymphs (auto) 1.9 (1.0-4.8) 10^3/ul Absolute Monos (auto) 0.6 (0-0.8) 10^3/ul Absolute Eos (auto) 0.0 (0-0.6) 10^3/ul Absolute Basos (auto) 0.1 (0-0.2) 10^3/ul Absolute Nucleated RBC 0.0 10^3/ul Nucleated RBC % 0.0 Sodium 137 (135-145) mmol/L Potassium 3.4 L (3.5-5.0) mmol/L Chloride 100 L (101-111) mmol/L Carbon Dioxide 32 (22-32) mmol/L Anion Gap 5 (2-11) mmol/L BUN 12 (6-24) mg/dL Creatinine 0.78 (0.51-0.95) mg/dL Est GFR ( Amer) 99.5 (>60) Est GFR (Non-Af Amer) 82.2 (>60) BUN/Creatinine Ratio 15.4 (8-20) Glucose 129 H (70-100) mg/dL Lactic Acid (0.5-2.0) mmol/L Calcium 9.3 (8.6-10.3) mg/dL Total Bilirubin 0.30 (0.2-1.0) mg/dL AST 18 (13-39) U/L ALT 34 (7-52) U/L Alkaline Phosphatase 42 (34-104) U/L C-Reactive Protein 46.13 H (<8.01) mg/L Total Protein 7.2 (6.4-8.9) g/dL Albumin 4.1 (3.2-5.2) g/dL Globulin 3.1 (2-4) g/dL Albumin/Globulin Ratio 1.3 (1-3) Lipase 13 (11.0-82.0) U/L Urine Color Straw Urine Appearance Clear Urine pH 6.0 (5-9) Ur Specific [place] 1.016 (1.010-1.030) Urine Protein Negative (Negative) Urine Ketones Negative (Negative) Urine Blood Negative (Negative) Urine Nitrate Negative (Negative) Urine Bilirubin Negative (Negative) Urine Urobilinogen Negative (Negative) Ur Leukocyte Esterase Negative (Negative) Urine Glucose Negative (Negative) 04/07/19 Range/Units 16:44 WBC (3.5-10.8) 10^3/uL RBC (3.70-4.87) 10^6 /uL Hgb (12.0-16.0) g/dL Hct (35-47) % MCV (80-97) fL MCH (27-31) pg MCHC (31-36) g/dL RDW (10-15) % Plt Count (150-450) 10^3/uL MPV (7.4-10.4) fL Neut % (Auto) % Lymph % (Auto) % [place] % (Auto) % Eos % (Auto) % Baso % (Auto) % Absolute Neuts (auto) (1.5-7.7) 10^3/ul Absolute Lymphs (auto) (1.0-4.8) 10^3/ul Absolute Monos (auto) (0-0.8) 10^3/ul Absolute Eos (auto) (0-0.6) 10^3/ul Absolute Basos (auto) (0-0.2) 10^3/ul Absolute Nucleated RBC 10^3/ul Nucleated RBC % Sodium (135-145) mmol/L Potassium (3.5-5.0) mmol/L Chloride (101-111) mmol/L Carbon Dioxide (22-32) mmol/L Anion Gap (2-11) mmol/L BUN (6-24) mg/dL Creatinine (0.51-0.95) mg/dL Est GFR ( Amer) (>60) Est GFR (Non-Af Amer) (>60) BUN/Creatinine Ratio (8-20) Glucose (70-100) mg/dL Lactic Acid 1.0 (0.5-2.0) mmol/L Calcium (8.6-10.3) mg/dL Total Bilirubin (0.2-1.0) mg/dL AST (13-39) U/L ALT (7-52) U/L Alkaline Phosphatase (34-104) U/L C-Reactive Protein (<8.01) mg/L Total Protein (6.4-8.9) g/dL Albumin (3.2-5.2) g/dL Globulin (2-4) g/dL Albumin/Globulin Ratio (1-3) Lipase (11.0-82.0) U/L Urine Color Urine Appearance Urine pH (5-9) Ur Specific [place] (1.010-1.030) Urine Protein (Negative) Urine Ketones (Negative) Urine Blood (Negative) Urine Nitrate (Negative) Urine Bilirubin (Negative) Urine Urobilinogen (Negative) Ur Leukocyte Esterase (Negative) Urine Glucose (Negative) Result Diagrams: 04/07/19 16:44 04/07/19 16:44 Lab Statement: Any lab studies that have been ordered have been reviewed, and results considered in the medical decision making process. - Ultrasound No standard instances Ultrasound Interpretation Completed By: Radiologist Summary of Ultrasound Findings: IMPRESSION: Sonographically normal uterus and right ovary. Re-Evaluation - Re-Evaluation First Eval Re-Evaluation Time: 20:29 Change: Improved Comment: feeling better GIGU Course/Dx - Course Course Of Treatment: 39 year old female presents with abdominal pain today. States pain is on the lower abdomen. States she is currently on her period. Denies any urinary symptoms. No hematuria. She admits to nausea due to the pain. No vomiting. No diarrhea or constipation. No fevers. Has a history of appendix and gallbladder and left ovary removal. no history of colitis or diverticulitis. Has had a normal appetite. Is taking Tylenol for pain. States that she's been having pain on her menses for the past 3 months. States this pain is different. Pain does not radiate to the back. Denies any abnormal vaginal discharge. On exam tenderness pelvic area. Ultrasound normal. White blood count normal. CRP elevated. Offered to do a CT scan patient declines. urine no infection. Discussed likely menstrual type pain. Told to take Tylenol ibuprofen. follow up with performance test consultant. Patient understands agrees with plan. - Diagnoses Differential Diagnoses - Female: Diverticulitis, Ovarian Cyst, Ovarian Torsion, Urinary Tract Infection Provider Diagnoses: Abdominal pain Discharge ED - Sign-Out/Discharge Documenting (check all that apply): Patient Departure - Discharge Plan Condition: Good Disposition: HOME Patient Education Materials: Abdominal Pain (ED) Referrals: Merlene Amin MD [Primary Care Provider] - Additional Instructions: take tyenlol or ibuprofen every 6 hours for pain apply heat follow up with performance test consultant Return to ED if develop any new or worsening symptoms - Billing Disposition and Condition Condition: GOOD Disposition: Home
[2019-04-07 21:13] VITALS: BP 145/79
== END 2019-04-07 20:40 | disposition home or self-care (01) ==
LOC: ED 15:28
DX: R10.30 Lower abdominal pain, unspecified (principal); D64.9 Anemia, unspecified; I10 Essential (primary) hypertension; J45.909 Unspecified asthma, uncomplicated; K21.9 Gastro-esophageal reflux disease without esophagitis; F41.9 Anxiety disorder, unspecified; Z98.51 Tubal ligation status; Z79.899 Other long term (current) drug therapy; Z88.1 Allergy status to other antibiotic agents; Z88.0 Allergy status to penicillin; Z88.2 Allergy status to sulfonamides; Z88.8 Allergy status to other drugs, medicaments and biological substances
CPT/HCPCS: 36415; 76830; 80053; 81003; 83605; 83690; 85025; 86140; 96372; 99283; J1885

== ENCOUNTER 2019-08-03 16:46 | Emergency (ER) | payer OTHER, MEDICAID ==
--- OUTSIDE RECORDS SUMMARY | 2019-08-03 16:58 | XMS REPORT | Continuity of Care Document ---
:1980 External Reference #:[id number] Author Name Kaia Mary M.D. Address [address] [place] [address] Care Team Providers Name Role Phone Merlene Amin MD - Family Medicine Care Team Information Public Events Facilities Rental Manager [phone] Problems Active Problems Provider Date Exacerbation of [...] Medications SIG Qnty Indications Ordering Date Provider Azithromycin 2 tabs on day 1, 6tabs Kaia Mary, 06/14/2019 250mg Tablets then 1 tab daily M.D. for 4 days Ipratropium use one vial via 90ml J45.41 Kaia Mary, 06/14/2019 [place]/Albuterol nebulizer every M.D. Sulfate 4-6 hours. as 0.5-2.5(3)mg/3ML needed for Solution cough, wheeze or shortness of breath Betamethasone Valerate apply topically 15gm Kaia Mary, 04/25/2019 0.1% twice daily to M.D. Ointment affected skin, avoid face Breo Ellipta Inhale 1 puff By 60units Meg 09/29/2017 200-25mcg/Inh Mouth Twice LINDA RomeroP-C Aerosol Daily Levocetirizine Take One Tablet 90tabs J45.40 Meg 09/11/2015 Dihydrochloride By Mouth AT [facility]-C 5mg Tablets Bedtime as Needed Montelukast Sodium 1 by mouth every Unknown 10mg day Tablets Ventolin HFA 2 every 4 hours 1units Kaia Mary, 108(90Base) as needed M.D. mcg/Act Aerosol Qnasl 1-2 sprays in 1units Meg 80mcg/Act Aerosol each nostril MCKENNA Romero-Jade daily Omeprazole Unknown 20mg Capsules DR Losartan Take One Tablet Unknown Potassium/Hydrochloroth By Mouth Every iazide Day 100-25mg Tablets Loratadine Take One Tablet Unknown 10mg Tablets By Mouth Every Day Sumatriptan Succinate 1-2 tabs prn Unknown 25mg Tablets Naproxen Take One Tablet Unknown 500mg Tablets By Mouth Twice A Day as Needed For Menstrual Pain Ibuprofen for surgery pain Unknown 600mg Tablets Medications Administered in Office Medication SIG Qnty Indications Ordering Provider Date Injection Allergy Injection 05/18/2019 Injection Injection Allergy Injection 05/10/2019 Injection Injection Allergy Injection 05/04/2019 Injection Injection Allergy Injection 04/19/2019 Injection Injection Allergy Injection 04/13/2019 Injection Injection Allergy Injection 04/07/2019 Injection Injection Allergy Injection 03/29/2019 Injection Injection Allergy [...] CPT Code Status Date Vaccine Lot # 27111 Given Unknown Pneumococcal Vaccine 30589 Given Unknown Influenza Virus Vaccine, Quadrivalent, Split, Preservative Free 02139 Given Unknown Influenza Vaccine 33170 Given Unknown Influenza Vaccine 83048 Given Unknown Influenza Vaccine 26616 Given Unknown Influenza Vaccine 13999 Given Unknown Influenza Vaccine Vital Signs Date Vital Result Comment 06/14/2019 10:35am Height 63 inches 5'3" Weight 277.50 lb Weight 125.874 kg Respiratory Rate 24 /min Heart Rate 102 /min Body Temperature 98.4 F O2 % BldC Oximetry 98 % BP Systolic 134 mmHg BP Diastolic 89 mmHg Asthma Control Test 9 BMI (Body Mass Index) 49.2 kg/m2 06/09/2019 9:02am Height 63 inches 5'3" Weight 276.00 lb Weight 125.194 kg Respiratory Rate 24 /min Heart Rate 95 /min O2 % BldC Oximetry 98 % BP Systolic 136 mmHg BP Diastolic 92 mmHg Asthma Control Test 17 BMI (Body Mass Index) 48.9 kg/m2 Results Description No Information Available Procedures Date Code Description Status 06/14/2019 64203 Nitric Oxide Gas Determination Completed 06/14/2019 56238 Ippb Completed 06/09/2019 95140 Pre PFT Completed 05/30/2019 90144 Nitric Oxide Gas Determination Completed 05/18/2019 29965 Injection Completed 05/10/2019 08039 Injection Completed 05/04/2019 63842 Injection Completed 04/19/2019 95217 Extract 1-10 Completed 04/19/2019 25520 Injection Completed 04/13/2019 29221 Injection Completed 04/07/2019 46721 Injection Completed 03/29/2019 38884 Injection Completed 03/29/2019 28293 Nitric Oxide Gas Determination Completed 03/29/2019 72703 Pre PFT Completed 03/22/2019 00104 Injection Completed 03/17/2019 15669 Injection Completed 03/08/2019 66610 Injection Completed 03/02/2019 09043 Injection Completed 02/23/2019 07771 Injection Completed 02/17/2019 74261 Injection Completed 02/10/2019 25605 Extract 1-10 Completed 02/10/2019 22833 Injection Completed 02/02/2019 64281 Injection Completed 01/26/2019 03285 Injection Completed 01/19/2019 25047 Injection Completed 01/13/2019 51181 Injection Completed 01/05/2019 29520 Injection Completed 12/30/2018 63441 Injection Completed 12/23/2018 21194 Injection Completed 12/16/2018 54502 Injection Completed Medical Devices Description No Information Available Encounters Type Date Location Provider Dx Diagnosis Office Visit 06/09/2019 Miah Romero J30.1 Allergic rhinitis due 9:00a [employer] to pollen J30.2 Other seasonal allergic rhinitis J30.81 Allergic rhinitis due to animal (cat) (dog) hair and dander J30.89 Other allergic rhinitis J45.41 Moderate persistent asthma with (acute) exacerbation Office Visit 05/30/2019 4:20p [facility] Meg Romero J30.1 Allergic [employer] rhinitis due to pollen J30.2 Other seasonal allergic rhinitis J30.81 Allergic rhinitis due to animal (cat) (dog) hair and dander J30.89 Other allergic rhinitis J45.40 Moderate persistent asthma, uncomplicated Office Visit 04/27/2019 11:00a Denia Trinh45.40 Moderate persistent M.D. asthma, uncomplicated J30.89 Other allergic rhinitis J30.81 Allergic rhinitis due to animal (cat) (dog) hair and dander Office Visit 03/29/2019 11:00a [place] Kaia McNairn, J45.40 Moderate persistent M.D. asthma, uncomplicated J30.89 Other allergic rhinitis J30.81 Allergic rhinitis due to animal (cat) (dog) hair and dander Assessments Date Code Description Provider 06/14/2019 J45.41 Moderate persistent asthma with (acute) Kaia Mary M.D. exacerbation 06/14/2019 J30.89 Other allergic rhinitis Kaia Mary M.D. 06/14/2019 J30.2 Other seasonal allergic rhinitis Kaia Mary M.D. 06/09/2019 J30.1 Allergic rhinitis due to pollen Kaia Mary M.D. 06/09/2019 J30.1 Allergic rhinitis due to pollen Megbrandie Romero, [employer] 06/09/2019 J30.2 Other seasonal allergic rhinitis Kaia Mary M.D. 06/09/2019 J30.2 Other seasonal allergic rhinitis Meg Uldarrick, [employer] 06/09/2019 J30.81 Allergic rhinitis due to animal (cat) (dog) Kaia Mary M.D. hair and dander 06/09/2019 J30.81 Allergic rhinitis due to animal (cat) (dog) Meg Ulich, [employer] hair and dander 06/09/2019 J30.89 Other allergic rhinitis Kaia Mary M.D. 06/09/2019 J30.89 Other allergic rhinitis Meg Uldrich, [employer] 06/09/2019 J45.41 Moderate persistent asthma with (acute) Meg Uldrich, [employer] exacerbation 05/30/2019 J30.1 Allergic rhinitis due to pollen Kaia Mary M.D. 05/30/2019 J30.1 Allergic rhinitis due to pollen Meg Uldrich, [employer] 05/30/2019 J30.2 Other seasonal allergic rhinitis Kaia Mary M.D. 05/30/2019 J30.2 Other seasonal allergic rhinitis Meg Uldrrai, [employer] 05/30/2019 J30.81 Allergic rhinitis due to animal (cat) (dog) Kaia Mary M.D. hair and dander 05/30/2019 J30.81 Allergic rhinitis due to animal (cat) (dog) Meg Pradorai [facility] hair and dander 05/30/2019 J30.89 Other allergic rhinitis Kaia Mary M.D. 05/30/2019 J30.89 Other allergic rhinitis Meg Romero, [employer] 05/30/2019 J45.40 Moderate persistent asthma, uncomplicated Kaia Mary M.D. 05/30/2019 J45.40 Moderate persistent asthma, uncomplicated Meg Romero , [employer] 05/18/2019 J30.1 Allergic rhinitis due to pollen Kaia Mary M.D. 05/18/2019 J30.1 Allergic rhinitis due to pollen Allergy Injection 05/18/2019 J30.2 Other seasonal allergic rhinitis Kaia Mary M.D. 05/18/2019 J30.2 Other seasonal allergic rhinitis Allergy Injection 05/18/2019 J30.81 Allergic rhinitis due to animal (cat) (dog) Kaia Mary M.D. hair and dander 05/18/2019 J30.81 Allergic rhinitis due to animal (cat) (dog) Allergy Injection hair and dander 05/18/2019 J30.89 Other allergic rhinitis Kaia Mary M.D. 05/18/2019 J30.89 Other allergic rhinitis Allergy Injection 05/10/2019 J30.1 Allergic rhinitis due to pollen Kaia Mary M.D. 05/10/2019 J30.1 Allergic rhinitis due to pollen Allergy Injection 05/10/2019 J30.2 Other seasonal allergic rhinitis Kaia Mary M.D. 05/10/2019 J30.2 Other seasonal allergic rhinitis Allergy Injection 05/10/2019 J30.81 Allergic rhinitis due to animal (cat) (dog) Kaia Mary M.D. hair and dander 05/10/2019 J30.81 Allergic rhinitis due to animal (cat) (dog) Allergy Injection hair and dander 05/10/2019 J30.89 Other allergic rhinitis Kaia Mary M.D. 05/10/2019 J30.89 Other allergic rhinitis Allergy Injection 05/04/2019 J30.1 Allergic rhinitis due to pollen Kaia Mary M.D. 05/04/2019 J30.1 Allergic rhinitis due to pollen Allergy Injection 05/04/2019 J30.2 Other seasonal allergic rhinitis Kaia Mary M.D. 05/04/2019 J30.2 Other seasonal allergic rhinitis Allergy Injection 05/04/2019 J30.81 Allergic rhinitis due to animal (cat) (dog) Kaia Mary M.D. hair and dander 05/04/2019 J30.81 Allergic rhinitis due to animal (cat) (dog) Allergy Injection hair and dander 05/04/2019 J30.89 Other allergic rhinitis Kaia Mary M.D. 05/04/2019 J30.89 Other allergic rhinitis Allergy Injection 04/27/2019 J45.40 Moderate persistent asthma, uncomplicated Kaia Mary M.D. 04/27/2019 J30.89 Other allergic rhinitis Kaia Mary M.D. 04/27/2019 J30.81 Allergic rhinitis due to animal (cat) (dog) Kaia Mary M.D. hair and dander 04/19/2019 J30.1 Allergic rhinitis due to pollen Kaia Mary M.D. 04/19/2019 J30.1 Allergic rhinitis due to pollen Kaia Mary M.D. 04/19/2019 J30.2 Other seasonal allergic rhinitis Kaia Mary M.D. 04/19/2019 J30.1 Allergic rhinitis due to pollen Allergy Injection 04/19/2019 J30.81 Allergic rhinitis due to animal (cat) (dog) Kaia Mary M.D. hair and dander 04/19/2019 J30.2 Other seasonal allergic rhinitis Kaia Mary M.D. 04/19/2019 J30.89 Other allergic rhinitis Kaia Mary M.D. 04/19/2019 J30.2 Other seasonal allergic rhinitis Allergy Injection 04/19/2019 J30.81 Allergic rhinitis due to animal (cat) (dog) Kaia Mary M.D. hair and dander 04/19/2019 J30.81 Allergic rhinitis due to animal (cat) (dog) Allergy Injection hair and dander 04/19/2019 J30.89 Other allergic rhinitis Kaia Mary M.D. 04/19/2019 J30.89 Other allergic rhinitis Allergy Injection 04/13/2019 J30.1 Allergic rhinitis due to pollen Kaia Mary M.D. 04/13/2019 J30.1 Allergic rhinitis due to pollen Allergy Injection 04/13/2019 J30.2 Other seasonal allergic rhinitis Kaia Mary M.D. 04/13/2019 J30.2 Other seasonal allergic rhinitis Allergy Injection 04/13/2019 J30.81 Allergic rhinitis due to animal (cat) (dog) Kaia Mary M.D. hair and dander 04/13/2019 J30.81 Allergic rhinitis due to animal (cat) (dog) Allergy Injection hair and dander 04/13/2019 J30.89 Other allergic rhinitis Kaia Mary M.D. 04/13/2019 J30.89 Other allergic rhinitis Allergy Injection 04/07/2019 J30.1 Allergic rhinitis due to pollen Kaia Mary M.D. 04/07/2019 J30.1 Allergic rhinitis due to pollen Allergy Injection 04/07/2019 J30.2 Other seasonal allergic rhinitis Kaia Mary M.D. 04/07/2019 J30.2 Other seasonal allergic rhinitis Allergy Injection 04/07/2019 J30.81 Allergic rhinitis due to animal (cat) (dog) Kaia Mary M.D. hair and dander 04/07/2019 J30.81 Allergic rhinitis due to animal (cat) (dog) Allergy Injection hair and dander 04/07/2019 J30.89 Other allergic rhinitis Kaia Mary M.D. 04/07/2019 J30.89 Other allergic rhinitis Allergy Injection 03/29/2019 J30.1 Allergic rhinitis due to pollen Kaia Mary M.D. 03/29/2019 J45.40 Moderate persistent asthma, uncomplicated Kaia Mary M.D. 03/29/2019 J30.1 Allergic rhinitis due to pollen Allergy Injection 03/29/2019 J30.2 Other seasonal allergic rhinitis Kaia Mary M.D. 03/29/2019 J30.89 Other allergic rhinitis Kaia Mary [...] and dander 03/29/2019 J30.89 Other allergic rhinitis Kaia Mary M.D. 03/29/2019 J30.89 Other allergic rhinitis Allergy Injection [...] 12/16/2018 J30.89 Other allergic rhinitis Allergy Injection Plan of Treatment Future Appointment(s):09/27/2019 11:20 am - Kaia Mary M.D. at [id number] - Kaia Mary M.D.J45.41 Moderate persistent asthma with (acute) qjuqxyqtgwkgC98.89 Other allergic afzyozvtL19.2 Other seasonal allergic rhinitisNew Medication:Ipratropium [place]/Albuterol Sulfate 0.5-2.5(3) mg/ 3MLNew Xrays:Chest Xray, 2 views, Ordered: 06/14/19Follow up:as scheduled 2019Recommendations:Refrain from wearing perfumes/scented colognes while visiting our office. Ingrid performed, reviewed, normal today at 15, no overt signs of inflammation We will do a chest Xray to check for any infection/ pneumonia order provided Also we will start azithromycin 250 mg 2 tabs on day 1 and then 1 daily for 4 days Start DuoNeb 1 inhaler every 6 hours as needed You can alternate that with your regular albuterol No Shots until 90% better or more Functional Status Description No Information Available Mental Status Description No Information Available Referrals Description No Information Available
--- OUTSIDE RECORDS SUMMARY | 2019-08-03 16:58 | XMS REPORT | Continuity of Care Document ---
:1980 External Reference #:[id number] Author Name Shantelle Finch NP Address [address] [place] [address] Care Team Providers Name Role Phone [facility]MC Utilization Showroom Consultant Care Team Information Bleach Liquor Maker [phone] - Health Educator Yusef Wiley MD - Neurological Care Team Information Bleach Liquor Maker [facility] - [facility] Care Team Information Bleach Liquor Maker [phone] [facility] Physical Care Team Information Bleach Liquor Maker Therapy - Physical Therapy Merlene Amin M.D. - Family Medicine Care Team Information Bleach Liquor Maker Unavailable Problems Active Problems Provider Date Type [...] Patient has never smoked Smoking Status Reviewed: 06/23/19 Patient has never smoked Allergies, Adverse Reactions, Alerts Active Allergies Reaction Severity Comments Date Penicillin 08/17/2003 Shellfish 08/17/2003 Seroquel 08/12/2005 Sulfa Drugs Itching 04/24/08 04/24/2008 Clindamycin Itching 04/24/08 04/24/2008 Potassium 10/05/2009 Metoprolol RASH-per pt 10/19/2012 Seasonal 09/02/2015 Bandaids fabric bandaides 12/03/2016 Prednisone Racing Heart with PO med Moderate 04/14/2017 Medications Active Medications SIG Qnty Indications Ordering Date Provider Naproxen 1 by mouth twice 30tabs N94.6 Shnatelle Campbell 04/14/2019 500mg Tablets a day as needed Finch, ANTENNA SPECIALIST form enstrual pain Ipratropium Bison 2 sprays each 15ml J01.90 Shantelle Campbell 10/10/2018 0.06% nostril bid prn Finch, ANTENNA SPECIALIST Solution Imitrex 1 tablets by 14tabs Shantelle Campbell 10/10/2018 25mg Tablets mouth once for Finch, ANTENNA SPECIALIST migraine, may repeat in 2 hours if not resolved Ventolin HFA take 1-2 puffs 18gm J45.20 Krys C. 07/06/2018 108(90Base) inhaled every 4 Adilson, ANTENNA SPECIALIST mcg/Act Aerosol hours as needed for wheezing or tightness in the chest Losartan Take One Tablet 90tabs I10 Merlene Amin, 06/03/2017 Potassium/Hydrochloroth By Mouth Every M.D. iazide Day 100-25mg Tablets Loratadine Take One Tablet 90tabs J06.9 Shantelle Campbell 04/01/2016 10mg Tablets By Mouth Every Finch, ANTENNA SPECIALIST Day Pantoprazole Sodium Take One Tablet 30tabs K21.9 Merlene Amin, 05/01/2015 20mg By Mouth Every M.D. Tablets DR Day Montelukast Sodium Take One Tablet 90tabs J30.2 Shantelle Campbell 07/07/2012 10mg By Mouth Every Finch, ANTENNA SPECIALIST Tablets Day Breo Ellipta 1 puff a day Unknown 200-25mcg/Inh Aerosol Levocetirizine 1 by mouth at Unknown Dihydrochloride bedtime prn 5mg Tablets History Medications Oseltamivir 1 by mouth twice 10caps J11.1 Juan Wilcox 05/26/2019 - Phosphate a day MD Jolynn 06/17/2019 75mg Capsules Doxycycline take one by mouth 14caps J01.90 Krys De Anda, 04/26/2019 - Monohydrate twice daily until ANTENNA SPECIALIST 05/26/2019 100mg gone Capsules Pneumovax 23 Shantelle Campbell 03/17/2019 - Stef, JANES 03/17/2019 25mcg/0.5ML Injection Cefdinir take 1 tablet 14caps R09.81 Simtaylor Morrison, 02/16/2019 - 300mg twice a day for 7 M.D. 03/17/2019 Capsules days. Medrol dose-pack as 1pack R09.81 Erika Harris, 02/16/2019 - 4mg Tablets instructed/has SHROUDMAN 03/17/2019 tolerated medrol in the past Cefdinir take 1 tablet 14caps H66.93 Sim AJan Morrison, 12/29/2018 - 300mg twice a day for 7 M.D. 01/20/2019 Capsules days. Meclizine HCL take 1 tablet 2-3 30tabs H66.93 Sim A. Prince, 12/29/2018 - 25mg times a day as M.D. 01/20/2019 Tablets needed for dizziness. Immunizations CPT Code Status Date Vaccine Lot # [id number] Given 03/17/2019 Pneumococcal Immunization [id number] 42606 Given 03/17/2019 Influenza Vac, Quadrivalent, Slit Virus, Im [id number] 87062 Given 02/22/2018 Influenza Vac, Quadrivalent, Slit Virus, Im [id number] 98582 Given 02/10/2017 Influenza Vac, [place], [place] [id number] Given 02/12/2016 Tetanus And Diptheria Adult Preservative Free [id number] >7Yrs 63674 Given 02/12/2016 Influenza Vac, Quadrivalent, Slit Virus, Im [id number] 86275 Given 02/01/2015 Influenza Vac, [place] [address] Given 02/01/2015 DO Not Use Split Influenza Virus Vaccine [id number] Given 03/24/2014 DO Not Use Split Influenza Virus Vaccine [id number] Given 02/13/2013 DO Not Use Split Influenza Virus Vaccine 43709 Given 07/26/2012 DO Not Use Split Influenza Virus Vaccine 99875 Given 01/30/2011 DO Not Use Split Influenza Virus Vaccine [id number] 85200 Given 03/01/2010 DO Not Use Split Influenza Virus Vaccine [id number] 40665 Given 04/11/2009 H1N1 Virus Vaccine [id number] 73899 Given 04/11/2009 H1N1 Immunization Intramuscular/Intranasal W Counseling 46825 Given 08/26/2005 Hepatitis B Immunization, adult dosage, for intramuscular use 52087 Given 06/12/2005 Tdap Tetanus, W Pertussis [id number] 81362 Given 11/26/2004 Hepatitis B Immunization, adult dosage, for intramuscular use 95094 Given 09/24/2004 Hepatitis B Immunization, adult dosage, for intramuscular use Vital Signs Date Vital Result Comment 06/23/2019 10:23am BP Systolic 140 mmHg BP Diastolic 100 mmHg BP Systolic Recheck 122 mmHg ANTENNA SPECIALIST Recheck right arm seated BP Diastolic Recheck 78 mmHg ANTENNA SPECIALIST Recheck right arm seated Heart Rate 88 /min Body Temperature 97.9 F Respiratory Rate 20 /min Weight 277.38 lb 05/26/2019 3:40pm BP Systolic 128 mmHg BP Diastolic 80 mmHg Heart Rate 125 /min Body Temperature 99.0 F Respiratory Rate 17 /min O2 % BldC Oximetry 96 % Ra Weight 270.00 lb Results Test Acquired Date Facility Test Result H/L Range Note Laboratory test 05/10/2019 [facility] [place] SEE RESULT 1 finding BELOW Urinalysis Profile 04/07/2019 [facility] [place]rine Color Straw Urine Appearance Clear Urine Specific [place] 1.016 Normal 1.010-1.030 Urine pH 6.0 Normal 5-9 Urine Urobilinogen Negative Negative Urine Ketones Negative Negative Urine Protein Negative Negative Urine Leukocytes Negative Negative Urine Blood Negative Negative Urine Nitrite Negative Negative Urine Bilirubin Negative Negative Urine Glucose Negative Negative Laboratory test finding 04/07/2019 [facility] [place] Lactic Acid 1.0 mmol/L Normal 0.5- 2.0 2 Comp Metabolic Panel 04/07/2019 [facility] [place] Sodium 137 mmol/L Normal 135-145 Potassium 3.4 mmol/L Low 3.5-5.0 Chloride 100 mmol/L Low 101-111 Co2 Carbon Dioxide 32 mmol/L Normal 22-32 Anion Gap 5 mmol/L Normal 2-11 Glucose 129 mg/dL High 70-100 Blood Urea Nitrogen 12 mg/dL Normal 6-24 Creatinine 0.78 mg/dL Normal 0.51-0.95 BUN/Creatinine Ratio 15.4 Normal 8-20 Calcium 9.3 mg/dL Normal 8.6-10.3 Total Protein 7.2 g/dL Normal 6.4-8.9 Albumin 4.1 g/dL Normal 3.2-5.2 Globulin 3.1 g/dL Normal 2-4 Albumin/Globulin Ratio 1.3 Normal 1-3 Total Bilirubin 0.30 mg/dL Normal 0.2-1.0 Alkaline Phosphatase 42 U/L Normal 34-104 Alt 34 U/L Normal 7-52 Ast 18 U/L Normal 13-39 Egfr Non- 82.2 >60 Egfr 99.5 >60 3 CBC Auto Diff 04/07/2019 [facility] [place] White Blood Count 9.9 10^3/uL Normal 3.5- 10.8 Red Blood Count 4.42 10^6/uL Normal 3.70-4.87 Hemoglobin 12.3 g/dL Normal 12.0-16.0 Hematocrit 36 % Normal 35-47 Mean Corpuscular Volume 82 fL Normal 80-97 Mean Corpuscular Hemoglobin 28 pg Normal 27-31 Mean Corpuscular HGB Conc 34 g/dL Normal 31-36 Red Cell Distribution Width 15 % Normal 10-15 Platelet Count 274 10^3/uL Normal 150-450 Mean Platelet Volume 8.9 fL Normal 7.4-10.4 Abs Neutrophils 7.2 10^3/uL Normal 1.5-7.7 Abs Lymphocytes 1.9 10^3/uL Normal 1.0-4.8 Abs Monocytes 0.6 10^3/uL Normal 0-0.8 Abs Eosinophils 0.0 10^3/uL Normal 0-0.6 Abs Basophils 0.1 10^3/uL Normal 0-0.2 Abs Nucleated RBC 0.0 10^3/uL Granulocyte % 72.6 % Lymphocyte % 19.2 % Monocyte % 6.5 % Eosinophil % 0.5 % Basophil % 1.2 % Nucleated Red Blood Cells % 0.0 Laboratory test finding 04/07/2019 [facility] [place] Lipase 13 U/L Normal 11.0-82.0 C Reactive Protein 46.13 mg/L High <8.01 Laboratory test 03/17/2019 [facility] Hemoglobin A1c 6.5 % High 4.1- 5.7 finding (607)- - (Fma) Ua - Non Micro 03/17/2019 [facility] Appearance yellow (Fma) (607)- - Color clear Glucose, Urine (Fma/CMC/CTX) neg Bilirubin neg Ketones neg SP Grav 1.020 Blood neg PH 5.5 Protein neg Urobil 0.2 Nitrite neg Leukocytes ([facility]ma[place] [place] neg Lipid Profile 03/17/2019 Lyle Miller([facility]) Cholesterol 179 mg/dL 120- 200 Triglycerides 133 mg/dL 30-200 HDL Cholesterol 49 mg/dL 30-85 LDL (Calculated) 103 CALC 0-129 VLDL Cholesterol 27 mg/dL 0-50 HDL Risk Factor 3.7 CALC 0.0-4.4 Laboratory test 03/17/2019 Lyle Miller(a) TSH 1.57 mIU/L 0.50-6.00 finding CBC Auto Diff 03/15/2019 [facility] [place] White Blood 7.5 10^3/uL Normal 3.5-10.8 [...] Red Blood Cells % 0.0 Inr/Protime 03/15/2019 [facility] [place] Inr 0.91 Normal 0.82-1.09 4 Laboratory test finding 03/15/2019 [facility] [place] Lactic Acid 1.3 mmol/L Normal 0.5- 2.0 5 Comp Metabolic Panel 03/15/2019 [facility] [place] Sodium 138 mmol/L Normal 135-145 Potassium [...] Egfr 98.0 >60 6 Laboratory test finding 03/15/2019 [facility] [place] C Reactive Protein 12.38 mg/L High <8.01 HCG < 0.60 mIU/mL 7 Urinalysis Profile 03/14/2019 [facility] [place] Urine Color Yellow Urine Appearance Cloudy Urine Specific [place] 1.025 Normal 1.010-1.030 Urine pH 5.0 Normal [...] Urine Squamous Epithelial Cell Present Abnormal Absent Urine Culture And 03/14/2019 [facility] [place]rine Culture SEE RESULT 8 Sensitivities BELOW CBC Auto Diff 02/01/2019 [facility] [place] White Blood 9.6 10^3/uL Normal 3.5-10.8 Count Red Blood Count 4.70 10^6/uL Normal 3.70-4.87 [...] Cells % 0.1 Comp Metabolic Panel 02/01/2019 [facility] [place] Sodium 137 mmol/L Normal 135-145 Potassium [...] Egfr Non- 81.0 >60 Egfr 98.0 >60 9 Laboratory test finding 02/01/2019 [facility] [place] HCG < 0.60 mIU/mL 10 Urinalysis Profile 01/31/2019 [facility] [place] Urine Color Yellow Urine Appearance Clear Urine Specific [place] 1.021 Normal 1.010-1.030 Urine pH 5.0 Normal 5-9 Urine Urobilinogen Negative Negative Urine Ketones Negative Negative Urine Protein Negative Negative Urine Leukocytes Negative Negative Urine Blood Negative Negative Urine Nitrite Negative Negative Urine Bilirubin Negative Negative Urine Glucose Negative Negative 1 SEE RESULT BELOW Name: MYNOR CORRIGAN : [address]: Lenora Sahu MD Acct: [id number] Unit: [id number] AGE: 39 Location: [facility] Re05/10/19 SEX: F Status: REG REF SPEC: [id number] ERIK: 05/10/[address]: Lenora Sahu MD REQ: [id number] RECD: 05/10/19 STATUS: ITA FRANCOIS DR: Merlene Amin MD _ ORDERED: TP IMAGE ANALYS, HPV/Thin Prep COMMENTS: [id number] FINAL DIAGNOSIS Negative for Intraepithelial lesion or Malignancy HPV RESULTS Date Time Test Result Flag (u) Normal Range 05/10/19 1056 HPV JOAN Negative Negative The high-risk HPV types detected by the assay include: 16, 18, 31, 33, 35, 39, 45, 51, 52, 56, 58, 59, 66, and 68. SPECIMEN(S) RECEIVED A. Ectocervical/Endocervical CYTOLOGY ADEQUACY Specimen Adequacy: Satisfactory of evaluation Transformation zone component identified CONTINUED ON NEXT PAGE DEPARTMENT OF PATHOLOGY, [address] [place] [id number] Parag Benoit M.D. Director [facility] # [id number] CYTOLOGY PATIENT INFORMATION Patient Information: HPV: High risk HPV RNA testing regardless of pap results. Actual Specimen Date: 05/10/19 Last Menstrual Date: 04/28/19 Date of Last Specimen: 03/18/16 Signed by and Reported on: RamiroJAKOB Jamison (ASCP) [id number] This Pap test was evaluated with the assistance of the [employer] Test Imaging System. Due to cytologic findings at the life science technician microscope, comprehensive manual rescreening by a Hot Man may be required. The Pap Smear is a screening test designed to aid in the detection of premalignant and malignant conditions of the uterine cervix. It is not a diagnostic procedure and should not be used as the sole means of detecting cervical cancer. Both false- positive and false- negative reports do occur. Depending on your risk status, a Pap smear should be obtained and evaluated every 1-3 years. END OF REPORT DEPARTMENT OF PATHOLOGY, [address] [place] [id number] Parag Benoit M.D. Director [facility] # [id number] 2 [facility] Severe Sepsis and Septic Shock Management Bundle [...] 5 Kidney failure <15 (or dialysis) 4 Standard intensity warfarin therapeutic range: 2.0-3.0 High intensity warfarin therapeutic range: 2.5-3.5 5 [place] Severe Sepsis and Septic Shock Management Bundle Measure requires all lactic acids initially measuring >2.0 mmol/L be repeated. 6 Because ethnic data is not always [...] HCG levels of up to 20 mIU/mL 8 SEE RESULT BELOW Name: MYNOR CORRIGAN : [address]: Jennifer Packer MD Acct: [id number] Unit: [id number] AGE: 39 Location: Re03/14/19 SEX: F Status: DEP ER SPEC: [id number] ERIK: 03/14/[address]: Jennifer Packer MD REQ: [id number] RECD: 03/14/19 STATUS: KALYAN FRANCOIS DR: Merlene Amin MD [facility] _ SOURCE: URINE SPDESC: ORDERED: Urine Culture Procedure Result Reported Site Urine Culture Final 03/16/19- 1300 ML Organism 1 STREP GROUP B [place] Count 1-10,000 (Few) CFU/ML Organism 2 NORMAL JUAN [place] Count 1-10,000 (Few) CFU/ML Susceptibility testing of penicillins and other B-lactams approved by FDA for treatment of Streptococcus pyogenes (Group A Strep) and Streptococcus agalactiae (Group B Strep) is not necessary for clinical purposes and need not be done routinely, since as with vancomycin, resistant strains have not been recognized. (CLSI T291-A55;p.66) Positive isolates will be saved for one week. Please call the Microbiology Laboratory if further susceptibility testing is needed. * ML - Main Lab . END OF REPORT DEPARTMENT OF PATHOLOGY, [address] [place] [address] Parag Benoit M.D. Director [facility] # [id number] 9 Because ethnic data is not always readily [...] 15-29 5 Kidney failure <15 (or dialysis) 10 <5.0 Negative 5.0 - 25.0 Indeterminate (Repeat testing recommended after 72 hours) >25.0 Positive Perimenopausal women can display HCG levels of up to 20 mIU/mL Procedures Date Code Description Status 05/26/2019 14537 Pulse Oximetry Completed 05/15/2014 57040726 Mammogram Completed 01/07/2007 61180235 Mammogram Completed 07/09/2006 13788582 Mammogram Completed Medical Devices Description No Information Available Encounters Type Date Location Provider Dx Diagnosis Office Visit 05/26/2019 Main Office Juan Loza11.1 Flu due to 3:30p MD Jolynn unidentified influenza virus w oth resp manifest Office Visit 04/26/2019 Main Office Krys Brooks79.645 Pain in left 9:30a JANES De Anda finger(s) J01.90 Acute sinusitis, unspecified Office Visit 04/14/2019 9:30a [facility] Shantelle Campbell N94.6 Dysmenorrhea, JANES Finch unspecified I10 Essential (primary) hypertension Office Visit 03/17/2019 11:00a [facility] Shantelle Campbell E66.01 Morbid ( severe) JANES Finch obesity due to excess calories E11.9 Type 2 diabetes mellitus without complications I10 Essential (primary) hypertension R10.32 Left lower quadrant pain Z23 Encounter for immunization Office Visit 02/16/2019 1:00p [facility] Erika R09.81 Nasal congestion Steven, SHROUDMAN R51 Headache J01.90 Acute sinusitis, unspecified E66.01 Morbid (severe) obesity due to excess calories Office Visit 12/29/2018 5:00p Main Office Caren Herrera, H66.93 Otitis media, PA unspecified, bilateral H69.93 Unspecified Eustachian tube disorder, bilateral R42 Dizziness and giddiness Assessments Date Code Description Provider 06/23/2019 I10 Essential (primary) hypertension Shantelle Finch NP 06/23/2019 E66.01 Morbid (severe) obesity due to excess Shantelle Finch NP calories 06/23/2019 E11.9 Type 2 diabetes mellitus without Shantelle Finch NP complications 06/23/2019 J45.41 Moderate persistent asthma with (acute) Shantelle Finch NP exacerbation 05/26/2019 J11.1 Influenza due to unidentified influenza Juan Neil MD virus with other respiratory manifestations 04/26/2019 M79.645 Pain in left finger(s) Krys De Anda, JANES 04/26/2019 J01.90 Acute sinusitis, unspecified Krys De Anda, JANES 04/14/2019 N94.6 Dysmenorrhea, unspecified Shantelle Finch NP 04/14/2019 I10 Essential (primary) hypertension Shantelle Finch NP 03/17/2019 E66.01 Morbid (severe) obesity due to excess Shantelle Finch NP calories 03/17/2019 E11.9 Type 2 diabetes mellitus without Shantelle Finch NP complications 03/17/2019 I10 Essential (primary) hypertension Shantelle Finch NP 03/17/2019 R10.32 Left lower quadrant pain Shantelle Finch NP 03/17/2019 Z23 Encounter for immunization Shantelle Finch, JANES 02/16/2019 R09.81 Nasal congestion Erika Harris, [facility] 02/16/2019 R51 Headache Erika Harris, [facility] 02/16/2019 J01.90 Acute sinusitis, unspecified Erika Harris, SHROUDMAN 02/16/2019 E66.01 Morbid (severe) obesity due to excess Erika Steven, SHROUDMAN calories 12/29/2018 H66.93 Otitis media, unspecified, bilateral ADIA Carlin 12/29/2018 H69.93 Unspecified Eustachian tube disorder, ADIA Carlin bilateral 12/29/2018 R42 Dizziness and giddiness ADIA Carlin Plan of Treatment Future Appointment(s):09/22/2019 9:00 am - Shantelle Finch NP at [facility] Ilytoo6906/23/2019 - Shantelle Finch NPI10 Essential (primary) hypertensionComments:The patient will continue to monitor blood pressure and let me know the blood pressure results if there are readings persistently above 140/80. Goal blood pressure is less than 140/80. Recommend low salt/cardiac diet and routine exercise.E66.01 Morbid (severe) obesity due to excess caloriesComments:Counseled on heart healthy diet and hrdxbaliS09.9 Type 2 diabetes mellitus without complicationsNew Labs:Hemoglobin A1c (Fma), Ordered: 06/23/19Comments:Recommend yearly diabetic eye and foot exams, and check on blood pressure periodically. Goal blood sugar is less than 140 in the morning or A1c less than 7. Diet needs to get back on track - will do 3 months of lifestyle changes but after that we will need to add medication, she didn't tolerate the metformin - consider alternative oral agent if still elevated consider statin if A1c still elevatedand LDL > 70. on ARB for HTN, renal protective for DMFollow up:3 months with fasting full panel labsJ45.41 Moderate persistent asthma with (acute) exacerbationComments:follows with asthma and allergy - improving after hard hit after the fluAllComments:Medication Management Patient Understands medications he 's taking? Yes No Are there Barriers to Adherence? Yes No Has the patient been asked about herbal supplements and therapies, andOTC meds? Yes No Care Plan1. Patient has been queried about patient's goals/preferences and functional/ lifestyle goals at relevant visits. If relevant, describe: na2. Treatment goals as explained to the patient: above3. Are there barriers to meeting treatment goals? Yes No If Yes, please describe: lifestyle, comorbid conditions, polypharmacy, disease process 4. Self-Management goals as described to the patient: Yes NoAs always, we strongly encourage a healthy diet and making physical activity a part of your every day life. If you have questions about how or where tostart, please contact the office. Functional Status Description No Information Available Mental Status Description No Information Available Referrals Description No Information Available
--- OUTSIDE RECORDS SUMMARY | 2019-08-03 16:58 | XMS REPORT | Continuity of Care Document ---
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 Ointment affected skin, avoid face Breo Ellipta Inhale 1 puff By 60units Meg 09/29/2017 200-25mcg/Inh Mouth Twice LINDA RomeroP-C Aerosol Daily Levocetirizine Take One Tablet 90tabs J45.40 Meg 09/11/2015 Dihydrochloride By Mouth AT LINDA RomeroP-C 5mg Tablets Bedtime as Needed Montelukast Sodium [...] A Day as Needed For Menstrual Pain Medications Administered in Office Medication SIG Qnty [...] CPT Code Status Date Vaccine Lot # [id number] Given Unknown Pneumococcal Vaccine 21538 Given Unknown Influenza Virus Vaccine, Quadrivalent, Split, Preservative Free 52382 Given Unknown Influenza Vaccine 77728 Given Unknown Influenza Vaccine 43047 Given Unknown Influenza Vaccine 56965 Given Unknown Influenza Vaccine 83334 Given Unknown Influenza Vaccine Vital Signs Date Vital Result Comment 06/09/2019 9:02am Height 63 inches 5'3" Weight 276.00 lb Weight 125.194 kg Respiratory Rate 24 /min Heart Rate 95 /min O2 % BldC Oximetry 98 % BP Systolic 136 mmHg BP Diastolic 92 mmHg Asthma Control Test 17 BMI (Body Mass Index) 48.9 kg/m2 05/30/2019 4:27pm Height 63 inches 5'3" Weight 269.00 lb Weight 122.018 kg Respiratory Rate 20 /min Heart Rate 96 /min Body Temperature 98.0 F O2 % BldC Oximetry 96 % BP Systolic 123 mmHg BP Diastolic 105 mmHg Asthma Control Test 8 Fractional Exhaled Nitric Oxide 10 BMI (Body Mass Index) 47.6 kg/m2 Results Description No Information Available Procedures Date Code Description Status 06/09/2019 00753 Pre PFT Completed 05/30/2019 43104 Nitric Oxide Gas Determination Completed 05/18/2019 28080 Injection Completed 05/10/2019 39592 Injection Completed 05/04/2019 86796 Injection Completed 04/19/2019 59155 Extract 1-10 Completed 04/19/2019 59834 Injection Completed 04/13/2019 55985 Injection Completed 04/07/2019 29951 Injection Completed 03/29/2019 40446 Injection Completed 03/29/2019 06503 Nitric Oxide Gas Determination Completed 03/29/2019 54717 Pre PFT Completed 03/22/2019 22005 Injection Completed 03/17/2019 09274 Injection Completed 03/08/2019 59859 Injection Completed 03/02/2019 17293 Injection Completed 02/23/2019 35953 Injection Completed 02/17/2019 99462 Injection Completed 02/10/2019 77348 Extract 1-10 Completed 02/10/2019 94843 Injection Completed 02/02/2019 98938 Injection Completed 01/26/2019 41771 Injection Completed 01/19/2019 52134 Injection Completed 01/13/2019 19997 Injection Completed 01/05/2019 55169 Injection Completed 12/30/2018 19775 Injection Completed 12/23/2018 97918 Injection Completed 12/16/2018 64882 Injection Completed 12/09/2018 47080 Injection Completed Medical Devices Description No Information Available Encounters Type Date Location Provider Dx Diagnosis Office Visit 05/30/2019 [facility] Mge Romero J30.1 Allergic rhinitis 4:20p PROCEDURE WRITER-C due to pollen J30.2 Other seasonal allergic rhinitis J30.81 Allergic rhinitis due to animal (cat) (dog) hair and dander J30.89 Other allergic rhinitis J45.40 Moderate persistent asthma, uncomplicated Office Visit 04/27/2019 11:00a Miah Mary J45.40 Moderate persistent M.D. asthma, uncomplicated J30.89 Other allergic rhinitis J30.81 Allergic rhinitis due to animal (cat) (dog) hair and dander Office Visit 03/29/2019 11:00a Miah Mary J45.40 Moderate persistent M.D. asthma, uncomplicated J30.89 Other allergic rhinitis J30.81 Allergic rhinitis due to animal (cat) (dog) hair and dander Assessments Date Code Description Provider 06/09/2019 J30.1 Allergic rhinitis due to pollen JERALD Mendes 06/09/2019 J30.2 Other seasonal allergic rhinitis MCKENNA Mendes-Jade 06/09/2019 J30.81 Allergic rhinitis due to animal (cat) (dog) MCKENNA Mendes-Jade hair and dander 06/09/2019 J30.89 Other allergic rhinitis Meg Johandrrai, PROCEDURE WRITER-C 06/09/2019 J45.41 Moderate persistent asthma with (acute) Meg Johandrich, PROCEDURE WRITER-C exacerbation 05/30/2019 J30.1 Allergic rhinitis due to pollen Kaia Mary M.D. 05/30/2019 J30.1 Allergic rhinitis due to pollen Meg Johandarrick, PROCEDURE WRITER-C 05/30/2019 J30.2 Other seasonal allergic rhinitis Kaia Mary M.D. 05/30/2019 J30.2 Other seasonal allergic rhinitis Meg Uldrich, PROCEDURE WRITER-C 05/30/2019 J30.81 Allergic rhinitis due to animal (cat) (dog) Kaia Mary M.D. hair and dander 05/30/2019 J30.81 Allergic rhinitis due to animal (cat) (dog) Meg Uldarrick, PROCEDURE WRITER-C hair and dander 05/30/2019 J30.89 Other allergic rhinitis Kaia Mary M.D. 05/30/2019 J30.89 Other allergic rhinitis Meg Johanrai, PROCEDURE WRITER-C 05/30/2019 J45.40 Moderate persistent asthma, uncomplicated Kaia Mary M.D. 05/30/2019 J45.40 Moderate persistent asthma, uncomplicated Meg Romero , PROCEDURE WRITER-C 05/18/2019 J30.1 Allergic rhinitis due to pollen [...] 03/22/2019 J30.2 Other seasonal allergic rhinitis Kaia aMry M.D. 03/22/2019 J30.2 Other seasonal allergic rhinitis [...] and dander 02/02/2019 J30.89 Other allergic rhinitis Kiaa Mary M.D. 02/02/2019 J30.89 Other allergic rhinitis [...] and dander 01/19/2019 J30.89 Other allergic rhinitis Kiaa Mary M.D. 01/19/2019 J30.89 Other allergic rhinitis [...] 12/09/2018 J30.89 Other allergic rhinitis Allergy Injection Plan of Treatment Future Appointment(s):09/27/2019 11:20 am - Kaia Mary M.D. at [id number] - MCKENNA Mendes-CJ30.1 Allergic rhinitis due to raojdsZ38.2 Other seasonal allergic hruungdqR21.81 Allergic rhinitis due to animal (cat) (dog) hair and kwcoohC26.89 Other allergic qenxtwnlL38.41 Moderate persistent asthma with (acute) exacerbationRecommendations:Continue all medications as prescribed.Refrain from wearing perfumes/scented colognes while visitingour office. Continue the nebulizer twice a day Continue the prednisone until finished Continue the Qnasl nasal spray Continue the Levocetirizine 1 day Continue the Montelukast 1 daily Continue the Breo 1 puff daily Continue the Ventolin 2 puffs every 4 hours as needed for cough, wheezing, shortness of breath, and chest congestion.Monitor Albuterol use. If using more than 2x/week, please callthe office as your asthma medications may need to be adjusted. PFT done today. Pulmonary Function Studies are done by exhaling (blowing) into a machine to detect an asthmatic condition or other lung problem. Results reviewed and are normal Functional Status Description No Information Available Mental Status Description No Information Available Referrals Description No Information Available
--- OUTSIDE RECORDS SUMMARY | 2019-08-03 16:58 | XMS REPORT | Continuity of Care Document ---
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 Sulfate 4-6 hours. as 0.5-2.5(3)mg/3ML needed for Solution cough, wheeze or shortness of breath Betamethasone Valerate apply topically 15gm aKia Mary, 04/25/2019 0.1% twice daily to M.D. Ointment affected skin, avoid face Breo Ellipta Inhale 1 puff By 60units Emg 09/29/2017 200-25mcg/Inh Mouth Twice LINDA RomeroP-C Aerosol Daily Levocetirizine Take One Tablet 90tabs J45.40 Meg 09/11/2015 [facility] Tablets Bedtime as Needed Montelukast Sodium 1 by mouth every Unknown 10mg day Tablets Ventolin HFA 2 every 4 hours 1units Kaia Mary, 108(90Base) as needed M.D. mcg/Act Aerosol Qnasl 1-2 sprays in 1units Meg 80mcg/Act Aerosol each nostril MCKENNA Romero-C daily Omeprazole Unknown 20mg Capsules DR Losartan [...] Indications Ordering Provider Date Injection Allergy Injection 07/26/2019 Injection Injection Allergy Injection 07/12/2019 Injection Injection Allergy Injection 07/05/2019 Injection Injection Allergy Injection 06/28/2019 Injection Injection Allergy Injection 06/23/2019 Injection Injection Allergy Injection 05/18/2019 Injection Injection Allergy [...] CPT Code Status Date Vaccine Lot # 97416 Given Unknown Pneumococcal Vaccine 88111 Given Unknown Influenza Virus Vaccine, Quadrivalent, Split, Preservative Free 13867 Given Unknown Influenza Vaccine 35538 Given Unknown Influenza Vaccine 16796 Given Unknown Influenza Vaccine 88320 Given Unknown Influenza Vaccine 63649 Given Unknown Influenza Vaccine Vital Signs Date [...] Information Available Procedures Date Code Description Status 07/26/2019 67886 Injection Completed 07/12/2019 07013 Injection Completed 07/05/2019 77860 Injection Completed 06/28/2019 38992 Injection Completed 06/23/2019 97709 Injection Completed 06/14/2019 55071 Nitric Oxide Gas Determination Completed 06/14/2019 33574 Ippb Completed 06/09/2019 14366 Pre PFT Completed 05/30/2019 66386 Nitric Oxide Gas Determination Completed 05/18/2019 81369 Injection Completed 05/10/2019 34774 Injection Completed 05/04/2019 44393 Injection Completed 04/19/2019 96464 Extract 1-10 Completed 04/19/2019 75056 Injection Completed 04/13/2019 10386 Injection Completed 04/07/2019 85214 Injection Completed 03/29/2019 56269 Injection Completed 03/29/2019 35720 Nitric Oxide Gas Determination Completed 03/29/2019 99143 Pre PFT Completed 03/22/2019 45141 Injection Completed 03/17/2019 74060 Injection Completed 03/08/2019 09937 Injection Completed 03/02/2019 35101 Injection Completed 02/23/2019 97363 Injection Completed 02/17/2019 99854 Injection Completed 02/10/2019 75973 Extract 1-10 Completed 02/10/2019 87828 Injection Completed 02/02/2019 79844 Injection Completed 01/26/2019 54104 Injection Completed Medical Devices Description No Information Available Encounters Type Date Location Provider Dx Diagnosis Office Visit 06/14/2019 Miah Mary M.D. J45.41 Moderate persistent 11:00a asthma with (acute) exacerbation J30.89 Other allergic rhinitis J30.2 Other seasonal allergic rhinitis Office Visit 06/09/2019 9:00a [place] Meg Romero J30.1 Allergic rhinitis [employer] due to pollen J30.2 Other seasonal allergic rhinitis J30.81 Allergic rhinitis due to animal (cat) (dog) hair and dander J30.89 Other allergic rhinitis J45.41 Moderate persistent asthma with (acute) exacerbation Office Visit 05/30/2019 4:20p [facility] Meg Romero J30.1 Allergic [employer] rhinitis due to pollen J30.2 Other seasonal allergic rhinitis J30.81 Allergic rhinitis due to animal (cat) (dog) hair and dander J30.89 Other allergic rhinitis J45.40 Moderate persistent asthma, uncomplicated Office Visit 04/27/2019 11:00a [place] Kaia Mary, J45.40 Moderate persistent M.D. asthma, uncomplicated J30.89 Other allergic rhinitis J30.81 Allergic rhinitis due to animal (cat) (dog) hair and dander Office Visit 03/29/2019 11:00a Miah Montenegrobhavani Mary, J45.40 Moderate persistent M.D. asthma, uncomplicated J30.89 Other allergic rhinitis J30.81 Allergic rhinitis due to animal (cat) (dog) hair and dander Assessments Date Code Description Provider 07/26/2019 J30.1 Allergic rhinitis due to pollen Kaia Mary M.D. 07/26/2019 J30.1 Allergic rhinitis due to pollen Allergy Injection 07/26/2019 J30.2 Other seasonal allergic rhinitis Kaia Mary M.D. 07/26/2019 J30.2 Other seasonal allergic rhinitis Allergy Injection 07/26/2019 J30.81 Allergic rhinitis due to animal (cat) Kaia Mary M.D. (dog) hair and dander 07/26/2019 J30.81 Allergic rhinitis due to animal (cat) Allergy Injection (dog) hair and dander 07/26/2019 J30.89 Other allergic rhinitis Kaia Mary M.D. 07/26/2019 J30.89 Other allergic rhinitis Allergy Injection 07/12/2019 J30.1 Allergic rhinitis due to pollen Kaia Mary M.D. 07/12/2019 J30.1 Allergic rhinitis due to pollen Allergy Injection 07/12/2019 J30.2 Other seasonal allergic rhinitis Kaia Mary M.D. 07/12/2019 J30.2 Other seasonal allergic rhinitis Allergy Injection 07/12/2019 J30.81 Allergic rhinitis due to animal (cat) Kaia Mary M.D. (dog) hair and dander 07/12/2019 J30.81 Allergic rhinitis due to animal (cat) Allergy Injection (dog) hair and dander 07/12/2019 J30.89 Other allergic rhinitis Kaia Mary M.D. 07/12/2019 J30.89 Other allergic rhinitis Allergy Injection 07/05/2019 J30.1 Allergic rhinitis due to pollen Kaia Mary M.D. 07/05/2019 J30.1 Allergic rhinitis due to pollen Allergy Injection 07/05/2019 J30.2 Other seasonal allergic rhinitis Kaia Mary M.D. 07/05/2019 J30.2 Other seasonal allergic rhinitis Allergy Injection 07/05/2019 J30.81 Allergic rhinitis due to animal (cat) Kaia Mary M.D. (dog) hair and dander 07/05/2019 J30.81 Allergic rhinitis due to animal (cat) Allergy Injection (dog) hair and dander 07/05/2019 J30.89 Other allergic rhinitis Kaia Mary M.D. 07/05/2019 J30.89 Other allergic rhinitis Allergy Injection 06/28/2019 J30.1 Allergic rhinitis due to pollen Kaia Mary M.D. 06/28/2019 J30.1 Allergic rhinitis due to pollen Allergy Injection 06/28/2019 J30.2 Other seasonal allergic rhinitis Kaia Mary M.D. 06/28/2019 J30.2 Other seasonal allergic rhinitis Allergy Injection 06/28/2019 J30.81 Allergic rhinitis due to animal (cat) Kaia Mary M.D. (dog) hair and dander 06/28/2019 J30.81 Allergic rhinitis due to animal (cat) Allergy Injection (dog) hair and dander 06/28/2019 J30.89 Other allergic rhinitis Kaia Mary M.D. 06/28/2019 J30.89 Other allergic rhinitis Allergy Injection 06/23/2019 J30.1 Allergic rhinitis due to pollen Dre Chairez M.D. 06/23/2019 J30.1 Allergic rhinitis due to pollen Allergy Injection 06/23/2019 J30.2 Other seasonal allergic rhinitis Dre Chairez M.D. 06/23/2019 J30.2 Other seasonal allergic rhinitis Allergy Injection 06/23/2019 J30.81 Allergic rhinitis due to animal (cat) Dre Chairez M.D. (dog) hair and dander 06/23/2019 J30.81 Allergic rhinitis due to animal (cat) Allergy Injection (dog) hair and dander 06/23/2019 J30.89 Other allergic rhinitis Dre Chairez M.D. 06/23/2019 J30.89 Other allergic rhinitis Allergy Injection 06/14/2019 J45.41 Moderate persistent asthma with (acute) Kaia Mary M.D. exacerbation 06/14/2019 J30.89 Other allergic rhinitis Kaia Mary M.D. 06/14/2019 J30.2 Other seasonal allergic rhinitis Kaia Mary M.D. 06/09/2019 J30.1 Allergic rhinitis due to pollen Kaia Mary M.D. 06/09/2019 J30.1 Allergic rhinitis due to pollen Meg Uldarrick, [employer] 06/09/2019 J30.2 Other seasonal allergic rhinitis Kaia Mary M.D. 06/09/2019 J30.2 Other seasonal allergic rhinitis Meg Uldrich, [employer] 06/09/2019 J30.81 Allergic rhinitis due to animal (cat) Kaia Mary M.D. (dog) hair and dander 06/09/2019 J30.81 Allergic rhinitis due to animal (cat) Meg Uldrich, [employer] (dog) hair and dander 06/09/2019 J30.89 Other allergic rhinitis Kaia Mary M.D. 06/09/2019 J30.89 Other allergic rhinitis Meg Uldrich, [employer] 06/09/2019 J45.41 Moderate persistent asthma with (acute) Meg Uldrich, [employer] exacerbation 05/30/2019 J30.1 Allergic rhinitis due to pollen Kaia Mary M.D. 05/30/2019 J30.1 Allergic rhinitis due to pollen Meg Uldrich, [employer] 05/30/2019 J30.2 Other seasonal allergic rhinitis Kaia Mary M.D. 05/30/2019 J30.2 Other seasonal allergic rhinitis Meg Uldrich, [employer] 05/30/2019 J30.81 Allergic rhinitis due to animal (cat) Kaia Mary M.D. (dog) hair and dander 05/30/2019 J30.81 Allergic rhinitis due to animal (cat) Meg Uldrich, [facility] (dog) hair and dander 05/30/2019 J30.89 Other allergic rhinitis Kaia Mary M.D. 05/30/2019 J30.89 Other allergic rhinitis Meg Romero [employer] 05/30/2019 J45.40 Moderate persistent asthma, uncomplicated Kaia Mary M.D. 05/30/2019 J45.40 Moderate persistent asthma, uncomplicated Meg Romero [employer] 05/18/2019 J30.1 Allergic rhinitis due to pollen Kaia Mary M.D. 05/18/2019 J30.1 Allergic rhinitis due to pollen Allergy Injection 05/18/2019 J30.2 Other seasonal allergic rhinitis Kaia Mary M.D. 05/18/2019 J30.2 Other seasonal allergic rhinitis Allergy Injection 05/18/2019 J30.81 Allergic rhinitis due to animal (cat) Kaia Mary M.D. (dog) hair and dander 05/18/2019 J30.81 Allergic rhinitis due to animal (cat) Allergy Injection (dog) hair and dander 05/18/2019 J30.89 Other allergic rhinitis Kaia Mary M.D. 05/18/2019 J30.89 Other allergic rhinitis Allergy Injection 05/10/2019 J30.1 Allergic rhinitis due to pollen Kaia Mary M.D. 05/10/2019 J30.1 Allergic rhinitis due to pollen Allergy Injection 05/10/2019 J30.2 Other seasonal allergic rhinitis Kaia Mary M.D. 05/10/2019 J30.2 Other seasonal allergic rhinitis Allergy Injection 05/10/2019 J30.81 Allergic rhinitis due to animal (cat) Kaia Mary M.D. (dog) hair and dander 05/10/2019 J30.81 Allergic rhinitis due to animal (cat) Allergy Injection (dog) hair and dander 05/10/2019 J30.89 Other allergic rhinitis Kaia Mary M.D. 05/10/2019 J30.89 Other allergic rhinitis Allergy Injection 05/04/2019 J30.1 Allergic rhinitis due to pollen Kaia Mary M.D. 05/04/2019 J30.1 Allergic rhinitis due to pollen Allergy Injection 05/04/2019 J30.2 Other seasonal allergic rhinitis Kaia Mary M.D. 05/04/2019 J30.2 Other seasonal allergic rhinitis Allergy Injection 05/04/2019 J30.81 Allergic rhinitis due to animal (cat) Kaia Mary M.D. (dog) hair and dander 05/04/2019 J30.81 Allergic rhinitis due to animal (cat) Allergy Injection (dog) hair and dander 05/04/2019 J30.89 Other allergic rhinitis Kaia Mary M.D. 05/04/2019 J30.89 Other allergic rhinitis Allergy Injection 04/27/2019 J45.40 Moderate persistent asthma, uncomplicated Kaai Mary M.D. 04/27/2019 J30.89 Other allergic rhinitis Kaia Mary M.D. 04/27/2019 J30.81 Allergic rhinitis due to animal (cat) Kaia Mary M.D. (dog) hair and dander 04/19/2019 J30.1 Allergic rhinitis due to pollen Kaia Mary M.D. 04/19/2019 J30.1 Allergic rhinitis due to pollen Kaia Mary M.D. 04/19/2019 J30.2 Other seasonal allergic rhinitis Kaia Mary M.D. 04/19/2019 J30.1 Allergic rhinitis due to pollen Allergy Injection 04/19/2019 J30.81 Allergic rhinitis due to animal (cat) Kaia Mary M.D. (dog) hair and dander 04/19/2019 J30.2 Other seasonal allergic rhinitis Kaia Mary M.D. 04/19/2019 J30.89 Other allergic rhinitis Kaia Mary M.D. 04/19/2019 J30.2 Other seasonal allergic rhinitis Allergy Injection 04/19/2019 J30.81 Allergic rhinitis due to animal (cat) Kaia Mary M.D. (dog) hair and dander 04/19/2019 J30.81 Allergic rhinitis due to animal (cat) Allergy Injection (dog) hair and dander 04/19/2019 J30.89 Other allergic rhinitis Kaia Mary M.D. 04/19/2019 J30.89 Other allergic rhinitis Allergy Injection 04/13/2019 J30.1 Allergic rhinitis due to pollen Kaia Mary M.D. 04/13/2019 J30.1 Allergic rhinitis due to pollen Allergy Injection 04/13/2019 J30.2 Other seasonal allergic rhinitis Kaia Mary M.D. 04/13/2019 J30.2 Other seasonal allergic rhinitis Allergy Injection 04/13/2019 J30.81 Allergic rhinitis due to animal (cat) Kaia Mary M.D. (dog) hair and dander 04/13/2019 J30.81 Allergic rhinitis due to animal (cat) Allergy Injection (dog) hair and dander 04/13/2019 J30.89 Other allergic rhinitis Kaia Mary M.D. 04/13/2019 J30.89 Other allergic rhinitis Allergy Injection 04/07/2019 J30.1 Allergic rhinitis due to pollen Kaia Mary M.D. 04/07/2019 J30.1 Allergic rhinitis due to pollen Allergy Injection 04/07/2019 J30.2 Other seasonal allergic rhinitis Kaia Mary M.D. 04/07/2019 J30.2 Other seasonal allergic rhinitis Allergy Injection 04/07/2019 J30.81 Allergic rhinitis due to animal (cat) Kaia Mary M.D. (dog) hair and dander 04/07/2019 J30.81 Allergic rhinitis due to animal (cat) Allergy Injection (dog) hair and dander 04/07/2019 J30.89 Other allergic [...] J30.81 Allergic rhinitis due to animal (cat) Kaia Mary M.D. (dog) hair and dander 03/29/2019 J30.81 Allergic rhinitis due to animal (cat) Kaia Mary M.D. (dog) hair and dander 03/29/2019 J30.81 Allergic rhinitis due to animal (cat) Allergy Injection (dog) hair and dander 03/29/2019 J30.89 Other allergic rhinitis Kaia Mary M.D. 03/29/2019 J30.89 Other allergic rhinitis Allergy Injection 03/22/2019 J30.2 Other seasonal allergic rhinitis Kaia Mary M.D. 03/22/2019 J30.2 Other seasonal allergic rhinitis Allergy Injection 03/22/2019 J30.81 Allergic rhinitis due to animal (cat) Kaia Mary M.D. (dog) hair and dander 03/22/2019 J30.81 Allergic rhinitis due to animal (cat) Allergy Injection (dog) hair and dander 03/22/2019 J30.89 Other allergic [...] J30.81 Allergic rhinitis due to animal (cat) Kaia Mary M.D. (dog) hair and dander 03/17/2019 J30.81 Allergic rhinitis due to animal (cat) Allergy Injection (dog) hair and dander 03/17/2019 J30.89 Other allergic rhinitis Kaia Mary M.D. 03/17/2019 J30.89 Other allergic rhinitis Allergy Injection 03/08/2019 J30.1 Allergic rhinitis due to pollen Kaia Mary M.D. 03/08/2019 J30.1 Allergic rhinitis due to pollen Allergy Injection 03/08/2019 J30.2 Other seasonal allergic rhinitis Kaia Mary M.D. 03/08/2019 J30.2 Other seasonal allergic rhinitis Allergy Injection 03/08/2019 J30.81 Allergic rhinitis due to animal (cat) Kaia Mary M.D. (dog) hair and dander 03/08/2019 J30.81 Allergic rhinitis due to animal (cat) Allergy Injection (dog) hair and dander 03/08/2019 J30.89 Other allergic rhinitis Kaia Mary M.D. 03/08/2019 J30.89 Other allergic rhinitis Allergy Injection 03/02/2019 J30.1 Allergic rhinitis due to pollen Kaia Mary M.D. 03/02/2019 J30.1 Allergic rhinitis due to pollen Allergy Injection 03/02/2019 J30.2 Other seasonal allergic rhinitis Kaia Mary M.D. 03/02/2019 J30.2 Other seasonal allergic rhinitis Allergy Injection 03/02/2019 J30.81 Allergic rhinitis due to animal (cat) Kaia Mary M.D. (dog) hair and dander 03/02/2019 J30.81 Allergic rhinitis due to animal (cat) Allergy Injection (dog) hair and dander 03/02/2019 J30.89 Other allergic rhinitis Kaia Mary M.D. 03/02/2019 J30.89 Other allergic rhinitis Allergy Injection 02/23/2019 J30.1 Allergic rhinitis due to pollen Kaia Mary M.D. 02/23/2019 J30.1 Allergic rhinitis due to pollen Allergy Injection 02/23/2019 J30.2 Other seasonal allergic rhinitis Kaia Mary M.D. 02/23/2019 J30.2 Other seasonal allergic rhinitis Allergy Injection 02/23/2019 J30.81 Allergic rhinitis due to animal (cat) Kaia Mary M.D. (dog) hair and dander 02/23/2019 J30.81 Allergic rhinitis due to animal (cat) Allergy Injection (dog) hair and dander 02/23/2019 J30.89 Other allergic rhinitis Kaia Mary M.D. 02/23/2019 J30.89 Other allergic rhinitis Allergy Injection 02/17/2019 J30.1 Allergic rhinitis due to pollen Kaia Mary M.D. 02/17/2019 J30.1 Allergic rhinitis due to pollen Allergy Injection 02/17/2019 J30.2 Other seasonal allergic rhinitis aKia Mary M.D. 02/17/2019 J30.2 Other seasonal allergic rhinitis Allergy Injection 02/17/2019 J30.81 Allergic rhinitis due to animal (cat) Kaia Mary M.D. (dog) hair and dander 02/17/2019 J30.81 Allergic rhinitis due to animal (cat) Allergy Injection (dog) hair and dander 02/17/2019 J30.89 Other allergic rhinitis Kaia Mary M.D. 02/17/2019 J30.89 Other allergic rhinitis Allergy Injection 02/10/2019 J30.1 Allergic rhinitis due to pollen Kaia Mary M.D. 02/10/2019 J30.1 Allergic rhinitis due to pollen Allergy Injection 02/10/2019 J30.2 Other seasonal allergic rhinitis Kaia Mary M.D. 02/10/2019 J30.2 Other seasonal allergic rhinitis Allergy Injection 02/10/2019 J30.81 Allergic rhinitis due to animal (cat) Kaia Mary M.D. (dog) hair and dander 02/10/2019 J30.81 Allergic rhinitis due to animal (cat) Allergy Injection (dog) hair and dander 02/10/2019 J30.89 Other allergic rhinitis Kaia Mary M.D. 02/10/2019 J30.89 Other allergic rhinitis Allergy Injection 02/02/2019 J30.1 Allergic rhinitis due to pollen Kaia Mary M.D. 02/02/2019 J30.1 Allergic rhinitis due to pollen Allergy Injection 02/02/2019 J30.2 Other seasonal allergic rhinitis Kaia Mary M.D. 02/02/2019 J30.2 Other seasonal allergic rhinitis Allergy Injection 02/02/2019 J30.81 Allergic rhinitis due to animal (cat) Kaia Mary M.D. (dog) hair and dander 02/02/2019 J30.81 Allergic rhinitis due to animal (cat) Allergy Injection (dog) hair and dander 02/02/2019 J30.89 Other allergic rhinitis Kaia Mary M.D. 02/02/2019 J30.89 Other allergic rhinitis Allergy Injection 01/26/2019 J30.1 Allergic rhinitis due to pollen Kaia Mary M.D. 01/26/2019 J30.1 Allergic rhinitis due to pollen Allergy Injection 01/26/2019 J30.2 Other seasonal allergic rhinitis Kaia Mary M.D. 01/26/2019 J30.2 Other seasonal allergic rhinitis Allergy Injection 01/26/2019 J30.81 Allergic rhinitis due to animal (cat) Kaia Mary M.D. (dog) hair and dander 01/26/2019 J30.81 Allergic rhinitis due to animal (cat) Allergy Injection (dog) hair and dander 01/26/2019 J30.89 Other allergic rhinitis Kaia Mary M.D. 01/26/2019 J30.89 Other allergic rhinitis Allergy Injection Plan of Treatment Future Appointment(s):08/09/2019 11:15 am - Allergy Injection at [id number] 11:20 am - Kaia Mary M.D. at [place] Functional Status Description No Information Available Mental Status Description No Information Available Referrals Description No Information Available
--- OUTSIDE RECORDS SUMMARY | 2019-08-03 16:58 | XMS REPORT | Continuity of Care Document ---
:1980 External Reference #:[id number] Author Name Merlene Amin M.D. Address [address] [place] [address] Care Team Providers Name Role Phone CMC Utilization Community Education Specialist Care Team Information Student Life Coordinator [phone] - Health Educator Yusef Wiley MD - Neurological Care Team Information Student Life Coordinator [phone] Surgery Paolo Cantrell - Pain Care Team Information Student Life Coordinator [phone] [facility] Physical Care Team Information Student Life Coordinator Therapy - Physical Therapy Merlene Amin M.D. - Family Medicine Care Team Information Student Life Coordinator Problems Active Problems Provider Date Type 2 [...] Medications SIG Qnty Indications Ordering Date Provider Cyclobenzaprine HCL 1/2-1 tablet 30tabs M79.604 [facility], 08/02/2019 5mg every night at M.D. Tablets bedtime as needed Naproxen 1 by mouth twice 60tabs N94.6 [facility], 04/14/2019 500mg Tablets a day as needed M.D. Ipratropium [place] 2 sprays each 15ml J01.90 Shantelle Campbell 10/10/2018 0.06% nostril bid prn Finch, VISITOR SERVICES SPECIALIST Solution Imitrex 1 tablets by 14tabs Shantelle Campbell 10/10/2018 25mg Tablets mouth once for Finch, VISITOR SERVICES SPECIALIST migraine, may repeat in 2 hours if not resolved Ventolin HFA take 1-2 puffs 18gm J45.20 Krys Mckinney 07/06/2018 108(90Base) inhaled every 4 Adilson, VISITOR SERVICES SPECIALIST mcg/Act Aerosol hours as needed for wheezing or tightness in the chest Losartan Take One Tablet 90tabs I10 [facility], 06/03/2017 Potassium/Hydrochloroth By Mouth Every M.D. iazide Day 100-25mg Tablets Loratadine Take One Tablet 90tabs J06.9 Shantelle Campbell 04/01/2016 10mg Tablets By Mouth Every Finch, VISITOR SERVICES SPECIALIST Day Pantoprazole Sodium Take One Tablet 30tabs K21.9 [facility], 05/01/2015 20mg By Mouth Every M.D. Tablets DR Day Montelukast Sodium Take One Tablet 90tabs J30.2 Shantelle Campbell 07/07/2012 10mg By Mouth Every Finch, VISITOR SERVICES SPECIALIST Tablets Day Levocetirizine 1 by mouth at Unknown Dihydrochloride bedtime prn 5mg Tablets Breo Ellipta 1 puff a day Unknown 200-25mcg/Inh Aerosol History Medications Oseltamivir 1 by mouth twice 10caps J11.1 Juan Wilcox 05/26/2019 - Phosphate a day MD Jolynn 06/17/2019 75mg Capsules Doxycycline take one by mouth 14caps J01.90 Krys De Anda, 04/26/2019 - Monohydrate twice daily until VISITOR SERVICES SPECIALIST 05/26/2019 100mg gone Capsules Pneumovax 23 Shantelle Shannan 03/17/2019 - Finch, VISITOR SERVICES SPECIALIST 03/17/2019 25mcg/0.5ML Injection Cefdinir take 1 tablet 14caps R09.81 Sim McfarlandJan Prince, 02/16/2019 - 300mg twice a day for 7 M.D. 03/17/2019 Capsules days. Medrol dose-pack as 1pack R09.81 Erika Walkerbhart, 02/16/2019 - 4mg Tablets instructed/has [employer] 03/17/2019 tolerated medrol in the past Immunizations CPT Code Status Date Vaccine Lot # [id number] Given 03/17/2019 Pneumococcal Immunization [id number] Given 03/17/2019 Influenza Vac, Quadrivalent, Slit Virus, Im [id number] 07427 Given 02/22/2018 Influenza Vac, Quadrivalent, Slit Virus, Im [id number] 56408 Given 02/10/2017 Influenza Vac, [place], [place] [address] Given 02/12/2016 Tetanus And Diptheria Adult Preservative Free [id number] >[id number] 06589 Given 02/12/2016 Influenza Vac, Quadrivalent, Slit Virus, Im [id number] 12261 Given 02/01/2015 Influenza Vac, [place]riv[place], [place] [address] Given 02/01/2015 DO Not Use Split Influenza Virus Vaccine 36574 Given 03/24/2014 DO Not Use Split Influenza Virus Vaccine 62041 Given 02/13/2013 DO Not Use Split Influenza Virus Vaccine 75120 Given 07/26/2012 DO Not Use Split Influenza Virus Vaccine 57786 Given 01/30/2011 DO Not Use Split Influenza Virus Vaccine [id number] 38460 Given 03/01/2010 DO Not Use Split Influenza Virus Vaccine [id number] 43651 Given 04/11/2009 H1N1 Virus Vaccine [id number] 43373 Given 04/11/2009 H1N1 Immunization Intramuscular/Intranasal W Counseling 89278 Given 08/26/2005 Hepatitis B Immunization, adult dosage, for intramuscular use 42880 Given 06/12/2005 Tdap Tetanus, W Pertussis [id number] 78206 Given 11/26/2004 Hepatitis B Immunization, adult dosage, for intramuscular use 53352 Given 09/24/2004 Hepatitis B Immunization, adult dosage, for intramuscular use Vital Signs Date Vital Result Comment 08/02/2019 10:29am BP Systolic 144 mmHg BP Diastolic 90 mmHg Heart Rate 96 /min Body Temperature 97.7 F Respiratory Rate 20 /min Weight 283.00 lb 06/23/2019 10:23am BP Systolic 140 mmHg BP Diastolic 100 mmHg BP Systolic Recheck 122 mmHg VISITOR SERVICES SPECIALIST Recheck right arm seated BP Diastolic Recheck 78 mmHg VISITOR SERVICES SPECIALIST Recheck right arm seated Heart Rate 88 /min Body Temperature 97.9 F Respiratory Rate 20 /min Weight 277.38 lb Results Test Acquired Date Facility Test Result H/L Range Note Laboratory test 06/23/2019 [facility] Hemoglobin A1c 6.5 % % High 4.1-5.7 finding (607)- - (Fma) Laboratory test 05/10/2019 [facility] Cytology SEE RESULT 1 finding BELOW Comp Metabolic 04/07/2019 [facility] Sodium 137 mmol/L Normal 135-145 Panel Potassium 3.4 mmol/L Low 3.5-5.0 Chloride 100 [...] Egfr Non- 82.2 >60 Egfr 99.5 >60 2 Laboratory test finding 04/07/2019 [facility] Lipase 13 U/L Normal 11.0-82.0 C Reactive Protein 46.13 mg/L High <8.01 CBC Auto Diff 04/07/2019 [facility] White Blood Count 9.9 [...] Cells % 0.0 Laboratory test finding 04/07/2019 [facility] Lactic Acid 1.0 mmol/L Normal 0.5- 2.0 3 Urinalysis Profile 04/07/2019 [facility] Urine Color Straw Urine Appearance Clear Urine Specific Trion 1.016 Normal 1.010-1.030 Urine pH 6.0 Normal 5-9 Urine Urobilinogen Negative Negative Urine Ketones Negative Negative Urine Protein Negative Negative Urine Leukocytes Negative Negative Urine Blood Negative Negative Urine Nitrite Negative Negative Urine Bilirubin Negative Negative Urine Glucose Negative Negative Laboratory test 03/17/2019 [facility] Hemoglobin A1c 6.5 % High 4.1- 5.7 finding (607)- - (Fma) Ua - Non Micro 03/17/2019 [facility] medicine Appearance yellow (Fma) (607)- - Color clear Glucose, Urine (Fma/[facility]/CTX) neg Bilirubin neg Ketones neg SP Grav 1.020 Blood neg PH 5.5 Protein neg Urobil 0.2 Nitrite neg Leukocytes (Fma/[facility]) neg Lipid Profile 03/17/2019 Lyle Juan(a) Cholesterol 179 mg/dL 120- 200 Triglycerides 133 mg/dL 30-200 HDL Cholesterol 49 mg/dL 30-85 LDL (Calculated) 103 CALC 0-129 VLDL Cholesterol 27 mg/dL 0-50 HDL Risk Factor 3.7 CALC 0.0-4.4 Laboratory test 03/17/2019 Lyle Miller(a) TSH 1.57 mIU/L 0.50-6.00 finding CBC Auto Diff 03/15/2019 [facility] White Blood 7.5 10^3/uL [...] Red Blood Cells % 0.0 Inr/Protime 03/15/2019 [facility] Inr 0.91 Normal 0.82-1.09 4 Laboratory test finding 03/15/2019 [facility] Lactic Acid 1.3 mmol/L Normal 0.5- 2.0 5 Comp Metabolic Panel 03/15/2019 [facility] Sodium 138 mmol/L Normal [...] 98.0 >60 6 Laboratory test finding 03/15/2019 [facility] C Reactive Protein 12.38 mg/L High <8.01 HCG < 0.60 mIU/mL 7 Urinalysis Profile 03/14/2019 [facility] Urine Color Yellow Urine Appearance Cloudy Urine Specific Trion 1.025 Normal 1.010-1.030 Urine pH 5.0 Normal [...] Cell Present Abnormal Absent Urine Culture And Sensitivities 03/14/2019 [facility] Urine Culture SEE RESULT BELOW 8 1 SEE RESULT BELOW Name: MYNOR CORRIGAN : [address]: Lenora Sahu MD Acct: [id number] Unit: [id number] AGE: 39 Location: [facility] Re05/10/19 SEX: F Status: REG REF SPEC: [id number] ERIK: 05/10/19-[address] [facility] [address]: Lenora Sahu MD REQ: [id number] RECD: 05/10/19 STATUS: ITA FRANCOIS DR: Merlene Amin MD _ ORDERED: TP IMAGE ANALYS, HPV/Thin Prep COMMENTS: [id number] FINAL DIAGNOSIS Negative for Intraepithelial lesion or [...] CONTINUED ON NEXT PAGE DEPARTMENT OF PATHOLOGY, [address] [place] [address] Parag Benoit M.D. Director [facility] # [id number] CYTOLOGY PATIENT INFORMATION Patient Information: HPV: High risk HPV RNA testing regardless of pap results. Actual Specimen Date: 05/10/19 Last Menstrual Date: 04/28/19 Date of Last Specimen: 03/18/16 Signed by and Reported on: JAKOB Tanner (ASCP) [id number] This Pap test was evaluated with the assistance of the ThinPrep Test Imaging System. Due to cytologic findings at the retail attendant microscope, comprehensive manual rescreening by a Sole Layer Hand may be required. The Pap Smear is [...] years. END OF REPORT DEPARTMENT OF PATHOLOGY, [address] [place] [address] Parag Benoit M.D. Director [facility] # [id number] 2 Because ethnic data is not always readily [...] 15-29 5 Kidney failure <15 (or dialysis) 3 [facility] Severe Sepsis and Septic Shock Management Bundle Measure requires all lactic acids initially measuring >2.0 mmol/L be repeated. 4 Standard intensity warfarin therapeutic range: 2.0-3.0 [...] [address]: Jennifer Packer MD Acct: [id number] Unit: [id number] AGE: 39 Location: ED Re03/14/19 SEX: F Status: DEP ER SPEC: [id number] ERIK: 03/14/19 [facility] [address]: Jennifer Packer MD REQ: [id number] RECD: 03/14/19 STATUS: COMP [facility] DR: Merlene Amin MD [facility] _ SOURCE: URINE SPDESC: ORDERED: Urine Culture Procedure Result Reported Site Urine Culture Final 03/16/19- 1300 ML Organism 1 STREP GROUP B [place] Count 1-10,000 (Few) CFU/ML Organism 2 NORMAL JUAN [place] Count 1-10,000 (Few) CFU/ML Susceptibility testing of penicillins and other B-lactams approved by FDA for treatment of Streptococcus pyogenes (Group A Strep) and Streptococcus agalactiae (Group B Strep) is not necessary for clinical purposes and need not be done routinely, since as with vancomycin, resistant strains have not been recognized. (CLSI I101-G47;p.66) Positive isolates will be saved for one week. Please call the Microbiology Laboratory if further susceptibility testing is needed. * ML - Main Lab . END OF REPORT DEPARTMENT OF PATHOLOGY, [address] [place] [address] Parag Benoit M.D. Director [facility] # [id number] Procedures Date Code Description Status 06/23/2019 59159 Finger Or Heel Stick Completed 05/26/2019 00502 Pulse Oximetry Completed 05/15/2014 [id number] Mammogram Completed 01/07/2007 [id number] Mammogram Completed 07/09/2006 [id number] Mammogram Completed Medical Devices Description No Information Available Encounters Type Date Location Provider Dx Diagnosis Office Visit 06/23/2019 [facility] Shantelle Campbell I10 Essential (primary ) 10:30a JANES Finch hypertension E66.01 Morbid (severe) obesity due to excess calories E11.9 Type 2 diabetes mellitus without complications J45.41 Moderate persistent asthma with (acute) exacerbation Office Visit 05/26/2019 3:30p Main Office Juan Wilcox J11.1 Flu due to MD Jolynn unidentified influenza virus w oth resp manifest Office Visit 04/26/2019 9:30a Main Office Krys Mckinney M79.645 Pain in left Adilson, VISITOR SERVICES SPECIALIST finger(s) J01.90 Acute sinusitis, unspecified Office Visit [...] [facility] Erika R09.81 Nasal congestion Steven, [employer]PERINTENDENT [employer]ICATION[employer] R51 Headache J01.90 Acute sinusitis, unspecified E66.01 Morbid (severe) obesity due to excess calories Assessments Date Code Description Provider 08/02/2019 M79.604 Pain in right leg Merlene Amin M.D. 06/23/2019 I10 Essential (primary) hypertension Shantelle Finch NP 06/23/2019 E66.01 Morbid (severe) obesity due to excess Shantellebud Finch NP calories 06/23/2019 E11.9 Type 2 diabetes mellitus without Shantelle Finch VISITOR SERVICES SPECIALIST complications 06/23/2019 J45.41 Moderate persistent asthma with (acute) Shantellebud Finch , VISITOR SERVICES SPECIALIST exacerbation 05/26/2019 J11.1 Influenza due to unidentified influenza Juan Neil MD virus with other respiratory manifestations 04/26/2019 M79.645 Pain in left finger(s) Krys De Anda, JANES 04/26/2019 J01.90 Acute sinusitis, unspecified Krys De Anda, JANES 04/14/2019 N94.6 Dysmenorrhea, unspecified Shantelle Finch, JANES 04/14/2019 I10 Essential (primary) hypertension Shantelle Finch NP 03/17/2019 E66.01 Morbid (severe) obesity due to excess Shantelle Finch NP calories 03/17/2019 E11.9 Type 2 diabetes mellitus without Shantelle Finch NP complications 03/17/2019 I10 Essential (primary) hypertension Shantelle Finch NP 03/17/2019 R10.32 Left lower quadrant pain Shantelle Finch NP 03/17/2019 Z23 Encounter for immunization Shantelle Finch NP 02/16/2019 R09.81 Nasal congestion Erika Harris, [facility] 02/16/2019 R51 Headache Erikajabari Harris, [facility] 02/16/2019 J01.90 Acute sinusitis, unspecified Erika Steven, [employer] 02/16/2019 E66.01 Morbid (severe) obesity due to excess Erika Steven, [facility] calories Plan of Treatment Future Appointment(s):09/22/2019 9:00 am - Sh[facility]elle [facility]ch [facility]08/02/2019 - Merlene Amin M.D.M79.604 Pain in right legNew Medication: Cyclobenzaprine HCL 5 mg - 1/2-1 tablet every night at bedtime as neededComments :Take medications as directed. Can use heat or ice on area 15 minutes on/off. Stretching exercises are recommended twice a day. Call if symptoms aren't improved/worsen in next 1-2 weeks. possible muscle cramp of lower legAllComments :Medication Management Patient Understands medications she's taking? Yes No Are there Barriers to Adherence? Yes No Has the patient been asked about herbal supplements and therapies, and OTC meds? Yes No Functional Status Description No Information Available Mental Status Description No Information Available Referrals Description No Information Available
[2019-08-03 17:59] LABS: ABS Basophils 0.1 10^3/ul (0-0.2); ABS Eosinophils 0.1 10^3/ul (0-0.6); ABS Lymphocytes 1.8 10^3/ul (1.0-4.8); ABS Monocytes 0.6 10^3/ul (0-0.8); ABS Neutrophils 4.9 10^3/ul (1.5-7.7); Hematocrit 36 % (35-47); Hemoglobin 12.5 g/dL (12.0-16.0); Mean Corpuscular HGB Conc 34 g/dL (31-36); Mean Corpuscular Hemoglobin 28 pg (27-31); Mean Corpuscular Volume 82 fL (80-97); Mean Platelet Volume 8.7 fL (7.4-10.4); Platelet Count 316 10^3/uL (150-450); Red Blood Count 4.43 10^6 /uL (3.70-4.87); Red Cell Distribution Width 15 % (10-15); White Blood Count 7.5 10^3/uL (3.5-10.8)
[2019-08-03 18:00] LABS: Urine Appearance Cloudy; Urine Bilirubin Negative (Negative); Urine Blood Negative (Negative); Urine Color Yellow; Urine Glucose Negative (Negative); Urine Ketones Negative (Negative); Urine Nitrite Negative (Negative); Urine Protein Negative (Negative); Urine Specific Gravity 1.016 (1.010-1.030); Urine Urobilinogen Negative (Negative)
[2019-08-03 18:17] LABS: ALT 36 U/L (7-52); AST 22 U/L (13-39); Albumin 4.1 g/dL (3.2-5.2); Albumin/Globulin Ratio 1.5 (1-3); Alkaline Phosphatase 46 U/L (34-104); Anion Gap 8 mmol/L (2-11); BUN/Creatinine Ratio 15.6 (8-20); Blood Urea Nitrogen 12 mg/dL (6-24); C Reactive Protein 20.71 mg/L (<8.01); CO2 Carbon Dioxide 28 mmol/L (22-32); Calcium 9.2 mg/dL (8.6-10.3); Chloride 101 mmol/L (101-111); EGFR Non-African American 83.5 (>60); Globulin 2.8 g/dL (2-4); Glucose 154 mg/dL (70-100); Potassium 3.4 mmol/L (3.5-5.0); Sodium 137 mmol/L (135-145); Total Protein 6.9 g/dL (6.4-8.9)
[2019-08-03 18:23] LABS: HCG Pregnancy < 0.60 mIU/mL
--- NOTE | 2019-08-03 20:16 | ED ---
GI/ HPI - HPI Summary HPI Summary: 39 year old female presents with back pain today. She states the pain started while she was here with her dad. States that it radiates to her right side of back and radiates the front. She denies any vomiting with nausea. No fevers or chills. States has a history of kidney stone. She has not had this pain in a while. She denies any previous abdominal surgeries. Hasn't taken anything for her symptoms. States that she is has worsening frequency but is on her period and that occurs with such. She denies any dysuria. She denies any loss of bowel or bladder. No saddle anesthesias. - History of Current Complaint Chief Complaint: EDFlankPain Time Seen by Provider: 08/03/19 19:49 Stated Complaint: KIDNEY STONE PER PT Hx Last Menstrual Period: 1 month ago, unsure of date, had tubal Pain Intensity: 10 - Allergy/Home Medications Allergies/Adverse Reactions: Allergies Allergy/AdvReac Type Severity Reaction Status Date / Time metoprolol Allergy Severe Rash Verified 08/03/19 16:53 potassium Allergy Severe Difficulty Verified 08/03/19 16:53 Breathing shrimp Allergy Severe Swelling Verified 08/03/19 16:53 clindamycin Allergy Intermediate Rash Verified 08/03/19 16:53 Penicillins Allergy Intermediate Hives Verified 08/03/19 16:53 Sulfa (Sulfonamide Allergy Intermediate Rash Verified 08/03/19 16:53 Antibiotics) quetiapine [From Seroquel] Allergy Unknown Unknown Verified 08/03/19 16:53 Reaction Details prednisone AdvReac Intermediate Palpitation Verified 08/03/19 16:53 s bandaid Allergy Severe Blisters Uncoded 08/03/19 16:53 Home Medications: Home Medications Pantoprazole TAB (NF) [Protonix TAB (NF)] 20 mg PO QAM 10/01/15 [History Confirmed 04/07/19] Beclomethasone Dipropionate [Qnasl] 80 mcg BOTH NARES BEDTIME 10/14/16 [History Confirmed 04/07/19] Montelukast Sodium TAB* [Singulair 10 MG TAB*] 10 mg PO BEDTIME 10/14/16 [ History Confirmed 04/07/19] Acetaminophen [Acetaminophen Extra Strength] 500 - 1,000 mg PO Q6H PRN 07/05/18 [History Confirmed 04/07/19] Albuterol 2.5MG/3ML (0.083%)* [Ventolin 2.5 MG/3 ML NEB.CARRILLO*] 2.5 mg INH Q6H PRN 07/05/18 [History Confirmed 04/07/19] Albuterol HFA INHALER* [Ventolin HFA Inhaler*] 1 - 2 puff INH Q4H PRN 07/05/18 [ History Confirmed 04/07/19] Fluticasone/Vilanterol MDI(NF) [Breo Ellipta MDI 200/25(NF)] 1 puff INH BEDTIME 07/05/18 [History Confirmed 04/07/19] LevoCETirizine TAB (NF) [Xyzal TAB (NF)] 5 mg PO BEDTIME 07/05/18 [History Confirmed 04/07/19] Losartan/HCTZ 100/25 (NF) [Hyzaar 100/25 (NF)] 1 tab PO QAM 07/05/18 [History Confirmed 04/07/19] Ibuprofen TAB* [Advil TAB*] 200 - 600 mg PO Q6H PRN 04/07/19 [History Confirmed 04/07/19] LoraTADine TAB(NF) [Claritin 10 MG TAB(NF)] 10 mg PO DAILY 04/07/19 [History Confirmed 04/07/19] Montelukast Sodium TAB* [Singulair TAB*] 10 mg PO DAILY 04/07/19 [History Confirmed 04/07/19] Multivitamins/Minerals TAB* [Theragran/minerals TAB*] 1 tab PO DAILY 04/07/19 [ History Confirmed 04/07/19] SUMAtriptan TAB* [Imitrex TAB*] 25 mg PO DAILY PRN 04/07/19 [History Confirmed 04/07/19] Lidocaine PATCH 5%* [Lidoderm 5% Patch*] 1 patch TRANSDERM DAILY #5 patch [Rx] PMH/Surg Hx/FS Hx/Imm Hx Endocrine/Hematology History: Reports: Hx Anemia - start of- no treatment Denies: Hx Diabetes - PRE DIABETIC, Hx Sickle Cell Disease, Hx Thyroid Disease Cardiovascular History: Reports: Hx Hypertension Denies: Hx Hypercholesterolemia, Hx Pacemaker/ICD, Hx Peripheral Vascular Disease Respiratory History: Reports: Hx Asthma, Hx Seasonal Allergies Denies: Hx Chronic Obstructive Pulmonary Disease (COPD) GI History: Reports: Hx Gastroesophageal Reflux Disease - TUMS Denies: Hx Crohn's Disease, Hx Diverticulosis, Hx Gastrointestinal Bleed, Hx Hiatal Hernia, Hx Irritable Bowel, Hx Obstructive Bowel, Hx Ulcer, Other GI Disorders History: Reports: Hx Kidney Stones - 2010, Other Problems/Disorders - pcos Denies: Hx Renal Disease Musculoskeletal History: Reports: Hx Tendonitis - IN LEFT ANKLE/Foot, Other Musculoskeletal History - neck problems - herniated cervical disc Denies: Hx Arthritis, Hx Osteoporosis Sensory History: Denies: Hx Contacts or Glasses, Hx Hearing Aid Opthamlomology History: Denies: Hx Contacts or Glasses Neurological History: Reports: Hx Migraine, Other Neuro Impairments/Disorders - PAIN CLINIC PT Denies: Hx Headaches, Hx Seizures, Hx Transient Ischemic Attacks (TIA) Psychiatric History: Reports: Hx Anxiety Denies: Hx Depression, Hx Panic Disorder - Cancer History Hx Hematologic Symptoms: No Hx Chemotherapy: No Hx Radiation Therapy: No Hx Palliative Cancer Treatment: No - Surgical History Surgery Procedure, Year, and Place: tubes in ears as child. LEFT ovary removed ; TUBAL LIGATION, HX OF 2 C-SECTIONS. appendix 2002. gallbladder 2002. tubal. Left knee - MMT REPAIR. EUA L knee. R thumb - pin for torn ligaments. tonsillectomy. R wrist 2010 Hx Anesthesia Reactions: No - Immunization History Date of Tetanus Vaccine: utd Date of Influenza Vaccine: fall 2016 Immunizations Up to Date: Yes Infectious Disease History: No Infectious Disease History: Denies: Hx Clostridium Difficile, Hx Hepatitis, Hx Human Immunodeficiency Virus (HIV), Hx of Known/Suspected MRSA, Hx Shingles, Hx Tuberculosis, Hx Known/ Suspected VRE, Hx Known/Suspected VRSA, History Other Infectious Disease, Traveled Outside the [place] in Last 30 Days - Family History Known Family History: Positive: Other - daughter - neurological hearing loss Negative: Cardiac Disease, Diabetes - Social History Alcohol Use: None Hx Substance Use: No Substance Use Type: Reports: None Hx Tobacco Use: No Smoking Status (MU): Never Smoked Tobacco Have You Smoked in the Last Year: No Review of Systems Negative: Fever Negative: Chest Pain Negative: Shortness Of Breath Positive: Abdominal Pain, Nausea. Negative: Vomiting, Diarrhea Positive: flank pain. Negative: dysuria All Other Systems Reviewed And Are Negative: Yes Physical Exam Triage Information Reviewed: Yes Vital Signs On Initial Exam: Initial Vitals Temp Pulse Resp BP Pulse Ox 98.3 F 118 20 175/112 99 08/03/19 16:51 08/03/19 16:51 08/03/19 16:51 08/03/19 16:51 08/03/19 16:51 Vital Signs Reviewed: Yes Appearance: Positive: Well-Appearing Skin: Positive: Warm, Dry Head/Face: Positive: Normal Head/Face Inspection Eyes: Positive: Normal, Conjunctiva Clear ENT: Positive: Pharynx normal Respiratory/Lung Sounds: Positive: Clear to Auscultation, Breath Sounds Present Cardiovascular: Positive: Normal, RRR Abdomen Description: Positive: Nontender, Soft. Negative: CVA Tenderness (R), CVA Tenderness (L) Bowel Sounds: Positive: Present Musculoskeletal: Positive: Strength/ROM Intact - back, Other - tenderness lower right side of back, sensation grossly intact, good pulses Neurological: Positive: Normal Psychiatric: Positive: Normal Procedures - Sedation Patient Received Moderate/Deep Sedation with Procedure: No Diagnostics - Vital Signs Vital Signs Temp Pulse Resp BP Pulse Ox 08/03/19 18:55 98.7 F 107 18 136/95 99 08/03/19 16:51 98.3 F 118 20 175/112 99 - Laboratory Lab Results: Lab Results 08/03/19 08/03/19 08/03/19 Range/Units 17:35 17:54 17:54 WBC 7.5 (3.5-10.8) 10^3/uL RBC 4.43 (3.70-4.87) 10^6 /uL Hgb 12.5 (12.0-16.0) g/dL Hct 36 (35-47) % MCV 82 (80-97) fL MCH 28 (27-31) pg MCHC 34 (31-36) g/dL RDW 15 (10-15) % Plt Count 316 (150-450) 10^3/uL MPV 8.7 (7.4-10.4) fL Neut % (Auto) 65.7 % Lymph % (Auto) 24.0 % [place] % (Auto) 8.4 % Eos % (Auto) 1.0 % Baso % (Auto) 0.9 % Absolute Neuts (auto) 4.9 (1.5-7.7) 10^3/ul Absolute Lymphs (auto) 1.8 (1.0-4.8) 10^3/ul Absolute Monos (auto) 0.6 (0-0.8) 10^3/ul Absolute Eos (auto) 0.1 (0-0.6) 10^3/ul Absolute Basos (auto) 0.1 (0-0.2) 10^3/ul Absolute Nucleated RBC 0.0 10^3/ul Nucleated RBC % 0.0 Sodium 137 (135-145) mmol/L Potassium 3.4 L (3.5-5.0) mmol/L Chloride 101 (101-111) mmol/L Carbon Dioxide 28 (22-32) mmol/L Anion Gap 8 (2-11) mmol/L BUN 12 (6-24) mg/dL Creatinine 0.77 (0.51-0.95) mg/dL Est GFR ( Amer) 101.0 (>60) Est GFR (Non-Af Amer) 83.5 (>60) BUN/Creatinine Ratio 15.6 (8-20) Glucose 154 H (70-100) mg/dL Calcium 9.2 (8.6-10.3) mg/dL Total Bilirubin 0.30 (0.2-1.0) mg/dL AST 22 (13-39) U/L ALT 36 (7-52) U/L Alkaline Phosphatase 46 (34-104) U/L C-Reactive Protein 20.71 H (<8.01) mg/L Total Protein 6.9 (6.4-8.9) g/dL Albumin 4.1 (3.2-5.2) g/dL Globulin 2.8 (2-4) g/dL Albumin/Globulin Ratio 1.5 (1-3) Lipase 19 (11.0-82.0) U/L Beta HCG, Quant < 0.60 mIU/mL Urine Color Yellow Urine Appearance Cloudy Urine pH 5.0 (5-9) Ur Specific [place] 1.016 (1.010-1.030) Urine Protein Negative (Negative) Urine Ketones Negative (Negative) Urine Blood Negative (Negative) Urine Nitrate Negative (Negative) Urine Bilirubin Negative (Negative) Urine Urobilinogen Negative (Negative) Ur Leukocyte Esterase Negative (Negative) Urine Glucose Negative (Negative) Result Diagrams: 08/03/19 17:54 08/03/19 17:54 Lab Statement: Any lab studies that have been ordered have been reviewed, and results considered in the medical decision making process. GIGU Course/Dx - Course Course Of Treatment: 39 year old female presents with back pain today. She states the pain started while she was here with her dad. States that it radiates to her right side of back and radiates the front. She denies any vomiting with nausea. No fevers or chills. States has a history of kidney stone. She has not had this pain in a while. She denies any previous abdominal surgeries. Hasn't taken anything for her symptoms. States that she is has worsening frequency but is on her period and that occurs with such. She denies any dysuria. She denies any loss of bowel or bladder. No saddle anesthesias. On exam has no CVA tenderness. Tenderness lower back. Neurovascularly intact. CT abdomen shows no stone. Urine shows no infection. wbc normal. Discussed likely muscular. Patient just placed on muscle relaxers so told to continue such. Told to follow with primary. Patient understands agrees the plan. - Diagnoses Differential Diagnoses - Female: Pyelonephritis, Urinary Tract Infection, Ureteral Calculi Provider Diagnoses: Back pain Discharge ED - Sign-Out/Discharge Documenting (check all that apply): Patient Departure - Discharge Plan Condition: Good Disposition: HOME Prescriptions: Lidocaine PATCH 5%* [Lidoderm 5% Patch*] 1 patch TRANSDERM DAILY #5 patch Patient Education Materials: Back Pain (ED) Referrals: Merlene Amin MD [Primary Care Provider] - Additional Instructions: Apply lidocaine patches to area for up to 12 hours in one 24 hour period Use ibuprofen or Tylenol for pain every 6 hours ice/heat area, move as much as possible Follow up with primary within 5 days Return to ED if develop any new or worsening symptoms - Billing Disposition and Condition Condition: GOOD Disposition: Home
[2019-08-03] MEDS ORDERED: Ketorolac INJ* 30 MG/ML 1 ML VIAL IM ONE (20:17)
[2019-08-03] MEDS ORDERED: Lidocaine PATCH 5%* 1 PATCH TRANSDERM ONE (20:17)
[2019-08-03] MEDS ORDERED: Ondansetron ODT TAB* 4 MG PO ONE (20:26)
[2019-08-03 20:45] VITALS: BP 132/88
[2019-08-03] MEDS ORDERED: Lidocaine Patch REMOVE* 1 NOTE MISC SCH (21:00)
[2019-08-04] MEDS ORDERED: Lidocaine Patch REMOVE* 1 NOTE MISC PATCH OFF SCH (08:00)
== END 2019-08-03 20:45 | disposition home or self-care (01) ==
LOC: ED 16:46
DX: M54.9 Dorsalgia, unspecified (principal); R10.9 Unspecified abdominal pain; R11.0 Nausea; K21.9 Gastro-esophageal reflux disease without esophagitis; I10 Essential (primary) hypertension; Z88.2 Allergy status to sulfonamides; Z88.0 Allergy status to penicillin; Z87.442 Personal history of urinary calculi
CPT/HCPCS: 36415; 74176; 80053; 81003; 83690; 84702; 85025; 86140; 96372; 99282; A9270-GY; J1885